=== PATIENT | female | born 1940 | race Caucasian/White ===

== ENCOUNTER 2016-06-06 12:38 | Inpatient (IN) | payer MEDICARE, OTHER ==
[~2016-06-06] VITALS: Ht 167.6 cm; Wt 68.3 kg
[2016-06-06] VITALS (15 sets, daily range): BP systolic 110–188; BP diastolic 51–86; PULSE 69–70; RESP 12–24; TEMP 97.6–98.3; O2SAT 90–98; Ht 167.6 cm; Wt 68.3 kg
[~2016-06-06 12:38] MED LIST: ALEN70TA48 PO; FURO20TA4 PO; LEVO150T9 PO; LISI-114 PO; METF500T4 PO; METO-279 PO; NORMAL SALINE 1,000 ML IV SCH; POTA20TA87 PO; WARF2.5T73 PO
--- NOTE | 2016-06-06 12:55 | NUR ---
ADMIT AMBULATORY TO ROOM 120 WITH FAMILY. O2 RA. PATIENT DOES NOT APPEAR TO BE IN ANY DISTRESS AT THIS TIME.
[2016-06-06] MEDS ORDERED: LISI10TA7 PO (13:33)
[2016-06-06 13:59] LABS: BASOPHILS % (AUTO) 0.3 % (0-2); EOSINOPHILS # (AUTO) 0.1 T/MM3 (0-0.5); HCT - HEMATOCRIT 45.1 % (36-46); HGB - HEMOGLOBIN 14.3 GM/DL (12-16); IMMATURE GRANULOCYTE # (AUTO) 0.01 T/MM3 (0.00-0.03); IMMATURE GRANULOCYTE % (AUTO) 0.3 % (0.0-0.5); LYMPHOCYTES # (AUTO) 0.6 T/MM3 (1-4.8); LYMPHOCYTES % (AUTO) 16.6 % (23-45); MEAN CORPUSCULAR HGB 26.9 UUG (26-34); MEAN CORPUSCULAR HGB CONC(MCHC 31.7 GM/DL (31-37); MEAN CORPUSCULAR VOLUME 84.8 UM3 (80-100); MEAN PLATELET VOLUME 11.2 UM3 (9.4-12.4); MONOCYTES # (AUTO) 0.7 T/MM3 (0-0.8); MONOCYTES % (AUTO) 19.1 % (0-9.0); NEUTROPHILS #(AUTO)-ABSOLUTE 2.2 T/MM3 (1.8-7.7); NEUTROPHILS % (AUTO) 61.7 % (33-66); RED BLOOD COUNT 5.32 M/MM3 (4.00-5.20); WBC - WHITE BLOOD COUNT 3.5 T/MM3 (4.5-11.0)
[2016-06-06 14:03] LABS: INR 1.24 (0.76-1.04); PROTHROMBIN TIME 13.5 SEC (9.31-12.49)
[2016-06-06 14:09] LABS: ANION GAP 12 MEQ/L (5-15); BUN/CREATININE RATIO 23 RATIO (6-26); CALCIUM 8.4 MG/DL (8.4-10.2); CHLORIDE 104 MEQ/L (98-107); CO2 - CARBON DIOXIDE 25 MEQ/L (22-30); CREATININE 0.7 MG/DL (0.7-1.2); GLOMERULAR FILTRATION RATE 82; GLUCOSE 79 MG/DL (65-110); SODIUM 141 MEQ/L (134-144)
--- NOTE | 2016-06-06 14:20 | NUR ---
CM THIS WORKER MET WITH PT AT THIS TIME. PT LAYING IN BED. SISTER AND BROTHER IN LAW AT BEDSIDE. PT REPORTED LIVING WITH SON IN [place]. DENIED NEEDS AT THIS TIME. PLANNING TO RETURN HOME. HAS BEEN TAKING MEDICATIONS. SON WILL PLAN TO TRANSPORT HOME AFTER PROCEDURE. THIS WORKER LEFT CONTACT INFORMATION FOR PT AND ENCOURAGED PT TO CONTACT THIS WORKER WITH ANY NEEDS.
[2016-06-06] MEDS ORDERED: WATER FOR INJECTION 20 ML ONE (16:05)
[2016-06-06] MEDS ORDERED: CEFAZOLIN 1 GRAM INJECTION ONE (16:05)
[2016-06-06] MEDS ORDERED: MIDAZOLAM 5mg/5ml INJECTION ONE (16:06)
[2016-06-06] MEDS ORDERED: FENTANYL 100mcg/2ml INJECTION ONE (16:06)
[2016-06-06] MEDS ORDERED: SALINE FLUSH 10ml SYRINGE ONE (16:06)
[2016-06-06] MEDS ORDERED: LIDOCAINE 1% (10mg/ml) 30ml SDV ONE (16:07)
[2016-06-06] MEDS ORDERED: BACITRACIN INJ. 50,000 UNITS VL ONE (16:07)
--- NOTE | 2016-06-06 16:15 | NUR ---
OFF UNIT OFF UNIT VIA CART WITH CUT OFF SAW OPERATOR STAFF FOR PROCEDURE. O2 RA. IVF INFUSING AT 75 ML/HR. FAMILY ACCOMPANIED TO CUT OFF SAW OPERATOR WAITING AREA.
[2016-06-06] MEDS ORDERED: MAG-AL + SIM LIQUID 30 ML UDC PO PRN (16:45)
[2016-06-06] MEDS ORDERED: BISACODYL 5 MG E.C. TABLET PO PRN (16:45)
[2016-06-06] MEDS ORDERED: ACETAMINOPHEN 325 MG TABLET PO PRN (16:45)
--- NOTE | 2016-06-06 17:15 | NUR ---
RETURN TO UNIT RETURN TO UNIT VIA CART FROM CHARTERED WEALTH MANAGER. PATIENT ASSISTED OFF CART WITH NURSING STAFF X2. PATIENT AMBULATES TO BATHROOM THEN BACK TO BED WITH ASSIST X2 FROM NURSING STAFF. O2 2L PER NC. IV LOCK IN PLACE. FAMILY AT BEDSIDE. DRESSING TO RIGHT CHEST CLEAN, DRY AND INTACT. DENIES PAIN AT INCISION SITE. DENIES OTHER NEEDS AT THIS TIME. CALL LIGHT WITHIN REACH, SIDE RAILS UP X2, BED ALARM ACTIVATED.
[2016-06-06] MEDS: CEFAZOLIN 1 G in NORMAL SALINE 100 ML IV SCH (19:24)
[2016-06-07] VITALS (9 sets, daily range): BP systolic 145–182; BP diastolic 65–79; PULSE 68–78; RESP 18–30; TEMP 97.7–98.9; O2SAT 90–97
--- NOTE | 2016-06-07 02:34 | NUR ---
Chart Check 24 hour chart check completed
[2016-06-07] MEDS: CEFAZOLIN 1 G in NORMAL SALINE 100 ML IV SCH (02:43)
--- NOTE | 2016-06-07 05:32 | NUR ---
shift summary pt has slept off and on during the night, pt states she has to void "about every hour" while at home. pt doing the same while here as well. "my best sleep is from 5am-7am". pt on 1.5L o2 via nc with o2 sats in low 90s. pt up with assist x one to br. hob elevated to 30 degrees. ivl in left forearm. telemetry is 100% paced. dressing to left upper chest c/d/i. bed locked and low, bed alarm on. call light within reach. will continue to monitor. Addendum: 06/07/16 at 0540 by DAVID VUONG RN pt denies pain/n/v/soa.
--- NOTE | 2016-06-07 08:24 | DI ---
INDICATION: ITS.REASON: PPM PROCEDURE: CHEST 2-VIEWS UPRIGHT (PA \T\ LAT) Encounter: Initial COMPARISON: June 06, 2016 at 1733 FINDINGS: Left cardiac pacemaker defibrillator with right atrial, right ventricular and coronary sinus leads appear intact. No visible pneumothorax. Mild interstitial prominence similar to the comparison study. No new consolidative process. Heart size and mediastinal contours are unchanged. Pulmonary vascularity is stable. Impression: Stable appearance of the left cardiac pacemaker without evidence of complication. .
--- NOTE | 2016-06-07 08:30 | NUR ---
FALL PATIENT IN RESTROOM WITH NURSE SERGO DERAS AT THIS TIME. PATIENT STATES SHE TURNED AROUND WHILE STANDING IN FRONT OF THE TOILET TO PULL DOWN HER PANTS AND SHE LOST HER FOOTING AND FELL. NURSE SERGO DERAS CALLED THIS RN INTO PATIENT'S BATHROOM. THIS RN SAW PATIENT ON FLOOR WITH MAIA HIGHTOWER AT PATIENT'S SIDE. PATIENT DID NOT HAVE A GAIT BELT ON. PATIENT STATES SHE DID NOT HIT HER HEAD. PATIENT STATES SHE FELL ON HER LEFT HIP AND THAT HER LEFT HIP IS "SORE". WITH ASSISTANCE OF FOUR NURSING STAFF, PATIENT ASSISTED FROM BATHROOM FLOOR TO FEET. PATIENT VOIDED WHILE IN RESTROOM. THIS RN NOTED HEMATURIA IN THE HAT. PATIENT'S URINE WAS PREVIOUSLY CLEAR YELLOW. PATIENT FAVORING RIGHT LEG. THIS RN INQUIRED WHETHER IT WAS LEFT HIP OR RIGHT HIP THAT WAS "SORE". PATIENT STATES AGAIN THAT IT IS HER LEFT LEG. VITALS OBTAINED WHEN PATIENT WAS BACK TO BED. PATIENT SLIGHTLY HYPERTENSIVE. PATIENT STATES SHE IS NERVOUS FROM THE FALL. KENNETH VARGAS APRN NOTIFIED OF PATIENT'S FALL AND HEMATURIA. NEW ORDERS RECEIVED. WILL CONTINUE TO MONITOR.
--- NOTE | 2016-06-07 08:38 | DI ---
Indication: ITS.REASON: PPM PROCEDURE: CHEST 1 VIEW: Encounter: Initial Comparison: July 30, 2012 Findings: Left triple lead cardiac pacemaker defibrillator is again seen. No evidence of lead fracture or discontinuity. No visible pneumothorax. Chronic interstitial markings in the lungs could be due to pulmonary fibrosis or vascular congestion. Heart size and mediastinal contours are stable. Impression: No pneumothorax. .
--- NOTE | 2016-06-07 10:01 | DI ---
Indication: ITS.REASON: FALL with left hip pain PROCEDURE: PELVIS W/ 2 VIEW BILAT. HIPS: Encounter: Initial Comparison: None Findings: AP pelvis: There is a minimally displaced and impacted fracture of the subcapital left femoral neck better seen on the dedicated left hip views. No additional acute fracture or dislocation seen. Bony demineralization. Mild degenerative change in the visualized lower lumbar spine with chronic compression deformities. AP and frog-leg lateral views of the left hip: Minimally impacted and slightly displaced fracture of the subcapital left femoral neck. No additional acute fracture or dislocation seen. AP and frog-leg lateral views of the right hip: There is no acute fracture, dislocation or malalignment identified. Impression: Closed posttraumatic left femoral neck fracture. .
[2016-06-07] MEDS: MINOCYCLINE 100 MG CAPSULE PO SCH ×2 (10:05→21:29)
--- NOTE | 2016-06-07 10:09 | DI ---
Indication: ITS.REASON: hematuria, post fall PROCEDURE: CT ABD/PELVIS W/O CONTRAST: Encounter: Initial Comparison: Pelvis and hip radiographs from the same time and CT lumbar spine dated October 22, 2014 Technique: Axial CT images were performed through the abdomen and pelvis without intravenous contrast. Coronal and sagittal two-dimensional reformats. Automated Exposure Control and Iterative Reconstruction dose reducing techniques were utilized. Findings: Fibrosis in the lung bases with groundglass opacities suggesting mild vascular congestion, edema or atypical infection. Very nodular cirrhotic liver with atrophy of the left lobe. There is also pneumobilia present in the left lobe that could relate to prior biliary intervention such as an ERCP. The spleen is not enlarged. Pancreas is grossly normal. The adrenal glands are normal. Unenhanced kidneys show no stone disease or gross hydronephrosis. Splenic artery calcifications. Possibly duplicated right renal collecting system. No ureteral stones seen. The bladder appears normal. No significant free pelvic fluid. No evidence of a bowel obstruction. Moderate stool in the colon. There is some edema in the left lower abdomen and flank subcutaneous tissues probably due to recent trauma. There is also some edema within the left hip and gluteal musculature probably due to contusion. No free intraperitoneal air seen. Bone windows show a left femoral neck fracture as seen on the comparison radiographs. No additional displaced fracture seen. Chronic appearing right lateral and posterior lower rib fractures. Multiple old compression fractures involving T12 and L3 through L5. Impression: 1. Left femoral neck fracture. No acute intraabdominal or pelvic hemorrhage. 2. Severe cirrhosis. .
--- NOTE | 2016-06-07 11:32 | PNPDOC ---
BOUBACAR ARELLANO PIGSKIN TRIMMER 06/07/16 1111: Subjective Date DATE: 06/07/16 TIME: 11:06 Subjective Maryann is a 75 y/o female well known to Dr. Ochoa. She was admitted 06/06/16 for a generator change of her permanent pacemaker. This morning, she was up in the bathroom and fell. Did not hit her head or lose consciousness. Was able to get up and walk back to bed. Was not having any palpitations or dizziness at that time. Objective Vital Signs Vital signs Vital Signs 06/07/16 06/07/16 06/07/16 00:00 04:11 08:00 Temp 97.7 98.9 97.7 Pulse 70 69 69 Resp 27 22 30 B/P 164/70 145/65 148/65 Pulse Ox 94 91 92 O2 Delivery Nasal Cannula Nasal Cannula Nasal Cannula O2 Flow Rate 1.50 1.50 1.50 Telemetry Rhythm: Vpaced Height (Feet): 5 Height (Inches): 6.00 Weight (Kilograms): 64.700 General Alert, Orientated x 3, Cooperative Eyes (Brief) EOMI ENMT (Brief) mucosa moist Neck (Brief) NOT FOUND: JVD, carotid bruits Respiratory (Brief) clear all crump, equal bilaterally, NOT FOUND: rales, wheezes Cardiovascular (Brief) murmur (2/6 systolic), regular rhythm, NOT FOUND: pedal edema, peripheral edema Abdomen (Brief) BS normo active x4, soft, NOT FOUND: distended, tender Extremities (Brief) Extremity : Extremity Finding: NOT FOUND: edema Integumentary (Brief) dry, pink, warm Neurologic (Brief) NOT FOUND: facial droop Laboratory Laboratory Laboratory Tests Test 06/06/16 13:37 White Blood Count 3.5T/MM3 Red Blood Count 5.32M/MM3 Hemoglobin 14.3GM/DL Hematocrit 45.1% Mean Corpuscular Volume 84.8UM3 Mean Corpuscular Hemoglobin 26.9UUG Mean Corpuscular Hemoglobin Concent 31.7GM/DL RDW Standard Deviation 49.8FL Platelet Count 127T/MM3 Mean Platelet Volume 11.2UM3 Immature Granulocyte % (Auto) 0.3% Neutrophils (%) (Auto) 61.7% Lymphocytes (%) (Auto) 16.6% Monocytes (%) (Auto) 19.1% Eosinophils (%) (Auto) 2.0% Basophils (%) (Auto) 0.3% Absolute Immature Granulocyte (auto 0.01T/MM3 Absolute Neutrophils (auto) 2.2T/MM3 Absolute Lymphocytes (auto) 0.6T/MM3 Absolute Monocytes (auto) 0.7T/MM3 Absolute Eosinophils (auto) 0.1T/MM3 Absolute Basophils (auto) 0.0T/MM3 Prothromb Time International Ratio 1.24 Turbidity < 20 Sodium Level 141MEQ/L Potassium Level 4.0MEQ/L Chloride Level 104MEQ/L Carbon Dioxide Level 25MEQ/L Anion Gap 12MEQ/L Blood Urea Nitrogen 16.0MG/DL Creatinine 0.7MG/DL Glomerular Filtration Rate Calc 82 BUN/Creatinine Ratio 23RATIO Glucose Level 79MG/DL Calculated Osmolality 271MOSM/KG Calcium Level 8.4MG/DL Icterus Index < 2 Chemistry Specimen Hemolysis < 15 Laboratory Tests 06/06/16 13:37 Laboratory Tests 06/06/16 13:37 Medications Current Medications Medications (Trade) Dose Ordered Sig/Galo Start Time Stop Time Status Last Admin Dose Admin Sodium Chloride (Normal Saline IV) 1,000 ml @ 75 mls/hr [id number] 06/06/16 10:00 06/06/16 18:10 DC 06/06/16 13:41 75 MLS/HR Al Hydroxide/Mg Hydroxide 30 ml 30 ml Q3H PRN 06/06/16 16:45 Cefazolin Sodium/ Sodium Chloride (Kefzol/NS) 100 ml @ 200 mls/hr Q8H 06/06/16 16:45 06/07/16 01:14 DC 06/07/16 02:43 200 MLS/HR Acetaminophen (Tylenol Regular Strength) 650 mg Q4H PRN 06/06/16 16:45 Acetaminophen/ Codeine Phosphate (Tylenol #3) prn Q4H PRN 06/06/16 16:45 Minocycline HCl (Minocin) 100 mg BID 06/07/16 09:00 06/14/16 08:59 06/07/16 10:05 100 MG Bisacodyl (Dulcolax) prn DAILY PRN 06/06/16 16:45 Radiology [place], [place] [address] Name: MARYANN DURON Unit #: [id number] Signed Page 2 of 2 DIAGNOSTIC IMAGING REPORT Report #: [id number] Dictated By: PETER ADAMS MD 06/07/16 0958 Signed date/time: 06/07/161004 Transcribed By: TRANSCRIPT PHU 06/07/161000 cc: MAURICIO OCHOA MD [address] [address] [phone] Dictated By: PETER ADAMS MD 06/07/16 0958 Signed date/time: 06/07/161004 Transcribed By: TRANSCRIPT EvochaJACKIE 06/07/161000 cc: MAURICIO OCHOA MD DATE OF EXAM: 06/07/16 ORDERING DOCTOR: KENNETH VARGAS APRN TYPE OF EXAM: CT ABD/PELVIS W/O CONTRAST REASON FOR EXAM: hematuria, post fall Indication: ITS.REASON: hematuria, post fall PROCEDURE: CT ABD/PELVIS W/O CONTRAST: Encounter: Initial Comparison: Pelvis and hip radiographs from the same time and CT lumbar spine dated October 22, 2014 Technique: Axial CT images were performed through the abdomen and pelvis without intravenous contrast. Coronal and sagittal two-dimensional reformats. Automated Exposure Control and Iterative Reconstruction dose reducing techniques were utilized. Findings: Fibrosis in the lung bases with groundglass opacities suggesting mild vascular congestion, edema or atypical infection. Very nodular cirrhotic liver with atrophy of the left lobe. There is also pneumobilia present in the left lobe that could relate to prior biliary intervention such as an ERCP. The spleen is not enlarged. Pancreas is grossly normal. The adrenal glands are normal. Unenhanced kidneys show no stone disease or gross hydronephrosis. Splenic artery calcifications. Possibly duplicated right renal collecting system. No ureteral stones seen. The bladder appears normal. No significant free pelvic fluid. No evidence of a bowel obstruction. Moderate stool in the colon. There is some edema in the left lower abdomen and flank subcutaneous tissues probably due to recent trauma. There is also some edema within the left hip and gluteal musculature probably due to contusion. No free intraperitoneal air seen. Bone windows show a left femoral neck fracture as seen on the comparison radiographs. No additional displaced fracture seen. Chronic appearing right lateral and posterior lower rib fractures. Multiple old compression fractures involving T12 and L3 through L5. Impression: 1. Left femoral neck fracture. No acute intraabdominal or pelvic hemorrhage. 2. Severe cirrhosis. . DATE OF EXAM: 06/07/16 ORDERING DOCTOR: KENNETH VARGAS APRN TYPE OF EXAM: PELVIS W/ 2 VIEW BILAT. HIPS REASON FOR EXAM: FALL Indication: ITS.REASON: FALL with left hip pain PROCEDURE: PELVIS W/ 2 VIEW BILAT. HIPS: Encounter: Initial Comparison: None Findings: AP pelvis: There is a minimally displaced and impacted fracture of the subcapital left femoral neck better seen on the dedicated left hip views. No additional acute fracture or dislocation seen. Bony demineralization. Mild degenerative change in the visualized lower lumbar spine with chronic compression deformities. AP and frog-leg lateral views of the left hip: Minimally impacted and slightly displaced fracture of the subcapital left femoral neck. No additional acute fracture or dislocation seen. AP and frog-leg lateral views of the right hip: There is no acute fracture, dislocation or malalignment identified. Impression: Closed posttraumatic left femoral neck fracture. DATE OF EXAM: 06/07/16 ORDERING DOCTOR: KENNETH VARGAS APRN TYPE OF EXAM: CHEST, PA & LATERAL REASON FOR EXAM: PPM INDICATION: ITS.REASON: PPM PROCEDURE: CHEST 2-VIEWS UPRIGHT (PA \T\ LAT) Encounter: Initial COMPARISON: June 06, 2016 at 1733 FINDINGS: Left cardiac pacemaker defibrillator with right atrial, right ventricular and coronary sinus leads appear intact. No visible pneumothorax. Mild interstitial prominence similar to the comparison study. No new consolidative process. Heart size and mediastinal contours are unchanged. Pulmonary vascularity is stable. Impression: Stable appearance of the left cardiac pacemaker without evidence of complication. Assessment & Plan Problems: (1) Presence of cardiac pacemaker Status: Chronic Assessment & Plan: pt admitted 06/06/16 and had PPM generator change. Site w/o drainage or palpable hematoma. (2) Chronic systolic (congestive) heart failure Status: Chronic Assessment & Plan: 06/07/16 Stable on current meds (3) Cardiomyopathy Status: Chronic Qualifiers: Cardiomyopathy type: unspecified Qualified Codes: I42.9 - Cardiomyopathy, unspecified Assessment & Plan: stable on current meds (4) PAF (paroxysmal atrial fibrillation) Status: Chronic Assessment & Plan: 06/07/16 off warfarin for PPM generator change; will resume when ok with ortho (5) Fracture of left hip Status: Acute Qualifiers: Encounter type: initial encounter Fracture type: closed Qualified Codes: S72.002A - Fracture of unspecified part of neck of left femur, initial encounter for closed fracture Assessment & Plan: 06/07/16 Dr Li consulted to manage left hip fracture. (6) Liver cirrhosis Status: Chronic Qualifiers: Hepatic cirrhosis type: unspecified hepatic cirrhosis Ascites presence: without ascites Qualified Codes: K74.60 - Unspecified cirrhosis of liver Assessment & Plan: 06/07/16 CT abdomen refers to liver cirrhosis. LFTs ordered. Ortho aware so can assess bleeding/clotting. Dr. Zhang is her PCP; notified of fracture; will have him manage all non cardiac/non ortho issues. (7) HTN (hypertension) Status: Chronic Qualifiers: Hypertension type: essential hypertension Qualified Codes: I10 - Essential (primary) hypertension Assessment & Plan: continue to monitor; adjust meds as indicated. (8) Diabetes mellitus, type 2 Status: Chronic Assessment & Plan: Dr. Zhang to manage Plan/Intensity of Service 06/07/16 pt admitted 06/06/16 and had PPM generator change. Site w/o drainage or palpable hematoma. CHF stable on current meds. Off warfarin for generator change. Resume when ok with ortho. Dr Li consulted to manage left hip fracture.CT abdomen refers to liver cirrhosis. LFTs ordered. Ortho aware so can assess bleeding/clotting. Dr. Zhang is her PCP; notified of fracture; will have him manage all non cardiac/non ortho issues. KENNETH VARGSA PIGSKIN TRIMMER 06/07/16 1451: Assessment & Plan Problems: (1) Fracture of left hip Status: Acute Qualifiers: Encounter type: initial encounter Fracture type: closed Qualified Codes: S72.002A - Fracture of unspecified part of neck of left femur, initial encounter for closed fracture (2) Hematuria Status: Resolved (3) Liver cirrhosis Status: Chronic Qualifiers: Hepatic cirrhosis type: unspecified hepatic cirrhosis Ascites presence: without ascites Qualified Codes: K74.60 - Unspecified cirrhosis of liver (4) Presence of cardiac pacemaker Status: Chronic (5) PAF (paroxysmal atrial fibrillation) Status: Chronic (6) Cardiomyopathy Status: Chronic Qualifiers: Cardiomyopathy type: unspecified Qualified Codes: I42.9 - Cardiomyopathy, unspecified (7) HTN (hypertension) Status: Chronic Qualifiers: Hypertension type: essential hypertension Qualified Codes: I10 - Essential (primary) hypertension (8) Diabetes mellitus, type 2 Status: Chronic (9) Chronic systolic (congestive) heart failure Status: Chronic Plan/Intensity of Service Generator change incision site dressing removed, incision is clean and dry. Patient has no history of CAD and is cleared from Cardiology to proceed with hip fracture repair per Ortho team. MAURICIO OCHOA MD 06/13/16 1451: Assessment & Plan Plan/Intensity of Service After examining the patient I agree with the above assessment. I am involved in the formulation of the patient's plan of care. BOUBACAR ARELLANO APRN Jun 07, 2016 11:11 KENNETH VARGAS APRN Jun 07, 2016 14:51 MAURICIO OCHOA MD Jun 13, 2016 14:51
--- NOTE | 2016-06-07 11:45 | NUR ---
BARBOSA INSERTION 16 F BARBOSA INSERTED BY THIS RN UNDER STERILE TECHNIQUE. PATIENT DOES NOT C/O PAIN DURING INSERTION. IMMEDIATE RETURN OF CLOUDY RED/BROWN URINE WITH OCCASIONAL CLOTS. THIS RN SPOKE WITH KENNETH VARGAS APRN AFTER INSERTION ABOUT GETTING A UA. VERBAL ORDER OBTAINED. 10 CC OF SALINE USED TO INFLATE BALLOON. CATH SECURE USED TO SECURE BARBOSA. WILL CONTINUE TO MONITOR.
--- NOTE | 2016-06-07 12:24 | CONSPD ---
Consultation Info Date DATE: 06/07/16 TIME: 11:50 Attending Physician Kirstie Li MD Reason for Consultation: Left hip subcapital, posteriorly displaced, closed femoral neck fracture Impression/Recommendation Impression/Recommendation: (1) Fracture of left hip Status: Acute Qualifiers: Encounter type: initial encounter Fracture type: closed Qualified Codes: S72.002A - Fracture of unspecified part of neck of left femur, initial encounter for closed fracture Recommendation: the subcapital femoral neck fracture is posteriorly displaced and angulated. Recommendation is left endoprosthesis keep NPO for now. OR scheduling may not allow surgery today. Given she ate a full meal, soonest possible time is 16:00. Likely surgery tomorrow. PTT, PT to eval for bleeding tendencies given cirrhosis AST and ALT's ordered by Cardiology already Dr. Duckworth to see and evaluate for pre operative clearance. Opinion on respiratory status appreciated. CXR taken. Risks and benefits of the recommended procedure were discussed with the patient and/or patient's legal account executive sales representative. They include: infection, nerve damage, artery damage, stroke, NV, PE, DVT, ileus, continued pain, or risk that the injury may not heal despite surgery. There are also medical risks of anesthesia. Risks are not limited to the above mentioned alone. Ortho HPI HPI Elements HPI This is a 75 year old female who is admitted to Dr Moore's service as an outpatient for a pacemaker battery exchange which was completed uneventfully. She ate a full breakfast this morning at 0800. She fell in the bathroom this AM resulting in left hip pain. She did ambulated back to her bed. She presently has minimal pain on the lateral left hip, but denies overt left groin pain. Pain is worse with weightbearing, better with rest and immobility. X rays of her pelvis and hips were completed by the Cardiology service who were contacted after she fell. Cardiology has also consulted her PCP, Dr Duckworth, for further evaluation of hematuria noted in the urinal "hat'. CT of her pelvis was ordered as well. X-ray and CT show a left subcapital, posteriorly displaced femoral neck fracture. The patient takes Warfarin for A-fib. This has been on hold for her pacemaker battery exchange. Current INR is 1.23. Cardiology service has indicated she has no known CAD, but does have tricuspid valve insufficiency. Prior to the hospitalization for her outpatient procedure she noted a one week onset of an URI. She does not use O2 at home, but review of vitals show tachypnea and she is presently on 1.5 liters via NC. In addition CT of abdomen and pelvis shows "severe cirrhosis". The patient denies present or emt intermediate alcohol or tobacco use. Review of Systems Constitutional: DENIES: weight gain, weight loss Cardiovascular dyspnea on exertion (worse recently with URI), DENIES: chest pain Rhythm/Rate: irregular beat (A fib), DENIES: palpitations Vascular: DENIES: intermittent claudication, unilateral swelling Pulmonary Respiratory: cough, dyspnea, tachypnea (with recent URI) GI Upper Abdomen: DENIES: dysphagia, hematemesis Lower Abdomen: DENIES: pain General: hematuria (as per history and recent nursing note), DENIES: dysuria, frequency, urgency Musculoskeletal General: joint pain (left hip), pain (left hip) Integumentary Skin: itching, rash (left ingunial fold) Neurological General: DENIES: fainting, headache, numbness Endocrine DENIES: heat/cold intolerance Hematologic/Lymphatic DENIES: anemia Past Medical History Adult Past Medical History Patient History: (1) Liver cirrhosis (2) PAF (paroxysmal atrial fibrillation) (3) Cardiomyopathy (4) HTN (hypertension) (5) Diabetes mellitus, type 2 (6) Presence of cardiac pacemaker (7) Chronic systolic (congestive) heart failure (8) Fracture of left hip Surgical History Patient's Surgical History: cholecystecomy, pacemaker Current Medications Alendronate Sodium (Alendronate Sodium) 70 Mg Tablet, 1 TAB PO WEEKLY, (Reported ) Last Taken: Unknown Dose on 06/03/16 0000 Furosemide (Furosemide) 20 Mg Tablet, 1 TAB PO DAILY PRN for EDEMA, (Reported) Last Taken: Unknown Dose on 05/30/16 0800 Levothyroxine Sodium ( Levothyroxine Sodium) 150 Mcg Tablet, 150 MCG PO DAILY, (Reported) Last Taken: Unknown Dose on 06/06/16 0500 Lisinopril (Lisinopril) 10 Mg Tablet, 10 MG PO DAILY, (Reported) Last Taken: Unknown Dose on 06/06/16 0800 Metformin HCl (Metformin HCl) 500 Mg Tablet, 500 MG PO DAILY, (Reported) Take one tablet, by mouth, 2 times a day with Meals. Last Taken: Unknown Dose on 06/05/16 0600 Metoprolol Succinate (Metoprolol Succinate) 100 Mg Tab.er.24h, 1 TAB PO DAILY, (Reported) Last Taken: Unknown Dose on 06/06/16 0800 Potassium Chloride (Potassium Chloride) 20 Meq Tab.er.prt, 1 TAB PO DAILY PRN for WITH LASIX, (Reported) Last Taken: Unknown Dose on 05/30/16 0800 Warfarin Sodium (Warfarin Sodium) 2.5 Mg Tablet, 0.5 TAB PO DAILY, (Reported) Last Taken: Unknown Dose on 05/30/16 1700 Allergies Allergies: Coded Allergies: Heparin Analogues (Verified Allergy, Unknown, 06/06/16) Family History Family History: negative Vaccines No Social History Smoking Status: Never smoker Marital Status: Housing: house Current Occupational Status: retired Advance Directives: No DPOA for Healthcare Only Physical Exam General General: well nourished, well developed, no acute distress, other (shortness of breath and thus short sentences.) Respiratory FOUND other (labored as above) Cardiovascular FOUND pedal pulses intact Capillary Refill: <2 sec Abdomen Abdominal: FOUND other (round, soft, no rebound) Musculoskeletal Musculoskeletal Brief: Not FOUND: deformity Comments tender greater trochanter. negative log roll. Leg length is equal. Integumentary FOUND dry, FOUND pink, FOUND rash (left inguinal area), FOUND warm Neurologic FOUND intact to light touch Psychiatric FOUND alert, FOUND attentive, FOUND normal affect, FOUND oriented Laboratory Laboratory Tests Test 06/06/16 13:37 White Blood Count 3.5T/MM3 Red Blood Count 5.32M/MM3 Hemoglobin 14.3GM/DL Hematocrit 45.1% Mean Corpuscular Volume 84.8UM3 Mean Corpuscular Hemoglobin 26.9UUG Mean Corpuscular Hemoglobin Concent 31.7GM/DL RDW Standard Deviation 49.8FL Platelet Count 127T/MM3 Mean Platelet Volume 11.2UM3 Immature Granulocyte % (Auto) 0.3% Neutrophils (%) (Auto) 61.7% Lymphocytes (%) (Auto) 16.6% Monocytes (%) (Auto) 19.1% Eosinophils (%) (Auto) 2.0% Basophils (%) (Auto) 0.3% Absolute Immature Granulocyte (auto 0.01T/MM3 Absolute Neutrophils (auto) 2.2T/MM3 Absolute Lymphocytes (auto) 0.6T/MM3 Absolute Monocytes (auto) 0.7T/MM3 Absolute Eosinophils (auto) 0.1T/MM3 Absolute Basophils (auto) 0.0T/MM3 Prothromb Time International Ratio 1.24 Turbidity < 20 Sodium Level 141MEQ/L Potassium Level 4.0MEQ/L Chloride Level 104MEQ/L Carbon Dioxide Level 25MEQ/L Anion Gap 12MEQ/L Blood Urea Nitrogen 16.0MG/DL Creatinine 0.7MG/DL Glomerular Filtration Rate Calc 82 BUN/Creatinine Ratio 23RATIO Glucose Level 79MG/DL Calculated Osmolality 271MOSM/KG Calcium Level 8.4MG/DL Icterus Index < 2 Chemistry Specimen Hemolysis < 15 EDMUND VERA Jun 07, 2016 11:57
[2016-06-07 12:33] LABS: ALBUMIN 3.5 G/DL (3.5-5.0); ALBUMIN/GLOBULIN RATIO 0.8 RATIO (1.1-2.2); ALKALINE PHOSPHATASE 101 U/L (38-126); ALT (SGPT) 30 U/L (9-52); AST (SGOT) 47 U/L (14-36); TOTAL PROTEIN 7.8 G/DL (6.3-8.2)
[2016-06-07] MEDS ORDERED: MORPHINE SULFATE 10 MG SYRINGE IV PRN (12:45)
[2016-06-07] MEDS ORDERED: NOZIN NASAL SWAB NS PRN (12:45)
[2016-06-07] MEDS ORDERED: ONDANSETRON 4mg/2ml INJECTION IV PRN (12:45)
[2016-06-07] MEDS ORDERED: FUROSEMIDE 20 MG TABLET PO PRN (12:45)
[2016-06-07] MEDS ORDERED: CEFAZOLIN 2 GM VIAL IV ONE (12:45)
--- OUTSIDE RECORDS SUMMARY | 2016-06-07 12:58 | XMS REPORT | Continuity of Care Document ---
Author Author [facility] Organization [facility] Address Unknown Phone Unavailable Allergies Active Description Code Type Severity Reaction Onset Reported/Identified Relationship to Patient Clinical Status Yes No Known Allergies Drug Allergy N/A N/A 07/31/2012 Yes No Known Drug Allergies Drug Allergy N/A N/A 07/31/2012 Yes No Known Food Allergies Food Allergy N/A N/A 07/31/2012 Yes Heparin,Porcine Drug Allergy N/A Adverse Reaction 08/10/2012 Yes Heparin Analogues Drug Allergy N/A uNspecfied 08/11/2012 Medications Problems Date Dx Coded Attending Type Code Diagnosis Diagnosed By 07/31/2012 Eileen Davis MD Final 250.00 DM2/NOS UNCOMP NSU 07/31/2012 Eileen Davis MD Final 276.7 HYPERPOTASSEMIA 07/31/2012 Eileen Davis MD Final 397.0 TRICUSPID VALVE DISEASE 07/31/2012 Eileen Davis MD Final 401.9 HYPERTENSION NOS 07/31/2012 Eileen Davis MD Final 427.31 ATRIAL FIBRILLATION 07/31/2012 Eileen Davis MD Final 428.0 CHF NOS 07/31/2012 Eileen Davis MD Final 428.22 CHRONIC SYSTOLIC HF 07/31/2012 Eileen Davis MD Final 507.0 FOOD/VOMIT PNEUMONITIS 07/31/2012 Eileen Davis MD Final 511.9 PLEURAL EFFUSION NOS 07/31/2012 Eileen Davis MD Final 518.81 AC RESPIRATORY FAILURE 07/31/2012 Eileen Davis MD Final 571.5 LIVER CIRRHOSIS W/O ALC 07/31/2012 Eileen Davis MD Final 574.40 BD CALCULUS W CHOL NEC 07/31/2012 Eileen Davis MD Final 577.0 ACUTE PANCREATITIS 07/31/2012 Eileen Davis MD Admitting 786.05 SHORTNESS OF BREATH 07/31/2012 Eileen Davis MD Final V49.86 DNR STATUS 07/31/2012 Eileen Davis MD Final V64.41 LAPSCP PX CONVERTED OPEN 08/29/2012 Final 518.0 PULMONARY COLLAPSE 08/29/2012 Final 789.00 ABDOMINAL PAIN-SITE NOS 08/29/2012 Final V45.89 POSTSURGICAL STATES NEC 08/30/2012 Geoff Valentin MD Admitting 682.9 CELLULITIS NOS 08/30/2012 Geoff Valentin MD Final 789.00 ABDOMINAL PAIN-SITE NOS Procedures Code Description Performed By Performed On 34.91 THORACENTESIS Dick Quiroz MD, Dipak Mansfield 08/10/2012 51.85 ENDO SPHINCTOT/PAPILLOT Dick Quiroz MD, Dipak Mansfield 08/13/2012 51.88 ENDO RMVL BILIARY STONE Dikc Quiroz MD, Dipak Mansfield 08/13/2012 51.21 PART CHOLECYSTECTOMY NEC Dick Quiroz MD, Dipak Mansfield 08/14/2012 87.53 INTRAOP CHOLANGIOGRAM Dick Quiroz MD, Dipak Mansfield 08/14/2012 Results Encounters ACCT No. Visit Date/Time Discharge Status Pt. Type Provider Facility Loc./Unit Complaint [id number] 08/30/2012 05:45:00 2012 13:05:00 DIS Outpatient Geoff Valentin MD [facility] [address] J7E [id number] 07/31/2012 10:50:00 2012 19:05:00 DIS Inpatient Eileen Davis MD [facility] on [facility] F7SE [id number] 08/29/2012 14:34:00 Document Registration
--- OUTSIDE RECORDS SUMMARY | 2016-06-07 12:59 | XMS REPORT | Referral Summary ---
Author Author [facility] Organization [facility] Address Unknown Phone Unavailable Care Team Providers Care Marketing Director Assisted Living Name Role Phone Wanda Patterson Primary Care Physician [phone] Encounter VC Date(s): 01/16/16 - 01/18/16 [facility] [address] [place] [address] Discharge Disposition: 01-Home or Self Care Attending Physician: Judy Caraballo MD Admitting Physician: Judy Caraballo MD Vital Signs Most recent to 1 oldest [Reference Range]: Temperature Axillary 37.0 degC [35.2-36.7 degC] *HI* (01/17/16 7:00 AM) Temperature Oral 36.6 degC [35.8-37.3 degC] (01/18/16 11:00 AM) Temperature Rectal 39.0 degC [36.3-37.8 degC] *HI* (01/16/16 7:24 PM) Apical Heart Rate 69 bpm [60-100 bpm] (01/16/16 9:25 PM) Peripheral Pulse 70 bpm Rate [60-100 bpm] (01/18/16 11:00 AM) Heart Rate Monitored 70 bpm [60-100 bpm] (01/17/16 3:59 AM) Respiratory Rate 18 br/min [14-20 br/min] (01/18/16 11:00 AM) Blood Pressure 124/69 mmHg [90-140/60-90 mmHg] (01/18/16 11:00 AM) Mean Arterial 72 mmHg Pressure, Cuff (01/16/16 8:30 PM) SpO2 97 % (01/18/16 11:00 AM) Remote Telemetry Ongoing (01/18/16 9:00 AM) Problem List Condition Effective Dates Status Health Status Informant Diabetes(Confirmed) Active patient Tissue perfusion Active alteration(Confirmed )1 Urinary Active incontinence(Confirm ed)2 1Problem added automatically by system based on initiation of Tissue Perfusion Cerebral Plan of Care 2Problem added automatically by system based on initiation of Urinary Incontinence Plan of Care Allergies, Adverse Reactions, Alerts Substance Reaction Severity Status heparin Adverse Reaction Active Medications alendronate 70 mg oral tablet 70 mg 1 tabs, Oral, Sunday, 0 Refill(s) Start Date: 01/16/16 Status: Ordered ferrous sulfate 325 mg, Oral, Daily, 0 Refill(s) Start Date: 01/16/16 Status: Ordered Keflex 500 mg oral capsule 500 mg 1 caps, Oral, q8hr (scheduled), X 5 days, # 15 caps, 0 Refill(s) Start Date: 01/18/16 Stop Date: 01/23/16 Status: Ordered Lasix 20 mg oral tablet 20 mg 1 tabs, Oral, BID, # 60 tabs, 0 Refill(s) Start Date: 01/18/16 Stop Date: 02/17/16 Status: Ordered levothyroxine 150 mcg, Oral, Daily, 0 Refill(s) Start Date: 01/16/16 Status: Ordered lisinopril 5 mg, Oral, Daily, 0 Refill(s) Start Date: 01/16/16 Status: Ordered loperamide 2 mg, Oral, 5x/Day, Diarrhea/Loose Stools, 0 Refill(s) Start Date: 01/16/16 Status: Ordered metFORMIN 500 mg, Oral, Daily, 0 Refill(s) Start Date: 01/16/16 Status: Ordered warfarin 1.25 mg, Oral, Sun///, 0 Refill(s) Start Date: 01/16/16 Status: Ordered warfarin 2.5 mg, Oral, Sun//, 0 Refill(s) Start Date: 01/16/16 Status: Ordered Results Blood Gases Most recent to 1 oldest [Reference Range]: pH [7.35-7.45] 7.43 (01/16/16 9:55 PM) pCO2 Art [35-45 41 mmHg mmHg] (01/16/16 9:55 PM) Bicarbonate [22-26 26 mEq/L mEq/L] (01/16/16 9:55 PM) Base Excess Art 2 [0-2] (01/16/16 9:55 PM) O2 Sat Art 95.6 % [90.0-97.0 %] (01/16/16 9:55 PM) pO2 Art [80-100 76 mmHg mmHg] *LOW* (01/16/16 9:55 PM) LPM Art 3.0 L/min (01/16/16 9:55 PM) O2 Panel Nasal Cannula (01/16/16 9:55 PM) Spec Site Radial-L (01/16/16 9:55 PM) Hematology Most recent to 1 oldest [Reference Range]: WBC [4.8-10.8 9.3 10*3/uL 10*3/uL] (01/17/16 5:41 AM) RBC [4.00-5.20] 4.56 (01/17/16 5:41 AM) Hgb [12.0-16.0 13.2 gm/dL gm/dL] (01/17/16 5:41 AM) Hct [37.0-47.0 %] 40.7 % (01/17/16 5:41 AM) MCV [82.0-99.0 fL] 89.3 fL (01/17/16 5:41 AM) MCH [27.0-32.0 pg] 28.9 pg (01/17/16 5:41 AM) MCHC [32.0-36.0 32.4 gm/dL gm/dL] (01/17/16 5:41 AM) RDW [11.5-14.5 %] 14.3 % (01/17/16 5:41 AM) Platelet [150-400 154 10*3/uL 10*3/uL] (01/17/16 5:41 AM) MPV [9.4-12.4 fL] 10.2 fL (01/17/16 5:41 AM) Immature 0.2 % Granulocytes (01/17/16 5:41 AM) [0.0-1.0 %] Neutrophils [51-75 80 % %] *HI* (01/17/16 5:41 AM) Lymphocytes [20-46 6 % %] *LOW* (01/17/16 5:41 AM) Monocytes [4-11 %] 12 % *HI* (01/17/16 5:41 AM) Eosinophils [0-4 %] 1 % (01/17/16 5:41 AM) Basophils [0-2 %] 0 % (01/17/16 5:41 AM) Neutro Absolute 7.42 10*3 [1.90-7.00 10*3] *HI* (01/17/16 5:41 AM) Lymph Absolute 0.59 10*3 [0.80-3.30 10*3] *LOW* (01/17/16 5:41 AM) [place] Absolute 1.11 10*3 [0.30-1.00 10*3] *HI* (01/17/16 5:41 AM) Eos Absolute 0.13 10*3 [0.00-0.50 10*3] (01/17/16 5:41 AM) Baso Absolute 0.01 10*3 [0.00-0.20 10*3] (01/17/16 5:41 AM) Nucleated RBC 0.0 /100 WBC Automated [0 /100 (01/17/16 5:41 AM) WBC] Coagulation Most recent to 1 oldest [Reference Range]: INR [0.9-1.2] 4.7 1 *HHI* (01/18/16 6:29 AM) 1Result Comment: Critical value called, and read-back verified. Called to Priscila Wilson 01/18/2016 07:01 Chemistry Most recent to 1 oldest [Reference Range]: Sodium Lvl [136-144 134 mEq/L mEq/L] *LOW* (01/18/16 6:29 AM) Potassium Lvl 4.5 mEq/L [3.6-5.1 mEq/L] (01/18/16 6:29 AM) Chloride [99-109 99 mEq/L mEq/L] (01/18/16 6:29 AM) CO2 [22-32 mEq/L] 27 mEq/L (01/18/16 6:29 AM) AGAP [3-20] 8 (01/18/16 6:29 AM) BUN [4-20 mg/dL] 9 mg/dL (01/18/16 6:29 AM) Glucose Lvl [70-100 107 mg/dL mg/dL] *HI* (01/18/16 6:29 AM) Creatinine Lvl 0.85 mg/dL [0.44-1.03 mg/dL] (01/18/16 6:29 AM) eGFR [>60] >60 1 (01/18/16 6:29 AM) Calcium Lvl 7.8 mg/dL [8.6-10.0 mg/dL] *LOW* (01/18/16 6:29 AM) Albumin Lvl [3.5-4.8 2.4 gm/dL gm/dL] *LOW* (01/18/16 6:29 AM) Total Protein 6.7 gm/dL [6.1-7.9 gm/dL] (01/17/16 5:41 AM) Globulin [1.9-4.3 4.4 gm/dL gm/dL] *HI* (01/17/16 5:41 AM) ALT [14-54 U/L] 11 U/L *LOW* (01/17/16 5:41 AM) AST [15-41 U/L] 21 U/L (01/17/16 5:41 AM) Alk Phos [26-104 54 U/L U/L] (01/17/16 5:41 AM) Bili Total [0.2-1.2 0.8 mg/dL 2 mg/dL] (01/17/16 5:41 AM) Iron [50-170 mcg/dL] 20 mcg/dL *LOW* (01/17/16 5:41 AM) TIBC [286-569 237 mcg/dL mcg/dL] *LOW* (01/17/16 5:41 AM) Iron Sat [11-46 %] 8 % *LOW* (01/17/16 5:41 AM) Transferrin [192-382 159 mg/dL mg/dL] *LOW* (01/17/16 5:41 AM) Ferritin Lvl [11-307 173 ng/mL ng/mL] (01/17/16 5:41 AM) Magnesium Lvl 2.7 mg/dL [1.8-2.5 mg/dL] *HI* (01/18/16 6:29 AM) Phosphorus [2.4-4.7 2.4 mg/dL 3 mg/dL] (01/18/16 6:29 AM) BNP [0-99 pg/mL] 1014 pg/mL *HI* (01/17/16 5:41 AM) Troponin [<0.06 0.05 ng/mL ng/mL] (01/16/16 6:59 PM) Lactic Acid Lvl 1.7 mEq/L [0.5-2.2 mEq/L] (01/16/16 7:00 PM) 25-Hydroxy D2 <7 ng/mL (01/17/16 4:13 PM) 25-Hydroxy D3 15 ng/mL (01/17/16 4:13 PM) 25-Hydroxy D Total 15 ng/mL 4 [30-74 ng/mL] *LOW* (01/17/16 4:13 PM) Blood Glucose, 84 mg/dL Capillary [70-100 (01/18/16 11:34 AM) mg/dL] Chol [0-200 mg/dL] 60 mg/dL (01/17/16 5:41 AM) Trig [0-150 mg/dL] 39 mg/dL (01/17/16 5:41 AM) HDL [>40 mg/dL] 26 mg/dL *ABN* (01/17/16 5:41 AM) LDL [0-100 mg/dL] 26 mg/dL (01/17/16 5:41 AM) VLDL Cholesterol 8 mg/dL [0-30 mg/dL] (01/17/16 5:41 AM) Cardiac Risk 2.3 [0.0-5.0] (01/17/16 5:41 AM) T4 Free [0.6-1.1 1.1 ng/dL ng/dL] (01/17/16 5:41 AM) TSH with Reflex Free 6.22 T4 [0.35-5.50] *HI* (01/17/16 5:41 AM) Hgb A1c [4.1-5.6 %] 5.9 % *HI* (01/17/16 5:41 AM) eAvg Glucose 122.6 mg/dL (01/17/16 5:41 AM) 1Result Comment: Multiply eGFR results by 1.21 for race. 2Result Comment: Naproxen, specifically the metabolite O-desmethylnaproxen, may cause spurious elevation in Total Bilirubin levels. 3Result Comment: High dosages of liposomal Amphotericin B (AmBisome) therapy or other drug preparations that use a liposomal envelope to facilitate drug delivery may cause falsely elevated results for phosphorus. 4Result Comment: The desirable level of 25-Hydroxy Vitamin D Total(D2 + D3) is 30-74 ng/mL. A level consistently >200 is potentially toxic. Urinalysis Most recent to 1 oldest [Reference Range]: UA Color Yellow (01/16/16 6:58 PM) UA Appear Turbid *ABN* (01/16/16 6:58 PM) UA pH [5.0-8.0] 5.0 (01/16/16 6:58 PM) UA Leuk Est Pos 2+ [Negative] *ABN* (01/16/16 6:58 PM) UA Nitrite Positive [Negative] *ABN* (01/16/16 6:58 PM) UA Protein Pos 2+ [Negative] *ABN* (01/16/16 6:58 PM) UA Glucose Negative [Negative] (01/16/16 6:58 PM) UA Ketones Negative [Negative] (01/16/16 6:58 PM) UA Urobilinogen Negative [<1.0] (01/16/16 6:58 PM) UA Bili [Negative] Negative (01/16/16 6:58 PM) UA Blood [Negative] Pos 2+ *ABN* (01/16/16 6:58 PM) UA Spec Grav 1.015 [1.003-1.030] (01/16/16 6:58 PM) Type Catheter (01/16/16 6:58 PM) UA WBC [0-4 /HPF] >50 /HPF *ABN* (01/16/16 6:58 PM) UA RBC [0-2 /HPF] >50 /HPF *ABN* (01/16/16 6:58 PM) Epithelial Cells None Seen (01/16/16 6:58 PM) UA Bacteria Numerous *ABN* (01/16/16 6:58 PM) UA Mucous Present (01/16/16 6:58 PM) Microbiology Reports TEST: Blood Culture STATUS: Order in Progress BODY SITE: SOURCE: Blood COLLECTED DATE/TIME: 01/16/16 7:00 PM Blood Culture No growth after 12 hours incubation. Nursing unit will be called if growth is detected. - TEST: Blood Culture STATUS: Order in Progress BODY SITE: SOURCE: Blood COLLECTED DATE/TIME: 01/16/16 7:00 PM Blood Culture No growth after 12 hours incubation. Nursing unit will be called if growth is detected. - TEST: Urine Culture STATUS: Auth (Verified) BODY SITE: SOURCE: Urine COLLECTED DATE/TIME: 01/16/16 6:58 PM Urine Culture - - - - - - - Positive urine culture (even if >100,000 cfu/ml) without presence of symptoms does not require antibiotic treatment unless the patient is or undergoing urinary surgery. Please document as bacteriuria. Klebsiella pneumoniae >100,000 cfu/ml ORGANISM:Klebsiella pneumoniae Immunizations No data available for this section Procedures Procedure Date Related Diagnosis Body Site Arterial puncture, withdrawal of blood for 01/16/16 diagnosis Social History Social History Type Response Smoking Status Never smoker Assessment and Plan No data available for this section
--- OUTSIDE RECORDS SUMMARY | 2016-06-07 12:59 | XMS REPORT ---
Author Author [place], [facility] - Organization Unknown Address Unknown Phone Unavailable Allergies, Adverse Reactions, Alerts * Heparin Analogues causes uNspecfied. * Heparin,Porcine causes Adverse Reaction. * No Latex Allergy. * No IV Contrast Allergy. * No Known Food Allergies. Problems * Acute Pancreatitis* Status:Resolved. * Atrial Fibrillation* Status:Active. * Breathing Pattern Impairment* Status:Active. * Diabetes Mellitus* Status:Active. * Fluid Volume Impairment* Status:Resolved. * Pleural Effusion* Status:Active. * Skin Integrity Impairment Risk* Status:Active. * Tissue Perfusion Impairment* Status:Resolved. Procedures No Procedures Documented. Medication It is the responsibility of the patient or patient congressional representative to confirm the list of medications with either the patient's personal care provider or the patient's follow-up care provider to ensure the patient has an appropriate list of medications to take at home. Discharge medications* nitroglycerin (Nitrostat) 0.4 mg Tablet, Sublingual, Ordered By: Eileen Davis Directions: 1 tablet sublingual Q5MIN PRN _ ANGINA Additional Instructions: FOR CHEST PAIN GIVE ONE TAB UNDER THE TONGUE EVERY 5 MIN X3. IF NO RELIEF NOTIFY MD * omeprazole 20 mg Capsule, Delayed Release(E.C.), Ordered By: Eileen Davis Directions: 1 capsule oral daily before breakfast GERD Additional Instructions: LIQUID AVAILABLE IF PT NOT ABL TO SWALLOW OR HAS FEEDING TUBE * levothyroxine 75 mcg Tablet, Ordered By: Eileen Davis Directions: 2 tablet oral Daily at 10 AM _ * diltiazem HCl 240 mg Capsule, Ext Release 24 hr, Ordered By: Eileen Davis Directions: 1 capsule oral daily * aspirin (Aspir-Low) 81 mg Tablet, Delayed Release (E.C.), Ordered By: Eileen Davis Directions: 1 tablet oral Daily at 8 AM _ * metoprolol succinate 50 mg Tablet Extended Release 24 hr, Ordered By: Eileen Davis Directions: 1.5 tablet oral daily * metFORMIN 500 mg Tablet, Ordered By: Eileen Davis Directions: 1 tablet oral daily * lisinopril 5 mg Tablet, Ordered By: Eileen Davis Directions: 1 tablet oral daily * warfarin 2.5 mg Tablet, Ordered By: Eileen Davis Directions: 1 tablet oral every , Sunday * warfarin 2.5 mg Tablet, Ordered By: Eileen Davis Directions: 0.5 tablet oral every Sunday, Sunday, Sunday, Sunday, Sunday * HYDROcodone-acetaminophen 5 mg-325 mg Tablet, Ordered By: Eileen Davis Directions: 1-2 TABS oral every four hours PRN MODERATE PAIN * f/u with DR COHEN ON 08/22/12 * F/U WITH PCP IN [facility] IN 2 WEEKS * 2L OF O2 Q HS CONTENUOUS DURING SLEEP * ACCUE CHECKS FASTING AND 2 HR PC Stopped medications* Stopped Medication: Macrobid 100 mg capsule 1 capsule oral twice a day for 14 days; Finished Therapy: 07/17/12 * carvedilol (Coreg) 6.25 mg Tablet Directions: 1 tablet oral twice a day Results LAB--BEDSIDE TESTING from 07/31/2012 12:43 PMGlucose NPT 166 mg/dL H (70-100 mg/ dL) LAB--BEDSIDE TESTING from 07/31/2012 8:11 PMGlucose NPT 185 mg/dL H (70-100 mg/ dL) LAB--BEDSIDE TESTING from 08/01/2012 3:33 PMGlucose NPT 124 mg/dL H (70-100 mg/ dL) LAB--BEDSIDE TESTING from 08/02/2012 4:59 PMGlucose NPT 189 mg/dL H (70-100 mg/ dL) LAB--BEDSIDE TESTING from 08/02/2012 11:43 PMGlucose NPT 169 mg/dL H (70-100 mg/ dL) LAB--BEDSIDE TESTING from 08/03/2012 5:34 AMGlucose NPT 130 mg/dL H (70-100 mg/ dL) LAB--BEDSIDE TESTING from 08/03/2012 10:59 AMGlucose NPT 159 mg/dL H (70-100 mg/ dL) LAB--BEDSIDE TESTING from 08/03/2012 3:35 PMGlucose NPT 213 mg/dL H (70-100 mg/ dL) LAB--BEDSIDE TESTING from 08/03/2012 9:16 PMGlucose NPT 244 mg/dL H (70-100 mg/ dL) LAB--BEDSIDE TESTING from 08/04/2012 5:19 AMGlucose NPT 105 mg/dL H (70-100 mg/ dL) LAB--BEDSIDE TESTING from 08/04/2012 10:54 AMGlucose NPT 135 mg/dL H (70-100 mg/ dL) LAB--BEDSIDE TESTING from 08/04/2012 4:26 PMGlucose NPT 187 mg/dL H (70-100 mg/ dL) LAB--BEDSIDE TESTING from 08/04/2012 8:20 PMGlucose NPT 215 mg/dL H (70-100 mg/ dL) LAB--BEDSIDE TESTING from 08/05/2012 4:59 AMGlucose NPT 152 mg/dL H (70-100 mg/ dL) LAB--BEDSIDE TESTING from 08/05/2012 10:27 AMGlucose NPT 247 mg/dL H (70-100 mg/ dL) LAB--BEDSIDE TESTING from 08/05/2012 2:21 PMGlucose NPT 183 mg/dL H (70-100 mg/ dL) LAB--BEDSIDE TESTING from 08/05/2012 8:48 PMGlucose NPT 269 mg/dL H (70-100 mg/ dL) LAB--BEDSIDE TESTING from 08/06/2012 5:12 AMGlucose NPT 129 mg/dL H (70-100 mg/ dL) LAB--BEDSIDE TESTING from 08/06/2012 10:33 AMGlucose NPT 268 mg/dL H (70-100 mg/ dL) LAB--BEDSIDE TESTING from 08/06/2012 2:11 PMGlucose NPT 179 mg/dL H (70-100 mg/ dL) LAB--BEDSIDE TESTING from 08/06/2012 9:37 PMGlucose NPT 199 mg/dL H (70-100 mg/ dL) LAB--BEDSIDE TESTING from 08/07/2012 6:01 AMGlucose NPT 139 mg/dL H (70-100 mg/ dL) LAB--BEDSIDE TESTING from 08/07/2012 10:15 AMGlucose NPT 235 mg/dL H (70-100 mg/ dL) LAB--BEDSIDE TESTING from 08/07/2012 2:24 PMGlucose NPT 270 mg/dL H (70-100 mg/ dL) LAB--BEDSIDE TESTING from 08/07/2012 8:45 PMGlucose NPT 297 mg/dL H (70-100 mg/ dL) LAB--BEDSIDE TESTING from 08/08/2012 5:29 AMGlucose NPT 149 mg/dL H (70-100 mg/ dL) LAB--BEDSIDE TESTING from 08/08/2012 10:26 AMGlucose NPT 214 mg/dL H (70-100 mg/ dL) LAB--BEDSIDE TESTING from 08/08/2012 2:04 PMGlucose NPT 219 mg/dL H (70-100 mg/ dL) LAB--BEDSIDE TESTING from 08/08/2012 9:27 PMGlucose NPT 223 mg/dL H (70-100 mg/ dL) LAB--BEDSIDE TESTING from 08/09/2012 5:35 AMGlucose NPT 138 mg/dL H (70-100 mg/ dL) LAB--BEDSIDE TESTING from 08/09/2012 10:40 AMGlucose NPT 282 mg/dL H (70-100 mg/ dL) LAB--BEDSIDE TESTING from 08/09/2012 3:27 PMGlucose NPT 272 mg/dL H (70-100 mg/ dL) LAB--BEDSIDE TESTING from 08/09/2012 9:49 PMGlucose NPT 249 mg/dL H (70-100 mg/ dL) LAB--BEDSIDE TESTING from 08/10/2012 6:02 AMGlucose NPT 152 mg/dL H (70-100 mg/dL ) LAB--BEDSIDE TESTING from 08/10/2012 10:07 AMGlucose NPT 145 mg/dL H (70-100 mg/ dL) LAB--BEDSIDE TESTING from 08/10/2012 3:22 PMGlucose NPT 257 mg/dL H (70-100 mg/dL ) LAB--BEDSIDE TESTING from 08/10/2012 7:37 PMGlucose NPT 306 mg/dL H (70-100 mg/dL ) LAB--BEDSIDE TESTING from 08/10/2012 7:39 PMGlucose NPT 285 mg/dL H (70-100 mg/dL ) LAB--BEDSIDE TESTING from 08/11/2012 5:30 AMGlucose NPT 141 mg/dL H (70-100 mg/dL ) LAB--BEDSIDE TESTING from 08/11/2012 10:23 AMGlucose NPT 239 mg/dL H (70-100 mg/ dL) LAB--BEDSIDE TESTING from 08/11/2012 2:30 PMGlucose NPT 241 mg/dL H (70-100 mg/dL ) LAB--BEDSIDE TESTING from 08/11/2012 8:09 PMGlucose NPT 227 mg/dL H (70-100 mg/dL ) LAB--BEDSIDE TESTING from 08/12/2012 5:31 AMGlucose NPT 105 mg/dL H (70-100 mg/dL ) LAB--BEDSIDE TESTING from 08/12/2012 9:52 AMGlucose NPT 216 mg/dL H (70-100 mg/dL ) LAB--BEDSIDE TESTING from 08/12/2012 3:18 PMGlucose NPT 225 mg/dL H (70-100 mg/dL ) LAB--BEDSIDE TESTING from 08/12/2012 10:01 PMGlucose NPT 182 mg/dL H (70-100 mg/ dL) LAB--BEDSIDE TESTING from 08/13/2012 5:38 AMGlucose NPT 123 mg/dL H (70-100 mg/dL ) LAB--BEDSIDE TESTING from 08/13/2012 10:06 AMGlucose NPT 131 mg/dL H (70-100 mg/ dL) LAB--BEDSIDE TESTING from 08/13/2012 12:39 PMGlucose NPT 74 mg/dL (70-100 mg/dL) LAB--BEDSIDE TESTING from 08/13/2012 4:21 PMGlucose NPT 86 mg/dL (70-100 mg/dL) LAB--BEDSIDE TESTING from 08/13/2012 9:32 PMGlucose NPT 109 mg/dL H (70-100 mg/dL ) LAB--BEDSIDE TESTING from 08/14/2012 5:24 AMGlucose NPT 62 mg/dL L (70-100 mg/dL) LAB--BEDSIDE TESTING from 08/14/2012 7:15 AMGlucose NPT 139 mg/dL H (70-100 mg/dL ) LAB--BEDSIDE TESTING from 08/14/2012 10:17 AMGlucose NPT 80 mg/dL (70-100 mg/dL) LAB--BEDSIDE TESTING from 08/14/2012 1:36 PMGlucose NPT 80 mg/dL (70-100 mg/dL) LAB--BEDSIDE TESTING from 08/14/2012 6:01 PMGlucose NPT 127 mg/dL H (70-100 mg/dL ) LAB--BEDSIDE TESTING from 08/14/2012 9:00 PMGlucose NPT 185 mg/dL H (70-100 mg/dL ) LAB--BEDSIDE TESTING from 08/15/2012 5:22 AMGlucose NPT 169 mg/dL H (70-100 mg/dL ) LAB--BEDSIDE TESTING from 08/15/2012 10:11 AMGlucose NPT 207 mg/dL H (70-100 mg/ dL) LAB--BEDSIDE TESTING from 08/15/2012 3:26 PMGlucose NPT 193 mg/dL H (70-100 mg/dL ) LAB--BEDSIDE TESTING from 08/15/2012 8:17 PMGlucose NPT 215 mg/dL H (70-100 mg/dL ) LAB--BEDSIDE TESTING from 08/16/2012 5:37 AMGlucose NPT 106 mg/dL H (70-100 mg/dL ) LAB--BEDSIDE TESTING from 08/16/2012 8:53 PMGlucose NPT 144 mg/dL H (70-100 mg/dL ) LAB--BEDSIDE TESTING from 08/17/2012 5:19 AMGlucose NPT 111 mg/dL H (70-100 mg/dL ) LAB--BEDSIDE TESTING from 08/17/2012 10:42 AMGlucose NPT 175 mg/dL H (70-100 mg/ dL) LAB--CHEMISTRY from 07/31/2012 1:37 PMBUN 15 mg/dL (4-20 mg/dL) Calcium 7.8 mg/dL L (8.6-10.0 mg/dL) Anion Gap 11 (3-20 ) Chloride 105 mEq/L (99-109 mEq/L) CO2 21 mEq/L L (22-32 mEq/L) Creatinine 0.80 mg/dL (0.44-1.03 mg/dL) eGFR >60 (>60- ) Glucose 154 mg/dL H (70-100 mg/dL) Potassium 4.0 mEq/L (3.6-5.1 mEq/L) Sodium 137 mEq/L (136-144 mEq/L) Troponin <0.06 ng/mL (-<0.06 ng/mL) TSH (with reflex Free T4) 2.34 uIU/mL (0.35-5.50 uIU/mL) LAB--CHEMISTRY from 07/31/2012 1:38 PMB-Type Natriuretic Pep. 660 pg/mL H (0-99 pg/mL) Estimated Average Glucose 122.6 mg/dL Hemoglobin A1C 5.9 % H (4.1-5.6 %) LAB--CHEMISTRY from 07/31/2012 9:14 PMTroponin <0.06 ng/mL (-<0.06 ng/mL) LAB--CHEMISTRY from 08/01/2012 5:01 AMAnion Gap 5 (3-20 ) Albumin 2.1 g/dL L (3.5-4.8 g/dL) Alkaline Phosphatase 176 U/L H (26-104 U/L) ALT (SGPT) 60 U/L H (14-54 U/L) AST (SGOT) 73 U/L H (15-41 U/L) Bilirubin Direct 2.7 mg/dL H (0.0-0.2 mg/dL) Bilirubin Indirect 2.6 mg/dL H (0.0-1.0 mg/dL) Bilirubin Total 5.3 mg/dL H (0.2-1.2 mg/dL) BUN 21 mg/dL H (4-20 mg/dL) Calcium 7.9 mg/dL L (8.6-10.0 mg/dL) Chloride 105 mEq/L (99-109 mEq/L) CO2 27 mEq/L (22-32 mEq/L) Creatinine 1.11 mg/dL H (0.44-1.03 mg/dL) eGFR 48 A (>60- ) Globulin 4.7 g/dL H (1.9-4.3 g/dL) Glucose 125 mg/dL H (70-100 mg/dL) Potassium 4.3 mEq/L (3.6-5.1 mEq/L) Magnesium 1.7 mg/dL L (1.8-2.5 mg/dL) Sodium 137 mEq/L (136-144 mEq/L) Protein 6.8 g/dL (6.1-7.9 g/dL) Troponin <0.06 ng/mL (-<0.06 ng/mL) Amylase 71 U/L (28-100 U/L) Lipase 25 U/L (8-48 U/L) Cholesterol 93 mg/dL (0-200 mg/dL) Cardiac Risk 3.7 (0.0-5.0 ) HDL Cholesterol 25 mg/dL A (>40- mg/dL) LDL Cholesterol 54 mg/dL (0-100 mg/dL) Triglycerides 71 mg/dL (0-150 mg/dL) VLDL Cholesterol 14 mg/dL (0-30 mg/dL) LAB--CHEMISTRY from 08/02/2012 3:51 AMBilirubin Total 3.8 mg/dL H (0.2-1.2 mg/dL) BUN 29 mg/dL H (4-20 mg/dL) Calcium 7.9 mg/dL L (8.6-10.0 mg/dL) Bilirubin Indirect 1.9 mg/dL H (0.0-1.0 mg/dL) Bilirubin Direct 1.9 mg/dL H (0.0-0.2 mg/dL) AST (SGOT) 44 U/L H (15-41 U/L) ALT (SGPT) 48 U/L (14-54 U/L) Alkaline Phosphatase 154 U/L H (26-104 U/L) Albumin 2.2 g/dL L (3.5-4.8 g/dL) Anion Gap 10 (3-20 ) Chloride 101 mEq/L (99-109 mEq/L) CO2 24 mEq/L (22-32 mEq/L) Creatinine 0.99 mg/dL (0.44-1.03 mg/dL) eGFR 55 A (>60- ) Glucose 134 mg/dL H (70-100 mg/dL) Potassium 4.1 mEq/L (3.6-5.1 mEq/L) Magnesium 1.9 mg/dL (1.8-2.5 mg/dL) Sodium 135 mEq/L L (136-144 mEq/L) Phosphorus 4.0 mg/dL (2.4-4.7 mg/dL) Protein 6.5 g/dL (6.1-7.9 g/dL) LAB--CHEMISTRY from 08/03/2012 7:01 AMBilirubin Total 2.6 mg/dL H (0.2-1.2 mg/dL) BUN 25 mg/dL H (4-20 mg/dL) Calcium 7.7 mg/dL L (8.6-10.0 mg/dL) AST (SGOT) 32 U/L (15-41 U/L) ALT (SGPT) 34 U/L (14-54 U/L) Alkaline Phosphatase 129 U/L H (26-104 U/L) Albumin 2.0 g/dL L (3.5-4.8 g/dL) Anion Gap 8 (3-20 ) Chloride 101 mEq/L (99-109 mEq/L) CO2 27 mEq/L (22-32 mEq/L) Creatinine 0.71 mg/dL (0.44-1.03 mg/dL) Globulin 4.4 g/dL H (1.9-4.3 g/dL) Glucose 118 mg/dL H (70-100 mg/dL) Potassium 3.7 mEq/L (3.6-5.1 mEq/L) Sodium 136 mEq/L (136-144 mEq/L) Protein 6.4 g/dL (6.1-7.9 g/dL) LAB--CHEMISTRY from 08/04/2012 3:14 AMAnion Gap 5 (3-20 ) Albumin 1.9 g/dL L (3.5-4.8 g/dL) Alkaline Phosphatase 133 U/L H (26-104 U/L) ALT (SGPT) 33 U/L (14-54 U/L) AST (SGOT) 37 U/L (15-41 U/L) Bilirubin Total 2.1 mg/dL H (0.2-1.2 mg/dL) BUN 16 mg/dL (4-20 mg/dL) Calcium 7.4 mg/dL L (8.6-10.0 mg/dL) Chloride 97 mEq/L L (99-109 mEq/L) CO2 32 mEq/L (22-32 mEq/L) Creatinine 0.59 mg/dL (0.44-1.03 mg/dL) eGFR >60 (>60- ) Globulin 4.2 g/dL (1.9-4.3 g/dL) Glucose 125 mg/dL H (70-100 mg/dL) Potassium 3.9 mEq/L (3.6-5.1 mEq/L) Sodium 134 mEq/L L (136-144 mEq/L) Protein 6.1 g/dL (6.1-7.9 g/dL) LAB--CHEMISTRY from 08/05/2012 6:16 AMAnion Gap 8 (3-20 ) Albumin 2.0 g/dL L (3.5-4.8 g/dL) BUN 8 mg/dL (4-20 mg/dL) Calcium 7.5 mg/dL L (8.6-10.0 mg/dL) Chloride 92 mEq/L L (99-109 mEq/L) CO2 37 mEq/L H (22-32 mEq/L) Creatinine 0.62 mg/dL (0.44-1.03 mg/dL) eGFR >60 (>60- ) Glucose 154 mg/dL H (70-100 mg/dL) Potassium 3.4 mEq/L L (3.6-5.1 mEq/L) Magnesium 1.2 mg/dL L (1.8-2.5 mg/dL) Sodium 137 mEq/L (136-144 mEq/L) Phosphorus 3.2 mg/dL (2.4-4.7 mg/dL) LAB--CHEMISTRY from 08/06/2012 5:13 AMAnion Gap 10 (3-20 ) Albumin 2.0 g/dL L (3.5-4.8 g/dL) BUN 7 mg/dL (4-20 mg/dL) Calcium 7.8 mg/dL L (8.6-10.0 mg/dL) Chloride 88 mEq/L L (99-109 mEq/L) CO2 39 mEq/L H (22-32 mEq/L) Creatinine 0.57 mg/dL (0.44-1.03 mg/dL) eGFR >60 (>60- ) Glucose 136 mg/dL H (70-100 mg/dL) Potassium 3.8 mEq/L (3.6-5.1 mEq/L) Magnesium 2.1 mg/dL (1.8-2.5 mg/dL) Sodium 137 mEq/L (136-144 mEq/L) Phosphorus 3.7 mg/dL (2.4-4.7 mg/dL) LAB--CHEMISTRY from 08/07/2012 6:10 AMAnion Gap 9 (3-20 ) Albumin 1.9 g/dL L (3.5-4.8 g/dL) BUN 8 mg/dL (4-20 mg/dL) Calcium 7.7 mg/dL L (8.6-10.0 mg/dL) Chloride 86 mEq/L L (99-109 mEq/L) CO2 39 mEq/L H (22-32 mEq/L) Creatinine 0.66 mg/dL (0.44-1.03 mg/dL) eGFR >60 (>60- ) Glucose 135 mg/dL H (70-100 mg/dL) Potassium 3.8 mEq/L (3.6-5.1 mEq/L) Magnesium 1.7 mg/dL L (1.8-2.5 mg/dL) Sodium 134 mEq/L L (136-144 mEq/L) Phosphorus 4.8 mg/dL H (2.4-4.7 mg/dL) LAB--CHEMISTRY from 08/08/2012 5:45 AMB-Type Natriuretic Pep. 218 pg/mL H (0-99 pg/mL) LAB--CHEMISTRY from 08/08/2012 5:46 AMAlbumin 1.9 g/dL L (3.5-4.8 g/dL) BUN 10 mg/dL (4-20 mg/dL) Calcium 7.9 mg/dL L (8.6-10.0 mg/dL) Anion Gap 8 (3-20 ) Chloride 86 mEq/L L (99-109 mEq/L) CO2 40 mEq/L H (22-32 mEq/L) Creatinine 0.70 mg/dL (0.44-1.03 mg/dL) eGFR >60 (>60- ) Glucose 133 mg/dL H (70-100 mg/dL) Potassium 3.8 mEq/L (3.6-5.1 mEq/L) Magnesium 1.9 mg/dL (1.8-2.5 mg/dL) Sodium 134 mEq/L L (136-144 mEq/L) Phosphorus 4.7 mg/dL (2.4-4.7 mg/dL) LAB--CHEMISTRY from 08/08/2012 2:45 PMBilirubin Total 1.7 mg/dL H (0.2-1.2 mg/dL) BUN 11 mg/dL (4-20 mg/dL) Calcium 7.8 mg/dL L (8.6-10.0 mg/dL) AST (SGOT) 57 U/L H (15-41 U/L) ALT (SGPT) 33 U/L (14-54 U/L) Alkaline Phosphatase 159 U/L H (26-104 U/L) Albumin 2.1 g/dL L (3.5-4.8 g/dL) Anion Gap 9 (3-20 ) Chloride 83 mEq/L L (99-109 mEq/L) CO2 38 mEq/L H (22-32 mEq/L) Creatinine 0.89 mg/dL (0.44-1.03 mg/dL) eGFR >60 (>60- ) Globulin 4.8 g/dL H (1.9-4.3 g/dL) Glucose 203 mg/dL H (70-100 mg/dL) Potassium 3.9 mEq/L (3.6-5.1 mEq/L) Sodium 130 mEq/L L (136-144 mEq/L) Protein 6.9 g/dL (6.1-7.9 g/dL) LAB--CHEMISTRY from 08/09/2012 5:14 AMAnion Gap 10 (3-20 ) Albumin 2.2 g/dL L (3.5-4.8 g/dL) Alkaline Phosphatase 166 U/L H (26-104 U/L) ALT (SGPT) 34 U/L (14-54 U/L) AST (SGOT) 53 U/L H (15-41 U/L) Bilirubin Total 1.8 mg/dL H (0.2-1.2 mg/dL) BUN 12 mg/dL (4-20 mg/dL) Calcium 7.9 mg/dL L (8.6-10.0 mg/dL) Chloride 86 mEq/L L (99-109 mEq/L) CO2 38 mEq/L H (22-32 mEq/L) Creatinine 0.94 mg/dL (0.44-1.03 mg/dL) eGFR 59 A (>60- ) Globulin 4.9 g/dL H (1.9-4.3 g/dL) Glucose 134 mg/dL H (70-100 mg/dL) Potassium 3.8 mEq/L (3.6-5.1 mEq/L) Sodium 134 mEq/L L (136-144 mEq/L) Phosphorus 4.2 mg/dL (2.4-4.7 mg/dL) Protein 7.1 g/dL (6.1-7.9 g/dL) LAB--CHEMISTRY from 08/11/2012 5:20 AMBUN 16 mg/dL (4-20 mg/dL) Calcium 8.2 mg/dL L (8.6-10.0 mg/dL) Anion Gap 7 (3-20 ) Chloride 89 mEq/L L (99-109 mEq/L) CO2 35 mEq/L H (22-32 mEq/L) Creatinine 0.86 mg/dL (0.44-1.03 mg/dL) eGFR >60 (>60- ) Glucose 134 mg/dL H (70-100 mg/dL) Potassium 4.2 mEq/L (3.6-5.1 mEq/L) Sodium 131 mEq/L L (136-144 mEq/L) LAB--CHEMISTRY from 08/12/2012 6:31 AMBUN 13 mg/dL (4-20 mg/dL) Calcium 8.0 mg/dL L (8.6-10.0 mg/dL) Albumin 1.9 g/dL L (3.5-4.8 g/dL) Anion Gap 4 (3-20 ) Chloride 97 mEq/L L (99-109 mEq/L) CO2 34 mEq/L H (22-32 mEq/L) Creatinine 0.95 mg/dL (0.44-1.03 mg/dL) eGFR 58 A (>60- ) Glucose 103 mg/dL H (70-100 mg/dL) Potassium 3.8 mEq/L (3.6-5.1 mEq/L) Sodium 135 mEq/L L (136-144 mEq/L) Phosphorus 3.6 mg/dL (2.4-4.7 mg/dL) LAB--CHEMISTRY from 08/13/2012 6:55 AMBUN 11 mg/dL (4-20 mg/dL) Calcium 7.8 mg/dL L (8.6-10.0 mg/dL) Albumin 1.9 g/dL L (3.5-4.8 g/dL) Anion Gap 7 (3-20 ) Chloride 98 mEq/L L (99-109 mEq/L) CO2 29 mEq/L (22-32 mEq/L) Creatinine 0.97 mg/dL (0.44-1.03 mg/dL) eGFR 57 A (>60- ) Glucose 86 mg/dL (70-100 mg/dL) Potassium 4.3 mEq/L (3.6-5.1 mEq/L) Magnesium 1.9 mg/dL (1.8-2.5 mg/dL) Sodium 134 mEq/L L (136-144 mEq/L) Phosphorus 2.8 mg/dL (2.4-4.7 mg/dL) LAB--CHEMISTRY from 08/14/2012 6:51 AMAnion Gap 8 (3-20 ) Albumin 1.8 g/dL L (3.5-4.8 g/dL) BUN 9 mg/dL (4-20 mg/dL) Calcium 7.7 mg/dL L (8.6-10.0 mg/dL) Chloride 97 mEq/L L (99-109 mEq/L) CO2 29 mEq/L (22-32 mEq/L) Creatinine 0.84 mg/dL (0.44-1.03 mg/dL) eGFR >60 (>60- ) Glucose 70 mg/dL (70-100 mg/dL) Potassium 4.1 mEq/L (3.6-5.1 mEq/L) Sodium 134 mEq/L L (136-144 mEq/L) Phosphorus 3.6 mg/dL (2.4-4.7 mg/dL) LAB--CHEMISTRY from 08/15/2012 5:19 AMAnion Gap 7 (3-20 ) Albumin 1.7 g/dL L (3.5-4.8 g/dL) Alkaline Phosphatase 156 U/L H (26-104 U/L) ALT (SGPT) 26 U/L (14-54 U/L) AST (SGOT) 40 U/L (15-41 U/L) Bilirubin Total 1.3 mg/dL H (0.2-1.2 mg/dL) BUN 10 mg/dL (4-20 mg/dL) Calcium 7.6 mg/dL L (8.6-10.0 mg/dL) Chloride 100 mEq/L (99-109 mEq/L) CO2 28 mEq/L (22-32 mEq/L) Creatinine 0.81 mg/dL (0.44-1.03 mg/dL) eGFR >60 (>60- ) Globulin 4.0 g/dL (1.9-4.3 g/dL) Glucose 168 mg/dL H (70-100 mg/dL) Potassium 4.4 mEq/L (3.6-5.1 mEq/L) Sodium 135 mEq/L L (136-144 mEq/L) Phosphorus 4.5 mg/dL (2.4-4.7 mg/dL) Protein 5.7 g/dL L (6.1-7.9 g/dL) LAB--CHEMISTRY from 08/16/2012 6:36 AMAnion Gap 6 (3-20 ) Albumin 1.8 g/dL L (3.5-4.8 g/dL) Alkaline Phosphatase 145 U/L H (26-104 U/L) ALT (SGPT) 23 U/L (14-54 U/L) AST (SGOT) 29 U/L (15-41 U/L) Bilirubin Total 1.1 mg/dL (0.2-1.2 mg/dL) BUN 11 mg/dL (4-20 mg/dL) Calcium 7.5 mg/dL L (8.6-10.0 mg/dL) Chloride 105 mEq/L (99-109 mEq/L) CO2 25 mEq/L (22-32 mEq/L) Creatinine 0.78 mg/dL (0.44-1.03 mg/dL) eGFR >60 (>60- ) Globulin 4.0 g/dL (1.9-4.3 g/dL) Glucose 94 mg/dL (70-100 mg/dL) Potassium 4.2 mEq/L (3.6-5.1 mEq/L) Magnesium 1.9 mg/dL (1.8-2.5 mg/dL) Sodium 136 mEq/L (136-144 mEq/L) Phosphorus 2.6 mg/dL (2.4-4.7 mg/dL) Protein 5.8 g/dL L (6.1-7.9 g/dL) LAB--CHEMISTRY from 08/17/2012 5:22 AMAnion Gap 7 (3-20 ) Albumin 1.7 g/dL L (3.5-4.8 g/dL) Alkaline Phosphatase 140 U/L H (26-104 U/L) ALT (SGPT) 19 U/L (14-54 U/L) AST (SGOT) 27 U/L (15-41 U/L) Bilirubin Total 1.1 mg/dL (0.2-1.2 mg/dL) BUN 8 mg/dL (4-20 mg/dL) Calcium 7.3 mg/dL L (8.6-10.0 mg/dL) Chloride 101 mEq/L (99-109 mEq/L) CO2 28 mEq/L (22-32 mEq/L) Creatinine 0.75 mg/dL (0.44-1.03 mg/dL) eGFR >60 (>60- ) Globulin 3.9 g/dL (1.9-4.3 g/dL) Glucose 122 mg/dL H (70-100 mg/dL) Potassium 3.7 mEq/L (3.6-5.1 mEq/L) Magnesium 1.7 mg/dL L (1.8-2.5 mg/dL) Sodium 136 mEq/L (136-144 mEq/L) Protein 5.6 g/dL L (6.1-7.9 g/dL) LAB--COAG STUDIES from 07/31/2012 1:38 PMINR 1.9 H (0.9-1.2 ) PTT 35.6 sec H (25.0-35.0 sec) LAB--COAG STUDIES from 07/31/2012 8:00 PMPTT 77.6 sec H (25.0-35.0 sec) LAB--COAG STUDIES from 08/01/2012 2:47 AMPTT 64.6 sec H (25.0-35.0 sec) LAB--COAG STUDIES from 08/01/2012 9:26 AMPTT 54.0 sec H (25.0-35.0 sec) LAB--COAG STUDIES from 08/02/2012 3:51 AMINR 1.4 H (0.9-1.2 ) PTT 47.7 sec H (25.0-35.0 sec) LAB--COAG STUDIES from 08/03/2012 7:01 AMPTT 42.5 sec H (25.0-35.0 sec) LAB--COAG STUDIES from 08/03/2012 11:42 AMPTT 44.1 sec H (25.0-35.0 sec) LAB--COAG STUDIES from 08/03/2012 5:23 PMPTT 25.7 sec (25.0-35.0 sec) LAB--COAG STUDIES from 08/03/2012 10:51 PMPTT 43.6 sec H (25.0-35.0 sec) LAB--COAG STUDIES from 08/04/2012 3:14 AMPTT 46.2 sec H (25.0-35.0 sec) LAB--COAG STUDIES from 08/05/2012 6:16 AMPTT 45.1 sec H (25.0-35.0 sec) LAB--COAG STUDIES from 08/06/2012 5:13 AMINR 1.2 (0.9-1.2 ) PTT 47.3 sec H (25.0-35.0 sec) LAB--COAG STUDIES from 08/07/2012 6:10 AMPTT 77.2 sec H (25.0-35.0 sec) LAB--COAG STUDIES from 08/07/2012 2:26 PMPTT 26.1 sec (25.0-35.0 sec) LAB--COAG STUDIES from 08/07/2012 7:36 PMPTT 38.9 sec H (25.0-35.0 sec) LAB--COAG STUDIES from 08/08/2012 12:16 AMPTT 45.0 sec H (25.0-35.0 sec) LAB--COAG STUDIES from 08/08/2012 5:46 AMPTT 46.0 sec H (25.0-35.0 sec) LAB--COAG STUDIES from 08/09/2012 5:14 AMPTT 47.3 sec H (25.0-35.0 sec) LAB--COAG STUDIES from 08/10/2012 5:13 AMPTT 40.4 sec H (25.0-35.0 sec) LAB--COAG STUDIES from 08/15/2012 4:47 PMINR 1.2 (0.9-1.2 ) LAB--COAG STUDIES from 08/16/2012 6:36 AMINR 1.1 (0.9-1.2 ) LAB--COAG STUDIES from 08/17/2012 5:22 AMINR 1.4 H (0.9-1.2 ) LAB--FLUID TESTING from 08/10/2012 11:45 AMGlucose, Fluid 132 mg/dL LDH, Fluid 194 U/L Protein, Fluid 4.3 g/dL Body Fluid Appearance Bloody Body Fluid Color Red Eosinophils, Fluid 10 % Lymphocytes, Fluid 32 % Mononuclear Phagocyte, Fluid 8 % Nucleated Cell Count, Fluid 813 /mm3 Neutrophil, Fluid 50 % RBC, Fluid 6257578 /mm3 Body Fluid Hematocrit 16.0 % Fluid Type RT PLEURAL Lab Body Fluid Type RT PLEURAL LAB--HEMATOLOGY from 07/31/2012 1:38 PMHCT 35.1 % L (37.0-47.0 %) HGB 11.1 g/dl L (12.0-16.0 g/dl) MCH 29.2 pg (27.0-32.0 pg) MCHC 31.6 g/dL L (32.0-36.0 g/dL) MCV 92.4 fL (82.0-99.0 fL) MPV 11.2 fL (9.4-12.4 fL) Platelet Count 173 K/uL (150-400 K/uL) RBC 3.80 M/uL L (4.00-5.20 M/uL) RDW 15.9 % H (11.5-14.5 %) WBC 10.0 K/uL (4.8-10.8 K/uL) LAB--HEMATOLOGY from 08/01/2012 5:01 AMWBC 10.6 K/uL (4.8-10.8 K/uL) RDW 15.7 % H (11.5-14.5 %) RBC 3.67 M/uL L (4.00-5.20 M/uL) Platelet Count 193 K/uL (150-400 K/uL) MPV 11.4 fL (9.4-12.4 fL) MCV 93.7 fL (82.0-99.0 fL) MCHC 31.1 g/dL L (32.0-36.0 g/dL) MCH 29.2 pg (27.0-32.0 pg) HGB 10.7 g/dl L (12.0-16.0 g/dl) HCT 34.4 % L (37.0-47.0 %) LAB--HEMATOLOGY from 08/02/2012 3:51 AMAbsolute Basophils 0.08 THOUS (0.00-0.20 THOUS) Absolute Eosinophils 0.20 THOUS (0.00-0.50 THOUS) Absolute Lymphocytes 1.03 THOUS (0.80-3.30 THOUS) Absolute Monocytes 1.32 THOUS H (0.30-1.00 THOUS) Absolute Neutrophils 10.73 THOUS H (1.90-7.00 THOUS) HCT 32.8 % L (37.0-47.0 %) HGB 10.3 g/dl L (12.0-16.0 g/dl) MCH 29.1 pg (27.0-32.0 pg) MCHC 31.4 g/dL L (32.0-36.0 g/dL) MCV 92.7 fL (82.0-99.0 fL) MPV 11.0 fL (9.4-12.4 fL) Platelet Count 221 K/uL (150-400 K/uL) RBC 3.54 M/uL L (4.00-5.20 M/uL) RDW 15.3 % H (11.5-14.5 %) WBC 13.5 K/uL H (4.8-10.8 K/uL) Basophils 1 % (0-2 %) Eosinophils 2 % (0-4 %) Immature Granulocytes 1.1 % H (0.0-1.0 %) Lymphocytes 8 % L (20-46 %) Monocytes 10 % (4-11 %) Nucleated RBC Automated 0.0 /100 WBC (0 /100 WBC) Neutrophils 79 % H (51-75 %) LAB--HEMATOLOGY from 08/03/2012 7:01 AMWBC 9.8 K/uL (4.8-10.8 K/uL) RDW 15.5 % H (11.5-14.5 %) RBC 3.49 M/uL L (4.00-5.20 M/uL) Platelet Count 198 K/uL (150-400 K/uL) MPV 10.3 fL (9.4-12.4 fL) MCV 91.7 fL (82.0-99.0 fL) MCHC 31.9 g/dL L (32.0-36.0 g/dL) MCH 29.2 pg (27.0-32.0 pg) HGB 10.2 g/dl L (12.0-16.0 g/dl) HCT 32.0 % L (37.0-47.0 %) LAB--HEMATOLOGY from 08/04/2012 3:14 AMHCT 32.6 % L (37.0-47.0 %) HGB 10.3 g/dl L (12.0-16.0 g/dl) MCH 29.5 pg (27.0-32.0 pg) MCHC 31.6 g/dL L (32.0-36.0 g/dL) MCV 93.4 fL (82.0-99.0 fL) MPV 10.5 fL (9.4-12.4 fL) Platelet Count 209 K/uL (150-400 K/uL) RBC 3.49 M/uL L (4.00-5.20 M/uL) RDW 15.6 % H (11.5-14.5 %) WBC 11.3 K/uL H (4.8-10.8 K/uL) LAB--HEMATOLOGY from 08/05/2012 6:16 AMHCT 33.8 % L (37.0-47.0 %) HGB 10.7 g/dl L (12.0-16.0 g/dl) MCH 29.2 pg (27.0-32.0 pg) MCHC 31.7 g/dL L (32.0-36.0 g/dL) MCV 92.1 fL (82.0-99.0 fL) MPV 10.2 fL (9.4-12.4 fL) Platelet Count 195 K/uL (150-400 K/uL) RBC 3.67 M/uL L (4.00-5.20 M/uL) RDW 15.7 % H (11.5-14.5 %) WBC 12.9 K/uL H (4.8-10.8 K/uL) LAB--HEMATOLOGY from 08/06/2012 5:13 AMHCT 34.8 % L (37.0-47.0 %) HGB 11.0 g/dl L (12.0-16.0 g/dl) MCH 29.2 pg (27.0-32.0 pg) MCHC 31.6 g/dL L (32.0-36.0 g/dL) MCV 92.3 fL (82.0-99.0 fL) MPV 10.4 fL (9.4-12.4 fL) Platelet Count 227 K/uL (150-400 K/uL) RBC 3.77 M/uL L (4.00-5.20 M/uL) RDW 15.6 % H (11.5-14.5 %) WBC 12.3 K/uL H (4.8-10.8 K/uL) Neutrophils 76 % H (51-75 %) Differential Reviewed Polychromasia Occasional A Nucleated RBC Automated 0.0 /100 WBC (0 /100 WBC) Monocytes 9 % (4-11 %) Lymphocytes 4 % L (20-46 %) Eosinophils 3 % (0-4 %) Basophils 3 % H (0-2 %) Bands 9 % H (0-8 %) Absolute Neutrophils 10.46 THOUS H (1.90-7.00 THOUS) Absolute Monocytes 1.11 THOUS H (0.30-1.00 THOUS) Absolute Lymphocytes 0.49 THOUS L (0.80-3.30 THOUS) Absolute Eosinophils 0.41 THOUS (0.00-0.50 THOUS) Absolute Basophils 0.37 THOUS H (0.00-0.20 THOUS) LAB--HEMATOLOGY from 08/07/2012 6:10 AMHCT 35.1 % L (37.0-47.0 %) HGB 11.2 g/dl L (12.0-16.0 g/dl) MCH 29.2 pg (27.0-32.0 pg) MCHC 31.9 g/dL L (32.0-36.0 g/dL) MCV 91.4 fL (82.0-99.0 fL) MPV 9.9 fL (9.4-12.4 fL) Platelet Count 220 K/uL (150-400 K/uL) RBC 3.84 M/uL L (4.00-5.20 M/uL) RDW 15.6 % H (11.5-14.5 %) WBC 8.5 K/uL (4.8-10.8 K/uL) LAB--HEMATOLOGY from 08/08/2012 5:45 AMWBC 8.5 K/uL (4.8-10.8 K/uL) RDW 15.1 % H (11.5-14.5 %) RBC 3.78 M/uL L (4.00-5.20 M/uL) Platelet Count 218 K/uL (150-400 K/uL) MPV 10.2 fL (9.4-12.4 fL) MCV 89.9 fL (82.0-99.0 fL) MCHC 32.1 g/dL (32.0-36.0 g/dL) MCH 28.8 pg (27.0-32.0 pg) HGB 10.9 g/dl L (12.0-16.0 g/dl) HCT 34.0 % L (37.0-47.0 %) LAB--HEMATOLOGY from 08/09/2012 5:14 AMHCT 36.5 % L (37.0-47.0 %) HGB 11.8 g/dl L (12.0-16.0 g/dl) MCH 28.9 pg (27.0-32.0 pg) MCHC 32.3 g/dL (32.0-36.0 g/dL) MCV 89.2 fL (82.0-99.0 fL) MPV 10.3 fL (9.4-12.4 fL) Platelet Count 253 K/uL (150-400 K/uL) RBC 4.09 M/uL (4.00-5.20 M/uL) RDW 15.0 % H (11.5-14.5 %) WBC 9.7 K/uL (4.8-10.8 K/uL) LAB--HEMATOLOGY from 08/11/2012 5:20 AMHCT 36.3 % L (37.0-47.0 %) HGB 11.9 g/dl L (12.0-16.0 g/dl) MCH 29.0 pg (27.0-32.0 pg) MCHC 32.8 g/dL (32.0-36.0 g/dL) MCV 88.5 fL (82.0-99.0 fL) MPV 10.8 fL (9.4-12.4 fL) Platelet Count 242 K/uL (150-400 K/uL) RBC 4.10 M/uL (4.00-5.20 M/uL) RDW 14.8 % H (11.5-14.5 %) WBC 13.0 K/uL H (4.8-10.8 K/uL) LAB--HEMATOLOGY from 08/12/2012 6:31 AMRDW 14.9 % H (11.5-14.5 %) WBC 9.3 K/uL (4.8-10.8 K/uL) RBC 3.69 M/uL L (4.00-5.20 M/uL) Platelet Count 196 K/uL (150-400 K/uL) MPV 10.8 fL (9.4-12.4 fL) MCV 89.4 fL (82.0-99.0 fL) MCHC 32.4 g/dL (32.0-36.0 g/dL) MCH 29.0 pg (27.0-32.0 pg) HGB 10.7 g/dl L (12.0-16.0 g/dl) HCT 33.0 % L (37.0-47.0 %) LAB--HEMATOLOGY from 08/13/2012 6:55 AMWBC 7.9 K/uL (4.8-10.8 K/uL) RDW 15.1 % H (11.5-14.5 %) RBC 3.69 M/uL L (4.00-5.20 M/uL) Platelet Count 174 K/uL (150-400 K/uL) MPV 10.3 fL (9.4-12.4 fL) MCV 89.7 fL (82.0-99.0 fL) MCHC 32.3 g/dL (32.0-36.0 g/dL) MCH 29.0 pg (27.0-32.0 pg) HGB 10.7 g/dl L (12.0-16.0 g/dl) HCT 33.1 % L (37.0-47.0 %) LAB--HEMATOLOGY from 08/14/2012 6:51 AMHCT 32.6 % L (37.0-47.0 %) HGB 10.4 g/dl L (12.0-16.0 g/dl) MCH 28.7 pg (27.0-32.0 pg) MCHC 31.9 g/dL L (32.0-36.0 g/dL) MCV 90.1 fL (82.0-99.0 fL) MPV 10.2 fL (9.4-12.4 fL) Platelet Count 162 K/uL (150-400 K/uL) RBC 3.62 M/uL L (4.00-5.20 M/uL) RDW 15.2 % H (11.5-14.5 %) WBC 5.5 K/uL (4.8-10.8 K/uL) LAB--HEMATOLOGY from 08/15/2012 5:19 AMHGB 10.5 g/dl L (12.0-16.0 g/dl) MCH 28.9 pg (27.0-32.0 pg) MCHC 32.2 g/dL (32.0-36.0 g/dL) MCV 89.8 fL (82.0-99.0 fL) MPV 10.1 fL (9.4-12.4 fL) Platelet Count 172 K/uL (150-400 K/uL) RBC 3.63 M/uL L (4.00-5.20 M/uL) RDW 15.2 % H (11.5-14.5 %) WBC 4.9 K/uL (4.8-10.8 K/uL) HCT 32.6 % L (37.0-47.0 %) LAB--HEMATOLOGY from 08/16/2012 6:36 AMHCT 30.6 % L (37.0-47.0 %) HGB 9.7 g/dl L (12.0-16.0 g/dl) MCH 28.8 pg (27.0-32.0 pg) MCHC 31.7 g/dL L (32.0-36.0 g/dL) MCV 90.8 fL (82.0-99.0 fL) MPV 9.9 fL (9.4-12.4 fL) Platelet Count 196 K/uL (150-400 K/uL) RBC 3.37 M/uL L (4.00-5.20 M/uL) RDW 15.8 % H (11.5-14.5 %) WBC 11.2 K/uL H (4.8-10.8 K/uL) LAB--HEMATOLOGY from 08/17/2012 5:22 AMHCT 31.6 % L (37.0-47.0 %) HGB 9.7 g/dl L (12.0-16.0 g/dl) MCH 28.0 pg (27.0-32.0 pg) MCHC 30.7 g/dL L (32.0-36.0 g/dL) MCV 91.3 fL (82.0-99.0 fL) MPV 10.0 fL (9.4-12.4 fL) Platelet Count 181 K/uL (150-400 K/uL) RBC 3.46 M/uL L (4.00-5.20 M/uL) RDW 15.8 % H (11.5-14.5 %) WBC 9.4 K/uL (4.8-10.8 K/uL) LAB--MICROBIOLOGY from 08/01/2012 5:58 PMC. difficile Toxin B Source: Stool Collected: 08/01/12 17:58 Site: Received : 08/01/12 18:05 Order#: [id number] C. difficile toxin B by PCR FINAL 08/02/12 13:34 Negative - C. difficile toxin B not detected by PCR ECHOLS FOR RESULTS: * - NEW RESULT - RESULT WAS MODIFIED AFTER FINAL STATUS SET LAB--MICROBIOLOGY from 08/10/2012 11:45 AMFluid Culture (Aerobic and Anaerobic) with Smear Source: Fluid Collected: 08/10/12 11:45 Site: Pleural Received : 08/10/12 12:54 Order#: [id number] Gram Stain FINAL 08/10/12 14:35 OIF=Oil Immersion Field LPF=Low Power Field Rare (0-1/OIF) white blood cells Rare (0-1/OIF) squamous epithelial cells No microorganisms observed Aerobic Body Fluid Culture FINAL 08/14/12 11:47 No growth Anaerobic Culture FINAL 08/14/12 11:47 No anaerobes isolated ECHOLS FOR RESULTS: * - NEW RESULT - RESULT WAS MODIFIED AFTER FINAL STATUS SET AFB (Acid Fast) Culture and smear (Preliminary Result) Source: Fluid Collected: 08/10/12 11:45 Site: PLEURAL Received : 08/10/12 12:55 Order#: [id number] Stain, Acid Fast FINAL 08/11/12 10:02 No acid fast bacilli seen AFB Culture PRELIM 08/12/12 10:24 Culture in progress ECHOLS FOR RESULTS: * - NEW RESULT - RESULT WAS MODIFIED AFTER FINAL STATUS SET LAB--URINE TESTS from 07/31/2012 11:15 AMWBC 2-5 /HPF (0-4 /HPF) RBC 5-10 /HPF A (0-2 /HPF) Mucus Present Epithelial Cells 2-5 /HPF Bacteria Numerous A Urobilinogen 8.0 mg/dL A (-<1.0 mg/dL) Collection Type: Clean Catch Specific [place] 1.029 (1.003-1.030 ) Protein Pos 2+ A (Negative ) pH, Urine 6.5 (5.0-8.0 ) Nitrites Negative (Negative ) Leukocytes Esterase Trace A (Negative ) Ketones, Urine Trace A (Negative ) Glucose Negative (Negative ) Color Norma A Blood Pos 1+ A (Negative ) Bilirubin Positive A (Negative ) Appearance Turbid A
[2016-06-07 13:48] LABS: INR 1.26 (0.76-1.04); PROTHROMBIN TIME 13.7 SEC (9.31-12.49); PTT 32.6 SEC (24-36)
[2016-06-07 14:06] LABS: BLOOD, URINE 3+ (NEGATIVE); COLOR,URINE YELLOW (YELLOW); LEUKOCYTE ESTERASE ,URINE 2+ (NEGATIVE); NITRITE,URINE NEGATIVE (NEGATIVE); UROBILINOGEN,URINE 0.2 EU/DL (NORMAL)
[2016-06-07] MEDS: LISINOPRIL 10 MG TABLET PO SCH (14:07)
[2016-06-07] MEDS: METOPROLOL 100 MG PO SCH (14:08)
[2016-06-07] MEDS: NORMAL SALINE 1,000 ML IV SCH (14:09)
[2016-06-07] MEDS ORDERED: DiphenhydrAMINE 2% CREAM 28.3 GM TOP PRN (14:15)
[2016-06-07 14:16] LABS: BACTERIA,URINE 2+ (NEGATIVE); RBC,URINE 20-30 /HPF (0-3); WBC,URINE 30-50 /HPF (0-5)
[2016-06-07 14:17] LABS: WBC CLUMPS,URINE FEW
--- NOTE | 2016-06-07 19:16 | NUR ---
END OF SHIFT REPORT PATIENT A/OX3. 2 LITERS O2 VIA NASAL CANNULA. VITAL SIGNS STABLE. AFEBRILE. PT CURRENTLY AT BEDREST. DENIES PAIN IN LEFT HIP. STERI STRIPS ON LEFT ANTERIOR CHEST CLEAN, DRY, INTACT. REDNESS AROUND CHEST INCISION SITE. DR. ISABEL BELIEVES THIS IS DUE TO AN ALLERGIC REACTION NOT INFECTION. PATIENT ALSO HAS REDNESS ON RIGHT UPPER ARM. DR. ISABEL ALSO BELIEVES THIS IS FROM AN ALLERGIC REACTION TO THE FABRIC OF THE BP CUFF. TOPICAL BENADRYL ORDERED AND APPLIED TO BOTH AREAS. BABROSA HAS ADEQUATE OUTPUT. OUTPUT IS BROWN/RED. UA OBTAINED EARLIER IN THE SHIFT. PHYSICIAN'S AWARE OF THIS FINDING. NO PRNS HAVE BEEN GIVEN DURING THE SHIFT. PATIENT TAKES PILLS WHOLE IN APPLESAUCE. WILL CONTINUE TO MONITOR.
--- NOTE | 2016-06-07 20:52 | CONSPD ---
Consultation Info Date DATE: 06/07/16 TIME: 20:16 Date of Consultation: Jun 07, 2016 Attending Physician: Teresa Reason for Consultation: I was consulted for gross hematuria and advanced Cirrhosis. HPI - Adult Date DATE: 06/07/16 TIME: 20:16 General Chief Complaint: Hematuria History of Present Illness Patient was brought to [facility] [place] for a generator change of her permanent pacemaker.The following morning, she was standing and turned to her left and fell in her room. She was able to walk back to her bed, however. She then developed gross hematuria. A CT of abdomen /pelvis revealed advanced cirrhosis and a left femoral neck fracture. She does have a history of bladder neoplasm which would explain hematuria and increased risk for venous thrombosis of portal or splenic circulation leading to cirrhosis. Past Medical History Past Medical History Patient's Medical History: (1) Liver cirrhosis Permanent Comment: New diagnosis Last Edited By: Chikis Isabel on Jun 07, 2016 20:34 (2) PAF (paroxysmal atrial fibrillation) (3) Cardiomyopathy (4) HTN (hypertension) (5) Diabetes mellitus, type 2 (6) Presence of cardiac pacemaker (7) Chronic systolic (congestive) heart failure (8) Fracture of left hip (9) Bladder neoplasm (10) Hematuria Surgical History Patient's Surgical History: cholecystecomy, pacemaker 01/2012, Cystoscopy 04/11/13, Hysterectomy, Total thyroidectomy 2003, cholecystectomy 08/2012 Current Medications Home Meds Reported Medications Lisinopril (Lisinopril) 10 Mg Tablet, 10 MG PO DAILY for HYPERTENSION, TAB 06/06/16 Metformin HCl (Metformin HCl) 500 Mg Tablet, 500 MG PO DAILY, TAB Take one tablet, by mouth, 2 times a day with Meals. 07/07/15 Potassium Chloride (Potassium Chloride) 20 Meq Tab.er.prt, 1 TAB PO DAILY Y for WITH LASIX, #180 07/06/15 Furosemide (Furosemide) 20 Mg Tablet, 1 TAB PO DAILY Y for EDEMA, #90 07/06/15 Metoprolol Succinate (Metoprolol Succinate) 100 Mg Tab.er.24h, 1 TAB PO DAILY, # 90 10/22/14 Alendronate Sodium (Alendronate Sodium) 70 Mg Tablet, 1 TAB PO WEEKLY, #4 10/22/14 Warfarin Sodium (Warfarin Sodium) 2.5 Mg Tablet, 0.5 TAB PO DAILY, #45 10/22/14 Levothyroxine Sodium (Levothyroxine Sodium) 150 Mcg Tablet, 150 MCG PO DAILY 07/30/12 Allergies: Coded Allergies: Heparin Analogues (Verified Allergy, Unknown, 06/06/16) Family History Family History: negative Social History Smoking Status: Never smoker Marital Status: Housing: house Current Occupational Status: retired Advance Directives: No DPOA for Healthcare Only Review of Systems Constitutional: DENIES: chills, fever, weight gain, weight loss Cardiovascular DENIES: chest pain, dyspnea on exertion, murmur, orthopnea, paroxysmal nocturnal dysp Rhythm/Rate: DENIES: tachycardia Pulmonary Respiratory: DENIES: cough, dyspnea, pleuritic chest pain, sputum, tachypnea GI Upper Abdomen: DENIES: abdominal swelling, dysphagia, heartburn/indigestion, hematemesis, nausea, vomiting Lower Abdomen: DENIES: blood in stool, aleksandr-colored stools, diarrhea, melena General: hematuria, DENIES: burning, dysuria, urgency Integumentary Skin: DENIES: color change, itching, rash Neurological General: DENIES: ataxia, change in strength, headache, syncope, tremor Psychiatric Psychiatric: DENIES: depression, emotional instability, nervousness Endocrine DENIES: heat/cold intolerance, polydipsia, polyphagia Hematologic/Lymphatic DENIES: anemia, bleeding gums, frequent nosebleeds Allergic/Immunological DENIES: frequent infections, hives, sneezing All Other Systems All Other Systems: Reviewed (remainder of 10-point ROS Neg.) Physical Exam General General Nourishment: well nourished, apparent age, adult General Body Habitus: well groomed Vital Signs Vital Signs Date Time Temp Pulse Resp B/P Pulse Ox O2 Delivery O2 Flow Rate FiO2 06/07/16 19:57 Nasal Cannula 1.50 06/07/16 16:27 98.5 69 26 150/68 93 Height (Feet): 5 Height (Inches): 6.00 Telemetry Rhythm: Vpaced Eyes Brief: FOUND: EOMI, PERRL, NOT FOUND: scleral icterus Neck Brief: NOT FOUND: JVD, adenopathy, carotid bruits, thyromegaly Respiratory Brief: FOUND: equal bilaterally, rales, NOT FOUND: clear all crump Cardiovascular (brief) Cardiac Brief: FOUND: murmur, regular rate, NOT FOUND: pedal edema Abdomen (brief) Abdominal Brief: FOUND: BS normo active x4, soft, NOT FOUND: distended, hepatosplenomegaly, tender Lymphatic (brief) Lymphatic Brief: NOT FOUND: adenopathy, lymphedema Musculoskeletal (brief) Musculoskeletal Brief: FOUND: other, NOT FOUND: spasm, tenderness Integumentary (brief) Integumentary Brief: FOUND: dry, pink, warm, NOT FOUND: rash Neurologic (brief) Neurological Brief: FOUND: cranial 2-12 intact, motor, sensory Neurologic RN Documented GCS Eye Opening: Verbal: Motor: Total: Psychiatric (brief) FOUND: alert, attentive, normal affect, oriented Laboratory Laboratory Tests Test 06/06/16 13:37 06/07/16 12:00 06/07/16 13:17 06/07/16 13:52 White Blood Count 3.5T/MM3 Red Blood Count 5.32M/MM3 Hemoglobin 14.3GM/DL Hematocrit 45.1% Mean Corpuscular Volume 84.8UM3 Mean Corpuscular Hemoglobin 26.9UUG Mean Corpuscular Hemoglobin Concent 31.7GM/DL RDW Standard Deviation 49.8FL Platelet Count 127T/MM3 Mean Platelet Volume 11.2UM3 Immature Granulocyte % (Auto) 0.3% Neutrophils (%) (Auto) 61.7% Lymphocytes (%) (Auto) 16.6% Monocytes (%) (Auto) 19.1% Eosinophils (%) (Auto) 2.0% Basophils (%) (Auto) 0.3% Absolute Immature Granulocyte (auto 0.01T/MM3 Absolute Neutrophils (auto) 2.2T/MM3 Absolute Lymphocytes (auto) 0.6T/MM3 Absolute Monocytes (auto) 0.7T/MM3 Absolute Eosinophils (auto) 0.1T/MM3 Absolute Basophils (auto) 0.0T/MM3 Prothromb Time International Ratio 1.24 1.26 Turbidity < 20 < 20 Sodium Level 141MEQ/L Potassium Level 4.0MEQ/L Chloride Level 104MEQ/L Carbon Dioxide Level 25MEQ/L Anion Gap 12MEQ/L Blood Urea Nitrogen 16.0MG/DL Creatinine 0.7MG/DL Glomerular Filtration Rate Calc 82 BUN/Creatinine Ratio 23RATIO Glucose Level 79MG/DL Calculated Osmolality 271MOSM/KG Calcium Level 8.4MG/DL Icterus Index < 2 < 2 Chemistry Specimen Hemolysis < 15 < 15 Total Bilirubin 1.30MG/DL Conjugated Bilirubin 0.00MG/DL Unconjugated Bilirubin 0.70MG/DL Aspartate Amino Transf (AST/SGOT) 47U/L Alanine Aminotransferase (ALT/SGPT) 30U/L Alkaline Phosphatase 101U/L Total Protein 7.8G/DL Albumin 3.5G/DL Globulin 4.3G/DL Albumin/Globulin Ratio 0.8RATIO Activated Partial Thromboplast Time 32.6SEC Urine Collection Type Green indwelling Urine Color Yellow Urine Turbidity Cloudy Urine pH 5.5 Urine Specific [place] 1.020 Urine Protein 2+ Urine Glucose (UA) Negative Urine Ketones Trace Urine Blood 3+ Urine Nitrite Negative Urine Bilirubin Negative Urine Urobilinogen 0.2EU/DL Urine Leukocyte Esterase 2+ Urine RBC 20-30/HPF Urine WBC 30-50/HPF Urine WBC Clumps Few Urine Bacteria 2+ Urine Culture Indicated Cult reflexed &setup Test 06/07/16 15:02 Radiology DATE OF EXAM: 06/07/16 ORDERING DOCTOR: KENNETH VARGAS APRN TYPE OF EXAM: CT ABD/PELVIS W/O CONTRAST REASON FOR EXAM: hematuria, post fall Indication: ITS.REASON: hematuria, post fall PROCEDURE: CT ABD/PELVIS W/O CONTRAST: Encounter: Initial Comparison: Pelvis and hip radiographs from the same time and CT lumbar spine dated October 22, 2014 Technique: Axial CT images were performed through the abdomen and pelvis without intravenous contrast. Coronal and sagittal two-dimensional reformats. Automated Exposure Control and Iterative Reconstruction dose reducing techniques were utilized. Findings: Fibrosis in the lung bases with groundglass opacities suggesting mild vascular congestion, edema or atypical infection. Very nodular cirrhotic liver with atrophy of the left lobe. There is also pneumobilia present in the left lobe that could relate to prior biliary intervention such as an ERCP. The spleen is not enlarged. Pancreas is grossly normal. The adrenal glands are normal. Unenhanced kidneys show no stone disease or gross hydronephrosis. Splenic artery calcifications. Possibly duplicated right renal collecting system. No ureteral stones seen. The bladder appears normal. No significant free pelvic fluid. No evidence of a bowel obstruction. Moderate stool in the colon. There is some edema in the left lower abdomen and flank subcutaneous tissues probably due to recent trauma. There is also some edema within the left hip and gluteal musculature probably due to contusion. No free intraperitoneal air seen. Bone windows show a left femoral neck fracture as seen on the comparison radiographs. No additional displaced fracture seen. Chronic appearing right lateral and posterior lower rib fractures. Multiple old compression fractures involving T12 and L3 through L5. Impression: 1. Left femoral neck fracture. No acute intraabdominal or pelvic hemorrhage. 2. Severe cirrhosis. . 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 I will order liver U/S. Normal Alk phos so doubt PBC. I will check serology (2) Bladder neoplasm Status: Chronic Assessment & Plan: She will require urology consult to assess for bladder CA (3) Hematuria Status: Acute (4) Cardiomyopathy Status: Chronic (5) HTN (hypertension) Status: Chronic Qualifiers: Hypertension type: essential hypertension Qualified Codes: I10 - Essential (primary) hypertension (6) Diabetes mellitus, type 2 Status: Chronic (7) Presence of cardiac pacemaker Status: Chronic (8) Fracture of left hip Status: Acute Qualifiers: Encounter type: initial encounter Fracture type: closed Qualified Codes: S72.002A - Fracture of unspecified part of neck of left femur, initial encounter for closed fracture (9) Chronic systolic (congestive) heart failure Status: Chronic Impression Subacute Cirrhosis. Consider Budd-Chiari vs other Gross hematuria with history of bladder tumor. Reassess for bladder CA. Recommendation as above CHIKIS ISABEL DO Jun 07, 2016 20:20
[2016-06-08] VITALS (28 sets, daily range): BP systolic 105–158; BP diastolic 51–70; PULSE 68–94; RESP 16–28; TEMP 97–98.3; O2SAT 90–100
[2016-06-08] MEDS: NORMAL SALINE 1,000 ML IV SCH ×3 (02:38→22:14)
--- NOTE | 2016-06-08 06:15 | NUR ---
SHIFT SUMMARY PT ALERT AND ORIENTED X3, VITAL SIGNS STABLE ON 2L 02 VIA NC. DENIES C/P,N/V AND SOA. PT STATES THAT PAIN IN HER HIP IS TOLERABLE AND DENIES NEED FOR PAIN MEDICATION AT THIS TIME. INSTRUCTED PATIENT TO NOTIFY THIS RN IF THAT NEED CHANGES. PT HAS BEEN NPO SINCE MIDNIGHT. WILL CONTINUE TO MONITOR.
[2016-06-08] MEDS ORDERED: CEFAZOLIN 2 GM VIAL IV ONE (07:00)
[2016-06-08] MEDS: LEVOTHYROXINE 150 MCG TABLET PO SCH (07:41)
[2016-06-08] MEDS: POTASSIUM CHLORIDE 20 MEQ TABLET PO SCH (08:00)
--- NOTE | 2016-06-08 08:04 | PDORTHOPN ---
Subjective Date DATE: 06/08/16 TIME: 08:00 Subjective Currently having US. No complaints. Respiratory 02 demands now at 2L. Anticipating surgery later today pending Dr. Duckworth clearance. CBC, BMP and INR ordered this AM and are pending. Objective Vital Signs Vital signs Vital Signs 06/07/16 06/07/16 06/07/16 06/07/16 21:29 21:30 21:32 23:59 Temp 98.1 98.7 Pulse 78 78 69 68 Resp 18 18 27 26 B/P 165/70 154/66 Pulse Ox 97 93 93 O2 Delivery Nasal Cannula Nasal Cannula Nasal Cannula O2 Flow Rate 1.00 2.00 2.00 06/08/16 06/08/16 06/08/16 03:33 07:24 07:28 Temp 98.3 Pulse 69 69 69 Resp 23 27 27 B/P 123/60 158/68 Pulse Ox 92 91 O2 Delivery Nasal Cannula Nasal Cannula O2 Flow Rate 2.00 2.00 Height (Feet): 5 Height (Inches): 6.00 Weight (Kilograms): 64.700 General General Appearance: Alert, Orientated x 3, No Acute Distress Respiratory (Brief) Comments lungs are wet Cardiovascular (Brief) Cardiac: FOUND: calf easily compressible, calf soft, nontender, peripheral pulses intact Capillary Refill: <2 sec Abdomen (Brief) Abdominal Brief: FOUND: soft Comments round, no rebound. Extremities (Brief) Extremity : Side: Left Musculoskeletal (Brief) Hip: FOUND ER-limited, FOUND IR-limited, FOUND decreased ROM (rotation), FOUND decreased ROM(flexion), FOUND painful PROM Musculoskeletal Brief: FOUND: loss of motion, tenderness, Not FOUND: deformity Integumentary (Brief) Integumentary Brief: FOUND dry, FOUND pink, FOUND rash (left inguinal area), FOUND warm Neurologic (Brief) Neurological Brief: FOUND: extremities w/o deficits, neuro intact Psychiatric (Brief) Psychiatric Brief: FOUND: alert, no acute distress Laboratory Laboratory Laboratory Tests 06/06/16 13:37 Laboratory Tests 06/06/16 13:37 Microbiology Microbiology Microbiology Date/Time Source Procedure Growth Status 06/07/16 15:02 Peripheral/Iv Start Blood Culture - Preliminary CULTURE INITIATED - RESULTS PENDING Resulted 06/07/16 15:02 Peripheral/Iv Start Blood Culture - Preliminary CULTURE INITIATED - RESULTS PENDING Resulted 06/07/16 14:17 Urine, Green Indwelling Urine Culture - Preliminary CULTURE INITIATED - RESULTS PENDING Resulted Assessment & Plan Problems: (1) Fracture of left hip Status: Acute Qualifiers: Encounter type: initial encounter Fracture type: closed Qualified Codes: S72.002A - Fracture of unspecified part of neck of left femur, initial encounter for closed fracture Assessment & Plan: the subcapital femoral neck fracture is posteriorly displaced and angulated. Recommendation is left endoprosthesis Surgery anticipated this afternoon. keep NPO, new labs ordered and pending. Dr. Duckworth to see and evaluate for pre operative clearance. Opinion on respiratory status appreciated. 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 They include: infection, nerve damage, artery damage, stroke, TX, PE, DVT, ileus, continued pain, or risk that the injury may not heal despite surgery. There are also medical risks of anesthesia. Risks are not limited to the above mentioned alone. Hospital Course Summary Disclaimer The visit summary below is not to be considered part of the above Progress Note. EDMUND VERA Jun 08, 2016 08:03
[2016-06-08] MEDS: METOPROLOL 100 MG PO SCH ×2 (08:24→09:00)
[2016-06-08] MEDS ORDERED: VANCOMYCIN 1 GRAM INJECTION ONE (08:25)
--- NOTE | 2016-06-08 08:28 | NUR ---
LEFT UNIT PT LEFT THE UNIT TO SURGERY CARE WITH ELIZABETH AND SYLVAIN RN'S FROM PACU. PT LEFT BY BED AT THIS TIME. PT DID NOT HAVE FAMILY WITH HER AT THIS TIME OF TRANSFER, PT'S SISTER YOLANDA BENITEZ WAS NOTIFIED OF THE PATIENT'S SURGERY. PT DID SIGN HER OWN CONSENT FORM AT THIS TIME.
[2016-06-08 08:30] LABS: BASOPHILS % (AUTO) 0.4 % (0-2); EOSINOPHILS # (AUTO) 0.2 T/MM3 (0-0.5); EOSINOPHILS % (AUTO) 3.2 % (0-4); HCT - HEMATOCRIT 43.8 % (36-46); IMMATURE GRANULOCYTE # (AUTO) 0.01 T/MM3 (0.00-0.03); IMMATURE GRANULOCYTE % (AUTO) 0.2 % (0.0-0.5); LYMPHOCYTES # (AUTO) 0.4 T/MM3 (1-4.8); LYMPHOCYTES % (AUTO) 8.1 % (23-45); MEAN CORPUSCULAR HGB 27.3 UUG (26-34); MEAN CORPUSCULAR VOLUME 85.4 UM3 (80-100); MEAN PLATELET VOLUME 10.6 UM3 (9.4-12.4); MONOCYTES # (AUTO) 0.6 T/MM3 (0-0.8); NEUTROPHILS #(AUTO)-ABSOLUTE 4.1 T/MM3 (1.8-7.7); NEUTROPHILS % (AUTO) 77.1 % (33-66); RED BLOOD COUNT 5.13 M/MM3 (4.00-5.20); WBC - WHITE BLOOD COUNT 5.3 T/MM3 (4.5-11.0)
[2016-06-08 08:34] LABS: INR 1.3 (0.76-1.04); PROTHROMBIN TIME 14.2 SEC (9.31-12.49)
[2016-06-08 08:40] LABS: ANION GAP 9 MEQ/L (5-15); BUN/CREATININE RATIO 22 RATIO (6-26); CALCIUM 7.8 MG/DL (8.4-10.2); CHLORIDE 103 MEQ/L (98-107); CO2 - CARBON DIOXIDE 26 MEQ/L (22-30); CREATININE 0.6 MG/DL (0.7-1.2); GLOMERULAR FILTRATION RATE 98; GLUCOSE 98 MG/DL (65-110); POTASSIUM 4.3 MEQ/L (3.6-5); SODIUM 138 MEQ/L (134-144)
[2016-06-08] MEDS ORDERED: MIDAZOLAM 2mg/2ml INJECTION ONE (08:49)
[2016-06-08] MEDS: MINOCYCLINE 100 MG CAPSULE PO SCH ×2 (09:00→21:00)
[2016-06-08] MEDS: LISINOPRIL 10 MG TABLET PO SCH (09:00)
[2016-06-08] MEDS: FUROSEMIDE 20 MG TABLET PO SCH (09:00)
--- NOTE | 2016-06-08 09:02 | DI ---
Indication: ITS.REASON: Budd-Chiari Syndrome PROCEDURE: US LIVER (HEPATIC): Encounter: Initial Comparison: CT abdomen and pelvis dated June 07, 2016 Technique: Grayscale and color Doppler sonographic imaging of the right upper quadrant of the abdomen was performed. Findings: Hepatic parenchyma is very cirrhotic with a nodular irregular contour. The gallbladder is surgically absent. Both the intra and extrahepatic biliary system are of normal caliber with the common duct measuring 6 mm in dimension. Visualized portions of the head and body of the pancreas are unremarkable. The right kidney is present without collecting system dilatation. The right kidney measures 11.3 cm in length. Impression: Cirrhosis. .
--- NOTE | 2016-06-08 09:05 | DI ---
Indication: ITS.REASON: BUDD- CHIARI PROCEDURE: US ABD/PELVIC DOPPER COMPLETE: Encounter: Initial Comparison: None Technique: Color Doppler imaging of the abdomen was performed with attention to the hepatic, portal and splenic veins. Findings: The left, middle and right hepatic veins are patent with normal waveforms. The IVC is patent with appropriate waveform present. Main portal vein is patent with normal flow velocity at 17.2 cm/s and normal flow direction. The hepatic artery is patent with appropriate flow direction and peak systolic velocity of 70 cm/s. Portal vein is patent to the portosplenic confluence. The splenic vein appears patent with appropriate flow direction. Splenic artery shows normal flow velocity. Impression: No sonographic evidence of arterial or venous thrombosis. .
[2016-06-08] MEDS ORDERED: PHENYLEPHRINE 10mg/ml INJECTION ONE (09:23)
[2016-06-08] MEDS ORDERED: SALINE FLUSH 10ml SYRINGE ONE (09:23)
[2016-06-08] MEDS ORDERED: METOPROLOL 5mg/5ml INJECTION IV ONE (09:59)
[2016-06-08] MEDS ORDERED: PROPOFOL 500mg 50 ML IV ONE (09:59)
[2016-06-08] MEDS ORDERED: BUPIVACAINE 0.25%/EPI 1:200,000 30ml SDV ONE (10:07)
--- NOTE | 2016-06-08 10:12 | NUR ---
CM CM ATTEMPTED VISIT. PT IS AT PROCEDURE. NO FAMILY IS PRESENT IN THE ROOM. CM CONTACT INFORMATION IS UPDATED AND CJR LETTER IS LEFT AT THE BEDSIDE.
--- NOTE | 2016-06-08 10:13 | ANESPREOP ---
Anesthesia Record Date and Time DATE: 06/08/16 TIME: 08:18 Pre-Op Diagnosis Left femoral head FX Proposed Surgical Procedure Left Femoral head replacement NPO since: Midnight Allergies: Coded Allergies: Heparin Analogues (Verified Allergy, Unknown, 06/06/16) Ht/Wt/BMI Height: 5 ' 6.00 " Weight: 64.700 kg BMI: 23.0 kg/m2 Vital Signs Date Time Temp Pulse Resp B/P Pulse Ox O2 Delivery O2 Flow Rate FiO2 06/08/16 07:28 69 27 06/08/16 07:24 158/68 91 Nasal Cannula 2.00 06/08/16 03:33 98.3 Medications Inpatient Medications Current Medications Medications (Trade) Dose Ordered Sig/Galo Start Time Stop Time Status Last Admin Dose Admin Sodium Chloride (Normal Saline IV) 1,000 ml @ 75 mls/hr [id number] 06/06/16 10:00 06/06/16 18:10 DC 06/06/16 13:41 75 MLS/HR Al Hydroxide/Mg Hydroxide 30 ml 30 ml Q3H PRN 06/06/16 16:45 Cefazolin Sodium/ Sodium Chloride (Kefzol/NS) 100 ml @ 200 mls/hr Q8H 06/06/16 16:45 06/07/16 01:14 DC 06/07/16 02:43 200 MLS/HR Acetaminophen (Tylenol Regular Strength) 650 mg Q4H PRN 06/06/16 16:45 Acetaminophen/ Codeine Phosphate (Tylenol #3) 1-2 TAB Q4H PRN 06/06/16 16:45 Minocycline HCl (Minocin) 100 mg BID 06/07/16 09:00 06/14/16 08:59 06/07/16 21:29 100 MG Bisacodyl (Dulcolax) prn DAILY PRN 06/06/16 16:45 Furosemide (Lasix) 20 mg DAILY PRN 06/07/16 12:45 06/07/16 12:49 DC Lisinopril (Prinivil) 10 mg DAILY 06/07/16 13:00 06/07/16 14:07 10 MG Metoprolol Succinate 100 mg 100 mg DAILY 06/07/16 13:00 06/07/16 14:08 100 MG Sodium Chloride (Normal Saline IV) 1,000 ml @ 80 mls/hr [id number] 06/07/16 12:35 06/08/16 02:38 80 MLS/HR Morphine Sulfate (Morphine) 2-10 mg IV Q1H Q1H PRN 06/07/16 12:45 Ondansetron HCl (Zofran) 4 mg Q6H PRN 06/07/16 12:45 Multi-Ingredient Antiseptic (Nozin Nasal Swab) 1 each PREOP PRN 06/07/16 12:45 Furosemide (Lasix) 20 mg DAILY 06/08/16 09:00 Potassium Chloride (Kdur) 20 meq WB 06/08/16 08:00 Zinc Acetate/ Diphenhydramine (Benadryl Extra Strength) 1 applic TID PRN 06/07/16 14:15 06/07/16 15:35 1 APPLIC Alendronate Sodium (Fosamax) 70 mg Sa@06 06/10/16 06:00 Levothyroxine Sodium (Synthroid) 150 mcg ACB 06/08/16 07:30 06/08/16 07:41 150 MCG Alendronate Sodium (Alendronate Sodium) 70 Mg Tablet, 1 TAB PO WEEKLY, (Reported ) Last Taken: on 06/03/16 0000 Furosemide (Furosemide) 20 Mg Tablet, 1 TAB PO DAILY PRN for EDEMA, (Reported) Last Taken: on 05/30/16 0800 Levothyroxine Sodium (Levothyroxine Sodium) 150 Mcg Tablet, 150 MCG PO DAILY, (Reported) Last Taken: on 06/06/16 0500 Lisinopril (Lisinopril) 10 Mg Tablet, 10 MG PO DAILY, (Reported) Last Taken: on 06/06/16 0800 Metformin HCl (Metformin HCl) 500 Mg Tablet, 500 MG PO DAILY, (Reported) Take one tablet, by mouth, 2 times a day with Meals. Last Taken: on 06/05/16 0600 Metoprolol Succinate (Metoprolol Succinate) 100 Mg Tab.er.24h, 1 TAB PO DAILY, (Reported) Last Taken: on 06/06/16 0800 Potassium Chloride (Potassium Chloride) 20 Meq Tab.er.prt, 1 TAB PO DAILY PRN for WITH LASIX, (Reported) Last Taken: on 05/30/16 0800 Warfarin Sodium (Warfarin Sodium) 2.5 Mg Tablet , 0.5 TAB PO DAILY, (Reported) Last Taken: on 05/30/16 1700 Currently on Beta Kaylen: Yes Beta Kaylen Last Taken: Metoprolol to be given in the OR do to patient cannot take w/o applesauce Medical/Surgical History Anesthesia PMH: Reports: *Diabetes, *Dyspnea (Patient has a difficult time talking .), *Hypertension, Arthritis, CHF, Cancer (THYROID MASS-REMOVED), Cardiac Arrythmia (HX A.FIB), Other (Dysphageia), Pacemaker (06/07/16), Thyroid Disease (HX OF THYROID MASS AND THYROID STORM), Denies: *[place], Anesthesia Reactions (NO AIRWAY ISSUES), Asthma, COPD, CVA/Stroke/TIA, Clotting Problems ( ON WARFARIN), Deep Vein Thrombosis, Glaucoma, Hepatitis, Hiatal Hernia, Malignant Hyperthermia, Pneumonia, Reflux, Renal Disease, Seizures, Sleep Apnea Smoking Status: Never smoker Has pt. smoked today?: No Use Chewing Tobacco?: No Second Hand Exposure: No Substance Use Type: does not use Alcohol Intake: none Past Surgical History Orthopedic Surgeries: Abdominal Surgeries: Yes - LAP CRIS Genitourinary Surgeries: Cardiac Surgeries: Yes - PACEMAKER PLACEMENT, HEART CATH Endocrine Surgeries: Yes - THYROID MASS REMOVED Reproductive Surgeries: Yes - HYSTERECTOMY Neurological Surgeries: Ear Surgeries: No Nose Surgeries: No Throat Surgeries: Yes - TONSILECTOMY Other Surgeries: Yes - R CATARACT Anesthesia Adverse Reactions: FOUND none Family Hx of Anesthesia Advers: none Pertinent Findings Laboratory Tests 06/06/16 13:37 Test 06/07/16 13:17 Activated Partial Thromboplast Time 32.6SEC (24-36) Prothromb Time International Ratio 1.26 (0.76-1.04) EKG Rhythm: Sinus Rhythm, Paced Physical Exam Respiratory: Decreased breath sounds L, Decreased breath sounds R, Wheezing ( bilateral) Cardiovascular: FOUND Regular rate, rhythm, FOUND Pacemaker, FOUND AICD Airway Assessment Mallampati Score: II TMD: 3 Fingerbreadths Neck Extension: Good Overall Assessment: No Airway Concerns ASA: 4 Plan Regional: Spinal Discussion Discussed risks/options/alternatives of anesthesia and questions answered. Patient consents. Nursing pain assessment noted. Attestation Statement Prior to the delivery of any anesthetic medication, I examined the patient, developed the plan, obtained the patient's consent and discussed the risk and benefits of the procedure with the patient/guardian. NICOLE VANG CRNA Jun 08, 2016 08:21
--- NOTE | 2016-06-08 10:27 | PDOPERATE ---
Hip Hemiarthroplasty Date of Operation 06/08/16 Preoperative Diagnosis Left displaced subcapital femoral neck fracture. Postoperative Diagnosis Left displaced subcapital femoral neck fracture. Operation Left hip hemiarthroplasty. Surgeon Elva Li MD It Support Engineer JANUSZ Degroot Complications None. Anesthesia Spinal Estimated Blood Loss See Anesthesia Record. Fluids Please See Anesthesia Record. Description of Operation The patient and the operative extremity were identified and marked in the preoperative holding area. The patient was brought back to the operating suite and placed supine on the operating table. Spinal anesthesia was administered and then she was placed in the lateral decubitus position on a well-padded pegboard with the left side up. The left lower extremity was prepped and draped in my normal sterile fashion. Time-out was performed. A posterior approach was utilized. The external rotator tendons were identified , tagged and detached. A capsulotomy was performed and a femoral neck osteotomy was made 1 cm proximal to the lesser trochanter. The femoral head was removed and sized on the back table. We trialed and sized the acetabulum and selected a 43 head. I then prepared the proximal femur with reaming and the broaching to a size 8c which was stable. We then trialed with a -3 43mm head and the patient was very stable. Leg lengths were equal. After irrigation the final stem was cemented into place. This was followed by another trial. Again, this felt good. A final head and neck were placed followed by a final reduction. The wound was thoroughly irrigated. Then 1 g of vancomycin powder was placed into the joint before the capsulotomy was repaired with #1 Ethibond. The short external rotators were repaired back to the medius fascia with #1 Ethibond. The gluteus fascia was repaired with #1 Vicryl. The subcutaneous tissue was closed with 2-0 Vicryl followed by a running 4-0 Monocryl in the subcuticular layer and then Dermabond and a sterile dressing. The drapes were removed. The patient was placed back into a supine position and taken to the recovery room under the care of Anesthesia. The patient tolerated the procedure well. There were no complications. MELA LI MD Jun 08, 2016 10:27
[2016-06-08] MEDS ORDERED: MILK OF MAGNESIA 30 ML SUSP PO PRN (10:30)
--- NOTE | 2016-06-08 11:16 | DI ---
Indication: ITS.REASON: LOOKING FOR SCRATCH PAD IN PATIENT PROCEDURE: RF HIP LEFT 2 VIEW: Encounter: Initial Comparison: None Findings: Four fluoroscopic spot images are submitted for interpretation. Images show a left femoral head prosthesis in place. No radiopaque foreign body is identified on the provided images. Impression: Fluoroscopy as above. Fluoroscopy time is 22 seconds. Fluoroscopy dose is 372 mRad. .
--- NOTE | 2016-06-08 11:54 | NUR ---
BACK TO ROOM PT RECIEVED BACK FROM SURGERY WITH NELIDA HUBER AND ELIZABETH KRAUSE VIA BED. PT IS ON 3L OF O2 AT THIS TIME.
--- NOTE | 2016-06-08 12:01 | ANESPO ---
Post-Op Note Date 06/08/16 Time: 12:01 Status Pt Participated in Evaluation: Pt participated in person Vital Signs Date Time Temp Pulse Resp B/P Pulse Ox O2 Delivery O2 Flow Rate FiO2 06/08/16 11:46 69 24 123/63 91 Nasal Cannula 3.00 06/08/16 10:55 98.0 Respiratory Function: Airway patent, Regular respirations Cardiovascular Function: Regular pulse Mental Status: Alert/oriented (return to pre op status) Pain Level Intensity: 0 Hydration: Taking po fluids Complications during Recovery None apparent Follow-Up Instructions Instructions Per Surgeon ARTURO HOLT CRNA Jun 08, 2016 12:01
--- NOTE | 2016-06-08 12:10 | ANESPO ---
Post-Op Note Date 06/08/16 Time: 12:01 Status Pt Participated in Evaluation: Pt participated in person Vital Signs Date Time Temp Pulse Resp B/P Pulse Ox O2 Delivery O2 Flow Rate FiO2 06/08/16 11:50 97.0 06/08/16 11:46 69 24 123/63 91 Nasal Cannula 3.00 Respiratory Function: Airway patent, Regular respirations Cardiovascular Function: Regular pulse Mental Status: Alert/oriented (return to pre op status) Pain Level Intensity: 0 Hydration: Taking po fluids Complications during Recovery None apparent Follow-Up Instructions Instructions Per Surgeon NICOLE VANG CRNA Jun 08, 2016 12:10
[2016-06-08] MEDS ORDERED: NOZIN NASAL SWAB NS ONE (12:30)
--- NOTE | 2016-06-08 13:13 | NUR ---
COUMADIN CONSULT (Initial): 75 y.o. female post op Left Femoral head replacement. Patient has a history of a.fib and bladder neoplasm. Also, has a history of chronic anticoagulation with Warfarin. Home Warfarin dose= 2 mg po 6 days a week. Pharmacy was consulted to manage Warfarin per protocol. date INR dose 06/08 1.30 plan: 2 mg Will give Warfarin 2 mg po today. potential drug-drug interaction exists between Warfarin and Minocycline may increase INR and risk of bleeding. Patient record lists an allergy to Heparin analogues. Due to potential allergy no Lovenox has been ordered at this time. Pharmacy will monitor and adjust Warfarin. Thank you for the protocol, Leona Mcmanus RPh
[2016-06-08] MEDS ORDERED: FUROSEMIDE 20 MG/2 ML INJECTION IV ONE (13:30)
--- NOTE | 2016-06-08 13:30 | PNPDOC ---
KENNETH VARGAS MANAGER PSYCHOLOGY 06/08/16 1304: Subjective Date DATE: 06/08/16 TIME: 13:01 Subjective Maryann is seen in her bed on the Surgical unit. She is drowsy from her orthopedic surgery. She has a moist nonproductive cough. She denies chest pain. Objective Vital Signs Vital signs Vital Signs 06/08/16 06/08/16 06/08/16 06/08/16 03:33 07:24 07:28 10:55 Temp 98.3 98.0 Pulse 69 69 69 70 Resp 16 B/P 123/60 158/68 107/51 Pulse Ox 92 91 98 O2 Delivery Nasal Cannula Nasal Cannula Mask O2 Flow Rate 2.00 2.00 6.00 06/08/16 06/08/16 06/08/16 06/08/16 11:00 11:05 11:10 11:15 Pulse 69 69 69 69 Resp 23 B/P 105/59 111/56 108/55 116/59 Pulse Ox 98 97 93 92 O2 Delivery Mask Nasal Cannula Nasal Cannula Nasal Cannula O2 Flow Rate 6.00 4.00 4.00 4.00 06/08/16 06/08/16 06/08/16 06/08/16 11:20 11:25 11:30 11:35 Pulse 69 69 69 69 Resp B/P 121/58 126/63 136/61 132/63 Pulse Ox 92 93 92 93 O2 Delivery Nasal Cannula Nasal Cannula Nasal Cannula Nasal Cannula O2 Flow Rate 4.00 3.00 3.00 3.00 06/08/16 06/08/16 06/08/16 06/08/16 11:40 11:46 11:50 12:00 Temp 97.0 97.0 Pulse 69 69 70 Resp 22 B/P 136/63 123/63 158/70 Pulse Ox 91 91 O2 Delivery Nasal Cannula Nasal Cannula Nasal Cannula O2 Flow Rate 3.00 3.00 3.50 06/08/16 06/08/16 12:15 12:24 Pulse 94 70 Resp 22 B/P 143/65 Pulse Ox 94 O2 Delivery Nasal Cannula O2 Flow Rate 3.50 Telemetry Rhythm: Vpaced Height (Feet): 5 Height (Inches): 6.00 Weight (Kilograms): 64.700 General Other (drowsy) ENMT (Brief) mucosa moist Neck (Brief) NOT FOUND: JVD, carotid bruits Respiratory (Brief) equal bilaterally, wheezes (throughout), NOT FOUND: clear all crump Cardiovascular (Brief) murmur (2/6 systolic), regular rhythm, NOT FOUND: pedal edema, peripheral edema Integumentary (Brief) dry, pink, warm Laboratory Laboratory Laboratory Tests Test 06/06/16 13:37 06/07/16 12:00 06/07/16 13:17 06/07/16 13:52 White Blood Count 3.5T/MM3 Red Blood Count 5.32M/MM3 Hemoglobin 14.3GM/DL Hematocrit 45.1% Mean Corpuscular Volume 84.8UM3 Mean Corpuscular Hemoglobin 26.9UUG Mean Corpuscular Hemoglobin Concent 31.7GM/DL RDW Standard Deviation 49.8FL Platelet Count 127T/MM3 Mean Platelet Volume 11.2UM3 Immature Granulocyte % (Auto) 0.3% Neutrophils (%) (Auto) 61.7% Lymphocytes (%) (Auto) 16.6% Monocytes (%) (Auto) 19.1% Eosinophils (%) (Auto) 2.0% Basophils (%) (Auto) 0.3% Absolute Immature Granulocyte (auto 0.01T/MM3 Absolute Neutrophils (auto) 2.2T/MM3 Absolute Lymphocytes (auto) 0.6T/MM3 Absolute Monocytes (auto) 0.7T/MM3 Absolute Eosinophils (auto) 0.1T/MM3 Absolute Basophils (auto) 0.0T/MM3 Prothromb Time International Ratio 1.24 1.26 Turbidity < 20 < 20 Sodium Level 141MEQ/L Potassium Level 4.0MEQ/L Chloride Level 104MEQ/L Carbon Dioxide Level 25MEQ/L Anion Gap 12MEQ/L Blood Urea Nitrogen 16.0MG/DL Creatinine 0.7MG/DL Glomerular Filtration Rate Calc 82 BUN/Creatinine Ratio 23RATIO Glucose Level 79MG/DL Calculated Osmolality 271MOSM/KG Calcium Level 8.4MG/DL Icterus Index < 2 < 2 Chemistry Specimen Hemolysis < 15 < 15 Total Bilirubin 1.30MG/DL Conjugated Bilirubin 0.00MG/DL Unconjugated Bilirubin 0.70MG/DL Aspartate Amino Transf (AST/SGOT) 47U/L Alanine Aminotransferase (ALT/SGPT) 30U/L Alkaline Phosphatase 101U/L Total Protein 7.8G/DL Albumin 3.5G/DL Globulin 4.3G/DL Albumin/Globulin Ratio 0.8RATIO Activated Partial Thromboplast Time 32.6SEC Urine Collection Type Green indwelling Urine Color Yellow Urine Turbidity Cloudy Urine pH 5.5 Urine Specific Hyder 1.020 Urine Protein 2+ Urine Glucose (UA) Negative Urine Ketones Trace Urine Blood 3+ Urine Nitrite Negative Urine Bilirubin Negative Urine Urobilinogen 0.2EU/DL Urine Leukocyte Esterase 2+ Urine RBC 20-30/HPF Urine WBC 30-50/HPF Urine WBC Clumps Few Urine Bacteria 2+ Urine Culture Indicated Cult reflexed &setup Test 06/07/16 15:02 06/08/16 08:14 White Blood Count 5.3T/MM3 Red Blood Count 5.13M/MM3 Hemoglobin 14.0GM/DL Hematocrit 43.8% Mean Corpuscular Volume 85.4UM3 Mean Corpuscular Hemoglobin 27.3UUG Mean Corpuscular Hemoglobin Concent 32.0GM/DL RDW Standard Deviation 50.1FL Platelet Count 103T/MM3 Mean Platelet Volume 10.6UM3 Immature Granulocyte % (Auto) 0.2% Neutrophils (%) (Auto) 77.1% Lymphocytes (%) (Auto) 8.1% Monocytes (%) (Auto) 11.0% Eosinophils (%) (Auto) 3.2% Basophils (%) (Auto) 0.4% Absolute Immature Granulocyte (auto 0.01T/MM3 Absolute Neutrophils (auto) 4.1T/MM3 Absolute Lymphocytes (auto) 0.4T/MM3 Absolute Monocytes (auto) 0.6T/MM3 Absolute Eosinophils (auto) 0.2T/MM3 Absolute Basophils (auto) 0.0T/MM3 Prothromb Time International Ratio 1.30 Turbidity < 20 Sodium Level 138MEQ/L Potassium Level 4.3MEQ/L Chloride Level 103MEQ/L Carbon Dioxide Level 26MEQ/L Anion Gap 9MEQ/L Blood Urea Nitrogen 13.0MG/DL Creatinine 0.6MG/DL Glomerular Filtration Rate Calc 98 BUN/Creatinine Ratio 22RATIO Glucose Level 98MG/DL Calculated Osmolality 266MOSM/KG Calcium Level 7.8MG/DL Icterus Index < 2 Chemistry Specimen Hemolysis < 15 Laboratory Tests 06/08/16 08:14 Laboratory Tests 06/08/16 08:14 Medications Current Medications Cefazolin Sodium 1 g 1 g STK-MED ONCE .ROUTE ; Start 06/06/16 at 16:05; Stop at 16:07; Status DC Sterile Water (Sterile Water) 20 ml @ As Directed STK-MED ONCE .ROUTE ; Start at 16:05; Stop 06/06/16 at 16:07; Status DC Fentanyl (Fentanyl) 100 mcg STK-MED ONCE .ROUTE ; Start 06/06/16 at 16:06; Stop 06/06/16 at 16:07; Status DC Lidocaine HCl (Xylocaine 1%) 300 mg STK-MED ONCE .ROUTE ; Start 06/06/16 at 16: 07; Stop 06/06/16 at 16:08; Status DC Bacitracin (Bacitracin) 50,000 unit STK-MED ONCE .ROUTE ; Start 06/06/16 at 16: 07; Stop 06/06/16 at 16:08; Status DC Al Hydroxide/Mg Hydroxide (Maalox) 30 ml Q3H PRN PO INDIGESTION; Start at 16:45 Acetaminophen (Tylenol Regular Strength) 650 mg Q4H PRN PO PAIN; Start at 16:45 Acetaminophen/ Codeine Phosphate (Tylenol #3) 1-2 TAB Q4H PRN PO PAIN; Start at 16:45 Minocycline HCl (Minocin) 100 mg BID PO Last administered on 06/07/16 21:29; Start 06/07/16 at 09:00; Stop 06/14/16 at 08:59 Bisacodyl (Dulcolax) prn DAILY PRN PO ; Start 06/06/16 at 16:45 Lisinopril (Prinivil) 10 mg DAILY PO Last administered on 06/07/16 14:07; Start 06/07/16 at 13:00 Metoprolol Succinate 100 mg 100 mg DAILY PO Last administered on 06/07/16 14: 08; Start 06/07/16 at 13:00 Sodium Chloride (Normal Saline IV) 1,000 ml @ 80 mls/hr [id number] IV Last administered on 06/08/16 11:40; Start 06/07/16 at 12:35 Morphine Sulfate (Morphine) 2-10 mg IV Q1H Q1H PRN IV PAIN; Start 06/07/16 at 12:45 Ondansetron HCl (Zofran) 4 mg Q6H PRN IV NAUSEA &/OR VOMITING; Start 06/07/16 at 12:45 Furosemide (Lasix) 20 mg DAILY PO ; Start 06/08/16 at 09:00 Potassium Chloride (Kdur) 20 meq WB PO ; Start 06/08/16 at 08:00 Zinc Acetate/ Diphenhydramine (Benadryl Extra Strength) 1 applic TID PRN TOP Last administered on 06/07/16 15:35; Start 06/07/16 at 14:15 Cefazolin Sodium (Kefzol) 2 g PREOP ONCE IV Last administered on 06/08/16 08: 49; Start 06/08/16 at 07:00; Stop 06/08/16 at 07:01; Status DC Alendronate Sodium (Fosamax) 70 mg Sa@06 PO ; Start 06/10/16 at 06:00 Levothyroxine Sodium (Synthroid) 150 mcg ACB PO Last administered on 06/08/16 07:41; Start 06/08/16 at 07:30 Vancomycin HCl (Vancocin) 1 g STK-MED ONCE .ROUTE ; Start 06/08/16 at 08:25; Stop 06/08/16 at 08:26; Status DC Midazolam HCl (Versed) 2 mg STK-MED ONCE .ROUTE ; Start 06/08/16 at 08:49; Stop 06/08/16 at 08:50; Status DC Sodium Chloride (Iv Flush) 10 ml STK-MED ONCE .ROUTE ; Start 06/08/16 at 09:23; Stop 06/08/16 at 09:24; Status DC Phenylephrine HCl (Phenylephrine) 10 mg STK-MED ONCE .ROUTE ; Start 06/08/16 at 09:23; Stop 06/08/16 at 09:24; Status DC Metoprolol Tartrate 5 mg 5 mg STK-MED ONCE IV ; Start 06/08/16 at 09:59; Stop at 10:02; Status DC Propofol (Diprivan) 50 ml @ As Directed STK-MED ONCE IV ; Start 06/08/16 at 09: 59; Stop 06/08/16 at 10:02; Status DC Bupivacaine HCl/ Epinephrine Bitart (Marcaine/Epi 0.25%/1:200,000) 30 ml STK- MED ONCE .ROUTE ; Start 06/08/16 at 10:07; Stop 06/08/16 at 10:08; Status DC Magnesium Hydroxide 30 ml 30 ml DAILY PRN PO CONSTIPATION; Start 06/08/16 at 10 :30 Cefazolin Sodium/ Sodium Chloride (Kefzol/NS) 100 ml @ 200 mls/hr Q8H IV ; Start 06/08/16 at 17:00; Stop 06/09/16 at 01:29 Multi-Ingredient Antiseptic (Nozin Nasal Swab) 1 each O ONCE NS ; Start at 12:30; Stop 06/08/16 at 12:31; Status DC Warfarin Sodium (Coumadin Protocol) NOTE [facility] ; Start 06/08/16 at 11:30 Warfarin Sodium (COUMADIN 2 mg) 2 mg NOON PO ; Start 06/08/16 at 14:00; Stop at 14:01 Microbiology Microbiology Microbiology Date/Time Source Procedure Growth Status 06/07/16 15:02 Peripheral/Iv Start Blood Culture - Preliminary CULTURE INITIATED - RESULTS PENDING Resulted 06/07/16 15:02 Peripheral/Iv Start Blood Culture - Preliminary CULTURE INITIATED - RESULTS PENDING Resulted 06/07/16 14:17 Urine, Green Indwelling Urine Culture - Preliminary EARLY GROWTH Resulted Radiology DATE OF EXAM: 06/08/16 ORDERING DOCTOR: MELA LI MD TYPE OF EXAM: RF HIP LEFT 2 VIEW REASON FOR EXAM: LOOKING FOR SCRATCH PAD IN PATIENT Indication: ITS.REASON: LOOKING FOR SCRATCH PAD IN PATIENT PROCEDURE: RF HIP LEFT 2 VIEW: Encounter: Initial Comparison: None Findings: Four fluoroscopic spot images are submitted for interpretation. Images show a left femoral head prosthesis in place. No radiopaque foreign body is identified on the provided images. DATE OF EXAM: 06/08/16 ORDERING DOCTOR: CHIKIS ISABEL DO TYPE OF EXAM: US ABD/PELVIC DOPPER COMPLETE REASON FOR EXAM: BUDD- CHIARI Indication: ITS.REASON: BUDD- CHIARI PROCEDURE: US ABD/PELVIC DOPPER COMPLETE: Encounter: Initial Comparison: None Technique: Color Doppler imaging of the abdomen was performed with attention to the hepatic, portal and splenic veins. Findings: The left, middle and right hepatic veins are patent with normal waveforms. The IVC is patent with appropriate waveform present. Main portal vein is patent with normal flow velocity at 17.2 cm/s and normal flow direction. The hepatic artery is patent with appropriate flow direction and peak systolic velocity of 70 cm/s. Portal vein is patent to the portosplenic confluence. The splenic vein appears patent with appropriate flow direction. Splenic artery shows normal flow velocity. Impression: No sonographic evidence of arterial or venous thrombosis. 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 Findings: Hepatic parenchyma is very cirrhotic with a nodular irregular contour. The gallbladder is surgically absent. Both the intra and extrahepatic biliary system are of normal caliber with the common duct measuring 6 mm in dimension. Visualized portions of the head and body of the pancreas are unremarkable. The right kidney is present without collecting system dilatation. The right kidney measures 11.3 cm in length. Impression: Cirrhosis. Assessment & Plan Problems: (1) Fracture of left hip Status: Acute Qualifiers: Encounter type: initial encounter Fracture type: closed Qualified Codes: S72.002A - Fracture of unspecified part of neck of left femur, initial encounter for closed fracture Assessment & Plan: S/P femoral head replacement (2) Hematuria Status: Resolved (3) Liver cirrhosis Status: Chronic Qualifiers: Hepatic cirrhosis type: unspecified hepatic cirrhosis Ascites presence: without ascites Qualified Codes: K74.60 - Unspecified cirrhosis of liver (4) Presence of cardiac pacemaker Status: Chronic (5) PAF (paroxysmal atrial fibrillation) Status: Chronic (6) Cardiomyopathy Status: Chronic Qualifiers: Cardiomyopathy type: unspecified Qualified Codes: I42.9 - Cardiomyopathy, unspecified (7) HTN (hypertension) Status: Chronic Qualifiers: Hypertension type: essential hypertension Qualified Codes: I10 - Essential (primary) hypertension (8) Diabetes mellitus, type 2 Status: Chronic (9) Chronic systolic (congestive) heart failure Status: Chronic Plan/Intensity of Service 06/07/16 Patient admitted 06/06/16 and had PPM generator change. Site w/o drainage or palpable hematoma. CHF stable on current meds. Off warfarin for generator change. Resume when ok with ortho. Dr Li consulted to manage left hip fracture.CT abdomen refers to liver cirrhosis. LFTs ordered. Ortho aware so can assess bleeding/clotting. Dr. Zhang is her PCP; notified of fracture; will have him manage all non cardiac/non ortho issues.Generator change incision site dressing removed, incision is clean and dry. Patient has no history of CAD and is cleared from Cardiology to proceed with hip fracture repair per Ortho team. 06/08/16 S/P femoral head replacement. Drowsy at this time with moist breath sounds, will give Lasix 20mg IV X1 as did not have oral dose this morning and is unable to swallow at this time. MAURICIO OCHOA MD 06/13/16 1544: Assessment & Plan Plan/Intensity of Service After examining the patient I agree with the above assessment. I am involved in the formulation of the patient's plan of care. KENNETH VARGAS APRN Jun 08, 2016 13:04 MAURICIO OCHOA MD Jun 13, 2016 15:44
[2016-06-08] MEDS ORDERED: WARFARIN 2 MG TABLET PO SCH (14:00)
[2016-06-08] MEDS: CEFAZOLIN 2 G in NORMAL SALINE 100 ML IV SCH (18:42)
--- NOTE | 2016-06-08 20:04 | NUR ---
shift summary patient is alert and oriented x3. patient vitals are stable and patient is on 3.5 l nc. patient dressing is clean, dry, and intact. patient has not been out of bed since surgery due to spinal. will continue to monitor.
--- NOTE | 2016-06-08 23:19 | NUR ---
Pt had sats of 80% on 3.5L O2. Pt encouraged to cough and take some deep breaths. O2 increased to 4.5L. Pt sats increased to 94%.
[2016-06-09] VITALS (9 sets, daily range): BP systolic 109–154; BP diastolic 44–63; PULSE 69–70; RESP 14–20; TEMP 97.3–98.5; O2SAT 94–96
[2016-06-09] MEDS: NOZIN NASAL SWAB NS SCH ×3 (00:44→17:16)
[2016-06-09] MEDS: CEFAZOLIN 2 G in NORMAL SALINE 100 ML IV SCH (00:44)
--- NOTE | 2016-06-09 01:16 | NUR ---
Pt O2 turned back down to 3.5L. Sats are in the high 90's
[2016-06-09 02:27] LABS: HEPATITIS B SURFACE AG - BATCH NEGATIVE (NEGATIVE)
[2016-06-09 02:33] LABS: HEPATITIS A ANTIBODY IGM-BATCH NEGATIVE (NEGATIVE)
[2016-06-09 02:44] LABS: HEPATITIS C VIRUS AB-BATCH NEGATIVE (NEGATIVE)
[2016-06-09 05:21] LABS: HCT - HEMATOCRIT 39.1 % (36-46); HGB - HEMOGLOBIN 11.8 GM/DL (12-16); MEAN CORPUSCULAR HGB 26.1 UUG (26-34); MEAN CORPUSCULAR HGB CONC(MCHC 30.2 GM/DL (31-37); MEAN CORPUSCULAR VOLUME 86.5 UM3 (80-100); MEAN PLATELET VOLUME 10.5 UM3 (9.4-12.4); RED BLOOD COUNT 4.52 M/MM3 (4.00-5.20); WBC - WHITE BLOOD COUNT 6.3 T/MM3 (4.5-11.0)
[2016-06-09 05:29] LABS: INR 1.56 (0.76-1.04)
[2016-06-09 05:34] LABS: ANION GAP 8 MEQ/L (5-15); BUN/CREATININE RATIO 21 RATIO (6-26); CALCIUM 7.2 MG/DL (8.4-10.2); CHLORIDE 102 MEQ/L (98-107); CO2 - CARBON DIOXIDE 29 MEQ/L (22-30); CREATININE 0.7 MG/DL (0.7-1.2); GLOMERULAR FILTRATION RATE 82; GLUCOSE 84 MG/DL (65-110); SODIUM 139 MEQ/L (134-144)
[2016-06-09] MEDS: LEVOTHYROXINE 150 MCG TABLET PO SCH (06:20)
[2016-06-09 06:52] LABS: BAND NEUTROPHILS # 0.4 T/MM3; BASOPHILS # (MANUAL) 0.1 T/MM3 (0-0.2); LYMPHOCYTES # (MANUAL) 0.4 T/MM3 (1-4.8); MONOCYTES # (MANUAL) 0.4 T/MM3 (0-0.8); NEUTROPHILS #(MANUAL)-ABSOLUTE 5.1 T/MM3 (1.8-7.7); TOTAL CELLS COUNTED 100 %
--- NOTE | 2016-06-09 08:07 | PDORTHOPN ---
Subjective Date DATE: 06/09/16 TIME: 08:03 Subjective Maryann reports her pain is not too bad. She is just generally not comfortable but does not want repositioned. No reports of CP or breathing issues. Objective Vital Signs Vital signs Vital Signs 06/08/16 06/08/16 06/08/16 06/09/16 20:58 20:58 22:57 00:30 Temp 97.9 98.4 Pulse 68 68 70 Resp 24 20 B/P 131/59 154/63 Pulse Ox 94 O2 Delivery Nasal Cannula Nasal Cannula Nasal Cannula O2 Flow Rate 3.00 3.00 4.50 06/09/16 06/09/16 03:46 07:12 Temp 97.6 Pulse 69 69 Resp 20 20 B/P 144/53 O2 Delivery Nasal Cannula O2 Flow Rate 3.50 Height (Feet): 5 Height (Inches): 6.00 Weight (Kilograms): 64.700 General General Appearance: Alert, No Acute Distress Respiratory (Brief) Respiratory Brief: FOUND: non-labored Cardiovascular (Brief) Cardiac: FOUND: pedal pulses intact Surgical Site Incision: FOUND: Mepilex dressing intact, no drainage Integumentary (Brief) Integumentary Brief: FOUND dry, FOUND pink, FOUND rash (left inguinal area), FOUND warm Neurologic (Brief) Neurological Brief: FOUND: extremities w/o deficits, neuro intact Psychiatric (Brief) Psychiatric Brief: FOUND: alert, no acute distress Laboratory Laboratory Laboratory Tests 06/08/16 08:14 06/09/16 04:25 Laboratory Tests 06/08/16 08:14 06/09/16 04:25 Microbiology Microbiology Microbiology Date/Time Source Procedure Growth Status 06/07/16 15:02 Peripheral/Iv Start Blood Culture - Preliminary NO GROWTH AFTER 24 HOURS Resulted 06/07/16 15:02 Peripheral/Iv Start Blood Culture - Preliminary NO GROWTH AFTER 24 HOURS Resulted 06/07/16 14:17 Urine, Green Indwelling Urine Culture - Preliminary Gram Negative Enrique Resulted Assessment & Plan Problems: (1) Fracture of left hip Status: Acute Qualifiers: Encounter type: initial encounter Fracture type: closed Qualified Codes: S72.002A - Fracture of unspecified part of neck of left femur, initial encounter for closed fracture Assessment & Plan: x Left hip salome arthroplasty 06/08 Coumadin restarted post op. Coumadin / SCDs / early mobilization for DVT coverage. Begin ambulation with PT / OT. WBAT Monitor labs. Medical mgmt per Dr Duckworth. Hospital Course Summary Disclaimer The visit summary below is not to be considered part of the above Progress Note. BRANDEN LUCAS Jun 09, 2016 08:07
[2016-06-09] MEDS: POTASSIUM CHLORIDE 20 MEQ TABLET PO SCH (08:25)
[2016-06-09] MEDS: METOPROLOL 100 MG PO SCH (08:25)
[2016-06-09] MEDS: LISINOPRIL 10 MG TABLET PO SCH (08:25)
[2016-06-09] MEDS: MINOCYCLINE 100 MG CAPSULE PO SCH ×2 (08:25→20:42)
[2016-06-09] MEDS: FUROSEMIDE 20 MG TABLET PO SCH (08:26)
[2016-06-09] MEDS: ACETAMINOPHEN/CODEINE 300mg/30mg TABLET PO PRN ×2 (09:34→22:57)
--- NOTE | 2016-06-09 10:33 | NUR ---
CM CM IN TO VISIT WITH PT. SHE IS ALERT AND ORIENTED. CM VISITS WITH HER ABOUT REHAB OPTIONS. SHE IS INTERESTED IN [facility]. SHE IS GIVEN CM CONTACT INFORMATION. Addendum: 06/09/16 at 1035 by FE ARZOLA RN Amended: Links added.
[2016-06-09] MEDS ORDERED: WARFARIN 2 MG TABLET PO SCH (12:00)
[2016-06-09] MEDS: NORMAL SALINE 1,000 ML IV SCH (12:16)
--- NOTE | 2016-06-09 12:23 | NUR ---
COUMADIN CONSULT (Recurring): 75 y.o. female post op Left Femoral head replacement. Patient has a history of a.fib and bladder neoplasm. Also has history of chronic anticoagulation with Warfarin. Home Warfarin dose= 2 mg po 6 days a week. Pharmacy was consulted to manage Warfarin per protocol. date INR dose 06/08 1.30 2 mg 3 1.56 plan: 2 mg Will give Warfarin 2 mg po today. potential drug drug interaction exists between Warfarin and Minocycline may increase INR and risk of bleeding. Patient record lists an allergy to Heparin analogues. Due to potential allergy no Lovenox has been ordered at this time. Pharmacy will monitor and adjust Warfarin. Thank you for the protocol, Leona Mcmanus RPh
--- NOTE | 2016-06-09 12:28 | PNPDOC ---
KENNETH VARGAS SEAM CHECKER 06/09/16 1222: Subjective Date DATE: 06/09/16 TIME: 12:19 Subjective Maryann is sitting up in the chair today, eating her lunch. She complains that her roast beef is difficult to eat due to her missing teeth. She denies chest pain or dyspnea. States that the pain in her hip is "not too bad" Objective Vital Signs Vital signs Vital Signs 06/09/16 06/09/16 06/09/16 06/09/16 00:30 03:46 07:12 08:03 Temp 98.4 97.6 97.3 Pulse 70 69 69 69 Resp 20 20 20 20 B/P 154/63 144/53 127/55 Pulse Ox 94 O2 Delivery Nasal Cannula Nasal Cannula Nasal Cannula O2 Flow Rate 4.50 3.50 3.50 06/09/16 11:26 Pulse 69 Resp 14 B/P 117/44 Pulse Ox 96 O2 Delivery Nasal Cannula Telemetry Rhythm: Vpaced Height (Feet): 5 Height (Inches): 6.00 Weight (Kilograms): 66.000 General Alert, Orientated x 3 ENMT (Brief) mucosa moist Neck (Brief) JVD, NOT FOUND: carotid bruits Respiratory (Brief) equal bilaterally (scattered wheezes), rales (bibasilar), wheezes, NOT FOUND: clear all crump Cardiovascular (Brief) murmur (2/6 systolic), regular rhythm, NOT FOUND: pedal edema, peripheral edema Abdomen (Brief) BS normo active x4, soft, NOT FOUND: tender Extremities (Brief) Extremity : Side: Left Extremity: leg Extremity Finding: pain, NOT FOUND: edema Integumentary (Brief) dry, pink, warm Psychiatric (Brief) alert, attentive, oriented Laboratory Laboratory Laboratory Tests Test 06/07/16 13:17 06/07/16 13:52 06/07/16 15:02 06/08/16 08:14 Prothromb Time International Ratio 1.26 1.30 Activated Partial Thromboplast Time 32.6SEC Urine Collection Type Nuñez indwelling Urine Color Yellow Urine Turbidity Cloudy Urine pH 5.5 Urine Specific Jenera 1.020 Urine Protein 2+ Urine Glucose (UA) Negative Urine Ketones Trace Urine Blood 3+ Urine Nitrite Negative Urine Bilirubin Negative Urine Urobilinogen 0.2EU/DL Urine Leukocyte Esterase 2+ Urine RBC 20-30/HPF Urine WBC 30-50/HPF Urine WBC Clumps Few Urine Bacteria 2+ Urine Culture Indicated Cult reflexed &setup Hepatitis A IgM Antibody Negative Hepatitis B Surface Antigen Negative Hepatitis B Core IgM Antibody Negative Hepatitis C Antibody Negative White Blood Count 5.3T/MM3 Red Blood Count 5.13M/MM3 Hemoglobin 14.0GM/DL Hematocrit 43.8% Mean Corpuscular Volume 85.4UM3 Mean Corpuscular Hemoglobin 27.3UUG Mean Corpuscular Hemoglobin Concent 32.0GM/DL RDW Standard Deviation 50.1FL Platelet Count 103T/MM3 Mean Platelet Volume 10.6UM3 Immature Granulocyte % (Auto) 0.2% Neutrophils (%) (Auto) 77.1% Lymphocytes (%) (Auto) 8.1% Monocytes (%) (Auto) 11.0% Eosinophils (%) (Auto) 3.2% Basophils (%) (Auto) 0.4% Absolute Immature Granulocyte (auto 0.01T/MM3 Absolute Neutrophils (auto) 4.1T/MM3 Absolute Lymphocytes (auto) 0.4T/MM3 Absolute Monocytes (auto) 0.6T/MM3 Absolute Eosinophils (auto) 0.2T/MM3 Absolute Basophils (auto) 0.0T/MM3 Turbidity < 20 Sodium Level 138MEQ/L Potassium Level 4.3MEQ/L Chloride Level 103MEQ/L Carbon Dioxide Level 26MEQ/L Anion Gap 9MEQ/L Blood Urea Nitrogen 13.0MG/DL Creatinine 0.6MG/DL Glomerular Filtration Rate Calc 98 BUN/Creatinine Ratio 22RATIO Glucose Level 98MG/DL Calculated Osmolality 266MOSM/KG Calcium Level 7.8MG/DL Icterus Index < 2 Chemistry Specimen Hemolysis < 15 Test 06/08/16 16:07 06/09/16 04:25 White Blood Count 6.3T/MM3 Red Blood Count 4.52M/MM3 Hemoglobin 11.8GM/DL Hematocrit 39.1% Mean Corpuscular Volume 86.5UM3 Mean Corpuscular Hemoglobin 26.1UUG Mean Corpuscular Hemoglobin Concent 30.2GM/DL RDW Standard Deviation 50.5FL Platelet Count 99T/MM3 Mean Platelet Volume 10.5UM3 Immature Granulocyte % (Auto) % Neutrophils (%) (Auto) % Lymphocytes (%) (Auto) % Monocytes (%) (Auto) % Eosinophils (%) (Auto) % Basophils (%) (Auto) % Absolute Immature Granulocyte (auto T/MM3 Absolute Neutrophils (auto) T/MM3 Absolute Lymphocytes (auto) T/MM3 Absolute Monocytes (auto) T/MM3 Absolute Eosinophils (auto) T/MM3 Absolute Basophils (auto) T/MM3 Neutrophils % (Manual) 81.0% Band Neutrophils % 6.0% Lymphocytes % (Manual) 6.0% Monocytes % (Manual) 6.0% Basophils % (Manual) 1.0% Absolute Neutrophils (Manual) 5.1T/MM3 Band Neutrophils # 0.4T/MM3 Lymphocytes # (Manual) 0.4T/MM3 Monocytes # (Manual) 0.4T/MM3 Basophils # (Manual) 0.1T/MM3 Red Cell Morphology Comment Normal Prothromb Time International Ratio 1.56 Turbidity < 20 Sodium Level 139MEQ/L Potassium Level 4.0MEQ/L Chloride Level 102MEQ/L Carbon Dioxide Level 29MEQ/L Anion Gap 8MEQ/L Blood Urea Nitrogen 15.0MG/DL Creatinine 0.7MG/DL Glomerular Filtration Rate Calc 82 BUN/Creatinine Ratio 21RATIO Glucose Level 84MG/DL Calculated Osmolality 268MOSM/KG Calcium Level 7.2MG/DL Icterus Index < 2 Chemistry Specimen Hemolysis < 15 Laboratory Tests 06/09/16 04:25 Laboratory Tests 06/09/16 04:25 Medications Current Medications Cefazolin Sodium 1 g 1 g STK-MED ONCE .ROUTE ; Start 06/06/16 at 16:05; Stop at 16:07; Status DC Sterile Water (Sterile Water) 20 ml @ As Directed STK-MED ONCE .ROUTE ; Start at 16:05; Stop 06/06/16 at 16:07; Status DC Fentanyl (Fentanyl) 100 mcg STK-MED ONCE .ROUTE ; Start 06/06/16 at 16:06; Stop 06/06/16 at 16:07; Status DC Lidocaine HCl (Xylocaine 1%) 300 mg STK-MED ONCE .ROUTE ; Start 06/06/16 at 16: 07; Stop 06/06/16 at 16:08; Status DC Bacitracin (Bacitracin) 50,000 unit STK-MED ONCE .ROUTE ; Start 06/06/16 at 16: 07; Stop 06/06/16 at 16:08; Status DC Al Hydroxide/Mg Hydroxide (Maalox) 30 ml Q3H PRN PO INDIGESTION; Start at 16:45 Acetaminophen (Tylenol Regular Strength) 650 mg Q4H PRN PO PAIN; Start at 16:45 Acetaminophen/ Codeine Phosphate (Tylenol #3) 1-2 TAB Q4H PRN PO PAIN Last administered on 06/09/16 09:34; Start 06/06/16 at 16:45 Minocycline HCl (Minocin) 100 mg BID PO Last administered on 06/09/16 08:25; Start 06/07/16 at 09:00; Stop 06/14/16 at 08:59 Bisacodyl (Dulcolax) prn DAILY PRN PO ; Start 06/06/16 at 16:45 Lisinopril (Prinivil) 10 mg DAILY PO Last administered on 06/09/16 08:25; Start 06/07/16 at 13:00 Metoprolol Succinate 100 mg 100 mg DAILY PO Last administered on 06/09/16 08: 25; Start 06/07/16 at 13:00 Sodium Chloride (Normal Saline IV) 1,000 ml @ 80 mls/hr [id number] IV Last administered on 06/09/16 12:16; Start 06/07/16 at 12:35 Morphine Sulfate (Morphine) 2-10 mg IV Q1H Q1H PRN IV PAIN; Start 06/07/16 at 12:45 Ondansetron HCl (Zofran) 4 mg Q6H PRN IV NAUSEA &/OR VOMITING; Start 06/07/16 at 12:45 Potassium Chloride (Kdur) 20 meq WB PO Last administered on 06/09/16 08:25; Start 06/08/16 at 08:00 Zinc Acetate/ Diphenhydramine (Benadryl Extra Strength) 1 applic TID PRN TOP Last administered on 06/07/16 15:35; Start 06/07/16 at 14:15 Cefazolin Sodium (Kefzol) 2 g PREOP ONCE IV Last administered on 06/08/16 08: 49; Start 06/08/16 at 07:00; Stop 06/08/16 at 07:01; Status DC Alendronate Sodium (Fosamax) 70 mg Sa@06 PO ; Start 06/10/16 at 06:00 Levothyroxine Sodium (Synthroid) 150 mcg ACB PO Last administered on 06/09/16 06:20; Start 06/08/16 at 07:30 Vancomycin HCl (Vancocin) 1 g STK-MED ONCE .ROUTE ; Start 06/08/16 at 08:25; Stop 06/08/16 at 08:26; Status DC Midazolam HCl (Versed) 2 mg STK-MED ONCE .ROUTE ; Start 06/08/16 at 08:49; Stop 06/08/16 at 08:50; Status DC Sodium Chloride (Iv Flush) 10 ml STK-MED ONCE .ROUTE ; Start 06/08/16 at 09:23; Stop 06/08/16 at 09:24; Status DC Phenylephrine HCl (Phenylephrine) 10 mg STK-MED ONCE .ROUTE ; Start 06/08/16 at 09:23; Stop 06/08/16 at 09:24; Status DC Metoprolol Tartrate 5 mg 5 mg STK-MED ONCE IV ; Start 06/08/16 at 09:59; Stop at 10:02; Status DC Propofol (Diprivan) 50 ml @ As Directed STK-MED ONCE IV ; Start 06/08/16 at 09: 59; Stop 06/08/16 at 10:02; Status DC Bupivacaine HCl/ Epinephrine Bitart (Marcaine/Epi 0.25%/1:200,000) 30 ml STK- MED ONCE .ROUTE ; Start 06/08/16 at 10:07; Stop 06/08/16 at 10:08; Status DC Magnesium Hydroxide 30 ml 30 ml DAILY PRN PO CONSTIPATION Last administered on 06/09/16 08:27; Start 06/08/16 at 10:30 Cefazolin Sodium/ Sodium Chloride (Kefzol/NS) 100 ml @ 200 mls/hr Q8H IV Last administered on 06/09/16 00:44; Start 06/08/16 at 17:00; Stop 06/09/16 at 01:29 ; Status DC Multi-Ingredient Antiseptic (Nozin Nasal Swab) 1 each O ONCE NS Last administered on 06/08/16 13:36; Start 06/08/16 at 12:30; Stop 06/08/16 at 12:31 ; Status DC Warfarin Sodium (Coumadin Protocol) NOTE [facility] ; Start 06/08/16 at 11:30 Furosemide (Lasix) 20 mg O ONCE IV Last administered on 06/08/16 13:37; Start 06/08/16 at 13:30; Stop 06/08/16 at 13:31; Status DC Warfarin Sodium (COUMADIN 2 mg) 2 mg NOON PO Last administered on 06/09/16 11: 50; Start 06/09/16 at 12:00; Stop 06/09/16 at 12:01; Status DC Microbiology Microbiology Microbiology Date/Time Source Procedure Growth Status 06/07/16 15:02 Peripheral/Iv Start Blood Culture - Preliminary NO GROWTH AFTER 24 HOURS Resulted 06/07/16 15:02 Peripheral/Iv Start Blood Culture - Preliminary NO GROWTH AFTER 24 HOURS Resulted 06/07/16 14:17 Urine, Nuñez Indwelling Urine Culture - Preliminary Gram Negative Enrique Resulted Assessment & Plan Problems: (1) Fracture of left hip Status: Acute Qualifiers: Encounter type: initial encounter Fracture type: closed Qualified Codes: S72.002A - Fracture of unspecified part of neck of left femur, initial encounter for closed fracture Assessment & Plan: S/P femoral head replacement (2) Hematuria Status: Resolved (3) Liver cirrhosis Status: Chronic Qualifiers: Hepatic cirrhosis type: unspecified hepatic cirrhosis Ascites presence: without ascites Qualified Codes: K74.60 - Unspecified cirrhosis of liver (4) Presence of cardiac pacemaker Status: Chronic (5) PAF (paroxysmal atrial fibrillation) Status: Chronic (6) Cardiomyopathy Status: Chronic Qualifiers: Cardiomyopathy type: unspecified Qualified Codes: I42.9 - Cardiomyopathy, unspecified (7) HTN (hypertension) Status: Chronic Qualifiers: Hypertension type: essential hypertension Qualified Codes: I10 - Essential (primary) hypertension (8) Diabetes mellitus, type 2 Status: Chronic (9) Chronic systolic (congestive) heart failure Status: Chronic Plan/Intensity of Service 06/07/16 Patient admitted 06/06/16 and had PPM generator change. Site w/o drainage or palpable hematoma. CHF stable on current meds. Off warfarin for generator change. Resume when ok with ortho. Dr Li consulted to manage left hip fracture.CT abdomen refers to liver cirrhosis. LFTs ordered. Ortho aware so can assess bleeding/clotting. Dr. Zhang is her PCP; notified of fracture; will have him manage all non cardiac/non ortho issues.Generator change incision site dressing removed, incision is clean and dry. Patient has no history of CAD and is cleared from Cardiology to proceed with hip fracture repair per Ortho team. 06/08/16 S/P femoral head replacement. Drowsy at this time with moist breath sounds, will give Lasix 20mg IV X1 as did not have oral dose this morning and is unable to swallow at this time. 06/09/16 Chest xray please, increase to Lasix 40mg po BID. Hematuria resolved, urine is weak tea colored in nuñez. HGB 11.8 today. Coumadin per pharmacy, INR 1.56 MAURICIO OCHOA MD 06/13/16 1548: Assessment & Plan Plan/Intensity of Service After examining the patient I agree with the above assessment. I am involved in the formulation of the patient's plan of care. KENNETH VARGAS SEAM CHECKER Jun 09, 2016 12:22 MAURICIO OCHOA MD Jun 13, 2016 15:48
[2016-06-09] MEDS: ALBUTEROL/IPRATROPIUM INHAL. 2.5mg-0.5mg/3ml Neb. IPPB SCH ×2 (16:55→20:39)
[2016-06-09] MEDS: FUROSEMIDE 40 MG TABLET PO SCH (18:40)
[2016-06-10] VITALS (9 sets, daily range): BP systolic 103–132; BP diastolic 41–69; PULSE 68–70; RESP 18–22; TEMP 97.2–98; O2SAT 90–98
[2016-06-10] MEDS: NOZIN NASAL SWAB NS SCH ×3 (00:49→17:49)
[2016-06-10] MEDS: NORMAL SALINE 1,000 ML IV SCH ×2 (00:50→13:48)
[2016-06-10 05:35] LABS: INR 1.8 (0.90-1.23); PROTHROMBIN TIME 21.1 SEC (10.8-13.8)
--- NOTE | 2016-06-10 05:55 | NUR ---
STATUS PT SLEPT WELL THROUGH THE NIGHT. PT REPORTS PAIN IS WELL CONTROLLED. PT REPOSITIONED FOR COMFORT. PT ANSWERS QUESTIONS APPROPRIATELY. PT REMAINS ON 3L O2.
[2016-06-10] MEDS ORDERED: ALENDRONATE 70 MG TABLET PO SCH (06:00)
[2016-06-10] MEDS: LEVOTHYROXINE 150 MCG TABLET PO SCH (07:17)
--- NOTE | 2016-06-10 07:40 | NUR ---
COUMADIN CONSULT (Recurring): 75 y.o. female post op Left Femoral head replacement. Patient has a history of a.fib and bladder neoplasm. Also has history of chronic anticoagulation with Warfarin. Home Warfarin dose= 2 mg po 6 days a week. Pharmacy was consulted to manage Warfarin per protocol. date INR dose 06/08 1.30 2 mg 3 1.56 2 mg 06/10 1.80 plan: 2 mg Will give Warfarin 2 mg po today. potential drug drug interaction exists between Warfarin and Minocycline may increase INR and risk of bleeding. Patient record lists an allergy to Heparin analogues. Due to potential allergy no Lovenox has been ordered at this time. Pharmacy will monitor and adjust Warfarin. Thank you for the protocol, Leona Mcmanus RPh
[2016-06-10] MEDS: ALBUTEROL/IPRATROPIUM INHAL. 2.5mg-0.5mg/3ml Neb. IPPB SCH ×2 (08:50→19:14)
[2016-06-10] MEDS ORDERED: ALBUTEROL/IPRATROPIUM INHAL. 2.5mg-0.5mg/3ml Neb. IPPB PRN (09:15)
--- NOTE | 2016-06-10 10:20 | PDORTHOPN ---
Subjective Date DATE: 06/10/16 TIME: 10:18 Subjective Maryann reports her pain is better since her surgery No reports of CP or breathing issues. No new complaints. Objective Vital Signs Vital signs Vital Signs 06/10/16 06/10/16 06/10/16 06/10/16 00:43 00:43 04:15 08:27 Temp 97.8 97.2 98.0 Pulse 69 69 69 69 Resp 20 20 18 20 B/P 103/48 107/43 120/55 Pulse Ox 94 98 97 O2 Delivery Nasal Cannula Nasal Cannula Nasal Cannula O2 Flow Rate 3.00 3.00 2.00 06/10/16 06/10/16 06/10/16 06/10/16 08:45 08:45 08:55 09:10 Pulse 68 69 72 Resp 22 20 Height (Feet): 5 Height (Inches): 6.00 Weight (Kilograms): 66.200 General General Appearance: Alert, No Acute Distress Respiratory (Brief) Respiratory Brief: FOUND: non-labored Cardiovascular (Brief) Cardiac: FOUND: calf easily compressible, calf soft, nontender, pedal pulses intact Musculoskeletal (Brief) Hip: FOUND decreased ROM (rotation), FOUND decreased ROM(flexion), NOT FOUND abnormal rotation Surgical Site Incision: FOUND: Mepilex dressing intact, no drainage Integumentary (Brief) Integumentary Brief: FOUND dry, FOUND pink, FOUND rash (left inguinal area), FOUND warm Neurologic (Brief) Neurological Brief: FOUND: extremities w/o deficits, neuro intact Psychiatric (Brief) Psychiatric Brief: FOUND: alert, no acute distress Laboratory Laboratory Laboratory Tests 06/09/16 04:25 Laboratory Tests 06/09/16 04:25 Microbiology Microbiology Microbiology Date/Time Source Procedure Growth Status 06/07/16 15:02 Peripheral/Iv Start Blood Culture - Preliminary NO GROWTH AFTER 48 HOURS Resulted 06/07/16 15:02 Peripheral/Iv Start Blood Culture - Preliminary NO GROWTH AFTER 48 HOURS Resulted 06/07/16 14:17 Urine, Green Indwelling Urine Culture - Final Escherichia Coli Complete Assessment & Plan Problems: (1) Fracture of left hip Status: Acute Qualifiers: Encounter type: initial encounter Fracture type: closed Qualified Codes: S72.002A - Fracture of unspecified part of neck of left femur, initial encounter for closed fracture Assessment & Plan: x Left hip salome arthroplasty 3/30 Coumadin restarted post op. Coumadin / SCDs / early mobilization for DVT coverage. Begin ambulation with PT / OT. WBAT Monitor labs. Medical mgmt per Dr Duckworth. Hospital Course Summary Disclaimer The visit summary below is not to be considered part of the above Progress Note. EDMUND VERA Jun 10, 2016 10:20
[2016-06-10] MEDS: LISINOPRIL 10 MG TABLET PO SCH (11:15)
[2016-06-10] MEDS: MINOCYCLINE 100 MG CAPSULE PO SCH ×2 (11:15→22:18)
[2016-06-10] MEDS: METOPROLOL 100 MG PO SCH (11:15)
[2016-06-10] MEDS: POTASSIUM CHLORIDE 20 MEQ TABLET PO SCH (11:16)
[2016-06-10] MEDS: FUROSEMIDE 40 MG TABLET PO SCH (11:21)
[2016-06-10] MEDS ORDERED: WARFARIN 2 MG TABLET PO SCH (12:00)
[2016-06-10] MEDS ORDERED: FUROSEMIDE 40 MG/4 ML INJECTION IV ONE (14:15)
--- NOTE | 2016-06-10 14:30 | PNPDOC ---
NOAH MERRILL [employer] 06/10/16 1416: Subjective Date DATE: 06/10/16 TIME: 13:52 Subjective Sitting in bed. On 2L of oxygen NC. Very short of air. Unable to take a deep breath during assessment. No complaints of surgical pain. Objective Vital Signs Vital signs Vital Signs 06/10/16 06/10/16 06/10/16 06/10/16 04:15 08:27 08:45 08:45 Temp 97.2 98.0 Pulse 69 69 68 Resp 18 20 22 B/P 107/43 120/55 Pulse Ox 98 97 O2 Delivery Nasal Cannula Nasal Cannula O2 Flow Rate 3.00 2.00 06/10/16 06/10/16 06/10/16 08:55 09:10 12:53 Temp 98.0 Pulse 69 72 69 Resp 20 22 B/P 132/53 Pulse Ox 91 O2 Delivery Nasal Cannula O2 Flow Rate 2.00 Telemetry Rhythm: Vpaced Height (Feet): 5 Height (Inches): 6.00 Weight (Kilograms): 66.200 General Alert, No Acute Distress Neck (Brief) midline, NOT FOUND: JVD, carotid bruits Respiratory (Brief) symmetrical, wheezes, NOT FOUND: clear all crump, equal bilaterally Comments 2 liters of oxygen. Cardiovascular (Brief) murmur (2/6 systolic), regular rhythm, NOT FOUND: pedal edema, peripheral edema (Brief) NOT FOUND: bleeding Extremities (Brief) Extremity : Side: Left, Right Extremity Finding: NOT FOUND: edema Musculoskeletal (Brief) NOT FOUND: deformity, spasm Psychiatric (Brief) alert, attentive, normal affect Laboratory Laboratory Intake and Output 06/10/16 06:59 Intake Total 2688.0 ml Output Total 945.0 ml Balance 1743.0 ml Intake Oral 720.0 ml IV Total 1968.0 ml Output Urine Total 945 ml Stool Total 0 ml # Bowel Movements 1 Intake and Output 06/10/16 06:59 Intake Total 2688.0 ml Output Total 945.0 ml Balance 1743.0 ml Intake Oral 720.0 ml IV Total 1968.0 ml Output Urine Total 945 ml Stool Total 0 ml # Bowel Movements 1 Laboratory Tests Test 06/08/16 16:07 06/09/16 04:25 06/09/16 22:13 06/10/16 04:45 Anti-Nuclear Antibody (LAB) Indeterminate White Blood Count 6.3T/MM3 Red Blood Count 4.52M/MM3 Hemoglobin 11.8GM/DL Hematocrit 39.1% Mean Corpuscular Volume 86.5UM3 Mean Corpuscular Hemoglobin 26.1UUG Mean Corpuscular Hemoglobin Concent 30.2GM/DL RDW Standard Deviation 50.5FL Platelet Count 99T/MM3 Mean Platelet Volume 10.5UM3 Immature Granulocyte % (Auto) % Neutrophils (%) (Auto) % Lymphocytes (%) (Auto) % Monocytes (%) (Auto) % Eosinophils (%) (Auto) % Basophils (%) (Auto) % Absolute Immature Granulocyte (auto T/MM3 Absolute Neutrophils (auto) T/MM3 Absolute Lymphocytes (auto) T/MM3 Absolute Monocytes (auto) T/MM3 Absolute Eosinophils (auto) T/MM3 Absolute Basophils (auto) T/MM3 Neutrophils % (Manual) 81.0% Band Neutrophils % 6.0% Lymphocytes % (Manual) 6.0% Monocytes % (Manual) 6.0% Basophils % (Manual) 1.0% Absolute Neutrophils (Manual) 5.1T/MM3 Band Neutrophils # 0.4T/MM3 Lymphocytes # (Manual) 0.4T/MM3 Monocytes # (Manual) 0.4T/MM3 Basophils # (Manual) 0.1T/MM3 Red Cell Morphology Comment Normal Prothromb Time International Ratio 1.56 1.80 Turbidity < 20 Sodium Level 139MEQ/L Potassium Level 4.0MEQ/L Chloride Level 102MEQ/L Carbon Dioxide Level 29MEQ/L Anion Gap 8MEQ/L Blood Urea Nitrogen 15.0MG/DL Creatinine 0.7MG/DL Glomerular Filtration Rate Calc 82 BUN/Creatinine Ratio 21RATIO Glucose Level 84MG/DL Calculated Osmolality 268MOSM/KG Calcium Level 7.2MG/DL Icterus Index < 2 Chemistry Specimen Hemolysis < 15 Medications Current Medications Cefazolin Sodium 1 g 1 g STK-MED ONCE .ROUTE ; Start 06/06/16 at 16:05; Stop at 16:07; Status DC Sterile Water (Sterile Water) 20 ml @ As Directed STK-MED ONCE .ROUTE ; Start at 16:05; Stop 06/06/16 at 16:07; Status DC Fentanyl (Fentanyl) 100 mcg STK-MED ONCE .ROUTE ; Start 06/06/16 at 16:06; Stop 06/06/16 at 16:07; Status DC Lidocaine HCl (Xylocaine 1%) 300 mg STK-MED ONCE .ROUTE ; Start 06/06/16 at 16: 07; Stop 06/06/16 at 16:08; Status DC Bacitracin (Bacitracin) 50,000 unit STK-MED ONCE .ROUTE ; Start 06/06/16 at 16: 07; Stop 06/06/16 at 16:08; Status DC Al Hydroxide/Mg Hydroxide (Maalox) 30 ml Q3H PRN PO INDIGESTION; Start at 16:45 Acetaminophen (Tylenol Regular Strength) 650 mg Q4H PRN PO PAIN; Start at 16:45 Acetaminophen/ Codeine Phosphate (Tylenol #3) 1-2 TAB Q4H PRN PO PAIN Last administered on 06/09/16 22:57; Start 06/06/16 at 16:45 Minocycline HCl (Minocin) 100 mg BID PO Last administered on 06/10/16 11:15; Start 06/07/16 at 09:00; Stop 06/14/16 at 08:59 Bisacodyl (Dulcolax) prn DAILY PRN PO ; Start 06/06/16 at 16:45 Lisinopril (Prinivil) 10 mg DAILY PO Last administered on 06/10/16 11:15; Start 06/07/16 at 13:00 Metoprolol Succinate 100 mg 100 mg DAILY PO Last administered on 06/10/16 11:15 ; Start 06/07/16 at 13:00 Sodium Chloride (Normal Saline IV) 1,000 ml @ 80 mls/hr [id number] IV Last administered on 06/10/16 13:48; Start 06/07/16 at 12:35 Morphine Sulfate (Morphine) 2-10 mg IV Q1H Q1H PRN IV PAIN; Start 06/07/16 at 12:45 Ondansetron HCl (Zofran) 4 mg Q6H PRN IV NAUSEA &/OR VOMITING; Start 06/07/16 at 12:45 Potassium Chloride (Kdur) 20 meq WB PO Last administered on 06/10/16 11:16; Start 06/08/16 at 08:00 Zinc Acetate/ Diphenhydramine (Benadryl Extra Strength) 1 applic TID PRN TOP Last administered on 06/07/16 15:35; Start 06/07/16 at 14:15 Cefazolin Sodium (Kefzol) 2 g PREOP ONCE IV Last administered on 06/08/16 08: 49; Start 06/08/16 at 07:00; Stop 06/08/16 at 07:01; Status DC Alendronate Sodium (Fosamax) 70 mg Sa@06 PO Last administered on 06/10/16 06:56 ; Start 06/10/16 at 06:00 Levothyroxine Sodium (Synthroid) 150 mcg ACB PO Last administered on 06/10/16 07:17; Start 06/08/16 at 07:30 Vancomycin HCl (Vancocin) 1 g STK-MED ONCE .ROUTE ; Start 06/08/16 at 08:25; Stop 06/08/16 at 08:26; Status DC Midazolam HCl (Versed) 2 mg STK-MED ONCE .ROUTE ; Start 06/08/16 at 08:49; Stop 06/08/16 at 08:50; Status DC Sodium Chloride (Iv Flush) 10 ml STK-MED ONCE .ROUTE ; Start 06/08/16 at 09:23; Stop 06/08/16 at 09:24; Status DC Phenylephrine HCl (Phenylephrine) 10 mg STK-MED ONCE .ROUTE ; Start 06/08/16 at 09:23; Stop 06/08/16 at 09:24; Status DC Metoprolol Tartrate 5 mg 5 mg STK-MED ONCE IV ; Start 06/08/16 at 09:59; Stop at 10:02; Status DC Propofol (Diprivan) 50 ml @ As Directed STK-MED ONCE IV ; Start 06/08/16 at 09: 59; Stop 06/08/16 at 10:02; Status DC Bupivacaine HCl/ Epinephrine Bitart (Marcaine/Epi 0.25%/1:200,000) 30 ml STK- MED ONCE .ROUTE ; Start 06/08/16 at 10:07; Stop 06/08/16 at 10:08; Status DC Magnesium Hydroxide 30 ml 30 ml DAILY PRN PO CONSTIPATION Last administered on 06/09/16 08:27; Start 06/08/16 at 10:30 Cefazolin Sodium/ Sodium Chloride (Kefzol/NS) 100 ml @ 200 mls/hr Q8H IV Last administered on 06/09/16 00:44; Start 06/08/16 at 17:00; Stop 06/09/16 at 01:29 ; Status DC Multi-Ingredient Antiseptic (Nozin Nasal Swab) 1 each O ONCE NS Last administered on 06/08/16 13:36; Start 06/08/16 at 12:30; Stop 06/08/16 at 12:31 ; Status DC Warfarin Sodium (Coumadin Protocol) NOTE [facility] ; Start 06/08/16 at 11:30 Furosemide (Lasix) 40 mg BID. PO Last administered on 06/10/16 11:21; Start at 19:00 Warfarin Sodium (COUMADIN 2 mg) 2 mg NOON PO Last administered on 06/10/16 11: 14; Start 06/10/16 at 12:00; Stop 06/10/16 at 12:01; Status DC Albuterol/ Ipratropium (Duoneb) 3 ml PRN PRN IPPB ; Start 06/10/16 at 09:15 Microbiology Microbiology Microbiology Date/Time Source Procedure Growth Status 06/07/16 15:02 Peripheral/Iv Start Blood Culture - Preliminary NO GROWTH AFTER 48 HOURS Resulted 06/07/16 15:02 Peripheral/Iv Start Blood Culture - Preliminary NO GROWTH AFTER 48 HOURS Resulted 06/07/16 14:17 Urine, Nuñez Indwelling Urine Culture - Final Escherichia Coli Complete Radiology CXR from 06-08-16 has not been dictated at this time. CXR ordered for today Assessment & Plan Problems: (1) Fracture of left hip Status: Acute Qualifiers: Encounter type: initial encounter Fracture type: closed Qualified Codes: S72.002A - Fracture of unspecified part of neck of left femur, initial encounter for closed fracture Assessment & Plan: S/P femoral head replacement (2) Hematuria Status: Resolved (3) Liver cirrhosis Status: Chronic Qualifiers: Hepatic cirrhosis type: unspecified hepatic cirrhosis Ascites presence: without ascites Qualified Codes: K74.60 - Unspecified cirrhosis of liver (4) Presence of cardiac pacemaker Status: Chronic Assessment & Plan: Surgical site is well approximated with sutures. Absent for redness, swelling, warmth, or purulent drainage. Continue minocycline prophylaxis x7days (5) PAF (paroxysmal atrial fibrillation) Status: Chronic Assessment & Plan: Continue coumadin for thrombi prophylaxis and metoprolol for rate control. INR 1.8 today. Pharmacy managing coumadin dosing. (6) Cardiomyopathy Status: Chronic Qualifiers: Cardiomyopathy type: unspecified Qualified Codes: I42.9 - Cardiomyopathy, unspecified Assessment & Plan: Coarse expiratory wheezing and short of air. IV fluids stopped. Lasix 40mg IV x1 now followed with BID schedule. CXR. RT called to reevaluate. Weight increased 2kg from admission. Fluid balance positive for last 72 hours.VS and labs stable. (7) HTN (hypertension) Status: Chronic Qualifiers: Hypertension type: essential hypertension Qualified Codes: I10 - Essential (primary) hypertension Assessment & Plan: Continue metoprolol and lisinopril. VS WNL. (8) Diabetes mellitus, type 2 Status: Chronic (9) Chronic systolic (congestive) heart failure Status: Chronic Assessment & Plan: Coarse expiratory wheezing and short of air. IV fluids stopped. Lasix 40mg IV x1 now followed with BID schedule. CXR. RT called to reevaluate. Weight increased 2kg from admission. Fluid balance positive for last 72 hours.VS and labs stable. Plan/Intensity of Service 06/07/16 Patient admitted 06/06/16 and had PPM generator change. Site w/o drainage or palpable hematoma. CHF stable on current meds. Off warfarin for generator change. Resume when ok with ortho. Dr Li consulted to manage left hip fracture.CT abdomen refers to liver cirrhosis. LFTs ordered. Ortho aware so can assess bleeding/clotting. Dr. Zhang is her PCP; notified of fracture; will have him manage all non cardiac/non ortho issues.Generator change incision site dressing removed, incision is clean and dry. Patient has no history of CAD and is cleared from Cardiology to proceed with hip fracture repair per Ortho team. 06/08/16 S/P femoral head replacement. Drowsy at this time with moist breath sounds, will give Lasix 20mg IV X1 as did not have oral dose this morning and is unable to swallow at this time. 06/09/16 Chest xray please, increase to Lasix 40mg po BID. Hematuria resolved, urine is weak tea colored in nuñez. HGB 11.8 today. Coumadin per pharmacy, INR 1.56 06/10/16 Coarse expiratory wheezing and short of air. IV fluids stopped. Lasix 40mg IV x1 now followed with BID schedule. Lasix po discontinued. CXR. RT called to reevaluate. Weight increased 2kg from admission. Fluid balance positive for last 72 hours.VS and labs stable. MAURICIO OCHOA MD 06/13/16 1550: Assessment & Plan Plan/Intensity of Service After examining the patient I agree with the above assessment. I am involved in the formulation of the patient's plan of care. NOAH MERRILL [employer]PER[employer] Jun 10, 2016 14:16 MAURICIO OCHOA MD Jun 13, 2016 15:50
--- NOTE | 2016-06-10 18:32 | NUR ---
SHIFT SUMMARY PATIENT IS ALERT AND ORIENTED X3. PATIENT VITALS HAVE BEEN STABLE AND PATIENT IS ON 1.5L OF 02 VIA NC. PATIENT DENIES CP, NAUSEA, PAIN, AND SOA. PATIENT IS UP WITH 1X ASSIST, FWW, AND GB. PATIENT WORKED WITH PT BUT HAS NOT AMBULATED MORE THAN 10 FEET. PATIENT HAS NOT REQUIRED PRN PO PAIN OR ANTINAUSEA MEDICATION THIS SHIFT. FAMILY HAS BEEN AT BEDSIDE. WILL CONTINUE TO MONITOR.
[2016-06-10] MEDS ORDERED: FUROSEMIDE 40 MG/4 ML INJECTION IV SCH (21:00)
--- NOTE | 2016-06-10 22:26 | NUR ---
LASIX THIS RN NOTIFIED DR. WOLFF VIA TIGER TEXT OF PTS BP OF 112/41 AND TO CLARIFY IF STILL WANTING TO GIVE LASIX 40MG IV. DR. WOLFF SAID HE WOULD CHANGE THE ORDER FROM 40MG TO 20MG. THIS RN VERBALIZED UNDERSTANDING. NO OTHER ORDERS AT THIS TIME. WILL CONTINUE TO MONITOR.
[2016-06-11] VITALS (7 sets, daily range): BP systolic 110–127; BP diastolic 48–59; PULSE 69–70; RESP 16–20; TEMP 97.5–98.1; O2SAT 93–97
[2016-06-11] MEDS: NOZIN NASAL SWAB NS SCH ×3 (01:14→16:48)
[2016-06-11] MEDS: ACETAMINOPHEN/CODEINE 300mg/30mg TABLET PO PRN (01:14)
--- NOTE | 2016-06-11 03:44 | NUR ---
Chart Check 24 hour chart check completed
[2016-06-11 04:41] LABS: INR 3.15 (0.76-1.04); PROTHROMBIN TIME 34.3 SEC (9.31-12.49)
--- NOTE | 2016-06-11 05:56 | NUR ---
shift summary pt has slept soundly throughout the night. pt given tylenol #3 for pain, see emar for times. denies n/v/soa. pt on 2L o2 via nc. ivl in right forearm. turned q2h. nuñez catheter with adequate output. bilat scd's. ice pack to left hip, dressing c/d/i. steri-strips intact on left upper chest. pt takes medications with applesauce. bed locked and low, bed alarm on. call light within reach. will continue to monitor.
--- NOTE | 2016-06-11 06:00 | NUR ---
INR THIS RN NOTIFIED DR. WOLFF VIA TIGER TEXT OF PTS INR INCREASING FROM 1.8 TO 3.1. NO ORDERS AT THIS TIME. WILL CONTINUE TO MONITOR.
[2016-06-11] MEDS: LEVOTHYROXINE 150 MCG TABLET PO SCH (06:40)
--- NOTE | 2016-06-11 07:43 | NUR ---
COUMADIN CONSULT (Recurring): 75 y.o. female post op Left Femoral head replacement. Patient has a history of a.fib and bladder neoplasm. Also has history of chronic anticoagulation with Warfarin. Home Warfarin dose= 2 mg po 6 days a week. Pharmacy was consulted to manage Warfarin per protocol. date INR dose 06/08 1.30 2 mg 06/09 1.56 2 mg 06/10 1.80 2 mg 06/11 3.15 plan: no Warfarin today INR took sharp increase and is supra-therapeutic today. Will give no Warfarin today. potential drug drug interaction exists between Warfarin and Minocycline may increase INR and risk of bleeding. Pharmacy will monitor and adjust Warfarin. Thank you for the protocol, Leona Mcmanus RPh
[2016-06-11] MEDS: POTASSIUM CHLORIDE 20 MEQ TABLET PO SCH (08:41)
[2016-06-11] MEDS: LISINOPRIL 10 MG TABLET PO SCH (08:42)
[2016-06-11] MEDS: MINOCYCLINE 100 MG CAPSULE PO SCH ×2 (08:42→21:17)
[2016-06-11] MEDS: METOPROLOL 100 MG PO SCH (08:50)
[2016-06-11] MEDS: FUROSEMIDE 20 MG/2 ML INJECTION IV SCH ×3 (08:50→21:19)
[2016-06-11] MEDS ORDERED: FUROSEMIDE 40 MG/4 ML INJECTION IV SCH (09:00)
[2016-06-11] MEDS: ALBUTEROL/IPRATROPIUM INHAL. 2.5mg-0.5mg/3ml Neb. IPPB SCH ×3 (10:02→21:00)
[2016-06-11] MEDS ORDERED: FUROSEMIDE 40 MG/4 ML INJECTION IV ONE (13:00)
[2016-06-11 13:10] LABS: HCT - HEMATOCRIT 37.5 % (36-46); HGB - HEMOGLOBIN 11.6 GM/DL (12-16); MEAN CORPUSCULAR HGB 26.9 UUG (26-34); MEAN CORPUSCULAR HGB CONC(MCHC 30.9 GM/DL (31-37); MEAN PLATELET VOLUME 10.9 UM3 (9.4-12.4); RED BLOOD COUNT 4.31 M/MM3 (4.00-5.20); WBC - WHITE BLOOD COUNT 6.8 T/MM3 (4.5-11.0)
--- NOTE | 2016-06-11 13:17 | PNPDOC ---
NOAH MERRILL [employer] 06/11/16 1302: Subjective Date DATE: 06/11/16 TIME: 12:58 Subjective Sitting up in bed with no new complaints. States she has been in the chair for breakfast and walked the halls this morning. Objective Vital Signs Vital signs Vital Signs 06/11/16 06/11/16 06/11/16 06/11/16 03:38 08:38 09:00 09:50 Temp 98.1 97.5 Pulse 70 69 Resp 18 20 18 24 B/P 110/48 121/51 Pulse Ox 93 97 O2 Delivery Nasal Cannula Nasal Cannula O2 Flow Rate 2.00 2.00 06/11/16 06/11/16 06/11/16 09:50 10:06 11:16 Temp 97.6 Pulse 70 70 69 Resp 16 B/P 127/59 Pulse Ox 95 O2 Delivery Nasal Cannula O2 Flow Rate 2.00 Telemetry Rhythm: Vpaced Height (Feet): 5 Height (Inches): 6.00 Weight (Kilograms): 67.000 General Alert, Orientated x 3, Well Nourished, No Acute Distress Neck (Brief) midline, NOT FOUND: JVD, carotid bruits Respiratory (Brief) equal bilaterally, wheezes, NOT FOUND: clear all crump Comments 2L o2 Cardiovascular (Brief) murmur (2/6 systolic), regular rhythm, NOT FOUND: pedal edema, peripheral edema Extremities (Brief) Extremity : Side: Bilateral Extremity: foot Extremity Finding: NOT FOUND: edema Musculoskeletal (Brief) NOT FOUND: deformity, spasm Psychiatric (Brief) alert, attentive, normal affect, oriented Laboratory Laboratory pending at this time. Vital Signs 06/11/16 06/11/16 06/11/16 06/11/16 03:38 08:38 09:00 09:50 Temp 98.1 97.5 Pulse 70 69 Resp 18 20 18 24 B/P 110/48 121/51 Pulse Ox 93 97 O2 Delivery Nasal Cannula Nasal Cannula O2 Flow Rate 2.00 2.00 06/11/16 06/11/16 06/11/16 09:50 10:06 11:16 Temp 97.6 Pulse 70 70 69 Resp 16 B/P 127/59 Pulse Ox 95 O2 Delivery Nasal Cannula O2 Flow Rate 2.00 Intake and Output 06/11/16 07:00 Intake Total 1116.0 ml Output Total 1700.0 ml Balance -584.0 ml Intake Oral 500.0 ml IV Total 616.0 ml Output Urine Total 1700 ml Stool Total 0 ml # Voids 0 # Bowel Movements 1 Medications Current Medications Cefazolin Sodium 1 g 1 g STK-MED ONCE .ROUTE ; Start 06/06/16 at 16:05; Stop at 16:07; Status DC Sterile Water (Sterile Water) 20 ml @ As Directed STK-MED ONCE .ROUTE ; Start at 16:05; Stop 06/06/16 at 16:07; Status DC Fentanyl (Fentanyl) 100 mcg STK-MED ONCE .ROUTE ; Start 06/06/16 at 16:06; Stop 06/06/16 at 16:07; Status DC Lidocaine HCl (Xylocaine 1%) 300 mg STK-MED ONCE .ROUTE ; Start 06/06/16 at 16: 07; Stop 06/06/16 at 16:08; Status DC Bacitracin (Bacitracin) 50,000 unit STK-MED ONCE .ROUTE ; Start 06/06/16 at 16: 07; Stop 06/06/16 at 16:08; Status DC Al Hydroxide/Mg Hydroxide (Maalox) 30 ml Q3H PRN PO INDIGESTION; Start at 16:45 Acetaminophen (Tylenol Regular Strength) 650 mg Q4H PRN PO PAIN; Start at 16:45 Acetaminophen/ Codeine Phosphate (Tylenol #3) 1-2 TAB Q4H PRN PO PAIN Last administered on 06/11/16 01:14; Start 06/06/16 at 16:45 Minocycline HCl (Minocin) 100 mg BID PO Last administered on 06/11/16 08:42; Start 06/07/16 at 09:00; Stop 06/14/16 at 08:59 Bisacodyl (Dulcolax) prn DAILY PRN PO ; Start 06/06/16 at 16:45 Lisinopril (Prinivil) 10 mg DAILY PO Last administered on 06/11/16 08:42; Start 06/07/16 at 13:00 Metoprolol Succinate 100 mg 100 mg DAILY PO Last administered on 06/11/16 08:50 ; Start 06/07/16 at 13:00 Sodium Chloride (Normal Saline IV) 1,000 ml @ 80 mls/hr [id number] IV Last administered on 06/10/16 13:48; Start 06/07/16 at 12:35; Stop 06/10/16 at 14:13; Status DC Morphine Sulfate (Morphine) 2-10 mg IV Q1H Q1H PRN IV PAIN; Start 06/07/16 at 12:45 Ondansetron HCl (Zofran) 4 mg Q6H PRN IV NAUSEA &/OR VOMITING; Start 06/07/16 at 12:45 Potassium Chloride (Kdur) 20 meq WB PO Last administered on 06/11/16 08:41; Start 06/08/16 at 08:00 Zinc Acetate/ Diphenhydramine (Benadryl Extra Strength) 1 applic TID PRN TOP Last administered on 06/07/16 15:35; Start 06/07/16 at 14:15 Cefazolin Sodium (Kefzol) 2 g PREOP ONCE IV Last administered on 06/08/16 08: 49; Start 06/08/16 at 07:00; Stop 06/08/16 at 07:01; Status DC Alendronate Sodium (Fosamax) 70 mg Sa@06 PO Last administered on 06/10/16 06:56 ; Start 06/10/16 at 06:00 Levothyroxine Sodium (Synthroid) 150 mcg ACB PO Last administered on 06/11/16 06:40; Start 06/08/16 at 07:30 Vancomycin HCl (Vancocin) 1 g STK-MED ONCE .ROUTE ; Start 06/08/16 at 08:25; Stop 06/08/16 at 08:26; Status DC Midazolam HCl (Versed) 2 mg STK-MED ONCE .ROUTE ; Start 06/08/16 at 08:49; Stop 06/08/16 at 08:50; Status DC Sodium Chloride (Iv Flush) 10 ml STK-MED ONCE .ROUTE ; Start 06/08/16 at 09:23; Stop 06/08/16 at 09:24; Status DC Phenylephrine HCl (Phenylephrine) 10 mg STK-MED ONCE .ROUTE ; Start 06/08/16 at 09:23; Stop 06/08/16 at 09:24; Status DC Metoprolol Tartrate 5 mg 5 mg STK-MED ONCE IV ; Start 06/08/16 at 09:59; Stop at 10:02; Status DC Propofol (Diprivan) 50 ml @ As Directed STK-MED ONCE IV ; Start 06/08/16 at 09: 59; Stop 06/08/16 at 10:02; Status DC Bupivacaine HCl/ Epinephrine Bitart (Marcaine/Epi 0.25%/1:200,000) 30 ml STK- MED ONCE .ROUTE ; Start 06/08/16 at 10:07; Stop 06/08/16 at 10:08; Status DC Magnesium Hydroxide 30 ml 30 ml DAILY PRN PO CONSTIPATION Last administered on 06/09/16 08:27; Start 06/08/16 at 10:30 Cefazolin Sodium/ Sodium Chloride (Kefzol/NS) 100 ml @ 200 mls/hr Q8H IV Last administered on 06/09/16 00:44; Start 06/08/16 at 17:00; Stop 06/09/16 at 01:29 ; Status DC Multi-Ingredient Antiseptic (Nozin Nasal Swab) 1 each O ONCE NS Last administered on 06/08/16 13:36; Start 06/08/16 at 12:30; Stop 06/08/16 at 12:31 ; Status DC Warfarin Sodium (Coumadin Protocol) NOTE [facility] ; Start 06/08/16 at 11:30 Warfarin Sodium (COUMADIN 2 mg) 2 mg NOON PO Last administered on 06/10/16 11: 14; Start 06/10/16 at 12:00; Stop 06/10/16 at 12:01; Status DC Albuterol/ Ipratropium (Duoneb) 3 ml PRN PRN IPPB Last administered on 14:18; Start 06/10/16 at 09:15 Furosemide (Lasix) 40 mg O ONCE IV Last administered on 06/11/16 12:57; Start 06/11/16 at 13:00; Stop 06/11/16 at 13:01 Radiology last two CXR not read. Assessment & Plan Problems: (1) Presence of cardiac pacemaker Status: Chronic Assessment & Plan: Surgical site is well approximated with sutures. Absent for redness, swelling, warmth, or purulent drainage. Continue minocycline prophylaxis x7days (2) PAF (paroxysmal atrial fibrillation) Status: Chronic Assessment & Plan: Continue coumadin for thrombi prophylaxis and metoprolol for rate control. INR 3.15 today. Pharmacy managing coumadin. Evening dose held today (3) Cardiomyopathy Status: Chronic Qualifiers: Cardiomyopathy type: unspecified Qualified Codes: I42.9 - Cardiomyopathy, unspecified Assessment & Plan: Coarse expiratory wheezing has improved some from yesterday. Weight up 0.8kg from yesterday and fluid balance continues to be positive. Additional Lasix 40mg IV x1 now ordered. Last two impressions of CXR not done although picture 06-10-16 looks to be improved when compared to picture taken 06-08-16. RT continuing to work with patient. Only reaching 500 on IS. VS stable. Will replace electrolytes if warranted. (4) Chronic systolic (congestive) heart failure Status: Chronic Assessment & Plan: Coarse expiratory wheezing has improved some from yesterday. Weight up 0.8kg from yesterday and fluid balance continues to be positive. Additional Lasix 40mg IV x1 now ordered. Last two impressions of CXR not done although picture 06-10-16 looks to be improved when compared to picture taken 06-08-16. RT continuing to work with patient. Only reaching 500 on IS. VS stable. Will replace electrolytes if warranted. (5) HTN (hypertension) Status: Chronic Qualifiers: Hypertension type: essential hypertension Qualified Codes: I10 - Essential (primary) hypertension Assessment & Plan: Continue metoprolol and lisinopril. VS WNL. (6) Diabetes mellitus, type 2 Status: Chronic (7) Hematuria Status: Resolved Assessment & Plan: Nuñez still in place. Urine clear yellow. Will discontinue when aggressive diuresis is complete. (8) Fracture of left hip Status: Acute Qualifiers: Encounter type: initial encounter Fracture type: closed Qualified Codes: S72.002A - Fracture of unspecified part of neck of left femur, initial encounter for closed fracture Assessment & Plan: S/P femoral head replacement. Up in chair for all meals and walks halls 2-3 times a day. Case management consulted for discharge planning. (9) Liver cirrhosis Status: Chronic Qualifiers: Hepatic cirrhosis type: unspecified hepatic cirrhosis Ascites presence: without ascites Qualified Codes: K74.60 - Unspecified cirrhosis of liver Plan/Intensity of Service 06/07/16 Patient admitted 06/06/16 and had PPM generator change. Site w/o drainage or palpable hematoma. CHF stable on current meds. Off warfarin for generator change. Resume when ok with ortho. Dr Li consulted to manage left hip fracture.CT abdomen refers to liver cirrhosis. LFTs ordered. Ortho aware so can assess bleeding/clotting. Dr. Zhang is her PCP; notified of fracture; will have him manage all non cardiac/non ortho issues.Generator change incision site dressing removed, incision is clean and dry. Patient has no history of CAD and is cleared from Cardiology to proceed with hip fracture repair per Ortho team. 06/08/16 S/P femoral head replacement. Drowsy at this time with moist breath sounds, will give Lasix 20mg IV X1 as did not have oral dose this morning and is unable to swallow at this time. 06/09/16 Chest xray please, increase to Lasix 40mg po BID. Hematuria resolved, urine is weak tea colored in nuñez. HGB 11.8 today. Coumadin per pharmacy, INR 1.56 06/10/16 Coarse expiratory wheezing and short of air. IV fluids stopped. Lasix 40mg IV x1 now followed with BID schedule. Lasix po discontinued. CXR. RT called to reevaluate. Weight increased 2kg from admission. Fluid balance positive for last 72 hours.VS and labs stable 06/11/16 Coarse expiratory wheezing has improved some from yesterday. Weight up 0.8kg from yesterday and fluid balance continues to be positive. Additional Lasix 40mg IV x1 now ordered. Last two impressions of CXR not done although picture looks to be improved when compared to picture taken 06-08-16. RT continuing to work with patient. Only reaching 500 on IS. VS stable. Will replace electrolytes if warranted. Nuñez still in place. Urine clear yellow. Will discontinue when aggressive diuresis is complete.S/P femoral head replacement. Up in chair for all meals and walks halls 2-3 times a day. Case management consulted for discharge planning.Continue coumadin for thrombi prophylaxis and metoprolol for rate control. INR 3.15 today. Pharmacy managing coumadin. Evening dose held today.Surgical site is well approximated with sutures. Absent for redness, swelling, warmth, or purulent drainage. Continue minocycline prophylaxis x7days MAURICIO OCHOA MD 06/13/16 1550: Assessment & Plan Plan/Intensity of Service After examining the patient I agree with the above assessment. I am involved in the formulation of the patient's plan of care. NOAH MERRILL [employer] Jun 11, 2016 13:02 MAURICIO OCHOA MD Jun 13, 2016 15:50
[2016-06-11 13:20] LABS: ALBUMIN 2.7 G/DL (3.5-5.0); ALBUMIN/GLOBULIN RATIO 0.7 RATIO (1.1-2.2); ALKALINE PHOSPHATASE 68 U/L (38-126); ALT (SGPT) 24 U/L (9-52); ANION GAP 7 MEQ/L (5-15); AST (SGOT) 48 U/L (14-36); BUN/CREATININE RATIO 34 RATIO (6-26); CALCIUM 7.5 MG/DL (8.4-10.2); CHLORIDE 103 MEQ/L (98-107); CO2 - CARBON DIOXIDE 31 MEQ/L (22-30); CREATININE 0.8 MG/DL (0.7-1.2); GLOMERULAR FILTRATION RATE 70; GLUCOSE 104 MG/DL (65-110); MAGNESIUM 2.1 MG/DL (1.6-2.3); POTASSIUM 4.6 MEQ/L (3.6-5); SODIUM 141 MEQ/L (134-144); TOTAL PROTEIN 6.5 G/DL (6.3-8.2)
--- NOTE | 2016-06-11 13:40 | DI ---
INDICATION: ITS.REASON: shortness of air PROCEDURE: CHEST 2-VIEWS UPRIGHT (PA \T\ LAT) Encounter: Initial COMPARISON: June 09, 2016 FINDINGS: Left cardiac pacemaker defibrillator is stable in appearance. Slightly improved aeration of the right upper lobe with continued diffuse interstitial prominence. No pneumothorax. Small bilateral effusions. Cardiac silhouette remains moderately enlarged. Mediastinal contours are stable. Pulmonary vascularity is congested. Impression: Mild to moderate pulmonary edema. .
--- NOTE | 2016-06-11 14:07 | DI ---
Indication: ITS.REASON: dyspnea PROCEDURE: CHEST 1 VIEW: Encounter: Initial Comparison: June 07, 2016 Findings: Left cardiac pacemaker defibrillator is unchanged. Continued bilateral interstitial prominence throughout the lungs with developing new airspace opacity in the peripheral right upper lobe. No pneumothorax or pleural effusion. Heart size and mediastinal contours are stable. Impression: Developing right upper lobe infiltrate could be due to atelectasis or pneumonia. .
[2016-06-11 14:19] LABS: BAND NEUTROPHILS # 1.2 T/MM3; LYMPHOCYTES # (MANUAL) 0.5 T/MM3 (1-4.8); MONOCYTES # (MANUAL) 0.5 T/MM3 (0-0.8); NEUTROPHILS #(MANUAL)-ABSOLUTE 4.6 T/MM3 (1.8-7.7); TOTAL CELLS COUNTED 100 %
[2016-06-11 14:20] LABS: ANISOCYTOSIS 1+
--- NOTE | 2016-06-11 18:41 | NUR ---
Summary Pts VS stable on 2L NC. Pt up to chair for breakfast and dinner and tolerated well. Pt ambulated in the hallway X2 today w/ gait belt and walker. Pt assisted to the BR twice today with two bowel movements. Green in place, adequate output. Pt has denied pain and nausea. Ice pack in place to the left hip. Mepilex c/d/i. Side rails up X2, call light w/in reach, bed alarm on.
[2016-06-12] VITALS (8 sets, daily range): BP systolic 98–141; BP diastolic 45–66; PULSE 69–87; RESP 16–18; TEMP 97.4–98.6; O2SAT 88–96
[2016-06-12] MEDS: NOZIN NASAL SWAB NS SCH ×3 (00:12→16:54)
[2016-06-12 05:16] LABS: HGB - HEMOGLOBIN 11.2 GM/DL (12-16); MEAN CORPUSCULAR HGB 27.1 UUG (26-34); MEAN CORPUSCULAR HGB CONC(MCHC 31.1 GM/DL (31-37); MEAN PLATELET VOLUME 10.5 UM3 (9.4-12.4); RED BLOOD COUNT 4.14 M/MM3 (4.00-5.20); WBC - WHITE BLOOD COUNT 5.8 T/MM3 (4.5-11.0)
[2016-06-12 05:22] LABS: ANION GAP 9 MEQ/L (5-15); BUN/CREATININE RATIO 40 RATIO (6-26); CALCIUM 7.2 MG/DL (8.4-10.2); CHLORIDE 99 MEQ/L (98-107); CO2 - CARBON DIOXIDE 32 MEQ/L (22-30); CREATININE 0.7 MG/DL (0.7-1.2); GLOMERULAR FILTRATION RATE 82; GLUCOSE 85 MG/DL (65-110); MAGNESIUM 1.8 MG/DL (1.6-2.3); POTASSIUM 4.2 MEQ/L (3.6-5); SODIUM 140 MEQ/L (134-144)
--- NOTE | 2016-06-12 05:33 | NUR ---
SHIFT SUMMARY PT ALERT AND ORIENTED X3, VITAL SIGNS STABLE ON 2L02 VIA NC. DENIES C/P,N/V AND SOA. PT DENIES PAIN AND NEED FOR PRN PAIN MEDICATION. PT TAKES MEDICATION IN APPLESAUCE WHOLE. PT HAS REFUSED TURNS ON OCCASION BUT CALLS WHEN SHE WANTS TO BE REPOSITIONED. WILL CONTINUE TO MONITOR.
[2016-06-12 06:05] LABS: INR 3.75 (0.76-1.04); PROTHROMBIN TIME 40.9 SEC (9.31-12.49)
[2016-06-12] MEDS: LEVOTHYROXINE 150 MCG TABLET PO SCH (06:07)
[2016-06-12 06:38] LABS: EOSINOPHILS # (MANUAL) 0.2 T/MM3 (0-0.5); LYMPHOCYTES # (MANUAL) 0.5 T/MM3 (1-4.8); METAMYELOCYTES # 0.1 T/MM3; MONOCYTES # (MANUAL) 0.3 T/MM3 (0-0.8); NEUTROPHILS #(MANUAL)-ABSOLUTE 4.6 T/MM3 (1.8-7.7); REACTIVE LYMPHOCYTES # 0.1 T/MM3 (0-0); TOTAL CELLS COUNTED 100 %
[2016-06-12] MEDS: POTASSIUM CHLORIDE 20 MEQ TABLET PO SCH (08:05)
[2016-06-12] MEDS: MINOCYCLINE 100 MG CAPSULE PO SCH ×2 (08:05→20:23)
[2016-06-12] MEDS: LISINOPRIL 10 MG TABLET PO SCH (08:05)
--- NOTE | 2016-06-12 08:05 | PDORTHOPN ---
Subjective Date DATE: 06/12/16 TIME: 08:02 Subjective Maryann reports she has been up walking with good tolerance. Her hip pain is well controlled this AM. No specific complaints at this time. Objective Vital Signs Vital signs Vital Signs 06/11/16 06/12/16 06/12/16 06/12/16 21:00 00:11 04:30 07:31 Temp 98.6 98.2 97.4 Pulse 69 69 70 70 Resp 18 16 18 16 B/P 109/47 124/53 141/64 Pulse Ox 91 93 92 O2 Delivery Nasal Cannula Nasal Cannula Room Air O2 Flow Rate 2.00 2.00 Height (Feet): 5 Height (Inches): 6.00 Weight (Kilograms): 67.000 General General Appearance: Alert, No Acute Distress Respiratory (Brief) Respiratory Brief: FOUND: non-labored Cardiovascular (Brief) Cardiac: FOUND: calf easily compressible, calf soft, nontender, pedal pulses intact Surgical Site Incision: FOUND: Mepilex dressing intact, no drainage Integumentary (Brief) Integumentary Brief: FOUND dry, FOUND pink, FOUND rash (left inguinal area), FOUND warm Neurologic (Brief) Neurological Brief: FOUND: extremities w/o deficits, neuro intact Psychiatric (Brief) Psychiatric Brief: FOUND: alert, no acute distress Laboratory Laboratory Laboratory Tests 06/11/16 13:04 06/12/16 04:25 Laboratory Tests 06/11/16 13:04 06/12/16 04:25 Assessment & Plan Problems: (1) Fracture of left hip Status: Acute Qualifiers: Encounter type: initial encounter Fracture type: closed Qualified Codes: S72.002A - Fracture of unspecified part of neck of left femur, initial encounter for closed fracture Assessment & Plan: x Left hip salome arthroplasty 06/08 by JSP. Coumadin restarted post op. INR therapeutic level today. Coumadin / SCDs / early mobilization for DVT coverage. Continue ambulation with PT / OT. WBAT Monitor labs. Medical mgmt per Dr Duckworth. F/U with orthopedics scheduled for 06/28. Hospital Course Summary Disclaimer The visit summary below is not to be considered part of the above Progress Note. BRANDEN LUCAS Jun 12, 2016 08:05
[2016-06-12] MEDS: FUROSEMIDE 20 MG/2 ML INJECTION IV SCH (08:07)
[2016-06-12] MEDS: METOPROLOL 100 MG PO SCH (08:07)
[2016-06-12] MEDS: ALBUTEROL/IPRATROPIUM INHAL. 2.5mg-0.5mg/3ml Neb. IPPB SCH ×3 (08:57→20:03)
--- NOTE | 2016-06-12 09:15 | NUR ---
COUMADIN CONSULT (Recurring): 75 y.o. female post op Left Femoral head replacement. Patient has a history of a.fib and bladder neoplasm. Also has history of chronic anticoagulation with Warfarin. Home Warfarin dose= 2 mg po 6 days a week. Pharmacy was consulted to manage Warfarin per protocol. date INR dose 06/08 1.30 2 mg 06/09 1.56 2 mg 06/10 1.80 2 mg 06/11 3.15 HOLD 06/12 3.75 Plan to HOLD INR is high today. Will give no Warfarin today. potential drug drug interaction exists between Warfarin and Minocycline may increase INR and risk of bleeding. Pharmacy will monitor and adjust Warfarin. Thank you for the protocol,
--- NOTE | 2016-06-12 12:25 | NUR ---
IRU referral. Met with patient this am and she continues to voice interest in IRU. States she is determined to return home and acknowledges need for 3 hours of therapy/day, 5 days/week. Reviewed case with Dr. Leija and Dr. Leija accepted patient for admission to IRU. CM notified.
--- NOTE | 2016-06-12 13:23 | PNPDOC ---
KENNETH VARGAS FLASK HANDLER 06/12/16 1320: Subjective Date DATE: 06/12/16 TIME: 13:17 Subjective Maryann is laying in her bed on surgical. She denies c/o chest pain or pressure, palpitations or dyspnea. Objective Vital Signs Vital signs Vital Signs 06/12/16 06/12/16 06/12/16 06/12/16 04:30 07:31 08:16 08:50 Temp 98.2 97.4 Pulse 70 70 70 Resp 18 16 16 24 B/P 124/53 141/64 Pulse Ox 93 92 O2 Delivery Nasal Cannula Room Air O2 Flow Rate 2.00 06/12/16 06/12/16 06/12/16 08:50 09:05 11:18 Temp 98.0 Pulse 75 74 69 Resp 18 B/P 116/45 Pulse Ox 96 O2 Delivery Nasal Cannula O2 Flow Rate 2.00 Telemetry Rhythm: Vpaced Height (Feet): 5 Height (Inches): 6.00 Weight (Kilograms): 65.400 General Alert, Orientated x 3, Cooperative ENMT (Brief) mucosa moist Neck (Brief) NOT FOUND: JVD, carotid bruits Respiratory (Brief) wheezes (throughout), NOT FOUND: clear all crump, equal bilaterally Cardiovascular (Brief) murmur (2/6 systolic), regular rhythm, NOT FOUND: pedal edema, peripheral edema Abdomen (Brief) BS normo active x4, soft, NOT FOUND: tender Integumentary (Brief) dry, pink, warm Psychiatric (Brief) alert, oriented Laboratory Laboratory Laboratory Tests Test 06/11/16 04:18 06/11/16 13:04 06/12/16 04:25 Prothromb Time International Ratio 3.15 3.75 White Blood Count 6.8T/MM3 5.8T/MM3 Red Blood Count 4.31M/MM3 4.14M/MM3 Hemoglobin 11.6GM/DL 11.2GM/DL Hematocrit 37.5% 36.0% Mean Corpuscular Volume 87.0UM3 87.0UM3 Mean Corpuscular Hemoglobin 26.9UUG 27.1UUG Mean Corpuscular Hemoglobin Concent 30.9GM/DL 31.1GM/DL RDW Standard Deviation 50.1FL 50.0FL Platelet Count 130T/MM3 140T/MM3 Mean Platelet Volume 10.9UM3 10.5UM3 Neutrophils % (Manual) 68.0% 80.0% Band Neutrophils % 17.0% Lymphocytes % (Manual) 7.0% 9.0% Monocytes % (Manual) 8.0% 6.0% Absolute Neutrophils (Manual) 4.6T/MM3 4.6T/MM3 Band Neutrophils # 1.2T/MM3 Lymphocytes # (Manual) 0.5T/MM3 0.5T/MM3 Monocytes # (Manual) 0.5T/MM3 0.3T/MM3 Anisocytosis 1+ Red Cell Morphology Comment Abnormal Normal Turbidity < 20 < 20 Sodium Level 141MEQ/L 140MEQ/L Potassium Level 4.6MEQ/L 4.2MEQ/L Chloride Level 103MEQ/L 99MEQ/L Carbon Dioxide Level 31MEQ/L 32MEQ/L Anion Gap 7MEQ/L 9MEQ/L Blood Urea Nitrogen 27.0MG/DL 28.0MG/DL Creatinine 0.8MG/DL 0.7MG/DL Glomerular Filtration Rate Calc 70 82 BUN/Creatinine Ratio 34RATIO 40RATIO Glucose Level 104MG/DL 85MG/DL Calculated Osmolality 276MOSM/KG 274MOSM/KG Calcium Level 7.5MG/DL 7.2MG/DL Magnesium Level 2.1MG/DL 1.8MG/DL Total Bilirubin 1.00MG/DL Icterus Index < 2 < 2 Aspartate Amino Transf (AST/SGOT) 48U/L Alanine Aminotransferase (ALT/SGPT) 24U/L Alkaline Phosphatase 68U/L Total Protein 6.5G/DL Albumin 2.7G/DL Globulin 3.8G/DL Albumin/Globulin Ratio 0.7RATIO Chemistry Specimen Hemolysis < 15 < 15 Reactive Lymphocytes % 1.0% Eosinophils % (Manual) 3.0% Metamyelocytes % 1.0% Reactive Lymphocytes # 0.1T/MM3 Eosinophils # (Manual) 0.2T/MM3 Metamyelocytes # 0.1T/MM3 Laboratory Tests 06/12/16 04:25 Laboratory Tests 06/12/16 04:25 Medications Current Medications Cefazolin Sodium 1 g 1 g STK-MED ONCE .ROUTE ; Start 06/06/16 at 16:05; Stop at 16:07; Status DC Sterile Water (Sterile Water) 20 ml @ As Directed STK-MED ONCE .ROUTE ; Start at 16:05; Stop 06/06/16 at 16:07; Status DC Fentanyl (Fentanyl) 100 mcg STK-MED ONCE .ROUTE ; Start 06/06/16 at 16:06; Stop 06/06/16 at 16:07; Status DC Lidocaine HCl (Xylocaine 1%) 300 mg STK-MED ONCE .ROUTE ; Start 06/06/16 at 16: 07; Stop 06/06/16 at 16:08; Status DC Bacitracin (Bacitracin) 50,000 unit STK-MED ONCE .ROUTE ; Start 06/06/16 at 16: 07; Stop 06/06/16 at 16:08; Status DC Al Hydroxide/Mg Hydroxide (Maalox) 30 ml Q3H PRN PO INDIGESTION; Start at 16:45 Acetaminophen (Tylenol Regular Strength) 650 mg Q4H PRN PO PAIN; Start at 16:45 Acetaminophen/ Codeine Phosphate (Tylenol #3) 1-2 TAB Q4H PRN PO PAIN Last administered on 06/11/16 01:14; Start 06/06/16 at 16:45 Minocycline HCl (Minocin) 100 mg BID PO Last administered on 06/12/16 08:05; Start 06/07/16 at 09:00; Stop 06/14/16 at 08:59 Bisacodyl (Dulcolax) prn DAILY PRN PO ; Start 06/06/16 at 16:45 Lisinopril (Prinivil) 10 mg DAILY PO Last administered on 06/12/16 08:05; Start 06/07/16 at 13:00 Metoprolol Succinate 100 mg 100 mg DAILY PO Last administered on 06/12/16 08:07 ; Start 06/07/16 at 13:00 Sodium Chloride (Normal Saline IV) 1,000 ml @ 80 mls/hr [id number] IV Last administered on 06/10/16 13:48; Start 06/07/16 at 12:35; Stop 06/10/16 at 14:13; Status DC Morphine Sulfate (Morphine) 2-10 mg IV Q1H Q1H PRN IV PAIN; Start 06/07/16 at 12:45 Ondansetron HCl (Zofran) 4 mg Q6H PRN IV NAUSEA &/OR VOMITING; Start 06/07/16 at 12:45 Potassium Chloride (Kdur) 20 meq WB PO Last administered on 06/12/16 08:05; Start 06/08/16 at 08:00 Zinc Acetate/ Diphenhydramine (Benadryl Extra Strength) 1 applic TID PRN TOP Last administered on 06/07/16 15:35; Start 06/07/16 at 14:15 Cefazolin Sodium (Kefzol) 2 g PREOP ONCE IV Last administered on 06/08/16 08: 49; Start 06/08/16 at 07:00; Stop 06/08/16 at 07:01; Status DC Alendronate Sodium (Fosamax) 70 mg Sa@06 PO Last administered on 06/10/16 06:56 ; Start 06/10/16 at 06:00 Levothyroxine Sodium (Synthroid) 150 mcg ACB PO Last administered on 06/12/16 06:07; Start 06/08/16 at 07:30 Vancomycin HCl (Vancocin) 1 g STK-MED ONCE .ROUTE ; Start 06/08/16 at 08:25; Stop 06/08/16 at 08:26; Status DC Midazolam HCl (Versed) 2 mg STK-MED ONCE .ROUTE ; Start 06/08/16 at 08:49; Stop 06/08/16 at 08:50; Status DC Sodium Chloride (Iv Flush) 10 ml STK-MED ONCE .ROUTE ; Start 06/08/16 at 09:23; Stop 06/08/16 at 09:24; Status DC Phenylephrine HCl (Phenylephrine) 10 mg STK-MED ONCE .ROUTE ; Start 06/08/16 at 09:23; Stop 06/08/16 at 09:24; Status DC Metoprolol Tartrate 5 mg 5 mg STK-MED ONCE IV ; Start 06/08/16 at 09:59; Stop at 10:02; Status DC Propofol (Diprivan) 50 ml @ As Directed STK-MED ONCE IV ; Start 06/08/16 at 09: 59; Stop 06/08/16 at 10:02; Status DC Bupivacaine HCl/ Epinephrine Bitart (Marcaine/Epi 0.25%/1:200,000) 30 ml STK- MED ONCE .ROUTE ; Start 06/08/16 at 10:07; Stop 06/08/16 at 10:08; Status DC Magnesium Hydroxide 30 ml 30 ml DAILY PRN PO CONSTIPATION Last administered on 06/09/16 08:27; Start 06/08/16 at 10:30 Cefazolin Sodium/ Sodium Chloride (Kefzol/NS) 100 ml @ 200 mls/hr Q8H IV Last administered on 06/09/16 00:44; Start 06/08/16 at 17:00; Stop 06/09/16 at 01:29 ; Status DC Multi-Ingredient Antiseptic (Nozin Nasal Swab) 1 each O ONCE NS Last administered on 06/08/16 13:36; Start 06/08/16 at 12:30; Stop 06/08/16 at 12:31 ; Status DC Warfarin Sodium (Coumadin Protocol) NOTE [facility] ; Start 06/08/16 at 11:30 Warfarin Sodium (COUMADIN 2 mg) 2 mg NOON PO Last administered on 06/10/16 11: 14; Start 06/10/16 at 12:00; Stop 06/10/16 at 12:01; Status DC Albuterol/ Ipratropium (Duoneb) 3 ml PRN PRN IPPB Last administered on 14:18; Start 06/10/16 at 09:15 Furosemide (Lasix) 40 mg O ONCE IV Last administered on 06/11/16 12:57; Start 06/11/16 at 13:00; Stop 06/11/16 at 13:01; Status DC Assessment & Plan Problems: (1) Presence of cardiac pacemaker Status: Chronic Assessment & Plan: Surgical site is well approximated with sutures. Absent for redness, swelling, warmth, or purulent drainage. Continue minocycline prophylaxis x7days (2) PAF (paroxysmal atrial fibrillation) Status: Chronic Assessment & Plan: Continue coumadin for thrombi prophylaxis and metoprolol for rate control. INR 3.15 today. Pharmacy managing coumadin. Evening dose held today (3) Cardiomyopathy Status: Chronic Qualifiers: Cardiomyopathy type: unspecified Qualified Codes: I42.9 - Cardiomyopathy, unspecified Assessment & Plan: Coarse expiratory wheezing has improved some from yesterday. Weight up 0.8kg from yesterday and fluid balance continues to be positive. Additional Lasix 40mg IV x1 now ordered. Last two impressions of CXR not done although picture 06-10-16 looks to be improved when compared to picture taken 06-08-16. RT continuing to work with patient. Only reaching 500 on IS. VS stable. Will replace electrolytes if warranted. (4) Chronic systolic (congestive) heart failure Status: Chronic Assessment & Plan: Coarse expiratory wheezing has improved some from yesterday. Weight up 0.8kg from yesterday and fluid balance continues to be positive. Additional Lasix 40mg IV x1 now ordered. Last two impressions of CXR not done although picture 06-10-16 looks to be improved when compared to picture taken 06-08-16. RT continuing to work with patient. Only reaching 500 on IS. VS stable. Will replace electrolytes if warranted. (5) HTN (hypertension) Status: Chronic Qualifiers: Hypertension type: essential hypertension Qualified Codes: I10 - Essential (primary) hypertension Assessment & Plan: Continue metoprolol and lisinopril. VS WNL. (6) Diabetes mellitus, type 2 Status: Chronic (7) Hematuria Status: Acute Assessment & Plan: Nuñez still in place. Urine clear yellow. Will discontinue when aggressive diuresis is complete. (8) Fracture of left hip Status: Acute Qualifiers: Encounter type: initial encounter Fracture type: closed Qualified Codes: S72.002A - Fracture of unspecified part of neck of left femur, initial encounter for closed fracture Assessment & Plan: S/P femoral head replacement. Up in chair for all meals and walks halls 2-3 times a day. Case management consulted for discharge planning. (9) Liver cirrhosis Status: Chronic Qualifiers: Hepatic cirrhosis type: unspecified hepatic cirrhosis Ascites presence: without ascites Qualified Codes: K74.60 - Unspecified cirrhosis of liver Plan/Intensity of Service 06/07/16 Patient admitted 06/06/16 and had PPM generator change. Site w/o drainage or palpable hematoma. CHF stable on current meds. Off warfarin for generator change. Resume when ok with ortho. Dr Li consulted to manage left hip fracture.CT abdomen refers to liver cirrhosis. LFTs ordered. Ortho aware so can assess bleeding/clotting. Dr. Zhang is her PCP; notified of fracture; will have him manage all non cardiac/non ortho issues.Generator change incision site dressing removed, incision is clean and dry. Patient has no history of CAD and is cleared from Cardiology to proceed with hip fracture repair per Ortho team. 06/08/16 S/P femoral head replacement. Drowsy at this time with moist breath sounds, will give Lasix 20mg IV X1 as did not have oral dose this morning and is unable to swallow at this time. 06/09/16 Chest xray please, increase to Lasix 40mg po BID. Hematuria resolved, urine is weak tea colored in nuñez. HGB 11.8 today. Coumadin per pharmacy, INR 1.56 06/10/16 Coarse expiratory wheezing and short of air. IV fluids stopped. Lasix 40mg IV x1 now followed with BID schedule. Lasix po discontinued. CXR. RT called to reevaluate. Weight increased 2kg from admission. Fluid balance positive for last 72 hours.VS and labs stable 06/11/16 Coarse expiratory wheezing has improved some from yesterday. Weight up 0.8kg from yesterday and fluid balance continues to be positive. Additional Lasix 40mg IV x1 now ordered. Last two impressions of CXR not done although picture looks to be improved when compared to picture taken 06-08-16. RT continuing to work with patient. Only reaching 500 on IS. VS stable. Will replace electrolytes if warranted. Nuñez still in place. Urine clear yellow. Will discontinue when aggressive diuresis is complete.S/P femoral head replacement. Up in chair for all meals and walks halls 2-3 times a day. Case management consulted for discharge planning.Continue coumadin for thrombi prophylaxis and metoprolol for rate control. INR 3.15 today. Pharmacy managing coumadin. Evening dose held today.Surgical site is well approximated with sutures. Absent for redness, swelling, warmth, or purulent drainage. Continue minocycline prophylaxis x7days. 06/12/16 Change Lasix to 40mg PO daily, decrease potassium to 10meq MAURICIO OCHOA MD 06/16/16 1523: Assessment & Plan Plan/Intensity of Service After examining the patient I agree with the above assessment. I am involved in the formulation of the patient's plan of care. KENNETH VARGAS FLASK HANDLER Jun 12, 2016 13:20 MAURICIO OCHOA MD Jun 16, 2016 15:23
--- NOTE | 2016-06-12 18:37 | NUR ---
SHIFT SUMMARY PT ALERT AND ORIENTED THIS SHIFT. PT UP TO CHAIR FOR BREAKFAST AND DINNER TIME MEALS. PT REFUSED LUNCH SHE DID NOT HAVE MUCH OF AN APPETITE. HOWEVER, AROUND 1600 PT REPORTED SHE WAS FEELING HUNGRY AND ORDERED DINNER EARLY. PT DENIED PAIN AND DID NOT REQUIRE PRN PAIN MEDICATIONS. PT UP WITH 1-2 ASSIST, WALKER AND GAIT BELT. HIP PRECAUTIONS MAINTAINED. VITAL SIGNS REMAINED STABLE ON 2L OF O2 VIA NC. PT DENIED NAUSEA THIS SHIFT. ADEQUATE OUTPUT OBTAINED IN BARBOSA CATHETER, HOWEVER URINE APPEARED LIGHT THOMAS IN COLOR AND THIS RN NOTED SOME HEMATURIA THIS AM IN THE TUBING AFTER PT TRANSFERRED TO CHAIR FOR BREAKFAST. NO FURTHER HEMATURIA NOTED THROUGHOUT SHIFT. ICE PACK REMAINS TO LEFT HIP. PT CURRENTLY IN BED POSITIONED TO HER BACK. HOB ELEVATED SLIGHTLY. BED ALARM ON. SIDE RAILS UP X2. CALL LIGHT IN REACH. WILL CONTINUE TO MONITOR.
--- NOTE | 2016-06-12 18:37 | PNPDOC ---
Subjective Date DATE: 06/12/16 TIME: 18:32 Subjective Patient seen and examined in her room. Heart, labs, radiographs reviewed from this past weekend. Maryann appears to be resting quite comfortably this evening. She smiles freely. I did discuss her transfer to inpatient rehabilitation unit and she indicates that she is ready. In review of her chart, I noticed that she did have a urinalysis that was performed on the was positive for Escherichia coli. I do not see that this is ever been treated. So I will repeat the urinalysis. She is denying any chest discomfort at this time. She still has some postoperative pain but it appears to very well controlled. She states that she did walk out to the nurses station and back today. Objective Vital Signs Vital signs Vital Signs 06/12/16 06/12/16 06/12/16 06/12/16 07:31 08:16 08:50 08:50 Temp 97.4 Pulse 70 70 75 Resp 16 16 24 B/P 141/64 Pulse Ox 92 O2 Delivery Room Air 06/12/16 06/12/16 06/12/16 06/12/16 09:05 11:18 15:30 15:30 Temp 98.0 Pulse 74 69 78 Resp 18 20 B/P 116/45 Pulse Ox 96 O2 Delivery Nasal Cannula O2 Flow Rate 2.00 06/12/16 06/12/16 15:41 15:57 Temp 97.5 Pulse 74 69 Resp 18 B/P 141/53 Pulse Ox 95 O2 Delivery Nasal Cannula O2 Flow Rate 2.00 Telemetry Rhythm: Sinus Rhythm, Vpaced Height (Feet): 5 Height (Inches): 6.00 Weight (Kilograms): 65.400 General General Appearance: Alert, Orientated x 3, Overweight, Cooperative, No Acute Distress, Able to walk Eyes (Brief) Eyes: FOUND: EOMI, PERRL, NOT FOUND: scleral icterus Neck (Brief) Neck Brief: NOT FOUND: JVD, adenopathy, carotid bruits, thyromegaly Respiratory (Brief) Respiratory Brief: FOUND: equal bilaterally, NOT FOUND: rales Comments Scattered rhonchi Cardiovascular (Brief) Cardiac: FOUND: regular rate, regular rhythm, NOT FOUND: pedal edema Abdomen (Brief) Abdominal: FOUND: BS normo active x4, soft, NOT FOUND: distended, hepatosplenomegaly, tender (Brief) Comments Green catheter Extremities (Brief) Extremity : Side: Bilateral Extremity Finding: NOT FOUND: edema Lymphatic (Brief) Lymphatic Brief: NOT FOUND: adenopathy, lymphedema Musculoskeletal (Brief) Musculoskeletal Brief: FOUND: tenderness (left hip), NOT FOUND: spasm Integumentary (Brief) Integumentary: FOUND: dry, pink, warm, NOT FOUND: rash Neurologic (Brief) Neurologic: FOUND: cranial 2-12 intact, motor, sensory Psychiatric (Brief) Psychiatric: FOUND: alert, attentive, normal affect, oriented Laboratory Laboratory Laboratory Tests 06/12/16 04:25 Laboratory Tests 06/12/16 04:25 Assessment & Plan Problems: (1) Liver cirrhosis Status: Chronic Qualifiers: Hepatic cirrhosis type: unspecified hepatic cirrhosis Ascites presence: without ascites Qualified Codes: K74.60 - Unspecified cirrhosis of liver Assessment & Plan: She has hx of bladder neoplasm so consider Budd-Chiari syndrome as poss cause of subacute cirrhosis. I will order liver U/S. Normal Alk phos so doubt PBC. I will check serology (2) Bladder neoplasm Status: Chronic Assessment & Plan: She will require urology consult to assess for bladder CA (3) Hematuria Status: Resolved (4) Cardiomyopathy Status: Chronic Qualifiers: Cardiomyopathy type: unspecified Qualified Codes: I42.9 - Cardiomyopathy, unspecified (5) HTN (hypertension) Status: Chronic Qualifiers: Hypertension type: essential hypertension Qualified Codes: I10 - Essential (primary) hypertension (6) Diabetes mellitus, type 2 Status: Chronic (7) Presence of cardiac pacemaker Status: Chronic (8) Fracture of left hip Status: Acute Qualifiers: Encounter type: initial encounter Fracture type: closed Qualified Codes: S72.002A - Fracture of unspecified part of neck of left femur, initial encounter for closed fracture (9) Chronic systolic (congestive) heart failure Status: Chronic Code Status Full Code Hospital Course Summary Disclaimer The hospital course summary below is not to be considered part of the above Progress Note. Hospital Course Summary 06/13/2016:Patient appears to be much improved. She appears to have tolerated her recent left hip surgery well. She is in good spirits and is ready for transfer to inpatient rehabilitation unit. I believe she is highly motivated. I see no evidence that an earlier urinary tract infection with Escherichia coli was treated. Therefore I will repeat her urinalysis and treat if indicated. CHIKIS ISABEL DO Jun 12, 2016 18:35
[2016-06-12 20:21] LABS: BLOOD, URINE 3+ (NEGATIVE); COLOR,URINE ORANGE (YELLOW); LEUKOCYTE ESTERASE ,URINE TRACE (NEGATIVE); NITRITE,URINE NEGATIVE (NEGATIVE); UROBILINOGEN,URINE 0.2 EU/DL (NORMAL)
[2016-06-12 20:31] LABS: BACTERIA,URINE 1+ (NEGATIVE); RBC,URINE 50-200 /HPF (0-3)
--- NOTE | 2016-06-12 23:57 | NUR ---
Chart Check 24 hour chart check completed
[2016-06-13 00:09] VITALS: BP 118/63; PULSE 69; RESP 18; TEMP 97.6; O2SAT 92
[2016-06-13] MEDS: ACETAMINOPHEN/CODEINE 300mg/30mg TABLET PO PRN (00:42)
[2016-06-13] MEDS: NOZIN NASAL SWAB NS SCH ×2 (00:42→08:36)
[2016-06-13 04:00] VITALS: BP 132/50; PULSE 69; RESP 20; TEMP 97.8; O2SAT 92
--- NOTE | 2016-06-13 04:35 | NUR ---
PAIN PATIENT C/O PAIN TO LT HIP. PRN TYLENOL #3 WAS GIVEN.URINE APPEARED LIGHT THOMAS COLOR IN BARBOSA CATHETER. URINE SPECIMENS WAS COLLECTED AND SENT TO LAB.PATIENT UP WITH 2 ASSIST PER PATIENT REQUESTED. ONE BM DURING SHIFT. CONTINUE TO MONITOR.
[2016-06-13 05:15] LABS: INR 3.85 (0.76-1.04)
[2016-06-13] MEDS: LEVOTHYROXINE 150 MCG TABLET PO SCH (06:41)
[2016-06-13] MEDS: ALBUTEROL/IPRATROPIUM INHAL. 2.5mg-0.5mg/3ml Neb. IPPB SCH (06:45)
--- NOTE | 2016-06-13 07:18 | NUR ---
WARFARIN CONSULT S: 75 y/o F on warfarin for afib. Pt underwent left hip hemiarthroplasty on 06/08; POD5. Home dose of warfarin is 2 mg PO daily for six days a week. Goal INR 2-3. O: Date INR Warfarin Dose 06/08 1.30 2 mg 06/09 1.56 2 mg 06/10 1.80 2 mg 06/11 3.15 HELD 06/12 3.75 HELD 06/13 3.85 HOLD A/P: INR remains supratherapeutic but did not increase as significantly as day prior; INR will likely start to decrease tomorrow. Will hold warfarin today. Will continue to monitor & make adjustments accordingly. Thank you for the consult. Nanette Quan, PharmD, BCPS
[2016-06-13] MEDS ORDERED: POTASSIUM CHLORIDE 10 MEQ TABLET PO SCH (08:00)
[2016-06-13 08:24] VITALS: BP 127/59; PULSE 71; RESP 16; TEMP 97.7; O2SAT 98
[2016-06-13] MEDS: MINOCYCLINE 100 MG CAPSULE PO SCH (08:36)
[2016-06-13] MEDS: LISINOPRIL 10 MG TABLET PO SCH (08:36)
[2016-06-13] MEDS: METOPROLOL 100 MG PO SCH (08:36)
[2016-06-13] MEDS ORDERED: FUROSEMIDE 40 MG TABLET PO SCH (09:00)
[2016-06-13 09:45] LABS: HCT - HEMATOCRIT 35.1 % (36-46); HGB - HEMOGLOBIN 10.9 GM/DL (12-16); MEAN CORPUSCULAR HGB 27.2 UUG (26-34); MEAN CORPUSCULAR HGB CONC(MCHC 31.1 GM/DL (31-37); MEAN CORPUSCULAR VOLUME 87.5 UM3 (80-100); MEAN PLATELET VOLUME 10.9 UM3 (9.4-12.4); RED BLOOD COUNT 4.01 M/MM3 (4.00-5.20); WBC - WHITE BLOOD COUNT 5.3 T/MM3 (4.5-11.0)
[2016-06-13 09:52] LABS: ANION GAP 8 MEQ/L (5-15); BUN/CREATININE RATIO 40 RATIO (6-26); CALCIUM 7.2 MG/DL (8.4-10.2); CHLORIDE 100 MEQ/L (98-107); CO2 - CARBON DIOXIDE 32 MEQ/L (22-30); CREATININE 0.7 MG/DL (0.7-1.2); GLOMERULAR FILTRATION RATE 82; GLUCOSE 90 MG/DL (65-110); POTASSIUM 4.1 MEQ/L (3.6-5); SODIUM 140 MEQ/L (134-144)
[2016-06-13] MEDS ORDERED: POTA10TA16 PO (10:58)
[2016-06-13] MEDS ORDERED: FURO40TA5 PO (10:58)
[2016-06-13 11:54] VITALS: BP 137/63; PULSE 69; RESP 18; TEMP 98.2; O2SAT 98
--- NOTE | 2016-06-13 11:56 | DSPDOC ---
KENNETH VARGAS SLAB GRINDER 06/13/16 1143: General Date Date DATE: 06/13/16 TIME: 11:40 Attending Physician Vijay Ochoa MD Admitting Physician Vijay Ochoa MD Consulting Physician Mela Li MD Admitting Diagnosis PRESENCE OF CARDIAC PACEMAKER Discharge Diagnosis S/P Generator change, S/P L hip hemiarthroplasty Procedures Generator change and L hip hemiarthroplasty Laboratory Laboratory Tests Test 06/12/16 04:25 06/12/16 20:15 06/13/16 04:54 06/13/16 04:55 White Blood Count 5.8T/MM3 (4.5-11.0) 5.3T/MM3 (4.5-11.0) Red Blood Count 4.14M/MM3 (4.00-5.20) 4.01M/MM3 (4.00-5.20) Hemoglobin 11.2GM/DL (12-16) 10.9GM/DL (12-16) Hematocrit 36.0% (36-46) 35.1% (36-46) Mean Corpuscular Volume 87.0UM3 (80-100) 87.5UM3 (80-100) Mean Corpuscular Hemoglobin 27.1UUG (26-34) 27.2UUG (26-34) Mean Corpuscular Hemoglobin Concent 31.1GM/DL (31-37) 31.1GM/DL (31-37) RDW Standard Deviation 50.0FL (36.9-50.2) 50.5FL (36.9-50.2) Platelet Count 140T/MM3 (130-400) 161T/MM3 (130-400) Mean Platelet Volume 10.5UM3 (9.4-12.4) 10.9UM3 (9.4-12.4) Neutrophils % (Manual) 80.0% (33-66) Lymphocytes % (Manual) 9.0% (23-45) Reactive Lymphocytes % 1.0% (0-0) Monocytes % (Manual) 6.0% (0-9.0) Eosinophils % (Manual) 3.0% (0-4) Metamyelocytes % 1.0% (0-0) Absolute Neutrophils (Manual) 4.6T/MM3 (1.8-7.7) Lymphocytes # (Manual) 0.5T/MM3 (1-4.8) Reactive Lymphocytes # 0.1T/MM3 (0-0) Monocytes # (Manual) 0.3T/MM3 (0-0.8) Eosinophils # (Manual) 0.2T/MM3 (0-0.5) Metamyelocytes # 0.1T/MM3 Red Cell Morphology Comment Normal Prothromb Time International Ratio 3.75 (0.76-1.04) 3.85 (0.76-1.04) Turbidity < 20 (0-20) < 20 (0-20) Sodium Level 140MEQ/L (134-144) 140MEQ/L (134-144) Potassium Level 4.2MEQ/L (3.6-5) 4.1MEQ/L (3.6-5) Chloride Level 99MEQ/L (98-107) 100MEQ/L (98-107) Carbon Dioxide Level 32MEQ/L (22-30) 32MEQ/L (22-30) Anion Gap 9MEQ/L (5-15) 8MEQ/L (5-15) Blood Urea Nitrogen 28.0MG/DL (7-17) 28.0MG/DL (7-17) Creatinine 0.7MG/DL (0.7-1.2) 0.7MG/DL (0.7-1.2) Glomerular Filtration Rate Calc 82 82 BUN/Creatinine Ratio 40RATIO (6-26) 40RATIO (6-26) Glucose Level 85MG/DL (65-110) 90MG/DL (65-110) Calculated Osmolality 274MOSM/KG (261-280) 275MOSM/KG (261-280) Calcium Level 7.2MG/DL (8.4-10.2) 7.2MG/DL (8.4-10.2) Magnesium Level 1.8MG/DL (1.6-2.3) Icterus Index < 2 (0-7) < 2 (0-7) Chemistry Specimen Hemolysis < 15 (0-25) < 15 (0-25) Urine Collection Type Nuñez indwelling Urine Color [place] (YELLOW) Urine Turbidity Sl cloudy (CLEAR) Urine pH 5.5 (5.0-8.0) Urine Specific Fitzgerald 1.010 (1.015-1.025) Urine Protein 2+ (NEGATIVE) Urine Glucose (UA) Negative (NEGATIVE) Urine Ketones Negative (NEGATIVE) Urine Blood 3+ (NEGATIVE) Urine Nitrite Negative (NEGATIVE) Urine Bilirubin Negative (NEGATIVE) Urine Urobilinogen 0.2EU/DL (NORMAL) Urine Leukocyte Esterase Trace (NEGATIVE) Urine RBC 50-200/HPF (0-3) Urine WBC 5-10/HPF (0-5) Urine Bacteria 1+ (NEGATIVE) Urine Culture Indicated Cult not indicated Radiology DATE OF EXAM: 06/07/16 ORDERING DOCTOR: KENNETH VARGAS APRN TYPE OF EXAM: CHEST, PA & LATERAL REASON FOR EXAM: PPM INDICATION: ITS.REASON: PPM PROCEDURE: CHEST 2-VIEWS UPRIGHT (PA \T\ LAT) Encounter: Initial COMPARISON: June 06, 2016 at 1733 FINDINGS: Left cardiac pacemaker defibrillator with right atrial, right ventricular and coronary sinus leads appear intact. No visible pneumothorax. Mild interstitial prominence similar to the comparison study. No new consolidative process. Heart size and mediastinal contours are unchanged. Pulmonary vascularity is stable. Impression: Stable appearance of the left cardiac pacemaker without evidence of complication. DATE OF EXAM: 06/07/16 ORDERING DOCTOR: KENNETH VARGAS APRN TYPE OF EXAM: PELVIS W/ 2 VIEW BILAT. HIPS REASON FOR EXAM: FALL Indication: ITS.REASON: FALL with left hip pain PROCEDURE: PELVIS W/ 2 VIEW BILAT. HIPS: Encounter: Initial Comparison: None Findings: AP pelvis: There is a minimally displaced and impacted fracture of the subcapital left femoral neck better seen on the dedicated left hip views. No additional acute fracture or dislocation seen. Bony demineralization. Mild degenerative change in the visualized lower lumbar spine with chronic compression deformities. AP and frog-leg lateral views of the left hip: Minimally impacted and slightly displaced fracture of the subcapital left femoral neck. No additional acute fracture or dislocation seen. AP and frog-leg lateral views of the right hip: There is no acute fracture, dislocation or malalignment identified. Impression: Closed posttraumatic left femoral neck fracture. DATE OF EXAM: 06/07/16 ORDERING DOCTOR: KENNETH VARGAS APRN TYPE OF EXAM: CT ABD/PELVIS W/O CONTRAST REASON FOR EXAM: hematuria, post fall Indication: ITS.REASON: hematuria, post fall PROCEDURE: CT ABD/PELVIS W/O CONTRAST: Encounter: Initial Comparison: Pelvis and hip radiographs from the same time and CT lumbar spine dated October 22, 2014 Technique: Axial CT images were performed through the abdomen and pelvis without intravenous contrast. Coronal and sagittal two-dimensional reformats. Automated Exposure Control and Iterative Reconstruction dose reducing techniques were utilized. Findings: Fibrosis in the lung bases with groundglass opacities suggesting mild vascular congestion, edema or atypical infection. Very nodular cirrhotic liver with atrophy of the left lobe. There is also pneumobilia present in the left lobe that could relate to prior biliary intervention such as an ERCP. The spleen is not enlarged. Pancreas is grossly normal. The adrenal glands are normal. Unenhanced kidneys show no stone disease or gross hydronephrosis. Splenic artery calcifications. Possibly duplicated right renal collecting system. No ureteral stones seen. The bladder appears normal. No significant free pelvic fluid. No evidence of a bowel obstruction. Moderate stool in the colon. There is some edema in the left lower abdomen and flank subcutaneous tissues probably due to recent trauma. There is also some edema within the left hip and gluteal musculature probably due to contusion. No free intraperitoneal air seen. Bone windows show a left femoral neck fracture as seen on the comparison radiographs. No additional displaced fracture seen. Chronic appearing right lateral and posterior lower rib fractures. Multiple old compression fractures involving T12 and L3 through L5. Impression: 1. Left femoral neck fracture. No acute intraabdominal or pelvic hemorrhage. 2. Severe cirrhosis. DATE OF EXAM: 06/08/16 ORDERING DOCTOR: MELA LI MD TYPE OF EXAM: RF HIP LEFT 2 VIEW REASON FOR EXAM: LOOKING FOR SCRATCH PAD IN PATIENT Indication: ITS.REASON: LOOKING FOR SCRATCH PAD IN PATIENT PROCEDURE: RF HIP LEFT 2 VIEW: Encounter: Initial Comparison: None Findings: Four fluoroscopic spot images are submitted for interpretation. Images show a left femoral head prosthesis in place. No radiopaque foreign body is identified on the provided images. Impression: Fluoroscopy as above. DATE OF EXAM: 06/08/16 ORDERING DOCTOR: CHIKIS ISABEL DO TYPE OF EXAM: US ABD/PELVIC DOPPER COMPLETE REASON FOR EXAM: BUDD- CHIARI Indication: ITS.REASON: BUDD- CHIARI PROCEDURE: US ABD/PELVIC DOPPER COMPLETE: Encounter: Initial Comparison: None Technique: Color Doppler imaging of the abdomen was performed with attention to the hepatic, portal and splenic veins. Findings: The left, middle and right hepatic veins are patent with normal waveforms. The IVC is patent with appropriate waveform present. Main portal vein is patent with normal flow velocity at 17.2 cm/s and normal flow direction. The hepatic artery is patent with appropriate flow direction and peak systolic velocity of 70 cm/s. Portal vein is patent to the portosplenic confluence. The splenic vein appears patent with appropriate flow direction. Splenic artery shows normal flow velocity. Impression: No sonographic evidence of arterial or venous thrombosis. 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 Findings: Hepatic parenchyma is very cirrhotic with a nodular irregular contour. The gallbladder is surgically absent. Both the intra and extrahepatic biliary system are of normal caliber with the common duct measuring 6 mm in dimension. Visualized portions of the head and body of the pancreas are unremarkable. The right kidney is present without collecting system dilatation. The right kidney measures 11.3 cm in length. Impression: Cirrhosis. DATE OF EXAM: 06/10/16 ORDERING DOCTOR: NOAH MERRILL APRN TYPE OF EXAM: CHEST, PA & LATERAL REASON FOR EXAM: shortness of air INDICATION: ITS.REASON: shortness of air PROCEDURE: CHEST 2-VIEWS UPRIGHT (PA \T\ LAT) Encounter: Initial COMPARISON: June 09, 2016 FINDINGS: Left cardiac pacemaker defibrillator is stable in appearance. Slightly improved aeration of the right upper lobe with continued diffuse interstitial prominence. No pneumothorax. Small bilateral effusions. Cardiac silhouette remains moderately enlarged. Mediastinal contours are stable. Pulmonary vascularity is congested. Impression: Mild to moderate pulmonary edema. History of Present Illness Maryann is a 75 year old female who is well known to Dr. Ochoa who has a [employer] Bi-V/D pacemaker in need of generator change, a history of chronic systolic CHF, paroxysmal AFib, cardiomyopathy, HTN and DM type II. She is admitted for outpatient generator change. Objective Vital Signs Vital signs Vital Signs 06/13/16 06/13/16 06/13/16 06/13/16 00:09 04:00 06:45 06:45 Temp 97.6 97.8 Pulse 69 69 72 Resp 18 20 18 B/P 118/63 132/50 Pulse Ox 92 92 O2 Delivery Nasal Cannula Nasal Cannula O2 Flow Rate 3.00 3.00 06/13/16 06/13/16 06/13/16 06:54 08:24 08:24 Temp 97.7 Pulse 72 71 71 Resp 16 16 B/P 127/59 Pulse Ox 98 O2 Delivery Nasal Cannula O2 Flow Rate 3.00 Telemetry Rhythm: Sinus Rhythm, Vpaced Height (Feet): 5 Height (Inches): 6.00 Weight (Kilograms): 68.300 General Alert, Orientated x 3, Cooperative ENMT (Brief) mucosa moist Neck (Brief) NOT FOUND: JVD, carotid bruits Respiratory (Brief) rales (bibasilar), NOT FOUND: clear all crump, equal bilaterally Cardiovascular (Brief) murmur (2/6 systolic), regular rhythm, NOT FOUND: pedal edema, peripheral edema Abdomen (Brief) BS normo active x4, soft Integumentary (Brief) dry, pink, warm Psychiatric (Brief) alert, attentive, oriented Laboratory Laboratory Laboratory Tests Test 06/11/16 13:04 06/12/16 04:25 06/12/16 20:15 06/13/16 04:54 White Blood Count 6.8T/MM3 5.8T/MM3 5.3T/MM3 Red Blood Count 4.31M/MM3 4.14M/MM3 4.01M/MM3 Hemoglobin 11.6GM/DL 11.2GM/DL 10.9GM/DL Hematocrit 37.5% 36.0% 35.1% Mean Corpuscular Volume 87.0UM3 87.0UM3 87.5UM3 Mean Corpuscular Hemoglobin 26.9UUG 27.1UUG 27.2UUG Mean Corpuscular Hemoglobin Concent 30.9GM/DL 31.1GM/DL 31.1GM/DL RDW Standard Deviation 50.1FL 50.0FL 50.5FL Platelet Count 130T/MM3 140T/MM3 161T/MM3 Mean Platelet Volume 10.9UM3 10.5UM3 10.9UM3 Neutrophils % (Manual) 68.0% 80.0% Band Neutrophils % 17.0% Lymphocytes % (Manual) 7.0% 9.0% Monocytes % (Manual) 8.0% 6.0% Absolute Neutrophils (Manual) 4.6T/MM3 4.6T/MM3 Band Neutrophils # 1.2T/MM3 Lymphocytes # (Manual) 0.5T/MM3 0.5T/MM3 Monocytes # (Manual) 0.5T/MM3 0.3T/MM3 Anisocytosis 1+ Red Cell Morphology Comment Abnormal Normal Turbidity < 20 < 20 < 20 Sodium Level 141MEQ/L 140MEQ/L 140MEQ/L Potassium Level 4.6MEQ/L 4.2MEQ/L 4.1MEQ/L Chloride Level 103MEQ/L 99MEQ/L 100MEQ/L Carbon Dioxide Level 31MEQ/L 32MEQ/L 32MEQ/L Anion Gap 7MEQ/L 9MEQ/L 8MEQ/L Blood Urea Nitrogen 27.0MG/DL 28.0MG/DL 28.0MG/DL Creatinine 0.8MG/DL 0.7MG/DL 0.7MG/DL Glomerular Filtration Rate Calc 70 82 82 BUN/Creatinine Ratio 34RATIO 40RATIO 40RATIO Glucose Level 104MG/DL 85MG/DL 90MG/DL Calculated Osmolality 276MOSM/KG 274MOSM/KG 275MOSM/KG Calcium Level 7.5MG/DL 7.2MG/DL 7.2MG/DL Magnesium Level 2.1MG/DL 1.8MG/DL Total Bilirubin 1.00MG/DL Icterus Index < 2 < 2 < 2 Aspartate Amino Transf (AST/SGOT) 48U/L Alanine Aminotransferase (ALT/SGPT) 24U/L Alkaline Phosphatase 68U/L Total Protein 6.5G/DL Albumin 2.7G/DL Globulin 3.8G/DL Albumin/Globulin Ratio 0.7RATIO Chemistry Specimen Hemolysis < 15 < 15 < 15 Reactive Lymphocytes % 1.0% Eosinophils % (Manual) 3.0% Metamyelocytes % 1.0% Reactive Lymphocytes # 0.1T/MM3 Eosinophils # (Manual) 0.2T/MM3 Metamyelocytes # 0.1T/MM3 Prothromb Time International Ratio 3.75 Urine Collection Type Nuñez indwelling Urine Color [place] Urine Turbidity Sl cloudy Urine pH 5.5 Urine Specific Fitzgerald 1.010 Urine Protein 2+ Urine Glucose (UA) Negative Urine Ketones Negative Urine Blood 3+ Urine Nitrite Negative Urine Bilirubin Negative Urine Urobilinogen 0.2EU/DL Urine Leukocyte Esterase Trace Urine RBC 50-200/HPF Urine WBC 5-10/HPF Urine Bacteria 1+ Urine Culture Indicated Cult not indicated Test 06/13/16 04:55 Prothromb Time International Ratio 3.85 Laboratory Tests 06/13/16 04:54 Laboratory Tests 06/13/16 04:54 Medications Current Medications Cefazolin Sodium 1 g 1 g STK-MED ONCE .ROUTE ; Start 06/06/16 at 16:05; Stop at 16:07; Status DC Sterile Water (Sterile Water) 20 ml @ As Directed STK-MED ONCE .ROUTE ; Start at 16:05; Stop 06/06/16 at 16:07; Status DC Fentanyl (Fentanyl) 100 mcg STK-MED ONCE .ROUTE ; Start 06/06/16 at 16:06; Stop 06/06/16 at 16:07; Status DC Lidocaine HCl (Xylocaine 1%) 300 mg STK-MED ONCE .ROUTE ; Start 06/06/16 at 16: 07; Stop 06/06/16 at 16:08; Status DC Bacitracin (Bacitracin) 50,000 unit STK-MED ONCE .ROUTE ; Start 06/06/16 at 16: 07; Stop 06/06/16 at 16:08; Status DC Al Hydroxide/Mg Hydroxide (Maalox) 30 ml Q3H PRN PO INDIGESTION; Start at 16:45 Acetaminophen (Tylenol Regular Strength) 650 mg Q4H PRN PO PAIN; Start at 16:45 Acetaminophen/ Codeine Phosphate (Tylenol #3) 1-2 TAB Q4H PRN PO PAIN Last administered on 06/13/16 00:42; Start 06/06/16 at 16:45 Minocycline HCl (Minocin) 100 mg BID PO Last administered on 06/13/16 08:36; Start 06/07/16 at 09:00; Stop 06/14/16 at 08:59 Bisacodyl (Dulcolax) prn DAILY PRN PO ; Start 06/06/16 at 16:45 Lisinopril (Prinivil) 10 mg DAILY PO Last administered on 06/13/16 08:36; Start 06/07/16 at 13:00 Metoprolol Succinate 100 mg 100 mg DAILY PO Last administered on 06/13/16 08:36 ; Start 06/07/16 at 13:00 Sodium Chloride (Normal Saline IV) 1,000 ml @ 80 mls/hr [id number] IV Last administered on 06/10/16 13:48; Start 06/07/16 at 12:35; Stop 06/10/16 at 14:13; Status DC Morphine Sulfate (Morphine) 2-10 mg IV Q1H Q1H PRN IV PAIN; Start 06/07/16 at 12:45 Ondansetron HCl (Zofran) 4 mg Q6H PRN IV NAUSEA &/OR VOMITING; Start 06/07/16 at 12:45 Zinc Acetate/ Diphenhydramine (Benadryl Extra Strength) 1 applic TID PRN TOP Last administered on 06/07/16 15:35; Start 06/07/16 at 14:15 Cefazolin Sodium (Kefzol) 2 g PREOP ONCE IV Last administered on 06/08/16 08: 49; Start 06/08/16 at 07:00; Stop 06/08/16 at 07:01; Status DC Alendronate Sodium (Fosamax) 70 mg Sa@06 PO Last administered on 06/10/16 06:56 ; Start 06/10/16 at 06:00 Levothyroxine Sodium (Synthroid) 150 mcg ACB PO Last administered on 06/13/16 06:41; Start 06/08/16 at 07:30 Vancomycin HCl (Vancocin) 1 g STK-MED ONCE .ROUTE ; Start 06/08/16 at 08:25; Stop 06/08/16 at 08:26; Status DC Midazolam HCl (Versed) 2 mg STK-MED ONCE .ROUTE ; Start 06/08/16 at 08:49; Stop 06/08/16 at 08:50; Status DC Sodium Chloride (Iv Flush) 10 ml STK-MED ONCE .ROUTE ; Start 06/08/16 at 09:23; Stop 06/08/16 at 09:24; Status DC Phenylephrine HCl (Phenylephrine) 10 mg STK-MED ONCE .ROUTE ; Start 06/08/16 at 09:23; Stop 06/08/16 at 09:24; Status DC Metoprolol Tartrate 5 mg 5 mg STK-MED ONCE IV ; Start 06/08/16 at 09:59; Stop at 10:02; Status DC Propofol (Diprivan) 50 ml @ As Directed STK-MED ONCE IV ; Start 06/08/16 at 09: 59; Stop 06/08/16 at 10:02; Status DC Bupivacaine HCl/ Epinephrine Bitart (Marcaine/Epi 0.25%/1:200,000) 30 ml STK- MED ONCE .ROUTE ; Start 06/08/16 at 10:07; Stop 06/08/16 at 10:08; Status DC Magnesium Hydroxide 30 ml 30 ml DAILY PRN PO CONSTIPATION Last administered on 06/09/16 08:27; Start 06/08/16 at 10:30 Cefazolin Sodium/ Sodium Chloride (Kefzol/NS) 100 ml @ 200 mls/hr Q8H IV Last administered on 06/09/16 00:44; Start 06/08/16 at 17:00; Stop 06/09/16 at 01:29 ; Status DC Multi-Ingredient Antiseptic (Nozin Nasal Swab) 1 each O ONCE NS Last administered on 06/08/16 13:36; Start 06/08/16 at 12:30; Stop 06/08/16 at 12:31 ; Status DC Warfarin Sodium (Coumadin Protocol) NOTE [facility] ; Start 06/08/16 at 11:30 Warfarin Sodium (COUMADIN 2 mg) 2 mg NOON PO Last administered on 06/10/16 11: 14; Start 06/10/16 at 12:00; Stop 06/10/16 at 12:01; Status DC Albuterol/ Ipratropium (Duoneb) 3 ml PRN PRN IPPB Last administered on 14:18; Start 06/10/16 at 09:15 Potassium Chloride (Kdur) 10 meq WB PO Last administered on 06/13/16 08:35; Start 06/13/16 at 08:00 Furosemide (Lasix) 40 mg DAILY PO Last administered on 06/13/16 08:36; Start at 09:00 Hospital Course 06/07/16 Patient admitted 06/06/16 and had PPM generator change. Site w/o drainage or palpable hematoma. CHF stable on current meds. Off warfarin for generator change. Resume when ok with ortho. Dr Li consulted to manage left hip fracture.CT abdomen refers to liver cirrhosis. LFTs ordered. Ortho aware so can assess bleeding/clotting. Dr. Zhang is her PCP; notified of fracture; will have him manage all non cardiac/non ortho issues.Generator change incision site dressing removed, incision is clean and dry. Patient has no history of CAD and is cleared from Cardiology to proceed with hip fracture repair per Ortho team. 06/08/16 S/P femoral head replacement. Drowsy at this time with moist breath sounds, will give Lasix 20mg IV X1 as did not have oral dose this morning and is unable to swallow at this time. 06/09/16 Chest xray please, increase to Lasix 40mg po BID. Hematuria resolved, urine is weak tea colored in nuñez. HGB 11.8 today. Coumadin per pharmacy, INR 1.56 06/10/16 Coarse expiratory wheezing and short of air. IV fluids stopped. Lasix 40mg IV x1 now followed with BID schedule. Lasix po discontinued. CXR. RT called to reevaluate. Weight increased 2kg from admission. Fluid balance positive for last 72 hours.VS and labs stable 06/11/16 Coarse expiratory wheezing has improved some from yesterday. Weight up 0.8kg from yesterday and fluid balance continues to be positive. Additional Lasix 40mg IV x1 now ordered. Last two impressions of CXR not done although picture looks to be improved when compared to picture taken 06-08-16. RT continuing to work with patient. Only reaching 500 on IS. VS stable. Will replace electrolytes if warranted. Nuñez still in place. Urine clear yellow. Will discontinue when aggressive diuresis is complete.S/P femoral head replacement. Up in chair for all meals and walks halls 2-3 times a day. Case management consulted for discharge planning.Continue coumadin for thrombi prophylaxis and metoprolol for rate control. INR 3.15 today. Pharmacy managing coumadin. Evening dose held today.Surgical site is well approximated with sutures. Absent for redness, swelling, warmth, or purulent drainage. Continue minocycline prophylaxis x7days. 06/12/16 Change Lasix to 40mg PO daily, decrease potassium to 10meq 06/13/2016:Patient appears to be much improved. She appears to have tolerated her recent left hip surgery well. She is in good spirits and is ready for transfer to inpatient rehabilitation unit. I believe she is highly motivated. I see no evidence that an earlier urinary tract infection with Escherichia coli was treated. Therefore I will repeat her urinalysis and treat if indicated. Problems: (1) Presence of cardiac pacemaker Status: Chronic (2) PAF (paroxysmal atrial fibrillation) Status: Chronic (3) Cardiomyopathy Status: Chronic (4) Chronic systolic (congestive) heart failure Status: Chronic (5) HTN (hypertension) Status: Chronic (6) Diabetes mellitus, type 2 Status: Chronic (7) Hematuria Status: Acute (8) Fracture of left hip Status: Acute (9) Liver cirrhosis Status: Chronic Code Status Full Code Home Meds Active Scripts Potassium Chloride (Klor-Con M10) 10 Meq Tablet, 10 MEQ PO WB for 30 Days, #30 TAB 11 Refills Prov:KENNETH VARGAS Kenan SLAB GRINDER 06/13/16 Furosemide (Furosemide) 40 Mg Tablet, 40 MG PO DAILY for 30 Days, #30 TAB 11 Refills Prov:KENNETH VARGAS Kenan SLAB GRINDER 06/13/16 Reported Medications Lisinopril (Lisinopril) 10 Mg Tablet, 10 MG PO DAILY for HYPERTENSION, TAB 06/06/16 Metformin HCl (Metformin HCl) 500 Mg Tablet, 500 MG PO DAILY, TAB Take one tablet, by mouth, 2 times a day with Meals. 07/07/15 Metoprolol Succinate (Metoprolol Succinate) 100 Mg Tab.er.24h, 1 TAB PO DAILY, # 90 10/22/14 Alendronate Sodium (Alendronate Sodium) 70 Mg Tablet, 1 TAB PO WEEKLY, #4 10/22/14 Warfarin Sodium (Warfarin Sodium) 2.5 Mg Tablet, 0.5 TAB PO DAILY, #45 10/22/14 Levothyroxine Sodium (Levothyroxine Sodium) 150 Mcg Tablet, 150 MCG PO DAILY 07/30/12 Discontinued Reported Medications Potassium Chloride (Potassium Chloride) 20 Meq Tab.er.prt, 1 TAB PO DAILY Y for WITH LASIX, #180 07/06/15 Furosemide (Furosemide) 20 Mg Tablet, 1 TAB PO DAILY Y for EDEMA, #90 07/06/15 Discharge Disposition Maryann is discharged in good and stable condition to the Inpatient Rehab Unit at [facility] for further strengthening. Copies To 1: CHIKIS ISABEL HOSSEIN MD 06/16/16 1525: Hospital Course Home Meds Active Scripts Potassium Chloride (Klor-Con M10) 10 Meq Tablet, 10 MEQ PO WB for 30 Days, #30 TAB 11 Refills Prov:KENNETH VARGAS APRN 06/13/16 Furosemide (Furosemide) 40 Mg Tablet, 40 MG PO DAILY for 30 Days, #30 TAB 11 Refills Prov:KENNETH VARGAS SLAB GRINDER 06/13/16 Reported Medications Lisinopril (Lisinopril) 10 Mg Tablet, 10 MG PO DAILY for HYPERTENSION, TAB 06/06/16 Metformin HCl (Metformin HCl) 500 Mg Tablet, 500 MG PO DAILY, TAB Take one tablet, by mouth, 2 times a day with Meals. 07/07/15 Metoprolol Succinate (Metoprolol Succinate) 100 Mg Tab.er.24h, 1 TAB PO DAILY, # 90 10/22/14 Alendronate Sodium (Alendronate Sodium) 70 Mg Tablet, 1 TAB PO WEEKLY, #4 10/22/14 Warfarin Sodium (Warfarin Sodium) 2.5 Mg Tablet, 0.5 TAB PO DAILY, #45 10/22/14 Levothyroxine Sodium (Levothyroxine Sodium) 150 Mcg Tablet, 150 MCG PO DAILY 07/30/12 Discontinued Reported Medications Potassium Chloride (Potassium Chloride) 20 Meq Tab.er.prt, 1 TAB PO DAILY Y for WITH LASIX, #180 07/06/15 Furosemide (Furosemide) 20 Mg Tablet, 1 TAB PO DAILY Y for EDEMA, #90 07/06/15 Discharge Disposition After examining the patient I agree with the above assessment. I am involved in the formulation of the patient's plan of care. Copies To 1: CHIKIS ISABEL AMY M APRN Jun 13, 2016 11:43 VIJAY OCHOA MD Jun 16, 2016 15:25
[2016-06-13] MEDS ORDERED: LEVOFLOXACIN 250 MG TABLET PO ONE (12:45)
--- NOTE | 2016-06-13 13:52 | NUR ---
Discharge Pt discharged at this time via wheelchair by Jasmyne Esteban RN to the IRU unit. IV catheter DC'd prior to transfer by Romelia Rincon RN. Green catheter DC'd prior to transfer. PTs VS stable on 3L NC. Pt denied pain and nausea this shift. Discharge packet and instructions sent with Pt. Personal belonginings sent with Pt. Family notified of Pts transfer. Report called to Nancy Chambers on IRU unit.
[2016-06-14] MEDS ORDERED: LEVOFLOXACIN 250 MG TABLET PO SCH (06:30)
== END 2016-06-13 13:52 | DRG 470 ==
LOC: SRG 12:38 → CATH 12:38 → SRG 06-07 12:41
PROVIDERS: ADMIT Internal Medicine Cardiovascular Disease; ATTEND Internal Medicine Cardiovascular Disease
PROC: 0JPT0PZ Removal of Cardiac Rhythm Related Device from Trunk Subcutaneous Tissue and Fascia, Open Approach (ICD-10-PCS; 2016-06-06)
PROC: 0JH609Z Insertion of Cardiac Resynchronization Defibrillator Pulse Generator into Chest Subcutaneous Tissue and Fascia, Open Approach (ICD-10-PCS; 2016-06-06)
PROC: 0SRS0J9 Replacement of Left Hip Joint, Femoral Surface with Synthetic Substitute, Cemented, Open Approach (ICD-10-PCS; principal; 2016-06-08 09:23)
DX: S72.012A Unspecified intracapsular fracture of left femur, initial encounter for closed fracture (principal); I50.22 Chronic systolic (congestive) heart failure; I42.9 Cardiomyopathy, unspecified; K74.60 Unspecified cirrhosis of liver; I11.0 Hypertensive heart disease with heart failure; E11.9 Type 2 diabetes mellitus without complications; I48.0 Paroxysmal atrial fibrillation; Z95.0 Presence of cardiac pacemaker; W19.XXXA Unspecified fall, initial encounter; Y93.89 Activity, other specified; Y92.231 Patient bathroom in hospital as the place of occurrence of the external cause; Y99.8 Other external cause status
CPT/HCPCS: 36415; 80048; 80053; 80074; 80076; 81001; 82172; 82247; 82977; 83010; 83516; 83735; 83883; 84460; 85007; 85025; 85027; 85610; 85730; 86038; 86255; 86850; 86900; 86901; 87040; 87077; 87086; 87186; 93005; 94664

== ENCOUNTER 2016-06-13 14:00 | Inpatient (IN) | payer MEDICARE, OTHER ==
[~2016-06-13] VITALS: Ht 165.1 cm; Wt 66.5 kg
[~2016-06-13 14:00] MED LIST changes: +FURO40TA5 PO; -LISI-114 PO; +LISI10TA7 PO; -NORMAL SALINE 1,000 ML IV SCH; +POTA10TA16 PO
--- NOTE | 2016-06-13 14:00 | NUR ---
Admit Patient admitted to IRU in room 169 from [facility] surgical unit in wheelchair. Patient alert and oriented x3. O2 at 3L nasal cannula. Alert and oriented x3. Mepilix dressing to left hip. Patient nuñez removed on surgical unit before admit to IRU. Admission papers signed. Family notified by surgical unit of patient transfer to IRU.
--- OUTSIDE RECORDS SUMMARY | 2016-06-13 14:30 | XMS REPORT ---
Author Author [place], [facility] - Organization Unknown Address Unknown Phone Unavailable Allergies, Adverse Reactions, Alerts * Heparin Analogues causes uNspecfied. * Heparin,Porcine causes Adverse Reaction. * No Latex Allergy. * No IV Contrast Allergy. * No Known Food Allergies. Problems * Acute Pancreatitis* Status:Resolved. * Atrial Fibrillation* Status:Active. * Breathing Pattern Impairment* Status:Resolved. * Diabetes Mellitus* Status:Active. * Fluid Volume Impairment* Status:Resolved. * Pleural Effusion* Status:Resolved. * Skin Integrity Impairment Risk* Status:Resolved. * Tissue Perfusion Impairment* Status:Resolved. Procedures No relevant procedures performed. Medication Medication reconciliation has not been performed. Results LAB--BEDSIDE TESTING from 08/30/2012 6:53 AMGlucose NPT 95 mg/dL (70-100 mg/dL) LAB--COAG STUDIES from 08/30/2012 6:22 AMINR 1.7 H (0.9-1.2 ) PTT 39.2 sec H (25.0-35.0 sec) LAB--HEMATOLOGY from 08/30/2012 6:22 AMAbsolute Basophils 0.17 THOUS (0.00-0.20 THOUS) Absolute Eosinophils 0.44 THOUS (0.00-0.50 THOUS) Absolute Lymphocytes 1.32 THOUS (0.80-3.30 THOUS) Absolute Monocytes 0.78 THOUS (0.30-1.00 THOUS) Absolute Neutrophils 3.01 THOUS (1.90-7.00 THOUS) HCT 38.6 % (37.0-47.0 %) HGB 12.2 g/dl (12.0-16.0 g/dl) MCH 28.2 pg (27.0-32.0 pg) MCHC 31.6 g/dL L (32.0-36.0 g/dL) MCV 89.1 fL (82.0-99.0 fL) MPV 10.3 fL (9.4-12.4 fL) Platelet Count 260 K/uL (150-400 K/uL) RBC 4.33 M/uL (4.00-5.20 M/uL) RDW 15.3 % H (11.5-14.5 %) WBC 5.7 K/uL (4.8-10.8 K/uL) Basophils 3 % H (0-2 %) Eosinophils 8 % H (0-4 %) Immature Granulocytes 0.3 % (0.0-1.0 %) Lymphocytes 23 % (20-46 %) Monocytes 14 % H (4-11 %) Nucleated RBC Automated 0.0 /100 WBC (0 /100 WBC) Differential Scanned Slide Neutrophils 52 % (51-75 %) Toxic Granulation Occasional A LAB--MICROBIOLOGY from 08/30/2012 10:13 AMFluid Culture (Aerobic and Anaerobic) with Smear (Preliminary Result) Source: Fluid Collected: 08/30/12 10:13 Site: Gallbladder fossa fluid Received : 08/30/12 11:47 Order#: [id number] Gram Stain FINAL 08/30/12 14:05 F OIF=Oil Immersion Field LPF=Low Power Field Many (10-20/OIF) white blood cells Numerous (20-50/OIF) red blood cells No microorganisms observed Aerobic Body Fluid Culture PLATED F Anaerobic Culture PLATED F F: Performed at: [facility], [address] [facility], ECHOLS FOR RESULTS: * - NEW RESULT - RESULT WAS MODIFIED AFTER FINAL STATUS SET
--- OUTSIDE RECORDS SUMMARY | 2016-06-13 14:31 | XMS REPORT | Continuity of Care Document ---
Author Author [facility] Organization [facility] Address Unknown Phone Unavailable Allergies Active Description [...] [place] 08/13/2012 51.88 ENDO RMVL BILIARY STONE Dick Quiroz MD, Dipak [place] 08/13/2012 51.21 PART CHOLECYSTECTOMY NEC Dick Quiroz MD, Dipak [place] 08/14/2012 87.53 INTRAOP CHOLANGIOGRAM Dick Quiroz MD, Dipak [place] 08/14/2012 Results Encounters ACCT No. Visit Date/Time Discharge Status Pt. Type Provider Facility Loc./Unit Complaint [id number] 08/30/2012 05:45:00 2012 13:05:00 DIS Outpatient Geoff Valentin MD [facility] J7E [id number] 07/31/2012 10:50:00 2012 19:05:00 DIS Inpatient Eileen Davis MD [facility] F7SE [id number] 08/29/2012 14:34:00 Document Registration
--- OUTSIDE RECORDS SUMMARY | 2016-06-13 14:31 | XMS REPORT | Continuity of Care Document ---
Author Author [facility] Organization [facility] Address Unknown Phone Unavailable Support Name Relationship Address Phone MAURICIO OCHOA MD Caregiver [address] [place] [address] [place] [address] Unavailable MAURICIO OCHOA MD Caregiver [address] [place] [address] [place] [address] Unavailable ANDREA CAMPBELL Caregiver [address] [place] [address] [place] [address] Unavailable HANANE NAJERA Next Of Kin [address] [place] [id number] Insurance Providers Guarantor Maryann Carrero Address [address] [place] [address] Email DENIED 16 Payer [employer] Policy Number [id number] Subscriber's Name Maryann Carrero Relationship 18 Self Group Number [id number] Payer Medicare Policy Number [id number] Subscriber's Name Maryann Carrero Relationship 18 Self Advance Directives Directive Response Recorded Date/Time Dr Waterman Resuscitation Status Full Code 06/06/16 8:58am Resuscitation Documents on File No 06/08/16 5:41pm DPOA for Healthcare Only No 06/08/16 5:41pm Living Will No 06/08/16 5:41pm Advance Directive Consult Current DPOA 06/09/16 10:35am Problems Active Problems Medical Problem Onset Date Status Bladder neoplasm Unknown Chronic Cardiomyopathy Unknown Chronic Chronic systolic (congestive) heart failure Unknown Chronic Diabetes mellitus, type 2 Unknown Chronic Fracture of left hip Unknown Acute HTN (hypertension) Unknown Chronic Hematuria Unknown Resolved Liver cirrhosis Unknown Chronic PAF (paroxysmal atrial fibrillation) Unknown Chronic Presence of cardiac pacemaker Unknown Chronic Medications Current Home Medications Medication Dose Units Route Directions Days Qty Instructions Start Date Alendronate Sodium 70 Mg Tablet 1 Tab Oral Weekly 4 10/22/14 Furosemide 40 Mg Tablet 40 Mg Oral Daily 30 Days 30 Tablet 06/13/16 Levothyroxine Sodium 150 Mcg Tablet 150 Mcg Oral Daily 07/30/12 Lisinopril 10 Mg Tablet 10 Mg Oral Daily for Hypertension Metformin Hcl 500 Mg Tablet 500 Mg Oral Daily Take one tablet, by mouth, 2 times a day with Meals. 07/07/15 Metoprolol Succinate 100 Mg Tab.er.24h 1 Tab Oral Daily 90 Potassium Chloride (Klor-Con M10) 10 Meq Tablet 10 Meq Oral Give With Breakfast 30 Days 30 Tablet 06/13/16 Warfarin Sodium 2.5 Mg Tablet 0.5 Tab Oral Daily 45 10/22/14 Past Home Medications Medication Directions Ordered Status Furosemide 20 Mg Tablet, 1 Tab Oral Daily as needed for Edema 07/06/15 Discontinued Metformin Hcl 500 Mg Tablet, 1 Tab Oral Daily 10/22/14 Discontinued Potassium Chloride 20 Meq Tab.er.prt, 1 Tab Oral Daily as needed for With Lasix 07/06/15 Discontinued Social History Social History Problem Response Recorded Date/Time Onset Date Status Reason for Hospitalization generator change 06/13/2016 1:31pm Not Applicable Not Applicable Chewing Tobacco Status No 06/06/2016 1:23pm Not Applicable Not Applicable Hx Substance Use No 06/06/2016 1:23pm Not Applicable Not Applicable Hx Alcohol Use No 06/06/2016 1:23pm Not Applicable Not Applicable Has the pt used tobacco in the last 12 months No 06/06/2016 1:23pm Not Applicable Not Applicable Tobacco Usage none 04/06/2015 1:02pm Not Applicable Not Applicable Query Response Start Date Stop Date Smoking Status Never smoker Hospital Discharge Instructions Instructions: Care Instructions: I was in the hospital because (patient own words): left knee total Discharge Diet: Resume heart healthy diet Discharge Activity: May resume usual activity as tolerated. Follow Up Appointments: Follow up with Dr. Ochoa on:06/22/16 at 8:40 Pending Lab / Results: No Pending Lab Expected Signs/Symptoms: N/A Notify Physician If: Chest pain or difficulty breathing. During Business Hours:: Call Dr. Ochoa's office at [phone]. After Business Hours:: Please call [phone] and have the breaker operator page the physician. Pain Management/Treatment: N/A Pain Scale Utilized to Educate Patient: 0-10 Pain Scale Wound/Incision Care: N/A Condition at time of discharge: Good Plan of Care Discharge Date 06/13/16 1:52pm Disposition 63 [facility] Instructions/Education Provided [facility] Postop Instructions [facility] Fracture Instruction Pacemaker Generator Change (DC) Prescriptions See Medication Section Care Plan and Goals See Discharge Instructions Section Functional Status Query Response Date Recorded Mobility Status Ambulatory w/assist June 12, 2016 2:06pm Assistive Devices Standard Walker June 12, 2016 2:06pm Activity Limitations Weakness June 12, 2016 2:06pm Feeding Ability Independent June 12, 2016 2:06pm Toileting Ability Assist June 12, 2016 2:06pm Grooming Ability Assist June 12, 2016 2:06pm Dressing Ability Assist June 12, 2016 2:06pm Driving Ability Assist June 12, 2016 2:06pm Housework Ability Assist June 12, 2016 2:06pm Meal Preparation Ability Assist June 12, 2016 2:06pm Stair Climbing Ability Assist June 12, 2016 2:06pm Ability to complete ADL's impeded by No change June 12, 2016 2:06pm Cognitive/Perceptual Impairments None June 12, 2016 2:06pm Visual Assistive Devices Glasses With patient June 06, 2016 1:42pm Preferred Method of Learning Pictures June 06, 2016 1:42pm Allergies, Adverse Reactions, Alerts Allergen Type Severity Reaction Status Last Updated Heparin Analogues Allergy Unknown Active 06/06/16 Immunizations Query Response on File Recorded Date/Time Hx Influenza Vaccination No 06/06/16 1:23pm Hx Pneumococcal Vaccination No 06/06/16 1:23pm Hx Influenza Vaccination No 06/06/16 1:23pm Vital Signs Acute Vital Signs Vital Response Date/Time Temperature (Fahrenheit) 98.2 deg F (96.8 - 99.1) 06/13/2016 11:54am Temperature (Calculated Celsius) 36.47665 degrees C (36.0 - 37.3) 06/13/2016 11:54am Temperature Source Oral 06/13/2016 11:54am Pulse Rate (adult) 69 bpm (60 - 100) 06/13/2016 11:54am Respiratory Rate 18 breaths/min (10 - 20) 06/13/2016 11:54am O2 Sat by Pulse Oximetry 98 % (90 - 100) 06/13/2016 11:54am Oxygen Delivery Method Nasal Cannula 06/13/2016 11:54am Oxygen Delivery Method Nasal Cannula 06/08/2016 11:46am Oxygen Flow Rate 3.00 L/min 06/13/2016 11:54am Blood Pressure 137/63 mm Hg 06/13/2016 11:54am Blood Pressure Source Automatic Cuff 06/13/2016 11:54am Height (Feet) 5 feet 06/13/2016 11:56am Height (Inches) 6.00 inches 06/13/2016 11:56am Weight (Kilograms) 68.300 kg 06/13/2016 8:32am Body Mass Index (BMI) 23.0 06/06/2016 1:08pm Results Laboratory Results Test Name Result Units Flags Reference Collection Date/Time Result Date/ Time Comments White Blood Count 5.3 T/MM3 4.5-11.0 06/13/2016 4:54am 06/13/2016 9: 45am Red Blood Count 4.01 M/MM3 4.00-5.20 06/13/2016 4:54am 06/13/2016 9: 45am Hemoglobin 10.9 GM/DL L 12-16 06/13/2016 4:54am 06/13/2016 9:45am Hematocrit 35.1 % L 36-46 06/13/2016 4:54am 06/13/2016 9:45am Mean Corpuscular Volume 87.5 UM3 80-100 06/13/2016 4:54am 06/13/2016 9: 45am Mean Corpuscular Hemoglobin 27.2 UUG 26-34 06/13/2016 4:54am 2016 9:45am Mean Corpuscular Hemoglobin Concent 31.1 GM/DL 31-37 06/13/2016 4:54am 06/13/2016 9:45am RDW Standard Deviation 50.5 FL H 36.9-50.2 06/13/2016 4:54am 06/13/2016 9:45am Platelet Count 161 T/MM3 130-400 06/13/2016 4:54am 06/13/2016 9:45am Mean Platelet Volume 10.9 UM3 9.4-12.4 06/13/2016 4:54am 06/13/2016 9: 45am Neutrophils (%) (Auto) 77.1 % H 33-66 06/08/2016 8:14am 06/08/2016 8: 40am Lymphocytes (%) (Auto) 8.1 % L 23-45 06/08/2016 8:06/08/2016 8: 40am Monocytes (%) (Auto) 11.0 % H 0-9.0 06/08/2016 8:06/08/2016 8:40am Eosinophils (%) (Auto) 3.2 % 0-4 06/08/2016 8:06/08/2016 8:40am Basophils (%) (Auto) 0.4 % 0-2 06/08/2016 8:06/08/2016 8:40am Immature Granulocyte % (Auto) 0.2 % 0.0-0.5 06/08/2016 8:2016 8:40am Absolute Neutrophils (auto) 4.1 T/MM3 1.8-7.7 06/08/2016 8:2016 8:40am Absolute Lymphocytes (auto) 0.4 T/MM3 L 1-4.8 06/08/2016 8:2016 8:40am Absolute Monocytes (auto) 0.6 T/MM3 0-0.8 06/08/2016 8:06/08/2016 8:40am Absolute Eosinophils (auto) 0.2 T/MM3 0-0.5 06/08/2016 8:2016 8:40am Absolute Basophils (auto) 0.0 T/MM3 0-0.2 06/08/2016 8:06/08/2016 8:40am Absolute Immature Granulocyte (auto 0.01 T/MM3 0.00-0.03 06/08/2016 8: 06/08/2016 8:40am Neutrophils % (Manual) 80.0 % H 33-66 06/12/2016 4:25am 06/12/2016 6: 39am Band Neutrophils % 17.0 % D H 0-6 06/11/2016 1:04pm 06/11/2016 2:20pm Lymphocytes % (Manual) 9.0 % L 23-45 06/12/2016 4:25am 06/12/2016 6: 39am Monocytes % (Manual) 6.0 % 0-9.0 06/12/2016 4:25am 06/12/2016 6:39am Eosinophils % (Manual) 3.0 % 0-4 06/12/2016 4:25am 06/12/2016 6:39am Basophils % (Manual) 1.0 % 0-2 06/09/2016 4:25am 06/09/2016 6:53am Metamyelocytes % 1.0 % H 0-0 06/12/2016 4:25am 06/12/2016 6:39am Reactive Lymphocytes % 1.0 % H 0-0 06/12/2016 4:25am 06/12/2016 6:39am Band Neutrophils # 1.2 T/MM3 06/11/2016 1:04pm 06/11/2016 2:20pm Absolute Neutrophils (Manual) 4.6 T/MM3 1.8-7.7 06/12/2016 4:25am 06/12 6:39am Lymphocytes # (Manual) 0.5 T/MM3 L 1-4.8 06/12/2016 4:25am 06/12/2016 6: 39am Monocytes # (Manual) 0.3 T/MM3 0-0.8 06/12/2016 4:25am 06/12/2016 6: 39am Eosinophils # (Manual) 0.2 T/MM3 0-0.5 06/12/2016 4:25am 06/12/2016 6: 39am Basophils # (Manual) 0.1 T/MM3 0-0.2 06/09/2016 4:25am 06/09/2016 6: 53am Metamyelocytes # 0.1 T/MM3 06/12/2016 4:25am 06/12/2016 6:39am Reactive Lymphocytes # 0.1 T/MM3 H 0-0 06/12/2016 4:25am 06/12/2016 6: 39am Red Cell Morphology Comment NORMAL 06/12/2016 4:25am 06/12/2016 6: 39am Anisocytosis 1+ 06/11/2016 1:04pm 06/11/2016 2:20pm Prothromb Time International Ratio 3.85 H 0.76-1.04 06/13/2016 4:55am 06/13/2016 5:15am THERAPUTIC RANGE=2.00-3.00 FOR ANTI-THROMBOSIS THERAPUTIC RANGE=2.50-3.50 FOR IMPLANTED VALVE Activated Partial Thromboplast Time 32.6 SEC 24-36 06/07/2016 1:17pm 1:48pm Icterus Index < 2 0-7 06/13/2016 4:54am 06/13/2016 9:52am Chemistry Specimen Hemolysis < 15 0-25 06/13/2016 4:54am 06/13/2016 9 :52am 0-25: Specimen Exhibited No Hemolysis. Turbidity < 20 0-20 06/13/2016 4:54am 06/13/2016 9:52am Sodium Level 140 MEQ/L 134-144 06/13/2016 4:54am 06/13/2016 9:52am Potassium Level 4.1 MEQ/L 3.6-5 06/13/2016 4:54am 06/13/2016 9:52am Chloride Level 100 MEQ/L 98-107 06/13/2016 4:54am 06/13/2016 9:52am Carbon Dioxide Level 32 MEQ/L H 22-30 06/13/2016 4:54am 06/13/2016 9: 52am Anion Gap 8 MEQ/L 5-15 06/13/2016 4:54am 06/13/2016 9:52am Blood Urea Nitrogen 28.0 MG/DL H 7-17 06/13/2016 4:54am 06/13/2016 9: 52am Creatinine 0.7 MG/DL 0.7-1.2 06/13/2016 4:54am 06/13/2016 9:52am BUN/Creatinine Ratio 40 RATIO H 6-26 06/13/2016 4:54am 06/13/2016 9: 52am Glomerular Filtration Rate Calc 82 06/13/2016 4:54am 06/13/2016 9: 52am Glucose Level 90 MG/DL 65-110 06/13/2016 4:54am 06/13/2016 9:52am Calculated Osmolality 275 MOSM/KG 261-280 06/13/2016 4:54am 06/13/2016 9:52am Calcium Level 7.2 MG/DL L 8.4-10.2 06/13/2016 4:54am 06/13/2016 9:52am Total Bilirubin 1.00 MG/DL 0.20-1.30 06/11/2016 1:04pm 06/11/2016 1: 20pm Unconjugated Bilirubin 0.70 MG/DL 0.00-1.10 06/07/2016 12:00pm 2016 12:33pm Conjugated Bilirubin 0.00 MG/DL 0.00-0.30 06/07/2016 12:00pm 2016 12:33pm Alkaline Phosphatase 68 U/L 38-126 06/11/2016 1:04pm 06/11/2016 1:20pm Total Protein 6.5 G/DL 6.3-8.2 06/11/2016 1:04pm 06/11/2016 1:20pm Albumin 2.7 G/DL L 3.5-5.0 06/11/2016 1:04pm 06/11/2016 1:20pm Globulin 3.8 G/DL H 2.4-3.6 06/11/2016 1:04pm 06/11/2016 1:20pm Albumin/Globulin Ratio 0.7 RATIO L 1.1-2.2 06/11/2016 1:04pm 06/11/2016 1:20pm Aspartate Amino Transf (AST/SGOT) 48 U/L H 14-36 06/11/2016 1:04pm 06/11 1:20pm Alanine Aminotransferase (ALT/SGPT) 24 U/L 9-52 06/11/2016 1:04pm 06/11 1:20pm Magnesium Level 1.8 MG/DL 1.6-2.3 06/12/2016 4:25am 06/12/2016 5:22am Hepatitis A IgM Antibody NEGATIVE NEGATIVE 06/07/2016 3:02pm 2016 2:33am Hepatitis B Surface Antigen NEGATIVE NEGATIVE 06/07/2016 3:02pm 06/09 2:27am Hepatitis B Core IgM Antibody NEGATIVE NEGATIVE 06/07/2016 3:02pm 2:33am Hepatitis C Antibody NEGATIVE NEGATIVE 06/07/2016 3:02pm 06/09/2016 2 :44am Urine Collection Type BARBOSA INDWELLING 06/12/2016 8:15pm 2016 8:26pm Urine Color ORANGE YELLOW 06/12/2016 8:15pm 06/12/2016 8:26pm Urine Turbidity SL CLOUDY CLEAR 06/12/2016 8:15pm 06/12/2016 8:26pm Urine Specific [place] 1.010 L 1.015-1.025 06/12/2016 8:15pm 2016 8:26pm Urine pH 5.5 5.0-8.0 06/12/2016 8:15pm 06/12/2016 8:26pm Urine Leukocyte Esterase TRACE A NEGATIVE 06/12/2016 8:15pm 2016 8:26pm Urine Nitrite NEGATIVE NEGATIVE 06/12/2016 8:15pm 06/12/2016 8:26pm Urine Protein 2+ A NEGATIVE 06/12/2016 8:15pm 06/12/2016 8:26pm Urine Glucose (UA) NEGATIVE NEGATIVE 06/12/2016 8:15pm 06/12/2016 8: 26pm Urine Ketones NEGATIVE NEGATIVE 06/12/2016 8:15pm 06/12/2016 8:26pm Urine Urobilinogen 0.2 EU/DL NORMAL 06/12/2016 8:15pm 06/12/2016 8: 26pm Urine Bilirubin NEGATIVE NEGATIVE 06/12/2016 8:15pm 06/12/2016 8: 26pm Urine Blood 3+ A NEGATIVE 06/12/2016 8:15pm 06/12/2016 8:26pm Urine WBC 5-10 /HPF H 0-5 06/12/2016 8:15pm 06/12/2016 8:31pm Urine WBC Clumps FEW 06/07/2016 1:52pm 06/07/2016 2:17pm Urine RBC 50-200 /HPF H 0-3 06/12/2016 8:15pm 06/12/2016 8:31pm Urine Bacteria 1+ H NEGATIVE 06/12/2016 8:15pm 06/12/2016 8:31pm Urine Culture Indicated CULT NOT INDICATED 06/12/2016 8:15pm 2016 8:31pm Anti-Mitochondrial Antibody <0.1 U 06/07/2016 3:02pm 06/09/2016 9: 23pm Reference Range: <0.1 (Negative) Test Performed by: [facility] [address] [place] [address] Mitochondrial Ab, M2 performed at [facility], [address] [place] [address] Rollout Manager Karan Gonzalez MD Anti-Nuclear Antibody (LAB) Indeterminate A Negative 06/08/2016 4:07pm 06/10/2016 2:39am AMBER Panel, Quantitative performed at [facility], [address], [place] [address] Rollout Manager Deepak Anderson DO Anti-Smooth Muscle Antibody Negative Negative 06/08/2016 4:07pm 06/10 3:52pm ADDITIONAL INFORMATION This test was developed and its performance characteristics determined by [facility] in a manner consistent with CLIA requirements. This test has not been cleared or approved by the U.S. Food and Drug Administration. Test Performed by: [facility] [address] [place] [address] Anti-Smooth Muscle Ab performed at [facility], [address] [place] [address] Rollout Manager Karan Gonzalez MD Microbiology Results Procedure Source Organism/Result Collection Date/Time Result Date/Time Result Status Blood Culture Peripheral/Iv Start NO GROWTH AFTER 5 DAYS 06/07/2016 3:02pm 06/12/2016 4:38pm Final Urine Culture Urine, [place] Indwelling CULTURE INITIATED - RESULTS PENDING 06/13/2016 11:40am 06/13/2016 11:45am Preliminary Name: MARYANN CARRERO Unit #: [id number] : 1940 Sex: F Admit Date: 06/07/16 Loc / Svc: SRG Discharge Date: DIAGNOSTIC IMAGING REPORT Report #: [id number] [place], [place] Indication: ITS.REASON: dyspnea PROCEDURE: CHEST 1 VIEW: Encounter: Initial Comparison: June 07, 2016 Findings: Left cardiac pacemaker defibrillator is unchanged. Continued bilateral interstitial prominence throughout the lungs with developing new airspace opacity in the peripheral right upper lobe. No pneumothorax or pleural effusion. Heart size and mediastinal contours are stable. Impression: Developing right upper lobe infiltrate could be due to atelectasis or pneumonia. . Procedures No known history of procedures. Encounters Encounter Location Arrival/Admit Date Discharge/Depart Date Attending Provider Discharged Inpatient [facility] 06/07/16 12:41pm 06/13/16 1:52pm MAURICIO OCHOA MD
--- OUTSIDE RECORDS SUMMARY | 2016-06-13 14:31 | XMS REPORT ---
Author Author [place], [facility] - Organization Unknown Address Unknown Phone [...] the responsibility of the patient or patient inside sales representative to confirm the list of medications [...] ON 08/22/12 * F[facility] * 2L OF O2 [...] /mm3 Neutrophil, Fluid 50 % RBC, Fluid [id number] /mm3 Body Fluid Hematocrit 16.0 % Fluid [...] 17:58 Site: Received : 08/01/12 18:05 Order#: [id number] C. difficile toxin B by PCR FINAL 08/02/12 13:34 Negative - C. difficile toxin B not detected by PCR ECHOLS FOR RESULTS: * - NEW RESULT - RESULT WAS MODIFIED AFTER FINAL STATUS SET LAB--MICROBIOLOGY from 08/10/2012 11:45 AMFluid Culture (Aerobic and Anaerobic) with Smear Source: Fluid Collected: 08/10/12 11:45 Site: Pleural Received : 08/10/12 12:54 Order#: [id number] Gram Stain FINAL 08/10/12 14:35 OIF=Oil Immersion [...] Site: PLEURAL Received : 08/10/12 12:55 Order#: [id number] Stain, Acid Fast FINAL 08/11/12 10:02 No [...] (-<1.0 mg/dL) Collection Type: Clean Catch Specific [place] 1.029 (1.003-1.030 ) Protein Pos 2+ A (Negative ) pH, Urine 6.5 (5.0-8.0 ) Nitrites Negative (Negative ) Leukocytes Esterase Trace A (Negative ) Ketones, Urine Trace A (Negative ) Glucose Negative (Negative ) Color Norma A Blood Pos 1+ A (Negative ) Bilirubin Positive A (Negative ) Appearance Turbid A
[2016-06-13 14:33] VITALS: BP 121/56; PULSE 70; RESP 18; TEMP 98.1; O2SAT 95
[2016-06-13 14:41] VITALS: Ht 165.1 cm; Wt 66.5 kg
[2016-06-13 14:43] VITALS: BP 121/56; PULSE 70; RESP 18; TEMP 98.1; O2SAT 95
--- NOTE | 2016-06-13 18:07 | CONSPD ---
Consultation Info Date DATE: 06/13/16 TIME: 17:54 Date of Consultation: Jun 13, 2016 Attending Physician: Dr. Leija Reason for Consultation: hematuria and advanced cirrhosis HPI - Adult Date DATE: 06/13/16 TIME: 17:54 General Chief Complaint: hematuria and cirrhosis History of Present Illness Maryann is a very pleasant 75-year-old white female patient. She was initially admitted to the hospital for generator change of her implantable pacemaker. The day following this procedure she twisted and fell in her room sustaining a left hip fracture. Soon after she had gross hematuria and CT of the abdomen and pelvis was performed which also demonstrated advanced cirrhosis of unknown etiology. She does have a history of bladder neoplasm that was discovered in [place]. Pathology is unavailable. A urinalysis was also performed which demonstrated Escherichia coli bacteria susceptible to Levaquin. She has recovered from her hip surgery quite well and was transferred to inpatient rehabilitation earlier today. She indicates to me that she has walked quite a bit and even was able to walk up and down 5 stairs. Urinalysis performed yesterday still revealed hematuria. Past Medical History Past Medical History Patient's Medical History: (1) PAF (paroxysmal atrial fibrillation) (2) Cardiomyopathy (3) HTN (hypertension) (4) Diabetes mellitus, type 2 (5) Presence of cardiac pacemaker (6) Fracture of left hip (7) Liver cirrhosis Permanent Comment: New diagnosis Last Edited By: Chikis Isabel on Jun 07, 2016 20:34 (8) Bladder neoplasm (9) Hematuria Surgical History Patient's Surgical History: pacemaker 01/2012, Cystoscopy 04/11/13, Hysterectomy, Total thyroidectomy 2003, cholecystectomy 08/2012. Left hip fracture repair in June 2016 Current Medications Home Meds Active Scripts Potassium Chloride (Klor-Con M10) 10 Meq Tablet, 10 MEQ PO WB for 30 Days, #30 TAB 11 Refills Prov:KENNETH VARGAS PARTS FINISHER 06/13/16 Furosemide (Furosemide) 40 Mg Tablet, 40 MG PO DAILY for 30 Days, #30 TAB 11 Refills Prov:KENNETH VARGAS [employer]S FINISHER 06/13/16 Reported Medications Lisinopril (Lisinopril) 10 Mg Tablet, 10 MG PO DAILY for HYPERTENSION, TAB 06/06/16 Metformin HCl (Metformin HCl) 500 Mg Tablet, 500 MG PO DAILY, TAB Take one tablet, by mouth, 2 times a day with Meals. 07/07/15 Metoprolol Succinate (Metoprolol Succinate) 100 Mg Tab.er.24h, 1 TAB PO DAILY, # 90 10/22/14 Alendronate Sodium (Alendronate Sodium) 70 Mg Tablet, 1 TAB PO WEEKLY, #4 10/22/14 Warfarin Sodium (Warfarin Sodium) 2.5 Mg Tablet, 0.5 TAB PO DAILY, #45 10/22/14 Levothyroxine Sodium (Levothyroxine Sodium) 150 Mcg Tablet, 150 MCG PO DAILY 07/30/12 Discontinued Reported Medications Potassium Chloride (Potassium Chloride) 20 Meq Tab.er.prt, 1 TAB PO DAILY Y for WITH LASIX, #180 07/06/15 Furosemide (Furosemide) 20 Mg Tablet, 1 TAB PO DAILY Y for EDEMA, #90 07/06/15 Allergies: Coded Allergies: Heparin Analogues (Verified Allergy, Unknown, 06/06/16) Family History Family History: negative Social History Smoking Status: Never smoker Does patient use chewing tobac: No Second Hand Exposure: No Substance Use Type: does not use Marital Status: Housing: house Service: No Current Occupational Status: retired Advance Directives: Yes DPOA for Healthcare Only Review of Systems Constitutional: DENIES: chills, dizziness, fever, weakness ENMT Hearing: REPORTS: hearing loss Balance: DENIES: ataxia, falling to one side, vertigo Cardiovascular DENIES: chest pain, dyspnea on exertion, orthopnea, paroxysmal nocturnal dysp Rhythm/Rate: irregular beat, DENIES: tachycardia Pulmonary Respiratory: DENIES: cough, dyspnea, hyperventilation, sputum, tachypnea Comments 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 GI Upper Abdomen: DENIES: dysphagia, food intolerances, heartburn/indigestion, hematemesis, nausea Lower Abdomen: DENIES: blood in stool, aleksandr-colored stools, diarrhea, melena, pain Musculoskeletal General: tenderness (left hip), DENIES: cramps, pain, weakness Integumentary Skin: DENIES: color change, itching, rash Neurological General: DENIES: change in strength, headache, numbness, paralysis/paresis, tremor, weakness Psychiatric Psychiatric: DENIES: anxiety, depression, emotional instability, nervousness Endocrine DENIES: heat/cold intolerance, polydipsia, polyphagia Hematologic/Lymphatic anemia, DENIES: bleeding gums, frequent nosebleeds Allergic/Immunological DENIES: frequent infections, hives, sneezing All Other Systems All Other Systems: Reviewed (remainder of 10-point ROS Neg.) Physical Exam General General Nourishment: well nourished, well developed, apparent age, adult Vital Signs Vital Signs Date Time Temp Pulse Resp B/P Pulse Ox O2 Delivery O2 Flow Rate FiO2 06/13/16 14:43 98.1 70 18 121/56 95 Nasal Cannula 3.00 Height (Feet): 5 Height (Inches): 5.00 Telemetry Rhythm: Vpaced Eyes Brief: FOUND: EOMI, PERRL, NOT FOUND: scleral icterus Neck Brief: NOT FOUND: JVD, adenopathy, carotid bruits, thyromegaly Respiratory Brief: FOUND: clear all crump, equal bilaterally, NOT FOUND: rales , wheezes Cardiovascular (brief) Cardiac Brief: FOUND: regular rate, regular rhythm, NOT FOUND: pedal edema Abdomen (brief) Abdominal Brief: FOUND: BS normo active x4, soft, NOT FOUND: distended, hepatosplenomegaly, tender Lymphatic (brief) Lymphatic Brief: NOT FOUND: adenopathy, lymphedema Musculoskeletal (brief) Musculoskeletal Brief: NOT FOUND: deformity, loss of motion, spasm, tenderness Integumentary (brief) Integumentary Brief: FOUND: dry, pink, warm, NOT FOUND: rash Neurologic (brief) Neurological Brief: FOUND: cranial 2-12 intact, motor, sensory Neurologic RN Documented GCS Eye Opening: Verbal: Motor: Total: Psychiatric (brief) FOUND: alert, attentive, normal affect, oriented Impression/Recommendation Problems: (1) Hematuria Status: Acute Assessment & Plan: Urinary tract infection with Escherichia coli sensitive to Levaquin is being treated. Her Green catheter is been removed. She will need urological consultation at some point possibly after discharge. (2) Bladder neoplasm Status: Chronic (3) Liver cirrhosis Status: Chronic Qualifiers: Hepatic cirrhosis type: unspecified hepatic cirrhosis Ascites presence: without ascites Qualified Codes: K74.60 - Unspecified cirrhosis of liver Assessment & Plan: Causes of advanced cirrhosis in a patient of this age and gender are being evaluated. (4) Chronic systolic (congestive) heart failure Status: Chronic (5) Fracture of left hip Status: Acute (6) Presence of cardiac pacemaker Status: Chronic (7) Diabetes mellitus, type 2 Status: Chronic (8) HTN (hypertension) Status: Chronic (9) Cardiomyopathy Status: Chronic (10) PAF (paroxysmal atrial fibrillation) Status: Chronic Recommendation Finish antibiotics and reassess for hematuria and decide on urological consultation CHIKIS ISABEL DO Jun 13, 2016 17:58
--- NOTE | 2016-06-13 19:33 | NUR ---
Summary Pt transfers & amb in room with FWW & 2 assist min assist. Incont of bladder with min assist with incont care. Took 100% of dinner. Denies discomfort when questioned. here in evening.
[2016-06-13] MEDS: DOCUSATE SODIUM 100 MG CAPSULE PO SCH (21:25)
[2016-06-13 23:04] VITALS: BP 133/59; PULSE 72; RESP 16; TEMP 98.1; O2SAT 95
[2016-06-14 00:54] VITALS: PULSE 70; RESP 16; O2SAT 97
--- NOTE | 2016-06-14 04:23 | NUR ---
Bladder Accident Pt had bladder incontinence en route to the bathroom. Bladder accident required changing of socks, and cleaning of the floor.
--- NOTE | 2016-06-14 05:06 | NUR ---
Summary Pt has denied pain, ambulates well with walker, gb and cueing assist. Pt assisted to reposition through the night, hip precautions maintained, and water at bedside. Pt has slept off and on and has been up to her recliner thrice tonight. Pt is ion bed sleeping at this time. SCD's refused by pt.
[2016-06-14 05:52] LABS: HGB - HEMOGLOBIN 11.7 GM/DL (12-16); MEAN CORPUSCULAR HGB 26.6 UUG (26-34); MEAN CORPUSCULAR HGB CONC(MCHC 30.8 GM/DL (31-37); MEAN CORPUSCULAR VOLUME 86.4 UM3 (80-100); MEAN PLATELET VOLUME 10.1 UM3 (9.4-12.4); WBC - WHITE BLOOD COUNT 6.4 T/MM3 (4.5-11.0)
[2016-06-14 06:04] LABS: ANION GAP 11 MEQ/L (5-15); BUN/CREATININE RATIO 43 RATIO (6-26); CALCIUM 7.5 MG/DL (8.4-10.2); CHLORIDE 96 MEQ/L (98-107); CO2 - CARBON DIOXIDE 34 MEQ/L (22-30); CREATININE 0.6 MG/DL (0.7-1.2); GLOMERULAR FILTRATION RATE 98; GLUCOSE 110 MG/DL (65-110); POTASSIUM 4.4 MEQ/L (3.6-5); SODIUM 141 MEQ/L (134-144)
[2016-06-14 06:57] LABS: BAND NEUTROPHILS # 0.1 T/MM3; EOSINOPHILS # (MANUAL) 0.1 T/MM3 (0-0.5); LYMPHOCYTES # (MANUAL) 0.5 T/MM3 (1-4.8); METAMYELOCYTES # 0.1 T/MM3; MONOCYTES # (MANUAL) 0.5 T/MM3 (0-0.8); REACTIVE LYMPHOCYTES # 0.1 T/MM3 (0-0); TOTAL CELLS COUNTED 100 %
[2016-06-14] MEDS: LEVOTHYROXINE 150 MCG TABLET PO SCH (07:47)
[2016-06-14] MEDS: METFORMIN 500 MG TABLET PO SCH (08:34)
[2016-06-14] MEDS: POTASSIUM CHLORIDE 10 MEQ TABLET PO SCH (08:34)
[2016-06-14] MEDS: DOCUSATE SODIUM 100 MG CAPSULE PO SCH ×2 (08:34→21:13)
[2016-06-14] MEDS: FUROSEMIDE 40 MG TABLET PO SCH (08:35)
[2016-06-14] MEDS: METOPROLOL 100 MG PO SCH (08:35)
[2016-06-14] MEDS: LISINOPRIL 10 MG TABLET PO SCH (08:35)
[2016-06-14 09:04] VITALS: BP 138/60; PULSE 70; RESP 18; TEMP 97.4; O2SAT 92
[2016-06-14 10:29] VITALS: PULSE 70; RESP 18
[2016-06-14 10:35] LABS: INR 3.56 (0.76-1.04); PROTHROMBIN TIME 38.8 SEC (9.31-12.49)
--- NOTE | 2016-06-14 11:00 | NUR ---
SPEECH SCREEN COMPLETED OT REPORT PATIENT HAD LARGE CHOKING EPISODE ON THIN LIQUID VIA STRAW YESTERDAY AFTERNOON. SHE REPORTS PATIENT TOOK SEVERAL MINUTES TO RECOVER. PT SCREENED DURING BREAKFAST- SHE WAS CONSUMING A REG/REG TRAY. PATIENT TOOK SEVERAL SERIAL SIPS OF THIN JUICE VIA STRAW WITH NO OVERT S/S OF ASPIRATION. PATIENT ATE PANCAKE AND GODOY WITHOUT DIFFICULTY OR ORAL RESIDUE AFTER SWALLOW. HYOLARYNGEAL ELEVATION MINIMALLY IMPAIRED. VOICING WEAK AND WITH REDUCED BREATH SUPPORT. NO SKILLED ST RECOMMENDED FOR DYSPHAGIA AT THIS TIME. NURSING AND OTHER DISCIPLINES TO NOTIFY ST IF QUESTIONS/CONCERNS ARISE AGAIN WITH SWALLOW FUNCTION.
--- NOTE | 2016-06-14 12:22 | NUR ---
WARFARIN CONSULT S: 75 y/o F on warfarin for afib. Pt underwent left hip hemiarthroplasty on 06/08; POD5. Home dose of warfarin is 2 mg PO daily for six days a week. Goal INR 2-3. O: Date INR Warfarin Dose 06/08 1.30 2 mg 06/09 1.56 2 mg 06/10 1.80 2 mg 06/11 3.15 Held 06/12 3.75 Held 06/13 3.85 Held Hospital Doses 06/14 3.56 HOLD IRU Doses A/P: INR remains supratherapeutic but did decrease from yesterday and INR will likely continue decreaseing tomorrow. Will HOLD warfarin today. Will continue to monitor & make adjustments accordingly. Thank you for the consult, Gustavo Whitley RPh.
--- NOTE | 2016-06-14 12:43 | PDIRUTEAM ---
Multidisciplinary Team Meeting Nursing Hx Incontinence: Yes Bladder Goal: 6 Modified [place] Y/N: No Bladder Continent or Incontine: Incontinent Incontinent Product Used: Pull-up Number of Times Incontinent of: 3 Cleaning Ability-Bladder: 6 Modified [place] Bladder Incontinence Managemen: 4 Minimal Assistance Bowel Goal: 6 Modified [place] Colostomy Y/N: No Bowel Number of Accidents: 0 Number of times Incontinent of: 0 Toileting Ability: 5 Supervision/Setup Vital Signs Vital Signs Date Time Temp Pulse Resp B/P Pulse Ox O2 Delivery O2 Flow Rate FiO2 06/14/16 10:29 70 18 06/14/16 09:04 97.4 138/60 92 Nasal Cannula 2.00 Current Medications Current Medications Medications (Trade) Dose Ordered Sig/Galo Route PRN Reason Start Time Stop Time Status Last Admin Dose Admin Docusate Sodium (Colace) 100 mg BID PO 06/13/16 21:00 06/14/16 08:34 Furosemide (Lasix) 40 mg DAILY PO 06/14/16 09:00 06/14/16 08:35 Levothyroxine Sodium (Synthroid) 150 mcg ACB PO 06/14/16 07:30 06/14/16 07:47 Lisinopril (Prinivil) 10 mg DAILY PO 06/14/16 09:00 06/14/16 08:35 Metformin HCl (Glucophage) 500 mg WB PO 06/14/16 08:00 06/14/16 08:34 Metoprolol Succinate (TOPROL XL 100 mg) 100 mg DAILY PO 06/14/16 09:00 06/14/16 08:35 Potassium Chloride (Kdur) 10 meq WB PO 06/14/16 08:00 06/14/16 08:34 Comments choked with water through straw. This am no issues. Physical Therapy Bed Transfer Ability: 2 Maximum Assistance Bed Transfer Assistance Needed: 1 Person Chair Transfer Ability: 4 Minimal Assistance Chair Transfer Assistance Need: 1 Person Overall Toilet / Commode Trans: 4 Minimal Assistance Ambulation Ability: 4 Minimal Assistance Ambulation Assistance Needed: 1 Person Ambulation Distance: 180 Comments FIMS 2-4 SOA with exercise. Cooperative, working hard. Occupational Therapy Grooming Ability: 5 Supervision/Setup Bathing Ability: 5 Supervision/Setup Upper Body Dressing Ability: 5 Supervision/Setup Lower Body Dressing Ability: 5 Supervision/Setup Comments FIMS mainly 5 s Tub bathing could not clear ,but did well with extended tub bench. Rapid fatigue Care Plan Condition at time of discharge: Fair Interventions/Goals Barriers to d/c, fatigue, SOA, strength, endurance Newly on unit,no days assigned yet. DAVID CONTRERAS MD Jun 14, 2016 12:43
--- NOTE | 2016-06-14 15:04 | HPPDOC ---
HPI Date DATE: 06/14/16 TIME: 14:57 General Chief Complaint: hematuria and cirrhosis History of Present Illness 75 yo female with post procedure fall and hip fracture. Came to [facility] to have pacemaker generator changed out, which was successfully completed adn pt was recovered. As she was leaving hospital , she used the bathroom adn slipped and fell,fracturing left hip. She was admitted for surgical ORIF. Post op was worked up for hematuria and Idiopathic cirrhosis of liver noted on CT. She has become deconditioned and weak post op and is unable to manage adls at this time. Past Medical History Past Medical History Patient's Medical History: (1) PAF (paroxysmal atrial fibrillation) (2) Cardiomyopathy (3) HTN (hypertension) (4) Diabetes mellitus, type 2 (5) Presence of cardiac pacemaker (6) Fracture of left hip (7) Liver cirrhosis Permanent Comment: New diagnosis Last Edited By: Timothy Duckworth on Jun 07, 2016 20:34 (8) Bladder neoplasm (9) Hematuria Surgical History Patient's Surgical History: pacemaker 01/2012, Cystoscopy 04/11/13, Hysterectomy, Total thyroidectomy 2003, cholecystectomy 08/2012. Left hip fracture repair in June 2016 Current Medications Home Meds Active Scripts Potassium Chloride (Klor-Con M10) 10 Meq Tablet, 10 MEQ PO WB for 30 Days, #30 TAB 11 Refills Prov:KENNETH VARGAS DELPHI PROGRAMMER 06/13/16 Furosemide (Furosemide) 40 Mg Tablet, 40 MG PO DAILY for 30 Days, #30 TAB 11 Refills Prov:KENNETH VARGAS APRN 06/13/16 Reported Medications Lisinopril (Lisinopril) 10 Mg Tablet, 10 MG PO DAILY for HYPERTENSION, TAB 06/06/16 Metformin HCl (Metformin HCl) 500 Mg Tablet, 500 MG PO DAILY, TAB Take one tablet, by mouth, 2 times a day with Meals. 07/07/15 Metoprolol Succinate (Metoprolol Succinate) 100 Mg Tab.er.24h, 1 TAB PO DAILY, # 90 10/22/14 Alendronate Sodium (Alendronate Sodium) 70 Mg Tablet, 1 TAB PO WEEKLY, #4 10/22/14 Warfarin Sodium (Warfarin Sodium) 2.5 Mg Tablet, 0.5 TAB PO DAILY, #45 10/22/14 Levothyroxine Sodium (Levothyroxine Sodium) 150 Mcg Tablet, 150 MCG PO DAILY 07/30/12 Discontinued Reported Medications Potassium Chloride (Potassium Chloride) 20 Meq Tab.er.prt, 1 TAB PO DAILY Y for WITH LASIX, #180 07/06/15 Furosemide (Furosemide) 20 Mg Tablet, 1 TAB PO DAILY Y for EDEMA, #90 07/06/15 Allergies: Coded Allergies: Heparin Analogues (Verified Allergy, Unknown, 06/06/16) Family History Family History: negative Social History Smoking Status: Never smoker Does patient use chewing tobac: No Second Hand Exposure: No Substance Use Type: does not use Marital Status: Housing: house Service: No Current Occupational Status: retired Advance Directives: Yes DPOA for Healthcare Only Review of Systems Cardiovascular see HPI GI Upper Abdomen: see HPI Lower Abdomen: see HPI General: see HPI Musculoskeletal General: see HPI All Other Systems All Other Systems: Reviewed Physical Exam General General Nourishment: well nourished, adult General Body Habitus: well groomed Vital Signs Vital Signs Date Time Temp Pulse Resp B/P Pulse Ox O2 Delivery O2 Flow Rate FiO2 06/14/16 10:29 70 18 06/14/16 09:04 97.4 138/60 92 Nasal Cannula 2.00 Height (Feet): 5 Height (Inches): 5.00 Telemetry Rhythm: Vpaced Eyes Brief: FOUND: EOMI, PERRL ENMT Brief: FOUND: TM clear Neck Brief: NOT FOUND: adenopathy, carotid bruits, thyromegaly Respiratory Brief: FOUND: clear all crump, equal bilaterally Cardiovascular (brief) Cardiac Brief: FOUND: regular rate, regular rhythm Capillary Refill: <2 sec Abdomen (brief) Abdominal Brief: FOUND: BS normo active x4, soft, NOT FOUND: tender Neurologic RN Documented GCS Eye Opening: Verbal: Motor: Total: Laboratory Laboratory Tests Test 06/14/16 05:33 06/14/16 10:24 White Blood Count 6.4T/MM3 Red Blood Count 4.40M/MM3 Hemoglobin 11.7GM/DL Hematocrit 38.0% Mean Corpuscular Volume 86.4UM3 Mean Corpuscular Hemoglobin 26.6UUG Mean Corpuscular Hemoglobin Concent 30.8GM/DL RDW Standard Deviation 50.0FL Platelet Count 200T/MM3 Mean Platelet Volume 10.1UM3 Immature Granulocyte % (Auto) % Neutrophils (%) (Auto) % Lymphocytes (%) (Auto) % Monocytes (%) (Auto) % Eosinophils (%) (Auto) % Basophils (%) (Auto) % Absolute Immature Granulocyte (auto T/MM3 Absolute Neutrophils (auto) T/MM3 Absolute Lymphocytes (auto) T/MM3 Absolute Monocytes (auto) T/MM3 Absolute Eosinophils (auto) T/MM3 Absolute Basophils (auto) T/MM3 Neutrophils % (Manual) 78.0% Band Neutrophils % 2.0% Lymphocytes % (Manual) 8.0% Reactive Lymphocytes % 2.0% Monocytes % (Manual) 8.0% Eosinophils % (Manual) 1.0% Metamyelocytes % 1.0% Absolute Neutrophils (Manual) 5.0T/MM3 Band Neutrophils # 0.1T/MM3 Lymphocytes # (Manual) 0.5T/MM3 Reactive Lymphocytes # 0.1T/MM3 Monocytes # (Manual) 0.5T/MM3 Eosinophils # (Manual) 0.1T/MM3 Metamyelocytes # 0.1T/MM3 Red Cell Morphology Comment Normal Turbidity < 20 Sodium Level 141MEQ/L Potassium Level 4.4MEQ/L Chloride Level 96MEQ/L Carbon Dioxide Level 34MEQ/L Anion Gap 11MEQ/L Blood Urea Nitrogen 26.0MG/DL Creatinine 0.6MG/DL Glomerular Filtration Rate Calc 98 BUN/Creatinine Ratio 43RATIO Glucose Level 110MG/DL Calculated Osmolality 277MOSM/KG Calcium Level 7.5MG/DL Icterus Index < 2 Chemistry Specimen Hemolysis 27 Prothromb Time International Ratio 3.56 Assessment & Plan Problems: (1) Myopathy Assessment & Plan: PT and OT reviewing pt to develop plan of care. (2) Fracture of left hip Status: Acute Assessment & Plan: PT and OT workign with pt to increase strength and stability (3) Liver cirrhosis Status: Chronic Qualifiers: Hepatic cirrhosis type: unspecified hepatic cirrhosis Ascites presence: without ascites Qualified Codes: K74.60 - Unspecified cirrhosis of liver Assessment & Plan: Managed by medical. DVT Prophylaxis: SCD'S Code Status Full Code Interventions to Obtain Goals PT Treatment Plan: Therapeutic Exercise, Gait Training, Functional Activities , Patient/Family Education OT Treatment Plan: ADL's (basic care), Ther. Exercise for ADL's, Balance Training, Pt./Family Education, IADL's Hospital Course Summary Disclaimer The hospital course summary below is not to be considered part of the above Progress Note. DAVID CONTRERAS MD Jun 14, 2016 15:01
--- NOTE | 2016-06-14 15:06 | IRU24PDOC ---
24 Hour Post Admission Eval Relevant Changes Relevant Changes: No I have reviewed the patient's information and concur with the finding and results of the pre-admission screen. Certification I certify the patient for rehabilitation. Patient Condition Prior Medical Conditions: (1) Myopathy Additional Information: PT and OT reviewing pt to develop plan of care. (2) Fracture of left hip Status: Acute Additional Information: PT and OT workign with pt to increase strength and stability (3) Liver cirrhosis Status: Chronic Additional Information: Managed by medical. Current Medical Conditions: (1) Myopathy Additional Information: PT and OT reviewing pt to develop plan of care. (2) Fracture of left hip Status: Acute Additional Information: PT and OT workign with pt to increase strength and stability (3) Liver cirrhosis Status: Chronic Additional Information: Managed by medical. Prior Functional Condition Lives With: pt lives with son in apt over a restaurant Residence Type: Private home/apartment Assistive Devices: Front Wheeled Walker, 4-Wheeled Walker Prior Functional Status: Indep. at home or school Current Functional Status Patient Requirements * Patient has been determined to have significant functional limitations requiring at least two therapy disciplines. * Rehabilitation medical practitioner will provide admission approval, assessment and oversight and program coordination at least daily. * Intensive rehabilitative nursing services on site and available 24 hours a day. * The treatment plan will be developed within 24 hours of admission. * Interdisciplinary and goal oriented treatment by professional nursing, social organization professor, and rehabilitation therapist. * Interdisciplinary team meeting weekly inclusive of ongoing comprehensive discharge planning. First team meeting by day seven. Weekly meetings to follow. * Rehab Physician is the team meeting leader. * Pharmacy and diagnostic services will be available. * Ongoing comprehensive rehab program with at least 2 disciplines and greater than or equal to 3 hours a day, 5 days a week. Physical Therapy Minutes: 90 Occupational Therapy Minutes: 90 Therapy The patient is to receive therapy at least 5 days a week. Current Functional Status: Using assistive device PT Treatment Plan: Therapeutic Exercise, Gait Training, Functional Activities , Patient/Family Education Treatment Plan Frequency: five times per week Treatment Plan Duration: two weeks Plan of Care Comment: 6x/week x 1 week, then 5x/week x 2 weeks OT Treatment Plan: ADL's (basic care), Ther. Exercise for ADL's, Balance Training, Pt./Family Education, IADL's OT Treatment Plan Frequency: five times per week OT Treatment Plan Duration: three weeks ROM Comment: L hip fx otherwise functional Muscle Weakness Location: Left Lower Extremity, Right Lower Extremity Complication/Comorbidities Patient Complication Risk: (1) Myopathy Comments: PT and OT reviewing pt to develop plan of care. (2) Fracture of left hip Status: Acute Comments: PT and OT workign with pt to increase strength and stability (3) Liver cirrhosis Status: Chronic Comments: Managed by medical. Impact on Functional Outcomes Pt should be able to return to pre injury function with involvement of PT and OT. Barriers to Discharge: weakness, endurance, balance, pain control Plan to Avoid Complications Plan to Avoid Complications The patient cannot receive this care in a lesser intensive setting such as [facility] or Outpatient Therapy due to the patient requiring the following newly diagnosed liver cirrhosis of unknown etiology. The patient requires oversight by a rehabilitation physician to manage their rehabilitation treatment plan and the multidisciplinary approach to care that can only be provided in an IRF and requires a multidisciplinary approach to care , provided by professional PTs, OTs, STs, dieticians, RTs, rehabilitation nurses and is not available in lesser levels of care. The frequency and duration for therapy, as recommended by the professional Rehabilitation therapists, meet the patient's initial rehabilitation treatment plan needs and will be further evaluated on a weekly basis for progress and/or changes needed. Problem Qualifiers (1) Liver cirrhosis: Hepatic cirrhosis type: unspecified hepatic cirrhosis Ascites presence: without ascites Qualified Codes: K74.60 - Unspecified cirrhosis of liver DAVID CONTRERAS MD Jun 14, 2016 15:06
[2016-06-14 16:00] VITALS: BP 122/58; PULSE 69; RESP 16; TEMP 97.6; O2SAT 93
--- NOTE | 2016-06-14 17:40 | NUR ---
DM Screen BMI: 24.4 Estimated daily calorie needs: ~2000 (Activity factor 1.3, Injury factor 1.3) Diet order: [address] spoke with patient who said she has had diabetes 4 or 5 yrs and has not had any training on planning meals for a person with diabetes. She checks fasting blood sugar 3-4 times/week. She frequently eats only breakfast and supper, with some snacks. She said (emphatically) that she is not interested in diabetes education. Today patient skipped lunch. RD spoke with RN about whether or not patient benefits from a consistent carb diet or would do better on a regular diet. RD available at Ext. [phone].
--- NOTE | 2016-06-14 18:47 | NUR ---
SHIFT NOTE PT IS A&O X3. PT IS ABLE TO USE CALL LIGHT AND MAKE NEEDS KNOWN. PT JESUS BEEN CONTINENT FOR MOST OF SHIFT SHE IS AWARE BUT HAS SOME STRESS INCONTINENCE. PT HAS HAD NO C/O PAIN AND HAS HAD NO PRN MEDS FOR THIS SHIFT. PT IS UP WITH FWW/GB/ AND AX1. PT IS COMPLIANT WITH CARES AND THERAPY. PT IS ON 2L /. PT IS ON A CARB CONSISTENT DIET. DRESSING WAS WET FROM SHOWER AND NO LONGER INTACT, INCISION LOOKED GOOD, A NEW DRESSING WAS APPLIED.
[2016-06-14 19:20] VITALS: BP 124/58; PULSE 69; RESP 18; TEMP 96.9; O2SAT 92
[2016-06-14 21:40] VITALS: PULSE 69
--- NOTE | 2016-06-15 01:59 | NUR ---
Chart Check 24 hour chart check completed
[2016-06-15 05:38] LABS: INR 3.39 (0.76-1.04)
[2016-06-15] MEDS: LEVOTHYROXINE 150 MCG TABLET PO SCH (06:14)
--- NOTE | 2016-06-15 06:25 | NUR ---
Summary Patient is alert and oriented times three. She has been up to restroom multiple times during the night with FWW and gait belt. She was incontinent of urine times one. She has reported no pain. She does flinch a little however, when the head of her bed is raised. She takes her medication whole with applesauce. Her o2 was at 2L with her Sats running in the high 80s. Turned O2 up to 3L and eventually SpO2 raised to 92%. She was awake a lot last night, watching television. Hip dressing is dry and intact. She is currently in bed with side rails up times two, bed alarm on and call light within reach.
[2016-06-15 08:00] VITALS: BP 124/67; PULSE 70; RESP 16; TEMP 97.9; O2SAT 95
[2016-06-15] MEDS: METOPROLOL 100 MG PO SCH (08:22)
[2016-06-15] MEDS: LISINOPRIL 10 MG TABLET PO SCH (08:22)
[2016-06-15] MEDS: FUROSEMIDE 40 MG TABLET PO SCH (08:23)
[2016-06-15] MEDS: METFORMIN 500 MG TABLET PO SCH (08:23)
[2016-06-15] MEDS: POTASSIUM CHLORIDE 10 MEQ TABLET PO SCH (08:23)
[2016-06-15] MEDS: DOCUSATE SODIUM 100 MG CAPSULE PO SCH ×2 (08:23→20:30)
[2016-06-15] MEDS: ACETAMINOPHEN 325 MG TABLET PO PRN (09:02)
--- NOTE | 2016-06-15 09:39 | NUR ---
WARFARIN CONSULT S: 75 y/o F on warfarin for afib. Pt underwent left hip hemiarthroplasty on 06/08; POD5. Home dose of warfarin is 2 mg PO daily for six days a week. Goal INR 2-3. O: Date INR Warfarin Dose 06/08 1.30 2 mg 06/09 1.56 2 mg 06/10 1.80 2 mg 06/11 3.15 Held 06/12 3.75 Held 06/13 3.85 Held Hospital Doses 06/14 3.56 Held IRU Doses 06/15 3.39 plan: hold A/P: INR is trending downward but it remains supra-therapeutic. Will HOLD warfarin today. Minocycline was DC'd 06/13/16, potential drug-drug interaction exists between warfarin and minocycline and may have contributed to supra-therapeutic INR. Will continue to monitor & make adjustments accordingly. Thank you for the consult, Leona Mcmanus RPh.
--- NOTE | 2016-06-15 14:06 | NUR ---
EVONNE SALAMANCA IS 11. Addendum: 06/15/16 at 1406 by JUAN DOBBS SW Amended: Links added.
--- NOTE | 2016-06-15 14:07 | NUR ---
EVONNE SPOKE WITH PT, INTRODUCED SELF, EXPLAINED ROLE, PROVIDED CONTACT INFO. PT STATED SHE WANTS HER DC PLAN TO BE TO RETURN HOME. SHE GAVE PERMISSION FOR THIS WORKER TO CONTACT FAMILY. CALLED PT'S SON, INTRODUCED SELF, EXPLAINED ROLE, PROVIDED PHONE NUMBER. HE SAID PT LIVES WITH HIM, AND HE SAID THE DC PLAN IS FOR PT TO RETURN HOME, BUT HE HAS ABOUT 20-30 STAIRS LEADING UP TO HIS HOME. HE ALSO WORKS. HE HAD NO QUESTIONS/NEEDS FOR THIS WORKER AT THIS TIME. Addendum: 06/15/16 at 1408 by JUAN KRUGER Amended: Links added.
[2016-06-15 14:25] VITALS: PULSE 70; RESP 16
--- NOTE | 2016-06-15 14:58 | NUR ---
STATUS. PT HAS BEEN PLEASANT AND COOPERATIVE WITH STAFF. TYLENOL 650MG GIVEN AT BREAKFAST FOR 3/10 PAIN LEVEL. PT REPORTS HAS HELPED. AMBULATES USING FWW AND GAITBELT WITH 1 MIN ASSIST. O2 2L/NC CONTINUES.
[2016-06-15 16:08] VITALS: BP 121/64; PULSE 69; TEMP 97.3; O2SAT 93
--- NOTE | 2016-06-15 19:15 | NUR ---
SUMMARY. PT HAS BEEN PLEASANT AND COOPERATIVE WITH STAFF. AMBULATES TO MEALS USING FWW AND GAITBELT. PT HAS HAD SOME STRESS INCONT X2. SMALL BM X3 THIS SHIFT. TYLENOL 650MG GIVEN AT BREAKFAST. PT REPORTS HAS HELPED. DENIED NEED FOR MORE PAIN MED TODAY. FAMILY HERE NOW VISITING WITH PT. PT IN RECLINER. CHAIR ALARM ON.
[2016-06-15 20:00] VITALS: BP 135/72; PULSE 69; RESP 14; TEMP 96.4; O2SAT 93
[2016-06-15 23:06] VITALS: PULSE 69; RESP 14
--- NOTE | 2016-06-15 23:18 | PDIRUOPC ---
Overall Plan of Care Date DATE: 06/15/16 TIME: 23:10 Relevant Changes Relevant Changes: No I have reviewed the patient's information and concur with the finding and results of the pre-admission screen. Certification I certify the patient for rehabilitation. Patient Impairments Prior Medical Conditions: (1) Myopathy Additional Information: PT and OT reviewing pt to develop plan of care. (2) Fracture of left hip Status: Acute Additional Information: PT and OT workign with pt to increase strength and stability (3) Liver cirrhosis Status: Chronic Additional Information: Managed by medical. Current Medical Conditions: (1) Myopathy Additional Information: PT and OT reviewing pt to develop plan of care. (2) Fracture of left hip Status: Acute Additional Information: PT and OT workign with pt to increase strength and stability (3) Liver cirrhosis Status: Chronic Additional Information: Managed by medical. Medical Prognosis Fair IRF Tx That Should Address Dx: Dx Requiring Medical FU: Vital Signs Vital Signs Date Time Temp Pulse Resp B/P Pulse Ox O2 Delivery O2 Flow Rate FiO2 06/15/16 20:00 96.4 69 14 135/72 93 Nasal Cannula 2.00 Laboratory Laboratory Tests Test 06/14/16 05:33 06/14/16 10:24 06/15/16 05:00 White Blood Count 6.4T/MM3 Red Blood Count 4.40M/MM3 Hemoglobin 11.7GM/DL Hematocrit 38.0% Mean Corpuscular Volume 86.4UM3 Mean Corpuscular Hemoglobin 26.6UUG Mean Corpuscular Hemoglobin Concent 30.8GM/DL RDW Standard Deviation 50.0FL Platelet Count 200T/MM3 Mean Platelet Volume 10.1UM3 Immature Granulocyte % (Auto) % Neutrophils (%) (Auto) % Lymphocytes (%) (Auto) % Monocytes (%) (Auto) % Eosinophils (%) (Auto) % Basophils (%) (Auto) % Absolute Immature Granulocyte (auto T/MM3 Absolute Neutrophils (auto) T/MM3 Absolute Lymphocytes (auto) T/MM3 Absolute Monocytes (auto) T/MM3 Absolute Eosinophils (auto) T/MM3 Absolute Basophils (auto) T/MM3 Neutrophils % (Manual) 78.0% Band Neutrophils % 2.0% Lymphocytes % (Manual) 8.0% Reactive Lymphocytes % 2.0% Monocytes % (Manual) 8.0% Eosinophils % (Manual) 1.0% Metamyelocytes % 1.0% Absolute Neutrophils (Manual) 5.0T/MM3 Band Neutrophils # 0.1T/MM3 Lymphocytes # (Manual) 0.5T/MM3 Reactive Lymphocytes # 0.1T/MM3 Monocytes # (Manual) 0.5T/MM3 Eosinophils # (Manual) 0.1T/MM3 Metamyelocytes # 0.1T/MM3 Red Cell Morphology Comment Normal Turbidity < 20 Sodium Level 141MEQ/L Potassium Level 4.4MEQ/L Chloride Level 96MEQ/L Carbon Dioxide Level 34MEQ/L Anion Gap 11MEQ/L Blood Urea Nitrogen 26.0MG/DL Creatinine 0.6MG/DL Glomerular Filtration Rate Calc 98 BUN/Creatinine Ratio 43RATIO Glucose Level 110MG/DL Calculated Osmolality 277MOSM/KG Calcium Level 7.5MG/DL Icterus Index < 2 Chemistry Specimen Hemolysis 27 Prothromb Time International Ratio 3.56 3.39 Anticipated Interventions The patient requires inpatient IRF care for PT, OT, and/or ST for residuals remaining from [] resulting in muscular weakness and strength deficits. ROM Deficit: Right Upper Extremity, Left Lower Extremity, Right Lower Extremity Strength Deficits: Right Upper Extremity, Left Lower Extremity, Right Lower Extremity, Left Upper Extremity FIM Scores Ambulation Distance: 240 Ambulation Ability: 5 Supervision/Setup Ambulation Assistance Needed: 1 Person Stairs: 5 Supervision/Setup Stair Assistance Needed: 1 Person Eating Ability-FIM: 5 Supervision/Setup Grooming Ability: 5 Supervision/Setup Bathing Ability: 4 Minimal Assistance Upper Body Dressing Ability: 5 Supervision/Setup Lower Body Dressing Ability: 5 Supervision/Setup Lower Body Dressing Assistance: 1 Person Toileting Ability: 5 Supervision/Setup Toileting Assistance Needed: 1 Person Toileting FIM Score Reason: help with pullup change with incont Bed Transfer Ability: 4 Minimal Assistance Bed Transfer Assistance Needed: 1 Person Chair Transfer Ability: 5 Supervision/Setup Chair Transfer Assistance Need: 1 Person Overall Toilet / Commode Trans: 5 Supervision/Setup Toilet / Commode Transfer Assi: 1 Person Tub / Shower Transfer Ability: 4 Minimal Assistance Tub / Shower Transfer [place]: 1 Person Comprehension Ability: 6 Modified [place] Social Interaction: 7+ Complete [place] Problem Solvin Modified [place] Expression Ability: 6 Modified [place] Memory: 6 Modified [place] Current Functional Status Patient Requires * Patient has been determined to have significant functional limitations requiring at least two therapy disciplines. * Rehabilitation medical practitioner will provide admission approval, assessment and oversight and program coordination at least daily. * Intensive rehabilitative nursing services on site and available 24 hours a day. * The treatment plan will be developed within 24 hours of admission. * Interdisciplinary and goal oriented treatment by professional nursing, renal social worker, and rehabilitation therapist. * Interdisciplinary team meeting weekly inclusive of ongoing comprehensive discharge planning. First team meeting by day seven. Weekly meetings to follow. * Rehab Physician is the team meeting leader. * Pharmacy and diagnostic services will be available. * Ongoing comprehensive rehab program with at least 2 disciplines and greater than or equal to 3 hours a day, 5 days a week. Limitations require: mobility impairment, limited mobility, ADL impairment Physical Therapy Minutes: 90 Occupational Therapy Minutes: 90 Therapy The patient is to receive therapy at least 5 days a week. PT Treatment Plan: Therapeutic Exercise, Gait Training, Functional Activities , Patient/Family Education Treatment Plan Frequency: five times per week Treatment Plan Duration: two weeks Plan of Care Comment: 6x/week x 1 week, then 5x/week x 2 weeks OT Treatment Plan: ADL's (basic care), Ther. Exercise for ADL's, Balance Training, Pt./Family Education, IADL's OT Treatment Plan Frequency: five times per week OT Treatment Plan Duration: three weeks Anticapted LOS/Outcomes Anticipated Functional Outcome Improvement will be limited due to cirrhosis and myopathy. Anticipated DC Destination: Home Health Service Home Safety Plan The patient will be provided with the development of a Home Safety Plan for return to a home or home-like environment and to ensure safety post discharge. Complicating Conditions Complications since IRF admit: (1) Myopathy Comments: PT and OT reviewing pt to develop plan of care. (2) Fracture of left hip Status: Acute Comments: PT and OT workign with pt to increase strength and stability (3) Liver cirrhosis Status: Chronic Comments: Managed by medical. Other Contributing Factors: Plan to Avoid Complications Barriers to Attaining Goals: weakness, balance, pain control Plan to Avoid Complications The patient cannot receive this care in a lesser intensive setting such as Half-Way or Outpatient Therapy due to the patient requiring the following medical care for liver cirrhosis The patient requires oversight by a rehabilitation physician to manage their rehabilitation treatment plan and the multidisciplinary approach to care that can only be provided in an IRF and requires a multidisciplinary approach to care , provided by professional PTs, OTs, STs, dieticians, RTs, rehabilitation nurses and is not available in lesser levels of care. The frequency and duration for therapy, as recommended by the professional Rehabilitation therapists, meet the patient's initial rehabilitation treatment plan needs and will be further evaluated on a weekly basis for progress and/or changes needed. Problem Qualifiers (1) Liver cirrhosis: Hepatic cirrhosis type: unspecified hepatic cirrhosis Ascites presence: without ascites Qualified Codes: K74.60 - Unspecified cirrhosis of liver DAVID CONTRERAS MD Jun 15, 2016 23:17
--- NOTE | 2016-06-15 23:24 | PNPDOC ---
IRU Subjective Date DATE: 06/15/16 TIME: 23:19 Subjective Pt resting in bed, worked with PT and OT. IRU Objective Vital Signs Vital signs Vital Signs Date Time Temp Pulse Resp B/P Pulse Ox O2 Delivery O2 Flow Rate FiO2 06/15/16 20:00 96.4 69 14 135/72 93 Nasal Cannula 2.00 Telemetry Rhythm: Vpaced Height (Feet): 5 Height (Inches): 5.00 Weight (Kilograms): 66.500 General General Appearance: Alert Respiratory (Brief) Respiratory: FOUND: clear all crump, equal bilaterally, NOT FOUND: rales Cardiovascular (Brief) Cardiac: FOUND: regular rate, regular rhythm Capillary Refill: <2 sec Laboratory Laboratory Laboratory Tests Test 06/14/16 05:33 06/14/16 10:24 06/15/16 05:00 White Blood Count 6.4T/MM3 Red Blood Count 4.40M/MM3 Hemoglobin 11.7GM/DL Hematocrit 38.0% Mean Corpuscular Volume 86.4UM3 Mean Corpuscular Hemoglobin 26.6UUG Mean Corpuscular Hemoglobin Concent 30.8GM/DL RDW Standard Deviation 50.0FL Platelet Count 200T/MM3 Mean Platelet Volume 10.1UM3 Immature Granulocyte % (Auto) % Neutrophils (%) (Auto) % Lymphocytes (%) (Auto) % Monocytes (%) (Auto) % Eosinophils (%) (Auto) % Basophils (%) (Auto) % Absolute Immature Granulocyte (auto T/MM3 Absolute Neutrophils (auto) T/MM3 Absolute Lymphocytes (auto) T/MM3 Absolute Monocytes (auto) T/MM3 Absolute Eosinophils (auto) T/MM3 Absolute Basophils (auto) T/MM3 Neutrophils % (Manual) 78.0% Band Neutrophils % 2.0% Lymphocytes % (Manual) 8.0% Reactive Lymphocytes % 2.0% Monocytes % (Manual) 8.0% Eosinophils % (Manual) 1.0% Metamyelocytes % 1.0% Absolute Neutrophils (Manual) 5.0T/MM3 Band Neutrophils # 0.1T/MM3 Lymphocytes # (Manual) 0.5T/MM3 Reactive Lymphocytes # 0.1T/MM3 Monocytes # (Manual) 0.5T/MM3 Eosinophils # (Manual) 0.1T/MM3 Metamyelocytes # 0.1T/MM3 Red Cell Morphology Comment Normal Turbidity < 20 Sodium Level 141MEQ/L Potassium Level 4.4MEQ/L Chloride Level 96MEQ/L Carbon Dioxide Level 34MEQ/L Anion Gap 11MEQ/L Blood Urea Nitrogen 26.0MG/DL Creatinine 0.6MG/DL Glomerular Filtration Rate Calc 98 BUN/Creatinine Ratio 43RATIO Glucose Level 110MG/DL Calculated Osmolality 277MOSM/KG Calcium Level 7.5MG/DL Icterus Index < 2 Chemistry Specimen Hemolysis 27 Prothromb Time International Ratio 3.56 3.39 Assessment & Plan Problems: (1) Myopathy Assessment & Plan: PT and OT working with pt to increase strength and Stability. Cont with current plan (2) Fracture of left hip Status: Acute Assessment & Plan: wound healing, PT and OT working to increase strength of joint. (3) Liver cirrhosis Status: Chronic Qualifiers: Hepatic cirrhosis type: unspecified hepatic cirrhosis Ascites presence: without ascites Qualified Codes: K74.60 - Unspecified cirrhosis of liver Assessment & Plan: managed by medical. DVT Prophylaxis: SCD'S Code Status Full Code Interventions to Obtain Goals PT Treatment Plan: Therapeutic Exercise, Gait Training, Functional Activities , Patient/Family Education OT Treatment Plan: ADL's (basic care), Ther. Exercise for ADL's, Balance Training, Pt./Family Education, IADL's Hospital Course Summary Disclaimer The hospital course summary below is not to be considered part of the above Progress Note. DAVID CONTRERAS MD Jun 15, 2016 23:22
[2016-06-16] MEDS: ACETAMINOPHEN 325 MG TABLET PO PRN ×2 (00:08→14:33)
--- NOTE | 2016-06-16 01:31 | NUR ---
Chart Check 24 hour chart check completed
[2016-06-16] MEDS: LEVOTHYROXINE 150 MCG TABLET PO SCH ×2 (04:37→19:54)
[2016-06-16 05:39] LABS: INR 3.18 (0.76-1.04); PROTHROMBIN TIME 34.7 SEC (9.31-12.49)
--- NOTE | 2016-06-16 06:33 | NUR ---
Summary Patient is alert and oriented times three. She is cooperative with cares and is able to make her needs known using a whisper due to vocal damage. She has ambulated to the restroom and the chair and bed multiple times using FWW and gait belt with supervision and some steading assist. She switches between her chair and bed multiple times due to discomfort. She had Tylenol to help with this. She has managed her own demetri- care. She has not slept much tonight. When in bed, alarm is on, side rails up times two and call light within reach. When in chair, chair alarm is on and call light is within reach.
[2016-06-16 07:30] VITALS: BP 133/66; PULSE 70; RESP 16; TEMP 95.8; O2SAT 95
[2016-06-16 08:00] VITALS: PULSE 70; RESP 16
[2016-06-16] MEDS: LISINOPRIL 10 MG TABLET PO SCH (08:59)
[2016-06-16] MEDS: FUROSEMIDE 40 MG TABLET PO SCH (08:59)
[2016-06-16] MEDS: POTASSIUM CHLORIDE 10 MEQ TABLET PO SCH (09:00)
[2016-06-16] MEDS: METFORMIN 500 MG TABLET PO SCH (09:00)
[2016-06-16] MEDS: DOCUSATE SODIUM 100 MG CAPSULE PO SCH ×2 (09:00→19:54)
[2016-06-16] MEDS: METOPROLOL 100 MG PO SCH (09:00)
--- NOTE | 2016-06-16 09:47 | NUR ---
WARFARIN CONSULT S: 75 y/o F on warfarin for afib. Pt underwent left hip hemiarthroplasty on 06/08. Home dose of warfarin is 2 mg PO daily for six days a week. Goal INR 2-3. O: Date INR Warfarin Dose 06/08 1.30 2 mg 06/09 1.56 2 mg 06/10 1.80 2 mg 06/11 3.15 HELD 06/12 3.75 HELD 06/13 3.85 HELD 06/14 3.56 HELD 06/15 3.39 HELD 06/16 3.18 HELD A/P: INR remains supratherapeutic but is decreasing. Will hold warfarin today. Will continue to monitor & make adjustments accordingly. Thank you for the consult. Nanette Quan, PharmD, BCPS
--- NOTE | 2016-06-16 10:38 | NUR ---
CM SPOKE WITH PT. REVIEWED DC PLAN OF HOME WITH SON. REVIEWED IRU PLAN OF CARE, PT SIGNED IT AND HAD NO QUESTIONS/CONCERNS ABOUT IT. DISCUSSED TEAM'S RECOMMENDATION OF EXTENDED SHOWER CHAIR, AND THAT MAYBE [employer] COULD ASSIST WITH THIS. PT CURRENTLY ON O2; EXPLAINED THIS WILL BE ASSESSED FOR HOME NEED.
[2016-06-16 16:26] VITALS: BP 130/63; PULSE 70; RESP 16; TEMP 97.4; O2SAT 94
--- NOTE | 2016-06-16 18:35 | NUR ---
Shift Summary Pt is resting in bed at this time. Ambulates well with assist of 1, FWW, and gait belt. She has reported some discomfort to her hip and lower back which she received Tylenol 650mg at 1433, reported the pain was better. Ate well for meals, did not need assist with her tray except with as little assist removing lids, ambulated to meals. Talks in a whisper but can get her point across. Has been continent this shift, able to manage her own clothing with supervision, and hygiene cares. When getting her bath this morning she needed setup assist for her top as well as her bottom. Getting dressed needed no assist with her top and setup assist with her bottoms. Worked well with therapy today. When in bed the bed alarm is in use and call light in use
[2016-06-16 20:23] VITALS: BP 135/62; PULSE 69; RESP 18; TEMP 97.9; O2SAT 95
[2016-06-16 21:26] VITALS: PULSE 69; RESP 18
--- NOTE | 2016-06-16 21:31 | NUR ---
Chart Check 24 hour chart check completed
[2016-06-17 05:37] LABS: INR 2.64 (0.76-1.04); PROTHROMBIN TIME 28.8 SEC (9.31-12.49)
[2016-06-17] MEDS ORDERED: ALENDRONATE 70 MG TABLET PO SCH (06:00)
[2016-06-17] MEDS: LEVOTHYROXINE 150 MCG TABLET PO SCH (06:22)
--- NOTE | 2016-06-17 07:50 | NUR ---
COUMADIN CONSULT (Recurring): Today's INR = 2.64. Will give Warfarin 1 mg today. Will continue to monitor & make adjustments accordingly. Thank you.
[2016-06-17 08:00] VITALS: PULSE 69; RESP 20
[2016-06-17 08:40] VITALS: BP 127/54; PULSE 69; RESP 20; TEMP 97.9; O2SAT 97
[2016-06-17] MEDS: METFORMIN 500 MG TABLET PO SCH (08:59)
[2016-06-17] MEDS: POTASSIUM CHLORIDE 10 MEQ TABLET PO SCH (08:59)
[2016-06-17] MEDS: FUROSEMIDE 40 MG TABLET PO SCH (09:00)
[2016-06-17] MEDS: METOPROLOL 100 MG PO SCH (09:00)
[2016-06-17] MEDS: DOCUSATE SODIUM 100 MG CAPSULE PO SCH ×2 (09:00→20:22)
[2016-06-17] MEDS: LISINOPRIL 10 MG TABLET PO SCH (09:00)
[2016-06-17] MEDS: ACETAMINOPHEN 325 MG TABLET PO PRN ×2 (09:01→20:23)
[2016-06-17] MEDS ORDERED: WARFARIN 1 MG TABLET PO SCH (12:00)
[2016-06-17 16:27] VITALS: BP 129/65; PULSE 68; RESP 22; TEMP 97.4; O2SAT 93
--- NOTE | 2016-06-17 19:05 | NUR ---
SHIFT SUMMARY PT HAS BEEN PLEASANT AND COOPERATIVE. PT HAS BEEN OUT TO DINING ROOM FOR MEALS. PT AMBULATES WITH FWW AND GAIT BELT. PT IS ON O2 CONTINUOUS AT 2L. PT REPORTED PAIN AT A 4/10 THIS MORNING AND REQUESTED TYLENOL.
[2016-06-17 19:15] VITALS: BP 121/65; PULSE 69; RESP 20; TEMP 97.6; O2SAT 95
--- NOTE | 2016-06-17 19:51 | NUR ---
Dr Galdamez Discussed my concern for pt continued wheezing, rhonchi. Pt refuses breathing treatments. No new orders due to pt refusing treatment.
[2016-06-17 20:51] VITALS: PULSE 69; RESP 20
--- NOTE | 2016-06-18 02:39 | NUR ---
Chart Check 24 hour chart check completed
[2016-06-18] MEDS: LEVOTHYROXINE 150 MCG TABLET PO SCH (04:12)
--- NOTE | 2016-06-18 05:23 | NUR ---
Summary Maryann has been pleasant and cooperative. She did not sleep much and moved frequently between chair and bed. She continues to have wheezing, rhonchi, and wet cough with clear yellow sputum. She has been weaned down to 1.5 L O2. She requires help turning in bed, and sitting from a laying position. She is able to ambulate with FWW and gait belt to and from toilet and provide her own hygiene and clothing management. She requested Tylenol one time during the night for pain rated 3/10. When asked throughout the rest of the night she reported it at 2/10 and denied need for medication. She is in bed now with side rails up times two, bed alarm on and call light within reach.
[2016-06-18 05:31] LABS: INR 2.79 (0.76-1.04); PROTHROMBIN TIME 30.4 SEC (9.31-12.49)
[2016-06-18 08:00] VITALS: BP 142/64; PULSE 69; RESP 18; TEMP 97.6; O2SAT 95
[2016-06-18] MEDS: METFORMIN 500 MG TABLET PO SCH (08:33)
[2016-06-18] MEDS: DOCUSATE SODIUM 100 MG CAPSULE PO SCH ×2 (08:33→21:43)
[2016-06-18] MEDS: LISINOPRIL 10 MG TABLET PO SCH (08:33)
[2016-06-18] MEDS: METOPROLOL 100 MG PO SCH (08:33)
[2016-06-18] MEDS: POTASSIUM CHLORIDE 10 MEQ TABLET PO SCH (08:33)
[2016-06-18] MEDS: FUROSEMIDE 40 MG TABLET PO SCH (08:33)
--- NOTE | 2016-06-18 08:44 | NUR ---
WARFARIN CONSULT 75 y/o F on warfarin for afib. Pt underwent left hip hemiarthroplasty on 06/08; . Home dose of warfarin is stated as 2 mg PO daily for six days a week. Goal INR 2-3. Date INR Warfarin Dose 06/08 1.30 2 mg 06/09 1.56 2 mg 06/10 1.80 2 mg 06/11 3.15 HELD 06/12 3.75 HELD 06/13 3.85 HELD 06/14 3.56 HELD 06/15 3.39 HELD 06/16 3.18 HELD 06/17 2.64 1mg given 06/18 2.79 Will give 0.5mg warfarin today. No drug-drug interactions noted at this time. Will continue to monitor & make adjustments accordingly. Thank you for the consult.
[2016-06-18] MEDS: ACETAMINOPHEN 325 MG TABLET PO PRN ×2 (10:35→19:24)
[2016-06-18] MEDS ORDERED: WARFARIN 1 MG TABLET PO SCH (12:00)
[2016-06-18 16:20] VITALS: BP 114/59; PULSE 69; RESP 18; TEMP 97.7; O2SAT 95
--- NOTE | 2016-06-18 18:15 | NUR ---
SHIFT SUMMARY PT HAS BEEN PLEASANT AND COOPERATIVE. HAS BEEN OUT TO DINING ROOM FOR ALL MEALS. PT AMBULATES WITH FWW AND GAIT BELT. IS ON CONTINUOUS O2 AT 2L. PT CONTINUES TO HAVE WET PRODUCTIVE COUGH AND COARSE, RHONCHI BREATHE SOUNDS. PT IS ABLE TO PERFORM TASKS WITH SETUP/SUPERVISION.
[2016-06-18 22:24] VITALS: PULSE 69; RESP 16
[2016-06-18 22:28] VITALS: BP 112/50; PULSE 69; RESP 16; TEMP 97.8; O2SAT 95
--- NOTE | 2016-06-18 23:16 | NUR ---
STATUS. PT HAS BEEN ALERT AND OX3. PT HAS MOIST COUGH. COUGHS CLEAR SPUTUM AT TIMES. O2 2L/NC. PT IS USING I.S. TYLENOL 650 MG GIVEN AT HS FOR 2/10 LOW BACK PAIN. PT REPORTS HAS HELPED. PT MAKES NEEDS KNOWN.
--- NOTE | 2016-06-18 23:24 | NUR ---
Chart Check 24 hour chart check completed
[2016-06-19 05:14] LABS: INR 3.26 (0.76-1.04); PROTHROMBIN TIME 35.5 SEC (9.31-12.49)
[2016-06-19] MEDS: LEVOTHYROXINE 150 MCG TABLET PO SCH (05:45)
--- NOTE | 2016-06-19 06:30 | NUR ---
SUMMARY. PT CALLS FOR BR ASSIST. USING FWW AND GAITBELT WITH 1 MIN ASSIST. PT NEEDS MOD ASSIST TO SIT UP FROM LYING POSITION. PT HAS SLIGHT INCONT OF BLADDER. PT SBA WITH INCONT CARE. O2 2L/NC. MOIST COUGH WITH CLEAR SPUTUM AT TIMES. PT HAS SLEPT IN THE BED AND THE RECLINER FOR SHORT PERIODS AT A TIME.
[2016-06-19 08:00] VITALS: PULSE 70; RESP 18
[2016-06-19] MEDS: DOCUSATE SODIUM 100 MG CAPSULE PO SCH ×2 (08:48→21:30)
[2016-06-19] MEDS: METFORMIN 500 MG TABLET PO SCH (08:48)
[2016-06-19] MEDS: LISINOPRIL 10 MG TABLET PO SCH (08:49)
[2016-06-19] MEDS: METOPROLOL 100 MG PO SCH (08:49)
[2016-06-19] MEDS: POTASSIUM CHLORIDE 10 MEQ TABLET PO SCH (08:49)
[2016-06-19] MEDS: FUROSEMIDE 40 MG TABLET PO SCH (08:49)
[2016-06-19 08:53] VITALS: BP 124/62; PULSE 70; RESP 18; TEMP 97.8; O2SAT 96
--- NOTE | 2016-06-19 09:28 | NUR ---
WARFARIN CONSULT: S: 75 y/o F on warfarin for afib. Pt underwent left hip hemiarthroplasty on 06/08. Home dose of warfarin is 2 mg PO daily for six days a week. Goal INR 2-3. O: Date INR Warfarin Dose 06/08 1.30 2 mg 06/09 1.56 2 mg 06/10 1.80 2 mg 06/11 3.15 Held 06/12 3.75 Held 06/13 3.85 Held Hospital Doses 06/14 3.56 Held IRU Doses 06/15 3.39 held 06/16 3.18 held 06/17 2.64 1 mg 06/18 2.79 0.5 mg 06/19 3.26 plan: hold A/P: INR is supra-therapeutic. Will HOLD warfarin today. No drug-drug interactions noted. Will continue to monitor & make adjustments accordingly. Thank you for the consult, Leona Mcmanus RPh.
--- NOTE | 2016-06-19 13:11 | PDIRUTEAM ---
Multidisciplinary Team Meeting Nursing Hx Incontinence: Yes Bladder Goal: 6 Modified [place] Y/N: No Bladder Continent or Incontine: Continent Incontinent Product Used: Pull-up Number of Times Incontinent of: 0 Cleaning Ability-Bladder: 5 Supervision/Setup Bladder Incontinence Managemen: 4 Minimal Assistance Bowel Goal: 6 Modified White Colostomy Y/N: No Bowel Incontinent/Continent: Continent Bowel Number of Accidents: 0 Number of times Incontinent of: 0 Cleaning Ability-Bowel: 5 Supervision/Setup Toileting Ability: 5 Supervision/Setup Vital Signs Vital Signs Date Time Temp Pulse Resp B/P Pulse Ox O2 Delivery O2 Flow Rate FiO2 06/19/16 08:53 97.8 70 18 124/62 96 Room Air 06/18/16 22:48 2.00 Current Medications Current Medications Medications (Trade) Dose Ordered Sig/Galo Route PRN Reason Start Time Stop Time Status Last Admin Dose Admin Docusate Sodium (Colace) 100 mg BID PO 06/13/16 21:00 06/19/16 08:48 Furosemide (Lasix) 40 mg DAILY PO 06/14/16 09:00 06/19/16 08:49 Levothyroxine Sodium (Synthroid) 150 mcg ACB PO 06/14/16 07:30 06/19/16 05:45 Lisinopril (Prinivil) 10 mg DAILY PO 06/14/16 09:00 06/19/16 08:49 Metformin HCl (Glucophage) 500 mg WB PO 06/14/16 08:00 06/19/16 08:48 Metoprolol Succinate (TOPROL XL 100 mg) 100 mg DAILY PO 06/14/16 09:00 06/19/16 08:49 Potassium Chloride (Kdur) 10 meq WB PO 06/14/16 08:00 06/19/16 08:49 Acetaminophen (Tylenol Regular Strength) 650 mg Q5H PRN PO DISCOMFORT 06/15/16 09:00 06/18/16 19:24 Warfarin Sodium (COUMADIN 1 mg) 1 mg NOON PO 06/17/16 12:00 06/17/16 12:30 DC 06/17/16 12:56 Warfarin Sodium (COUMADIN 1 mg) 0.5 mg NOON PO 06/18/16 12:00 06/18/16 13:00 DC 06/18/16 12:23 Physical Therapy Bed Transfer Ability: 4 Minimal Assistance Bed Transfer Assistance Needed: 1 Person Bed FIM Score Reason: The pt is a 5/7 assist transfering into of bed and because of pain in her back the pt requested [employer] OFFICER to help her out of bed. Chair Transfer Ability: 4 Minimal Assistance Chair Transfer Assistance Need: 1 Person Overall Wheelchair Transfer Ab: 0 Activity Does Not Occur Overall Toilet / Commode Trans: 5 Supervision/Setup Ambulation Ability: 5 Supervision/Setup Ambulation Assistance Needed: 1 Person Walk FIM Score Reason: The pt also walked 64ft and 180ft with the fww and 5/7 assist Ambulation Distance: 640 Comments FIMS 5's. increasing mobility and functionality. Occupational Therapy Grooming Ability: 5 Supervision/Setup Bathing Ability: 4 Minimal Assistance Upper Body Dressing Ability: 5 Supervision/Setup Lower Body Dressing Ability: 4 Minimal Assistance Lower Body Dressing Assistance: 1 Person Dressing-Lower FIM Score Reaso: The pt requested the [employer] OFFICER do it to help her Toileting Assistance Needed: 1 Person Toileting FIM Score Reason: help with pullup change with incont Comments FIMS 5's. Improving activity tolerance, Recommending tub bench on d/c. also Bed Rail. Care Plan Condition at time of discharge: Fair IRU Discharge Disposition: Home Health Service Interventions/Goals Looking at Bed rail and Tub bench on d/c. Day . Looking to d/c on . Barriers to d/c: oxygen, endurance, durable med equipment. DAVID CONTRERAS MD Jun 19, 2016 13:11
[2016-06-19 16:00] VITALS: BP 109/48; PULSE 69; RESP 16; TEMP 98.4; O2SAT 96
--- NOTE | 2016-06-19 16:40 | PNPDOC ---
IRU Subjective Date DATE: 06/16/16 TIME: 07:30 Subjective Pt seen 06/16/16 in am, note entered today. She worked with PT and OT yesterday. Feeling tired, but looking forward to more improvement today. Willing to cont with PT and OT. IRU Objective Vital Signs Vital signs Vital Signs Date Time Temp Pulse Resp B/P Pulse Ox O2 Delivery O2 Flow Rate FiO2 06/19/16 16:00 98.4 69 16 109/48 96 Nasal Cannula 2.00 Telemetry Rhythm: Vpaced Height (Feet): 5 Height (Inches): 5.00 Weight (Kilograms): 66.500 General General Appearance: Alert, Orientated x 2 Respiratory (Brief) Respiratory: FOUND: clear all crump, equal bilaterally, NOT FOUND: rales, wheezes Cardiovascular (Brief) Cardiac: FOUND: regular rate, regular rhythm Capillary Refill: <2 sec Integumentary (Brief) Comments incision clean and dry Laboratory Laboratory Laboratory Tests Test 06/18/16 04:20 06/19/16 04:28 Prothromb Time International Ratio 2.79 3.26 Assessment & Plan Problems: (1) Myopathy Assessment & Plan: Cont with PT and OT plan of care, pt is cooperative. (2) Fracture of left hip Status: Acute Assessment & Plan: wound clean and dry, pt is desiring to increase mobility. (3) Liver cirrhosis Status: Chronic Qualifiers: Hepatic cirrhosis type: unspecified hepatic cirrhosis Ascites presence: without ascites Qualified Codes: K74.60 - Unspecified cirrhosis of liver Assessment & Plan: Managed by medical. Code Status Full Code Interventions to Obtain Goals PT Treatment Plan: Therapeutic Exercise, Gait Training, Functional Activities , Patient/Family Education OT Treatment Plan: ADL's (basic care), Ther. Exercise for ADL's, Balance Training, Pt./Family Education, IADL's Hospital Course Summary Disclaimer The hospital course summary below is not to be considered part of the above Progress Note. DAVID CONTRERAS MD Jun 19, 2016 16:39
--- NOTE | 2016-06-19 16:42 | PNPDOC ---
IRU Subjective Date DATE: 06/19/16 TIME: 16:40 Subjective Pt resting comfortably. Worked with both PT and OT today. IRU Objective Vital Signs Vital signs Vital Signs Date Time Temp Pulse Resp B/P Pulse Ox O2 Delivery O2 Flow Rate FiO2 06/19/16 16:00 98.4 69 16 109/48 96 Nasal Cannula 2.00 Telemetry Rhythm: Vpaced Height (Feet): 5 Height (Inches): 5.00 Weight (Kilograms): 66.500 General General Appearance: Alert, Orientated x 3 Respiratory (Brief) Respiratory: FOUND: clear all crump, equal bilaterally, NOT FOUND: rales, wheezes Cardiovascular (Brief) Cardiac: FOUND: regular rate, regular rhythm Capillary Refill: <2 sec Laboratory Laboratory Laboratory Tests Test 06/18/16 04:20 06/19/16 04:28 Prothromb Time International Ratio 2.79 3.26 Assessment & Plan Problems: (1) Myopathy Assessment & Plan: Improving FIM scores. Did cont to exercise yesterday, even when PT not here. Cont with current plan of care for PT and OT. (2) Fracture of left hip Status: Acute Assessment & Plan: Stable post op. PT and OT working to increase strength adn ROM. (3) Liver cirrhosis Status: Chronic Qualifiers: Hepatic cirrhosis type: unspecified hepatic cirrhosis Ascites presence: without ascites Qualified Codes: K74.60 - Unspecified cirrhosis of liver Assessment & Plan: managed by medical. Code Status Full Code Interventions to Obtain Goals PT Treatment Plan: Therapeutic Exercise, Gait Training, Functional Activities , Patient/Family Education OT Treatment Plan: ADL's (basic care), Ther. Exercise for ADL's, Balance Training, Pt./Family Education, IADL's Hospital Course Summary Disclaimer The hospital course summary below is not to be considered part of the above Progress Note. DAVID CONTRERAS MD Jun 19, 2016 16:42
[2016-06-19 16:46] VITALS: BP 110/58
--- NOTE | 2016-06-19 19:12 | NUR ---
Shift Summary Pt ambulates well with assist of 1, FWW, and gait belt. Reported minimal pain, but did not need anything. Is on 2L/NC. Ate well for meals did not need assist with her tray. Has been continent this shift, able to manage her own clothing and cares. Worked well with therapy today. When in bed or the chair the alarm is in use, call light is within reach.
[2016-06-19 20:54] VITALS: BP 120/53; PULSE 69; RESP 20; TEMP 97.5; O2SAT 95
[2016-06-19] MEDS: ACETAMINOPHEN 325 MG TABLET PO PRN (21:35)
[2016-06-20 05:33] LABS: HCT - HEMATOCRIT 40.7 % (36-46); HGB - HEMOGLOBIN 12.5 GM/DL (12-16); MEAN CORPUSCULAR HGB 26.6 UUG (26-34); MEAN CORPUSCULAR HGB CONC(MCHC 30.7 GM/DL (31-37); MEAN CORPUSCULAR VOLUME 86.6 UM3 (80-100); MEAN PLATELET VOLUME 10.4 UM3 (9.4-12.4); WBC - WHITE BLOOD COUNT 6.2 T/MM3 (4.5-11.0)
[2016-06-20 05:39] LABS: INR 2.5 (0.76-1.04); PROTHROMBIN TIME 27.2 SEC (9.31-12.49)
[2016-06-20 05:42] LABS: ALBUMIN 3.1 G/DL (3.5-5.0); ALBUMIN/GLOBULIN RATIO 0.7 RATIO (1.1-2.2); ALKALINE PHOSPHATASE 127 U/L (38-126); ALT (SGPT) 30 U/L (9-52); ANION GAP 10 MEQ/L (5-15); AST (SGOT) 48 U/L (14-36); BUN/CREATININE RATIO 32 RATIO (6-26); CALCIUM 8.9 MG/DL (8.4-10.2); CHLORIDE 93 MEQ/L (98-107); CO2 - CARBON DIOXIDE 34 MEQ/L (22-30); CREATININE 0.9 MG/DL (0.7-1.2); GLOMERULAR FILTRATION RATE 61; GLUCOSE 81 MG/DL (65-110); MAGNESIUM 2.1 MG/DL (1.6-2.3); SODIUM 137 MEQ/L (134-144); TOTAL PROTEIN 7.6 G/DL (6.3-8.2)
[2016-06-20] MEDS: LEVOTHYROXINE 150 MCG TABLET PO SCH (06:05)
[2016-06-20 06:26] LABS: BAND NEUTROPHILS # 0.1 T/MM3; EOSINOPHILS # (MANUAL) 0.3 T/MM3 (0-0.5); LYMPHOCYTES # (MANUAL) 1.1 T/MM3 (1-4.8); MONOCYTES # (MANUAL) 0.6 T/MM3 (0-0.8); NEUTROPHILS #(MANUAL)-ABSOLUTE 4.2 T/MM3 (1.8-7.7); TOTAL CELLS COUNTED 100 %
--- NOTE | 2016-06-20 07:48 | NUR ---
Summary Pt has ambulated well to the [facility] using Fww Gb and standby 1 assist. Pt is able to lift her own legs in bed and sit upright without assistance. Pt took a Tylenol before bed but states the pain is "just a little".
[2016-06-20 08:00] VITALS: BP 132/62; PULSE 69; RESP 18; TEMP 97.5; O2SAT 94
[2016-06-20] MEDS: METFORMIN 500 MG TABLET PO SCH (08:59)
[2016-06-20] MEDS: POTASSIUM CHLORIDE 10 MEQ TABLET PO SCH (08:59)
[2016-06-20] MEDS: METOPROLOL 100 MG PO SCH (09:00)
[2016-06-20] MEDS: FUROSEMIDE 40 MG TABLET PO SCH (09:00)
[2016-06-20] MEDS: DOCUSATE SODIUM 100 MG CAPSULE PO SCH ×2 (09:00→22:11)
[2016-06-20] MEDS: LISINOPRIL 10 MG TABLET PO SCH (09:00)
--- NOTE | 2016-06-20 10:33 | NUR ---
COUMADIN CONSULT (Recurring): Today's INR = 2.50. Will give Warfarin 0.5mg today. Will continue to monitor & make adjustments accordingly. Thank you.
[2016-06-20] MEDS ORDERED: WARFARIN 1 MG TABLET PO SCH (12:00)
--- NOTE | 2016-06-20 15:02 | NUR ---
CM THIS WORKER REVIEWED IRU PLAN OF CARE WITH PT, PT STATED SHE HAD NO QUESTIONS/CONCERNS. THIS WORKER REVIEWED D/C POSSIBILITY ON Sunday06/22/16, PT STATED SHE PLANS ON RETURNING HOME WITH SON-HANANE AND HE WILL PICK HER UP FROM HOSPITAL. PT STATED HANANE HAS BOUGHT A TUB BENCH AND BED RAILS FOR PT. PT DENIED HOME HEALTH, STATING HER EX- WILL BE HELPING HER IN HER HOME. PT GAVE PERMISSION FOR THIS WORKER TO CALL HANANE. PT ENCOURAGED TO CALL WITH ANY QUESTIONS/CONCERNS. Addendum: 06/20/16 at 1623 by VALENTÍN KRUGER THIS WORKER CALLED PT'S SON-HANANE AT [phone]. HANANE VERIFIED HE HAS BOUGHT TUB BENCH AND BED RAILS FOR PT. HANANE STATED HE WILL BE PICKING UP PT WHEN SHE DISCHARGES AND EX WILL BE ASSISTING HER AT HOME. DECLINED HOME HEALTH. HANANE HAD NO QUESTIONS OR CONCERNS.
[2016-06-20 16:25] VITALS: BP 145/71; PULSE 72; RESP 18; TEMP 98.1; O2SAT 94
[2016-06-20 19:25] VITALS: BP 120/46; PULSE 69; RESP 18; TEMP 97.5; O2SAT 94
--- NOTE | 2016-06-20 19:39 | NUR ---
SHIFT SUMMARY PT HAS BEEN PLEASANT AND COOPERATIVE. HAS BEEN OUT TO DINING ROOM FOR MEALS. WORKED WITH THERAPY. AMBULATES WITH FWW AND GAIT BELT. HAS RESTED ON BED BETWEEN THERAPIES.
[2016-06-20] MEDS: ACETAMINOPHEN 325 MG TABLET PO PRN (22:29)
[2016-06-21 05:13] LABS: INR 2.06 (0.76-1.04); PROTHROMBIN TIME 22.5 SEC (9.31-12.49)
--- NOTE | 2016-06-21 05:22 | NUR ---
Summary Pt was assisted by staff to reposition in bed a few times through the night. This nurse offered ordered PRN Tylenol after which pt slept with fewer interruptions. Pt has been up to the BR. Pt has gotten up from bed on the side opposite of the BR, stating "this is the side I get up on at home". Pt communicates at a whisper volume, denies SOA, remains on 1.5L O2 NC. Pt sleeping at this time.
[2016-06-21] MEDS: LEVOTHYROXINE 150 MCG TABLET PO SCH (06:01)
[2016-06-21 08:00] VITALS: BP 132/61; PULSE 69; RESP 24; TEMP 97.5; O2SAT 98
[2016-06-21 08:20] VITALS: PULSE 69; RESP 24
[2016-06-21] MEDS: METOPROLOL 100 MG PO SCH (09:21)
[2016-06-21] MEDS: POTASSIUM CHLORIDE 10 MEQ TABLET PO SCH (09:22)
[2016-06-21] MEDS: DOCUSATE SODIUM 100 MG CAPSULE PO SCH ×2 (09:22→19:48)
[2016-06-21] MEDS: FUROSEMIDE 40 MG TABLET PO SCH (09:22)
[2016-06-21] MEDS: LISINOPRIL 10 MG TABLET PO SCH (09:22)
[2016-06-21] MEDS: ACETAMINOPHEN 325 MG TABLET PO PRN ×2 (09:22→19:49)
[2016-06-21] MEDS: METFORMIN 500 MG TABLET PO SCH (09:23)
--- NOTE | 2016-06-21 10:03 | NUR ---
COUMADIN CONSULT (Recurring): Today's INR = 2.06. Will give Warfarin 0.5mg today. Will continue to monitor & make adjustments accordingly. Thank you.
[2016-06-21] MEDS ORDERED: WARFARIN 1 MG TABLET PO SCH (12:00)
[2016-06-21 16:00] VITALS: BP 117/56; PULSE 71; RESP 20; TEMP 98; O2SAT 91
--- NOTE | 2016-06-21 19:29 | NUR ---
Shift Summary Pt ambulates well with assist of 1, FWW, and gait belt. Reported minimal pain, requested to have Tylenol 650mg at 0922. Has been weaned down to about 0.5 L/NC of O2. Ate well for meals did not need assist with her tray, ambulated to the dining room. Has been continent this shift, able to manage her own clothing and cares. Worked well with therapy today. Able to get herself in and out of bed with no assist. When in bed or the chair the alarm is in use, call light is within reach.
[2016-06-21 20:43] VITALS: BP 112/61; PULSE 69; RESP 16; TEMP 97.4; O2SAT 95
[2016-06-22] MEDS: LEVOTHYROXINE 150 MCG TABLET PO SCH (04:56)
[2016-06-22 05:21] LABS: INR 1.83 (0.76-1.04)
--- NOTE | 2016-06-22 06:37 | NUR ---
Summary Pt ambulates to bathroom well with fww gb and 1 standby assist. Pt able to manage own clothing when toileting and own toilet hygiene. Pt having trouble getting comfortable at night and calls frequently for assistance adjusting pillows. Pt has been up to her recliner tonight due to back discomfort. Pt has denied needing pain meds except for tylenol at bedtime. Pt in bed sleeping at this time Addendum: 06/22/16 at 0644 by VENUS BEVERLY RN NC O2 is 0.5L and maintaining SpaO2 95%
[2016-06-22 08:00] VITALS: BP 117/65; PULSE 69; RESP 16; TEMP 97.6; O2SAT 83
[2016-06-22 08:02] VITALS: O2SAT 92
[2016-06-22] MEDS: METFORMIN 500 MG TABLET PO SCH (08:50)
[2016-06-22] MEDS: DOCUSATE SODIUM 100 MG CAPSULE PO SCH (08:51)
[2016-06-22] MEDS: POTASSIUM CHLORIDE 10 MEQ TABLET PO SCH (08:51)
[2016-06-22] MEDS: FUROSEMIDE 40 MG TABLET PO SCH (08:51)
[2016-06-22] MEDS: METOPROLOL 100 MG PO SCH (08:51)
[2016-06-22] MEDS: LISINOPRIL 10 MG TABLET PO SCH (08:51)
--- NOTE | 2016-06-22 10:14 | NUR ---
WARFARIN CONSULT S: 75 y/o F on warfarin for afib. Pt underwent left hip hemiarthroplasty on 06/08. Home dose of warfarin is 2 mg PO daily for six days a week. Goal INR 2-3. O: Date INR Warfarin Dose 06/08 1.30 2 mg 06/09 1.56 2 mg 06/10 1.80 2 mg 06/11 3.15 HELD 06/12 3.75 HELD 06/13 3.85 HELD 06/14 3.56 HELD 06/15 3.39 HELD 06/16 3.18 HELD 06/17 2.64 1 mg 06/18 2.79 0.5 mg 06/19 3.26 HOLD 06/20 2.50 0.5 mg 06/21 2.06 0.5 mg 06/22 1.83 PLAN: 1 mg A/P: INR subtherapeutic; pt has allergy to heparin so no enoxaparin/heparin. Will order warfarin 1 mg PO x 1 today. Will continue to monitor & make adjustments accordingly. Thank you for the consult. Nanette Quan, PharmD, BCPS
--- NOTE | 2016-06-22 10:34 | NUR ---
CM ANTICIPATED D/C DATE TODAY. THIS WORKER SPOKE WITH RT, RT WILL ASSESS WITH PT'S O2 NEEDS. THIS WORKER SPOKE WITH PT REGARDING D/C, PT IS AGREEABLE WITH THIS DATE. PT HAS NO PREFERENCE REGARDING O2 COMPANY AND WAS AGREEABLE WITH [facility]. THIS WORKER REVIEWED IM LETTER WITH PT, PT HAD NO CONCERNS. PT WAS ENCOURAGED TO [facility] WITH ANY QUESTIONS/CONCERNS. Addendum: 06/22/16 at 1038 by VALENTÍN KRUGER Amended: Links added.
[2016-06-22 11:26] VITALS: PULSE 71
[2016-06-22] MEDS ORDERED: WARFARIN 1 MG TABLET PO ONE (12:00)
--- NOTE | 2016-06-22 12:35 | NUR ---
CM SPOKE WITH RT; WHO STATED PT'S O2 LEVEL WAS LOWEST 90, AND DOES NOT QUALIFY FOR HOME O2.
--- NOTE | 2016-06-22 13:31 | PNPDOC ---
IRU Subjective Date DATE: 06/21/16 TIME: 2044 Patient visited and evaluated for 1217 at 2039 5 PM. Note being entered now. Subjective Pt worked with PT and OT today. She is tired and sore, but looking forward to D/ C tomorrow. IRU Objective Vital Signs Vital signs Vital Signs Date Time Temp Pulse Resp B/P Pulse Ox O2 Delivery O2 Flow Rate FiO2 06/22/16 11:26 71 06/22/16 08:02 92 Nasal Cannula 0.50 06/22/16 08:00 97.6 16 117/65 Telemetry Rhythm: Vpaced Height (Feet): 5 Height (Inches): 5.00 Weight (Kilograms): 66.500 General General Appearance: Alert, Orientated x 3 Respiratory (Brief) Respiratory: FOUND: clear all crump, equal bilaterally, NOT FOUND: rales Cardiovascular (Brief) Cardiac: FOUND: regular rate, regular rhythm Capillary Refill: <2 sec Laboratory Laboratory Laboratory Tests Test 06/21/16 04:50 06/22/16 04:23 Prothromb Time International Ratio 2.06 1.83 Assessment & Plan Problems: (1) Myopathy Assessment & Plan: Strength and Stamina improving with PT/OT (2) Fracture of left hip Status: Acute Assessment & Plan: Sig improvements in FIM scores noted. Pt to be d/c tomorrow after PT and OT final tx. (3) Liver cirrhosis Status: Chronic Qualifiers: Hepatic cirrhosis type: unspecified hepatic cirrhosis Ascites presence: without ascites Qualified Codes: K74.60 - Unspecified cirrhosis of liver Assessment & Plan: Medical to manage Code Status Full Code Interventions to Obtain Goals PT Treatment Plan: Therapeutic Exercise, Gait Training, Functional Activities , Patient/Family Education OT Treatment Plan: ADL's (basic care), Ther. Exercise for ADL's, Balance Training, Pt./Family Education, IADL's Hospital Course Summary Disclaimer The hospital course summary below is not to be considered part of the above Progress Note. DAVID CONTRERAS MD Jun 22, 2016 13:31
--- NOTE | 2016-06-22 13:44 | NUR ---
CM THIS WORKER REVIEWED WITH PT-SHE WILL NOT NEED OXYGEN GOING HOME. PT STATED HER SON, HANANE WILL PICK HER UP AROUND 4PM TODAY AND INFORMED NURSE.
--- NOTE | 2016-06-22 15:21 | NUR ---
EVONNE DC TIME PUSHED BACK UNTIL AROUND 4:30/5. UPDATED PT ABOUT THIS, AND CALLED HANANE. HE WAS AGREEABLE TO THIS AND SAID HE WILL BE HERE THIS EVENING TO PICK HER UP.
[2016-06-22 16:01] VITALS: BP 114/55; PULSE 71; RESP 16; TEMP 97.9; O2SAT 94
[2016-06-22] MEDS ORDERED: WARF1TAB6 PO (17:42)
[2016-06-22] MEDS ORDERED: METF500T4 PO (17:43)
[2016-06-22] MEDS ORDERED: METO-279 PO (17:43)
[2016-06-22] MEDS ORDERED: LISI10TA7 PO (17:43)
[2016-06-22] MEDS ORDERED: FURO40TA5 PO (17:43)
[2016-06-22] MEDS ORDERED: POTA10TA16 PO (17:43)
--- NOTE | 2016-06-22 18:39 | DSPDOC ---
General Date Date DATE: 06/22/16 TIME: 18:31 Attending Physician Sea Leija MD Admitting Physician Sea Leija MD Consulting Physician Chikis Isabel DO Admitting Diagnosis minimally displaced impacted fx left subcapital hip Discharge Diagnosis Cirrhosis unknown etiology, L femur fracture with ORIF, UTI Laboratory Laboratory Tests Test 06/22/16 04:23 Prothromb Time International Ratio 1.83 (0.76-1.04) History of Present Illness 75 yo female with post procedure fall and hip fracture. Came to [facility] to have pacemaker generator changed out, which was successfully completed adn pt was recovered. As she was leaving hospital , she used the bathroom adn slipped and fell,fracturing left hip. She was admitted for surgical ORIF. Post op was worked up for hematuria and Idiopathic cirrhosis of liver noted on CT. She has become deconditioned and weak post op and is unable to manage adls at this time. Hospital Course Patient admitted with left femur fracture and ORIF. She worked with physical therapy and occupational therapy on a daily basis doing at least a minimum 3 hour daily required in the IRU. She attended group activities, and had significant improvement in strength and stability. Medical consult placed regarding cirrhosis of unknown etiology, no specific diagnosis was obtained, but nutrition and other issues were addressed. Patient is discharged to follow- up physical therapy. She will follow-up with orthopedics and with cardiology both as well as with GI. Problems: Code Status Full Code Home Meds Active Scripts Potassium Chloride (Klor-Con M10) 10 Meq Tablet, 10 MEQ PO WB for 30 Days, #30 TAB 11 Refills Prov:CHET MAY APRN 06/22/16 Furosemide (Furosemide) 40 Mg Tablet, 40 MG PO DAILY for 30 Days, #30 TAB 11 Refills Prov:CHET MAY APRN 06/22/16 Lisinopril (Lisinopril) 10 Mg Tablet, 10 MG PO DAILY for HYPERTENSION for 30 Days, #30 TAB Prov:CHET MAY APRN 06/22/16 Metformin HCl (Metformin HCl) 500 Mg Tablet, 500 MG PO DAILY for 30 Days, #30 TAB Take one tablet, by mouth, 2 times a day with Meals. Prov:CHET MAY APRN 06/22/16 Metoprolol Succinate (Metoprolol Succinate) 100 Mg Tab.er.24h, 1 TAB PO DAILY for 30 Days, #90 Prov:CHET MAY Nick BANKS 06/22/16 Warfarin Sodium (Warfarin Sodium) 1 Mg Tablet, 0.5-1 TAB PO DAILY, #90 TAB EVERY OTHER DAY ALTERNATE 1 TAB DAILY AND 1/2 HALF TAB DAILY. Prov:CHET MAY V JOCELYN 06/22/16 Reported Medications Alendronate Sodium (Alendronate Sodium) 70 Mg Tablet, 1 TAB PO WEEKLY, #4 10/22/14 Levothyroxine Sodium (Levothyroxine Sodium) 150 Mcg Tablet, 150 MCG PO DAILY 07/30/12 Discontinued Reported Medications Warfarin Sodium (Warfarin Sodium) 2.5 Mg Tablet, 0.5 TAB PO DAILY, #45 10/22/14 Face to Face Encounter I met with patient on the day of dismissal and discussed follow up appointments , medications, and safety plan. Discharge Disposition Patient discharged to home with physical therapy. Copies To 1: CHIKIS ISABEL CHARLES E MD Jun 22, 2016 18:34
--- NOTE | 2016-06-22 18:59 | NUR ---
DISCHARGE NOTE PATIENT DISCHARGE PAPERWORK GIVEN. F/U APPTS, ACTIVITY, D/C MEDS, HIP FRACTURE EDUCATION AND PRESCRIPTION INFORMATION GIVEN. D/W SON AND PATIENT, VERBALIZED UNDERSTANDING. PATIENT BELONGINGS WITH PATIENT. PATIENT LEFT IRU OUT FRONT EXIT IN WHEELCHAIR WITH PUBLIC RELATIONS MANAGER. LEFT [facility] IN SONS PRIVATE VEHICLE. SCRIPTS CALLED INTO [facility] IN [place].
--- NOTE | 2016-06-27 12:58 | NUR ---
CM FOLLOW UP CALL. LEFT MESSAGE #1
== END 2016-06-22 18:59 | disposition home or self-care (01) | DRG 560 ==
PROVIDERS: ADMIT Family Medicine; ATTEND Family Medicine
DX: S72.002D Fracture of unspecified part of neck of left femur, subsequent encounter for closed fracture with routine healing (principal); I42.9 Cardiomyopathy, unspecified; G72.9 Myopathy, unspecified; K74.60 Unspecified cirrhosis of liver; I48.0 Paroxysmal atrial fibrillation; I10 Essential (primary) hypertension; E11.9 Type 2 diabetes mellitus without complications; Z95.0 Presence of cardiac pacemaker; Z79.01 Long term (current) use of anticoagulants; W01.0XXD Fall on same level from slipping, tripping and stumbling without subsequent striking against object, subsequent encounter
CPT/HCPCS: 36415; 80048; 80053; 83735; 85007; 85025; 85027; 85610; 94761

== ENCOUNTER 2017-06-21 09:02 | Inpatient (IN) ==
[2017-06-21] MEDS ORDERED: ASPIRIN 81 MG CHEWABLE TABLET PO ONE (09:07)
[2017-06-21] MEDS ORDERED: NITROGLYCERIN 0.4 MG SUBLINGUAL TABLET SL PRN (09:07)
[2017-06-21] MEDS ORDERED: ALBUTEROL/IPRATROPIUM 2.5mg-0.5mg/3ml NEB AEROSOL ONE (09:09)
--- NOTE | 2017-06-21 09:10 | Emergency Department Report ---
General Adult HPI - General Stated complaint: found uncons Time Seen by Provider: 06/21/17 09:07 Source: patient, family, EMS Mode of arrival: EMS Limitations: no limitations - History of Present Illness HPI narrative: Patient is a 76-year-old female presents emergency room for evaluation of unresponsive episode. Patient lives in her own in an apartment above her son's restaurant. Family went to check on patient this morning, she was found lying on the floor unresponsive EMS was called. Patient was placed on a nonrebreather at 15 L by nasal cannula, patient started to "come around". Patient denies chest pain shortness of breath. Patient brought to the ER for evaluation. - Related Data Home Medications Medication Instructions Recorded Confirmed Levothyroxine Sodium 150 mcg PO DAILY #0 07/30/12 06/21/17 Alendronate [Fosamax] 70 mg PO Q7D 06/21/17 06/21/17 Celecoxib [CeleBREX] 200 mg PO DAILY 06/21/17 06/21/17 Furosemide [Lasix 40 mg Tab] 40 mg PO DAILY 06/21/17 06/21/17 Lisinopril [Prinivil] 20 mg PO DAILY 06/21/17 06/21/17 Metformin [Glucophage] 500 mg PO DAILY 06/21/17 06/21/17 Metoprolol Succinate 100 mg PO DAILY 06/21/17 06/21/17 Potassium Chloride 20 meq PO DAILY 06/21/17 06/21/17 SACUBITRIL/VALSARTAN 24/26mg 1 tab PO BID 06/21/17 06/21/17 [ENTRESTO 24/26mg] Warfarin Sodium 1 mg PO SUTH 06/21/17 06/21/17 Warfarin [Coumadin] 2 mg PO MOTUWEFRSA 06/21/17 06/21/17 Allergies Allergy/AdvReac Type Severity Reaction Status Date / Time Heparin Analogues Allergy Unknown Verified 06/06/16 13:12 Review of Systems Constitutional: Denies: fever, chills, weakness Eyes: Denies: eye discharge, vision change ENT: Denies: ear pain, throat pain, dental pain Cardiovascular: Denies: chest pain, palpitations, dyspnea on exertion Respiratory: Reports: dyspnea, wheezes. Denies: cough Gastrointestinal: Denies: abdominal pain, nausea, vomiting Genitourinary: Denies: dysuria, frequency Neurological: Denies: headache, weakness, numbness Hematological/Lymphatic: Denies: easy bleeding, easy bruising Allergic/Immunologic: Denies: facial swelling PFSH Patient Stated Medical History Cataracts Yes Hypertension Yes Hx Urinary Tract Infection Yes Medical History Updates: Liver cirrhosis. Proximal atrial fibrillation. Cardiomyopathy. Hypertension. Type II diabetes. Chronic systolic heart failure. Bladder cancer Surgical History: Pacemaker placement with battery change - Social History Substance use type: does not use Alcohol intake frequency: does not drink Physical Exam - Head Head exam: normocephalic - Eye Eye exam: Present: PERRL, EOMI - ENT ENT exam: Present: normal oropharynx, mucous membranes moist, TM's normal bilaterally - Neck Neck exam: Present: full ROM, trachea midline - Chest Chest inspection: Present: symmetric chest wall rise. Absent: tenderness - Respiratory Respiratory exam: Present: normal lung sounds bilaterally, wheezes. Absent: respiratory distress, stridor - Cardiovascular Cardiovascular exam: Present: regular rate, normal rhythm, normal heart sounds - Abdominal Exam Abdominal exam: Present: soft, normal bowel sounds. Absent: distention, tenderness - Extremities Exam Extremities exam: Present: normal capillary refill, other (patient has multiple excoriations and bandages on her bilateral lower extremities with some erythema to the left lower extremity) - Skin Skin exam: Present: warm, dry - Neurological Exam Neurological exam: Present: alert, CN II-XII intact - Expanded Neurological Exam Cranial nerves: Normal: EOM function (II, III, IV, ), facial sensation (V), facial palsy (VII), gag reflex (IX), spinal accessory function (XI), tongue deviation (XII) Motor strength - LUE: 5/5 Motor strength - RUE: 5/5 Motor strength - LLE: 5/5 Motor strength - RLE: 5/5 Sensory exam upper extremity: Normal: light touch Sensory exam lower extremity: Normal: light touch DTR: 2+: biceps (L), biceps (R), patellar (L), patellar (R) Coma scale eye opening: spontaneous Coma scale motor response: obeys commands Coma scale verbal response: oriented Coma scale total: 15 Course Vital Signs Temperature 100.0 F 06/21/17 09:02 Pulse Rate 74 06/21/17 09:02 Respiratory Rate 28 H 06/21/17 09:02 Blood Pressure 148/67 H 06/21/17 09:02 Pulse Oximetry 96 06/21/17 09:02 Temperature 100.0 F 06/21/17 09:02 Pulse Rate 71 06/21/17 10:37 Respiratory Rate 33 H 06/21/17 09:25 Blood Pressure 116/58 06/21/17 10:37 Pulse Oximetry 95 06/21/17 10:37 Medical Decision Making - Medical Records Medical records reviewed: Yes: I reviewed the patient's medical records. - Lab Data Lab results reviewed: Yes: I reviewed the patient's lab results. Result diagrams: 06/21/17 09:46 06/21/17 09:46 Lab Results 06/21/17 06/21/17 06/21/17 Range/Units 09:37 09:46 09:46 WBC 8.0 (4.5-11.0) T/MM3 RBC 5.33 H (4.00-5.20) M/MM3 Hgb 14.2 (12-16) GM/DL Hct 47.0 H (36-46) % MCV 88.2 (80-100) UM3 MCH 26.6 (26-34) UUG MCHC 30.2 L (31-37) GM/DL RDW Std Deviation 62.9 H (36.9-50.2) FL Plt Count 184 (130-400) T/MM3 MPV 10.8 (9.4-12.4) UM3 Immature Gran % (Auto) Not performed Neut % (Auto) Not performed Lymph % (Auto) Not performed Coos % (Auto) Not performed Eos % (Auto) Not performed Baso % (Auto) Not performed Neut # (Auto) Not performed Lymph # (Auto) Not performed Coos # (Auto) Not performed Eos # (Auto) Not performed Baso # (Auto) Not performed Abs Immat Gran (auto) Not performed Neutrophils % (Manual) 89.0 H (33-66) % Band Neutrophils % 3.0 (0-6) % Lymphocytes % (Manual) 5.0 L (23-45) % Monocytes % (Manual) 3.0 (0-9.0) % Neutrophils # (Manual) 7.1 (1.8-7.7) T/MM3 Band Neutrophils # 0.2 T/MM3 Lymphocytes # (Manual) 0.4 L (1-4.8) T/MM3 Monocytes # (Manual) 0.2 (0-0.8) T/MM3 RBC Morph Comment Normal INR 2.37 H (0.92-1.18) Turbidity < 20 (0-20) Sodium 141 (134-144) MEQ/L Potassium 4.2 (3.6-5) MEQ/L Chloride 101 (98-107) MEQ/L Carbon Dioxide 28 (22-30) MEQ/L Anion Gap 12 (5-15) meq/L BUN 16.0 (7-17) MG/DL Creatinine 0.9 (0.7-1.2) mg/dL GFR Calculation 61 BUN/Creatinine Ratio 18 (6-26) RATIO Glucose 127 H (65-110) MG/DL Calculated Osmolality 274 (261-280) MOSM/KG Calcium 8.4 (8.4-10.2) MG/DL Total Bilirubin 1.80 H (0.20-1.30) MG/DL Icterus Index < 2 (0-7) AST 41 H (14-36) U/L ALT 15 (1-35) U/L Alkaline Phosphatase 111 (38-126) U/L Troponin I 0.101 (0-0.12) ng/ml NT-Pro-B Natriuret Pep 8960 H (0-175) pg/mL Total Protein 8.3 H (6.3-8.2) g/dL Albumin 3.7 (3.5-5.0) g/dL Globulin 4.6 H (2.4-3.6) G/DL Albumin/Globulin Ratio 0.8 L (1.1-2.2) RATIO Plasma Lactate 3.9 H (0.6-2.2) MMOL/L TSH 2.15 (0.47-4.68) mIU/L Specimen Hemolysis 18 (0-25) Ur Collection Type Urine Color (YELLOW) Urine Clarity Urine pH (5.0-8.0) Ur Specific Reading (1.015-1.025) Urine Protein (NEGATIVE) Urine Glucose (UA) (NEGATIVE) Urine Ketones (NEGATIVE) Urine Occult Blood (NEGATIVE) Urine Nitrate (NEGATIVE) Urine Bilirubin (NEGATIVE) Urine Urobilinogen (NORMAL) EU/DL Ur Leukocyte Esterase (NEGATIVE) Urine RBC (0-3) /HPF Urine WBC (0-5) /HPF Urine WBC Clumps Ur Squamous Epith Cells Urine Bacteria (NEGATIVE) Ur Culture Indicated? 06/21/17 Range/Units 10:03 WBC (4.5-11.0) T/MM3 RBC (4.00-5.20) M/MM3 Hgb (12-16) GM/DL Hct (36-46) % MCV (80-100) UM3 MCH (26-34) UUG MCHC (31-37) GM/DL RDW Std Deviation (36.9-50.2) FL Plt Count (130-400) T/MM3 MPV (9.4-12.4) UM3 Immature Gran % (Auto) Neut % (Auto) Lymph % (Auto) Coos % (Auto) Eos % (Auto) Baso % (Auto) Neut # (Auto) Lymph # (Auto) Coos # (Auto) Eos # (Auto) Baso # (Auto) Abs Immat Gran (auto) Neutrophils % (Manual) (33-66) % Band Neutrophils % (0-6) % Lymphocytes % (Manual) (23-45) % Monocytes % (Manual) (0-9.0) % Neutrophils # (Manual) (1.8-7.7) T/MM3 Band Neutrophils # T/MM3 Lymphocytes # (Manual) (1-4.8) T/MM3 Monocytes # (Manual) (0-0.8) T/MM3 RBC Morph Comment INR (0.92-1.18) Turbidity (0-20) Sodium (134-144) MEQ/L Potassium (3.6-5) MEQ/L Chloride (98-107) MEQ/L Carbon Dioxide (22-30) MEQ/L Anion Gap (5-15) meq/L BUN (7-17) MG/DL Creatinine (0.7-1.2) mg/dL GFR Calculation BUN/Creatinine Ratio (6-26) RATIO Glucose (65-110) MG/DL Calculated Osmolality (261-280) MOSM/KG Calcium (8.4-10.2) MG/DL Total Bilirubin (0.20-1.30) MG/DL Icterus Index (0-7) AST (14-36) U/L ALT (1-35) U/L Alkaline Phosphatase (38-126) U/L Troponin I (0-0.12) ng/ml NT-Pro-B Natriuret Pep (0-175) pg/mL Total Protein (6.3-8.2) g/dL Albumin (3.5-5.0) g/dL Globulin (2.4-3.6) G/DL Albumin/Globulin Ratio (1.1-2.2) RATIO Plasma Lactate (0.6-2.2) MMOL/L TSH (0.47-4.68) mIU/L Specimen Hemolysis (0-25) Ur Collection Type Urine, void-cc/notcc Urine Color Norma (YELLOW) Urine Clarity Sl cloudy Urine pH 5.5 (5.0-8.0) Ur Specific Reading 1.020 (1.015-1.025) Urine Protein 2+ A (NEGATIVE) Urine Glucose (UA) Negative (NEGATIVE) Urine Ketones Trace A (NEGATIVE) Urine Occult Blood 3+ A (NEGATIVE) Urine Nitrate Negative (NEGATIVE) Urine Bilirubin 1+ A (NEGATIVE) Urine Urobilinogen 1.0 (NORMAL) EU/DL Ur Leukocyte Esterase Trace A (NEGATIVE) Urine RBC 5-10 H (0-3) /HPF Urine WBC 50-200 H (0-5) /HPF Urine WBC Clumps Many H Ur Squamous Epith Cells 20-50 Urine Bacteria 3+ H (NEGATIVE) Ur Culture Indicated? Cult reflexed &setup - Radiology Data Radiology results reviewed: Yes: I reviewed the patient's radiology results. Bilateral edema with left pleural effusion, no obvious infiltrate CT head, no acute findings - EKG Data EKG #1 EKG attestation: Yes: I reviewed and interpreted this EKG. EKG results narrative: Ventricularly paced Disposition Clinical Impression: Sepsis Qualifiers: Sepsis type: sepsis due to unspecified organism Qualified Code(s): A41.9 - Sepsis, unspecified organism UTI (urinary tract infection) Qualifiers: Urinary tract infection type: acute cystitis Hematuria presence: without hematuria Qualified Code(s): N30.00 - Acute cystitis without hematuria Cellulitis Qualifiers: Site of cellulitis: extremity Site of cellulitis of extremity: lower extremity Laterality: left Qualified Code(s): L03.116 - Cellulitis of left lower limb Disposition: 02 To [facility] Acute Care Condition: Stable Prescriptions: No Action Levothyroxine Sodium 150 mcg PO DAILY #0 Metoprolol Succinate 100 mg PO DAILY Lisinopril [Prinivil] 20 mg PO DAILY SACUBITRIL/VALSARTAN 24/26mg [ENTRESTO 24/26mg] 1 tab PO BID Furosemide [Lasix 40 mg Tab] 40 mg PO DAILY Warfarin [Coumadin] 2 mg PO MOTUWEFRSA Warfarin Sodium 1 mg PO SUTH Celecoxib [CeleBREX] 200 mg PO DAILY Alendronate [Fosamax] 70 mg PO Q7D Metformin [Glucophage] 500 mg PO DAILY Potassium Chloride 20 meq PO DAILY Referrals: Wanda Patterson PA [Physician Supervisor [facility]] - Time of Disposition: 10:57 - Seen By: physician
[2017-06-21] MEDS: SALINE FLUSH 10ml SYRINGE IVF PRN ×2 (09:20→12:47)
[2017-06-21] MEDS ORDERED: CEFEPIME 1 GM in NS 100 ML IV ONE (09:36)
--- NOTE | 2017-06-21 10:28 | XRay Report ---
Indication: respiratory distress, O2 requiring PROCEDURE: XR chest 1V: Encounter: Initial Comparison: 06/10/2016 Findings: The examination is slightly expiratory in nature which is causing some prominence of the interstitial markings. There does appear to be some cardiomegaly and pulmonary vascular congestion with mild interstitial edema. There is some blunting of the left costophrenic angle suggesting a small left pleural effusion. There is a left subclavian and CDM place. No pneumothorax. Trachea is midline. No subdiaphragmatic free air. Impression: Mild to moderate CHF with left pleural effusion. .
--- NOTE | 2017-06-21 10:39 | CT Scan Report ---
Indication: unresponsive episode, altered mental status PROCEDURE: CT head/brain wo con: Encounter: Initial Comparison: 07/30/2012 Findings: There is mild prominence of the ventricles and sulci compatible with cortical atrophy. 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 There is no mass, mass effect, or midline shift. No evidence for intracranial hemorrhage. No intra or extra-axial fluid collections. No evidence for depressed skull fracture. The included portions of the sinuses are clear. IMPRESSION: Mild cortical atrophy with fairly extensive periventricular and subcortical white matter changes. No evidence for acute cortical infarct, intracranial hemorrhage, or mass. .
[2017-06-21] MEDS ORDERED: NS FLUSH BAG 500ml IV PRN (11:32)
[2017-06-21] MEDS ORDERED: SALINE FLUSH 10ml SYRINGE IVF PRN (11:32)
[2017-06-21] MEDS ORDERED: ACETAMINOPHEN 500 MG TABLET PO PRN (12:24)
[2017-06-21] MEDS: NS 1,000 ML IV SCH ×2 (12:47→23:12)
[2017-06-21] MEDS: WARFARIN 1 MG TABLET PO SCH ×2 (12:47→14:32)
[2017-06-21] MEDS ORDERED: WARFARIN 1 MG TABLET PO SCH (13:00)
[2017-06-21] MEDS: LISINOPRIL 10 MG TABLET PO SCH (14:26)
[2017-06-21] MEDS: LEVOTHYROXINE 150 MCG TABLET PO SCH (14:27)
--- NOTE | 2017-06-21 16:31 | Internal Med History&Physical ---
Internal Medicine HPI Chief complaint: patient home unconscious History of present illness: Maryann is a very pleasant 76-year-old obese white female. This morning, she was found at home in her bathroom on the floor unresponsive. EMS was called and she began to come around after being placed on a nonrebreather mask. She was then transported to the emergency department where she was diagnosed with sepsis most likely secondary to urinary tract infection. However, she also has what appears to be evidence of peripheral arterial disease most noted on the left lower extremity. 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 She is awake and resting at this time in her room. She was seen and examined in that location. Maryann indicates that she did not lose consciousness however, this is difficult to substantiate since she was deemed unresponsive by EMS. Review of Systems - Constitutional Constitutional: Present: fatigue, weakness. Absent: chills, fever(s), headache( s), night sweats - EENMT Eyes: Absent: blurry vision, loss of vision Balance: Absent: vertigo Mouth/Throat: Present: change in voice. Absent: changes in swallowing - Cardiovascular Cardiovascular: Present: dyspnea on exertion. Absent: chest pain, orthopnea, heart murmur Vascular: Absent: intermittent claudication, pedal edema, phlebitis - Respiratory Respiratory: Present: dyspnea on exertion. Absent: cough, dyspnea, hemoptysis, wheezing - Gastrointestinal Gastrointestinal: Absent: abdominal pain, change in bowel habits, change in stool character - Genitourinary Genitourinary: Absent: dysuria, flank pain, hematuria Menstruation: post hysterectomy - Musculoskeletal Musculoskeletal: Present: abnormal gait (uses a walker), muscle weakness. Absent: deformity - Integumentary/Breasts Integumentary: Present: erythema, wounds (left lower extremity) - Neurological Neurological: Present: abnormal gait, abnormal speech, weakness - Psychiatric Psychiatric: Absent: abnormal sleep pattern, anxiety, depression - Endocrine Endocrine: Absent: flushing, heat intolerance, palpitations - Hematologic/Lymphatic Hematologic/Lymphatic: Absent: easy bleeding, easy bruising, lymphadenopathy PFSH Patient Stated Medical History Cataracts Yes: both Hypertension Yes Diabetes Mellitus Type 2 Yes Hx Urinary Tract Infection Yes Cellulitis Yes: currently Medical History Updates: Liver cirrhosis. Paroxysmal atrial fibrillation. Cardiomyopathy. Hypertension. Type II diabetes. Chronic systolic heart failure. Bladder cancer. 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 Surgical History: Pacemaker placement with battery change - Social History Smoking status: Never smoker Substance use type: does not use Alcohol intake frequency: does not drink Housing: house Household members: none service: No Current occupational status: retired Current occupational exposures/hazards: No Does patient use chewing tobacco?: No Current residence: Apartment/Private Home Medications Home Medications Medication Instructions Recorded Confirmed Type Levothyroxine Sodium 150 mcg PO DAILY #0 07/30/12 06/21/17 History Alendronate [Fosamax] 70 mg PO Q7D 06/21/17 06/21/17 History Celecoxib [CeleBREX] 200 mg PO DAILY 06/21/17 06/21/17 History Furosemide [Lasix 40 mg Tab] 40 mg PO DAILY 06/21/17 06/21/17 History Lisinopril [Prinivil] 20 mg PO DAILY 06/21/17 06/21/17 History Metformin [Glucophage] 500 mg PO DAILY 06/21/17 06/21/17 History Metoprolol Succinate 100 mg PO DAILY 06/21/17 06/21/17 History Potassium Chloride 20 meq PO DAILY 06/21/17 06/21/17 History SACUBITRIL/VALSARTAN 24/26mg 1 tab PO BID 06/21/17 06/21/17 History [ENTRESTO 24/26mg] Warfarin Sodium 1 mg PO SUTH 06/21/17 06/21/17 History Warfarin [Coumadin] 2 mg PO MOTUWEFRSA 06/21/17 06/21/17 History Allergies Allergy/AdvReac Type Severity Reaction Status Date / Time Heparin Analogues Allergy Unknown Verified 06/21/17 11:55 Exam Vital signs: Temperature 98.3 F 06/21/17 15:50 Pulse Rate 69 06/21/17 15:50 Respiratory Rate 32 H 06/21/17 15:50 Blood Pressure 119/64 06/21/17 15:50 Pulse Oximetry 92 06/21/17 15:50 - Constitutional no acute distress, obese, disheveled, cooperative - Routine HEENT Exam Head: Present: normocephalic, atraumatic Eye: Present: EOMI, PERRL, conjunctivae pink. Absent: conjunctival icterus, scleral injection ENT: Present: mucous membranes moist, oropharynx clear Throat: normal inspection, muffled voice - Routine Neck Exam Present: supple, full ROM, JVD. Absent: lymphadenopathy, thyromegaly - Routine Chest/Breast/Axilla Exam Chest wall: Absent: tenderness Axillae: Absent: lymphadenopathy - Routine Respiratory Exam Present: CTA bilaterally. Absent: accessory muscle use, decreased breath sounds - Routine Cardiovascular Exam Present: RRR, no murmur. Absent: S3, S4 - Routine Abdominal Exam Present: soft, normoactive bowel sounds, non distended, non tender - Routine Skin Exam Present: erythema, lesions (excoriations left lower extremity) - Routine Neurological Exam Present: oriented X3, CN II-XII intact. Absent: alert, normal speech - Routine Psychiatric Exam Present: cooperative. Absent: normal affect (sedated) Internal Medicine Results - Labs CBC & Chem 7: 06/21/17 09:46 06/21/17 09:46 Assessment and Plan - Assessment and Plan (1) Sepsis Current visit: Yes Status: Acute (2) Unresponsive episode Current visit: Yes Status: Acute (3) UTI (urinary tract infection) Current visit: Yes Status: Acute (4) Congestive heart failure with cardiomyopathy Current visit: Yes Status: Chronic (5) Diabetes mellitus type 2 in obese Current visit: Yes Status: Acute (6) Peripheral arterial disease Current visit: Yes Status: Chronic (7) Hypertensive CHF Current visit: Yes Status: Chronic (8) Cellulitis Current visit: Yes Status: Acute
[2017-06-21] MEDS: CEFEPIME 1 GM in NS 100 ML IV SCH (22:12)
[2017-06-22] MEDS: LEVOTHYROXINE 150 MCG TABLET PO SCH (06:31)
[2017-06-22 07:23] VITALS: PULSE 70
[2017-06-22] MEDS: LISINOPRIL 10 MG TABLET PO SCH (09:04)
[2017-06-22] MEDS: NS 1,000 ML IV SCH ×2 (09:04→09:24)
[2017-06-22] MEDS: CEFEPIME 1 GM in NS 100 ML IV SCH (09:04)
--- NOTE | 2017-06-22 10:44 | Wound Care Progress Note ---
Wound Center Progress Note: In to see this pt, she was resting. At this time assess her bottom, perineal area which is extremely excoriated. At this time all barrier cream removed and 3M Advance skin Protectant wand applied. Staff and pt were informed to keep pt on her side without a brief and to keep that area open to air. Pt was compliant.
[2017-06-22] MEDS ORDERED: WARFARIN 2 MG TABLET PO SCH (12:00)
--- NOTE | 2017-06-22 12:40 | XRay Report ---
Indication: Sepsis, CHF XR chest 2V: Comparison: 06/21/2017 Technique: Two view chest Findings: Patient continues to show mild cardiac prominence with a permanent pacemaker in position. When compared to the prior day study this probably has not changed significantly. The patient does show slightly better aeration of the lungs than on the prior exam. Patient still showed significant interstitial lung changes bilaterally. The definition of the left hemidiaphragm is slightly better seen on the prior day study. Incidentally noted is a greater than 50% compression fracture at the thoracolumbar junction which has been described on all studies. Impression: 1. Continued cardiomegaly with a permanent pacemaker with increased interstitial markings although perhaps slight better aeration of the lungs and slightly better detail of the left diaphragm than on prior study. Lateral view still support some possible basilar pneumonia on the left. 2. Significant compression deformity at the thoracolumbar junction that has been stable on several prior exams back to 2017 .
--- NOTE | 2017-06-22 13:16 | Wound Care Progress Note ---
Wound Center Progress Note: In to see pt at the request of nursing. Pt has multiple areas where it appears she has been scratching her legs and causing bleeding. Instructed RN to rub A & D Ointment on her legs then cover with Kerlix or Tenhoshapes.
--- NOTE | 2017-06-22 13:24 | Discharge Summary ---
Discharge Information Date of admission: 06/21/17 11:05 Anticipated date of discharge: 06/22/17 Attending Physician: Timothy Duckworth DO Primary care physician: Timothy Duckworth DO Consults: 06/21/17 12:36 [facility] Consult [CONS] Routine - Discharge Diagnosis (1) Sepsis Status: Acute (2) Unresponsive episode Status: Resolved (3) UTI (urinary tract infection) Status: Acute (4) Congestive heart failure with cardiomyopathy Status: Chronic (5) Diabetes mellitus type 2 in obese Status: Acute (6) Peripheral arterial disease Status: Chronic (7) Hypertensive CHF Status: Chronic (8) Cellulitis Status: Acute - Laboratory Labs: 06/22/17 05:21 06/22/17 05:21 History of Present Illness HPI: Maryann is a very pleasant 76-year-old obese white female. This morning, she was found at home in her bathroom on the floor unresponsive. EMS was called and she began to come around after being placed on a nonrebreather mask. She was then transported to the emergency department where she was diagnosed with sepsis most likely secondary to urinary tract infection. However, she also has what appears to be evidence of peripheral arterial disease most noted on the left lower extremity. 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 She is awake and resting at this time in her room. She was seen and examined in that location. Maryann indicates that she did not lose consciousness however, this is difficult to substantiate since she was deemed unresponsive by EMS. Hospital Course This is a general summary of the patient's hospital course. For more details refer to the complete medical record. Time spent with patient: 25 - 35 minutes Discharge Plan - Med Rec/Dispo Referrals/Follow Up: Timothy Duckworth DO [Primary Care Provider] - 07/02/17 10:30 am Prescriptions: New Cefdinir 300 mg PO BID 7 Days #14 cap Continue Levothyroxine Sodium 150 mcg PO DAILY #0 Metoprolol Succinate 100 mg PO DAILY Lisinopril [Prinivil] 20 mg PO DAILY SACUBITRIL/VALSARTAN 24/26mg [ENTRESTO 24/26mg] 1 tab PO BID Furosemide [Lasix 40 mg Tab] 40 mg PO DAILY Warfarin [Coumadin] 2 mg PO MOTUWEFRSA Warfarin Sodium 1 mg PO SUTH Celecoxib [CeleBREX] 200 mg PO DAILY Alendronate [Fosamax] 70 mg PO Q7D Metformin [Glucophage] 500 mg PO DAILY Potassium Chloride 20 meq PO DAILY - Disposition 01 Discharged Home, Self-Care - Dismissal Complete Discharge Instructions are:: Complete
[2017-06-22 14:44] VITALS: BP 108/60; RESP 22; TEMP 98.8; O2SAT 92
[2017-06-22 18:49] VITALS: BMI 28.6
== END 2017-06-22 16:00 | disposition home or self-care (01) | DRG 872 ==
LOC: ED 09:02 → MED 11:05
PROVIDERS: ADMIT Internal Medicine; ATTEND Internal Medicine